=== PATIENT | female | born 1970 | race Caucasian/White ===

== ENCOUNTER 2023-11-08 14:34 | Outpatient (OUT) | payer MEDICARE, SELFPAY ==
--- NOTE | 2023-11-08 15:37 | P.CN_ITS ---
Consult Note: HPI Data of Consult Patient: known to practice within the last 3 years Consult date: 11/08/23 Requesting Physician: Jadyn Osman MD Primary Care Provider: Non-Staff Physician, Consult Narrative Reason for consult: low back, left leg pain Narrative: 53yof who presents for assessment. longstanding low back history, left leg pain. denies trauma to the area. no recent advanced imaging available for review. has tried various medications, but no neuropathic medications. has completed a series of provider directed home exercises for >6 weeks, without lasting benefit. denies adverse med side effects. cc:: CC: Jadyn Osman MD Review of Systems ROS Status of ROS 10 or more systems reviewed and unremark able except as noted in history and below Exam Narrative Exam Narrative: Psych-alert and oriented x 3. Attentive and appropriate, constitutionally normal, displays normal mood and affect per situation. There are no obvious deficits in memory, reasoning, or intellect.? Skin-no obvious rashes, bruising, erythema noted to the patient's area of pain.? Extremities- extremities are warm with minimal edema and palpable pulses. Lumbar-tenderness to palpation noted in the lumbar spine and paraspinal musculature. Pain is elicited with flexion, extension, and lateral rotation of the lumbar spine. Range of motion is diminished with these motions. Facet loading maneuvers are positive. Strength-noted to be unremarkable with the exception of decreased strength rated at 4 out of 5 in left quadriceps femoris, anterior tibialis. Sensory-no notable sensory deficits in the bilateral lower extremities to touch or pinprick in all dermatomal distributions with the exception to decreased sensation to the left L4, 5 dermatomal distribution Coordination remains intact.? Gait remains non-antalgic. Assessment and Plan Assessment and Plan (1) Lumbar stenosis with neurogenic claudication: Plan 53yof who presents for assessment. failed conservative measures, as noted. given worsening symptoms and exam findings, will order lumbar mri without contrast for further info. she is in agreement. meds reviewed. will trial gabapentin 300mg tid. follow up after imaging.
== END 2023-11-08 14:35 | disposition home or self-care (01) ==
LOC: PM 14:34
PROVIDERS: Visit Provider Anesthesiology
DX: M48.062 Spinal stenosis, lumbar region with neurogenic claudication (principal)
CPT/HCPCS: G0463

== ENCOUNTER 2023-11-16 12:57 | Outpatient (OUT) | payer MEDICARE, SELFPAY ==
--- NOTE | 2023-11-16 13:00 | MR_ITS ---
The [address] [address] Patient Name: ANDREEA VALLE MRN: [facility]:[id number] date: 1970 Sex: F Assigned Patient Location: MRI Current Patient Location: Accession/Order Number: [id number] Exam Date: 11/16/2023 13:05 Report Date: 11/16/2023 15:58 At the request of: ADALBERTO MCGUIRE Procedure: MR lumbar spine wo con EXAMINATION: MR lumbar spine wo con HISTORY: Low Back Pain, Lumbar Stenosis COMPARISON: No relevant comparison available. TECHNIQUE: A variety of imaging planes and parameters were utilized for visualization of suspected pathology. FINDINGS: For the purposes of numbering, sagittal T2 image # 8 extends from the T10 vertebral body superiorly to the S2-S3 level inferiorly. PARASPINAL AREA: Normal with no visible mass. BONES: Normal alignment with no acute fracture or spondylolisthesis. Signal abnormality in the vertebral body centered at the L2-L3 and L5-S1 level, Modic 2 inflammatory changes CORD/CAUDA EQUINA: Normal caliber, contour, and signal intensity. DISC LEVELS: 12-L1: No significant disc/facet abnormality, spinal stenosis, or foraminal stenosis. L1-L2: No significant disc/facet abnormality, spinal stenosis, or foraminal stenosis. L2-L3: Moderate to severe disc space narrowing, left greater than right with endplate sclerosis. Moderate diffuse disc/osteophyte complex. Moderate ligamentum flavum hypertrophy and facet osteoarthropathy. Moderate trefoil narrowing of the central canal, axial image #4. No right, moderate left foraminal stenosis L3-L4: Moderate disc space narrowing and disc desiccation. Right base posterior disc protrusion most significant along the left neural foramen. Moderate ligamentum flavum hypertrophy and facet osteoarthropathy. Mild trefoil narrowing of the central canal. No foraminal stenosis L4-L5: Disc desiccation. Left foraminal disc herniation of the protrusion type extending posteriorly up to 7.2 mm narrowing the lateral recess. Severe ligamentum flavum hypertrophy and facet osteophytes arthropathy. Severe central canal and left foraminal stenosis L5-S1: Severe disc space narrowing with endplate sclerosis. Posterior broad-based disc herniation of the protrusion and extrusion components, extending posteriorly up to 4.6 mm in the right neural foramen with severe right foraminal stenosis. No central canal stenosis. Mild left foraminal stenosis MR/MR lumbar spine wo con IMPRESSION: Extensive degenerative changes with central and foraminal stenosis at multiple levels, most significant at L4-L5 where there is severe central and severe left foraminal stenosis Electronically authenticated by: DEVYN BEE Date: 11/16/2023 15:58
== END 2023-11-16 12:58 | disposition home or self-care (01) ==
LOC: MRI 12:57
PROVIDERS: Visit Provider Anesthesiology
DX: M54.50 Low back pain, unspecified (principal); M48.062 Spinal stenosis, lumbar region with neurogenic claudication; M51.36 Other intervertebral disc degeneration, lumbar region
CPT/HCPCS: 72148

== ENCOUNTER 2023-11-18 14:51 | Outpatient (OUT) | payer MEDICARE, SELFPAY ==
--- NOTE | 2023-11-18 15:34 | P.CN_ITS ---
Consult Note: HPI Data of Consult Patient: known to practice within the last 3 years Consult date: 11/08/23 Requesting Physician: Lakeisha Hays NP Primary Care Provider: Non-Staff Physician, Consult Narrative Reason for consult: low back, left leg pain Narrative: 53yof who presents for assessment. longstanding low back history, left leg pain. has tried various medications, including baclofen 5mg BID PRN and gabapentin 300mg TID without moderate relief. has completed a series of provider directed home exercises for >6 weeks, without lasting benefit. denies adverse med side effects. Recent lumbar MRI reviewed as noted below. Patient reports she has failed lumbar ESIs in the past with Dr Doll, and would like to avoid ESIs due to DM and elevated blood sugars. cc:: CC: Lakeisha Hays NP Review of Systems ROS Status of ROS 10 or more systems reviewed and unremark able except as noted in history and below Musculoskeletal Reports: back pain and extremity pain Exam Narrative Exam Narrative: Psych-alert and oriented x 3. Attentive and appropriate, constitutionally normal, displays normal mood and affect per situation. There are no obvious deficits in memory, reasoning, or intellect.? Skin-no obvious rashes, bruising, erythema noted to the patient's area of pain.? Extremities- extremities are warm with minimal edema and palpable pulses. Lumbar-tenderness to palpation noted in the lumbar spine and paraspinal musculature. Pain is elicited with flexion, extension, and lateral rotation of the lumbar spine. Range of motion is diminished with these motions. Facet loading maneuvers are positive. Strength-noted to be unremarkable with the exception of decreased strength rated at 4 out of 5 in left quadriceps femoris, anterior tibialis. Sensory-no notable sensory deficits in the bilateral lower extremities to touch or pinprick in all dermatomal distributions with the exception to decreased sensation to the left L4, 5 dermatomal distribution Coordination remains intact.? Gait remains non-antalgic. Constitutional Documenting provider has reviewed patient's vital signs: yes Common normals: no apparent distress, oriented x3, healthy appearing, alert and well nourished General appearance: cooperative HENCT Common normals: normocephalic, hearing grossly normal bilaterally and moist oral mucous membranes Head and scalp: normocephalic Eye Common normals: PERRL Pupil: PERRL Neck & C-Spine Common normals: full ROM General: normal visual inspection Chest Common normals: inspection of chest normal Respiratory Common normals: normal respiratory effort, no retractions and no use of accessory muscles Neuro Common normals: oriented x3, CN's II-XII intact bilaterally, moves all extremities, no focal motor deficits, no sensory deficits noted and deep tendon reflexes 2+ bilaterally Sensorium/orientation: alert Motor exam: strength 5/5 throughout and no movement abnormalities noted Psych Common normals: mental status grossly normal, thought process normal, cooperative, affect normal, speech normal and activity/motor behavior normal Speech: normal speech Thought process: normal thought process Results Imaging Lumbar MRI: Attestation: I have reviewed the pertinent imaging results. Radiologist's impression: For the purposes of numbering, sagittal T2 image # 8 extends from the T10 vertebral body superiorly to the S2-S3 level inferiorly. PARASPINAL AREA: Normal with no visible mass. BONES: Normal alignment with no acute fracture or spondylolisthesis. Signal abnormality in the vertebral body centered at the L2-L3 and L5-S1 level, Modic 2 inflammatory changes CORD/CAUDA EQUINA: Normal caliber, contour, and signal intensity. DISC LEVELS: 12-L1: No significant disc/facet abnormality, spinal stenosis, or foraminal stenosis. L1-L2: No significant disc/facet abnormality, spinal stenosis, or foraminal stenosis. L2-L3: Moderate to severe disc space narrowing, left greater than right with endplate sclerosis. Moderate diffuse disc/osteophyte complex. Moderate ligamentum flavum hypertrophy and facet osteoarthropathy. Moderate trefoil narrowing of the central canal, axial image #4. No right, moderate left foraminal stenosis L3-L4: Moderate disc space narrowing and disc desiccation. Right base posterior disc protrusion most significant along the left neural foramen. Moderate ligamentum flavum hypertrophy and facet osteoarthropathy. Mild trefoil narrowing of the central canal. No foraminal stenosis L4-L5: Disc desiccation. Left foraminal disc herniation of the protrusion type extending posteriorly up to 7.2 mm narrowing the lateral recess. Severe ligamentum flavum hypertrophy and facet osteophytes arthropathy. Severe central canal and left foraminal stenosis L5-S1: Severe disc space narrowing with endplate sclerosis. Posterior broad-based disc herniation of the protrusion and extrusion components, extending posteriorly up to 4.6 mm in the right neural foramen with severe right foraminal stenosis. No central canal stenosis. Mild left foraminal stenosis Additional Findings Additional findings: If on a controlled substance or opioids, I have checked an [place]AR[place] report on this patient and there are no aberrancies noted in the prescribing history.??If on a controlled substance or opioid a drug screen was completed and reviewed within the last year, and if there has not been a drug screen completed we ordered one today to monitor higher risk, state monitored pain medication use. As part of providing excellent, safe, comprehensive care, the following was completed at our patient's visit: 1. A medication reconciliation and review to ensure accurate knowledge of current/active medications, including asking our patients to inform us about any [id number] medications or herbal remedies/nutritional supplements/alterna tive remedies. 2. A review to specifically ensure our patients have had annual screening for screening for depression, screening for tobacco use, and screening for unhealthy alcohol use. For concerning screenings had a discussion with the patient, provided patient education, and recommended follow-up with primary care provider when appropriate. If patient noted with a risk of falling, they received education on strength, gait, and balance training to prevent future risk of falling. Assessment and Plan Assessment and Plan (1) Lumbar stenosis with neurogenic claudication: (2) Lumbar degenerative disc disease: (3) Lumbar facet arthropathy: Plan Lumbar MRI reviewed with patient. Defer ESIs at this time. Not a candidate for vertiflex due to obesity. Dr Osman to review case for consideration of spinal cord stimulator. I reviewed the trial, risks vs benefits, and provided handout to patient today. Psych evaluation handout provided. With recent A1c around 9% we will request blood work from PCP and formulate A1c goal
== END 2023-11-18 14:52 | disposition home or self-care (01) ==
LOC: PM 14:52
PROVIDERS: Visit Provider Nurse Practitioner
DX: M48.062 Spinal stenosis, lumbar region with neurogenic claudication (principal); M51.36 Other intervertebral disc degeneration, lumbar region; M47.816 Spondylosis without myelopathy or radiculopathy, lumbar region
CPT/HCPCS: G0463

== ENCOUNTER 2024-03-08 13:11 | Outpatient (OUT) | payer MEDICARE, SELFPAY ==
--- NOTE | 2024-03-08 13:51 | P.CN_ITS ---
Consult Note: HPI Data of Consult Patient: known to practice within the last 3 years Consult date: 11/08/23 Requesting Physician: Lakeisha Hays NP Primary Care Provider: Non-Staff Physician, MD Consult Narrative Reason for consult: low back, left leg pain Narrative: 53yof who presents for assessment. longstanding low back history, left leg pain. has tried various medications, including baclofen 5mg BID PRN and gabapentin 300mg TID without moderate relief. has completed a series of provider directed home exercises for >6 weeks, without lasting benefit. denies adverse med side effects. Recent lumbar MRI reviewed as noted below. Patient reports she has failed lumbar ESIs in the past with Dr Doll, and would like to avoid ESIs due to DM and elevated blood sugars. Patient had expressed interest in a spinal cord stimulator but met with Dr Jackie OCONNOR who performed L2-S1 fusion on 02/01/24. Since her surgery she has had increased numbness tingling and radicular pain. Has home health and in home PT. cc:: CC: Lakeisha Hays NP Review of Systems ROS Status of ROS 10 or more systems reviewed and unremark able except as noted in history and below Musculoskeletal Reports: back pain and extremity pain PFSH PFSH Medical History (Updated 03/08/24 @ 13:54 by Lakeisha Hays NP) Biceps muscle tear ?S46.219A - Strain of muscle, fascia and tendon of other parts of biceps, unspecified arm, initial encounter (ICD-10) TMJ (dislocation of temporomandibular joint) ?S03.00XA - Dislocation of jaw, unspecified side, initial encounter (ICD-10) Psoriatic arthritis ?L40.50 - Arthropathic psoriasis, unspecified (ICD-10) Anxiety ?F41.9 - Anxiety disorder, unspecified (ICD-10) Diabetes ?E11.9 - Type 2 diabetes mellitus without complications (ICD-10) COPD (chronic obstructive pulmonary disease) ?J44.9 - Chronic obstructive pulmonary disease, unspecified (ICD-10) HTN (hypertension) ?I10 - Essential (primary) hypertension (ICD-10) Surgical History History of hysterectomy ?Z90.710 - Acquired absence of both cervix and uterus (ICD-10) History of arthroscopic knee surgery ?Z98.890 - Other specified postprocedural states (ICD-10) Hx of cholecystectomy ?Z90.49 - Acquired absence of other specified parts of digestive tract (ICD- 10) H/O section ?Z98.891 - History of uterine scar from previous surgery (ICD-10) Meds Home Medications and Allergies Home Medications ?Medication ?Instructions ?Recorded ?Confirmed ?Type gabapentin 300 mg capsule 300 mg PO TID #90 caps 12/20/23 Rx abatacept 125 mg/mL subcutaneous 125 mg subcut QWEEK 01/04/24 01/04/24 History syringe (Orencia) amlodipine 10 mg tablet 10 mg PO DAILY 01/04/24 01/04/24 History atorvastatin 40 mg tablet 40 mg PO DAILY 01/04/24 01/04/24 History baclofen 10 mg tablet 10 mg PO BID 01/04/24 01/04/24 History carvedilol 25 mg tablet 25 mg PO BID 01/04/24 01/04/24 History clobetasol 0.05 % topical ointment 1 applic topical BID 01/04/24 01/04/24 History conjugated estrogens 0.3 mg tablet 0.3 mg PO DAILY 01/04/24 01/04/24 History (Premarin) ezetimibe 10 mg tablet 10 mg PO DAILY 01/04/24 01/04/24 History famotidine 20 mg tablet 20 mg PO BID 01/04/24 01/04/24 History fluticasone propionate 50 2 spray intranasal DAILY PRN 01/04/24 01/04/24 History mcg/actuation nasal allergy symptoms spray,suspension (24 Hour Allergy Relief) glipizide 10 mg tablet 10 mg PO BID 01/04/24 01/04/24 History hydroxyzine HCl 25 mg tablet 25 mg PO QID PRN nausea and 01/04/24 01/04/24 History vomiting levothyroxine 125 mcg capsule 125 mcg PO DAILY 01/04/24 01/04/24 History losartan 100 mg tablet 100 mg PO DAILY 01/04/24 01/04/24 History ropinirole 0.25 mg tablet 0.25 mg PO DAILY 01/04/24 01/04/24 History semaglutide 2 mg/dose (8 mg/3 mL) 2 mg subcut QWEEK 01/04/24 01/04/24 History subcutaneous pen injector (Ozempic) spironolactone 50 mg tablet 50 mg PO DAILY 01/04/24 01/04/24 History venlafaxine 75 mg tablet 75 mg PO DAILY 01/04/24 01/04/24 History gabapentin 300 mg capsule 300 mg PO TID #90 caps 02/08/24 Rx Allergies Allergy/AdvReac Type Severity Reaction Status Date / Time adhesive Allergy Blister Verified 12/20/23 13:01 shellfish derived Allergy Vomiting Verified 12/20/23 13:01 Exam Constitutional Documenting provider has reviewed patient's vital signs: yes Common normals: no apparent distress, oriented x3, healthy appearing, alert and well nourished General appearance: cooperative HENMT Common normals: normocephalic, hearing grossly normal bilaterally and moist oral mucous membranes Head and scalp: normocephalic Eye Common normals: PERRL Pupil: PERRL Neck & C-Spine Common normals: full ROM General: normal visual inspection Chest Common normals: inspection of chest normal Respiratory Common normals: normal respiratory effort, no retractions and no use of accessory muscles Back & Pelvis Lumbar spine/lower back: ROM limited, pain with ROM, paraspinal muscle tenderness and straight leg raise positive left; abnormal to inspection Other: surgical scar without drainage, however two areas of seperation noted and erythema around the incision. pt reports intense itching. strength 4/5 in LLE, 5/5 in RLE decreased sensation to left L4,5,S1 Neuro Common normals: oriented x3, CN's II-XII intact bilaterally, moves all extremities, no focal motor deficits, no sensory deficits noted and deep tendon reflexes 2+ bilaterally Sensorium/orientation: alert Gait (neuro): assistive device used walker Motor exam: no movement abnormalities noted and strength abnormal Psych Common normals: mental status grossly normal, thought process normal, cooperative, affect normal, speech normal and activity/motor behavior normal Speech: normal speech Thought process: normal thought process Results Additional Findings Additional findings: If on a controlled substance or opioids, I have checked an [place]AR[place] report on this patient and there are no aberrancies noted in the prescribing history.??If on a controlled substance or opioid a drug screen was completed and reviewed within the last year, and if there has not been a drug screen completed we ordered one today to monitor higher risk, state monitored pain medication use. As part of providing excellent, safe, comprehensive care, the following was completed at our patient's visit: 1. A medication reconciliation and review to ensure accurate knowledge of current/active medications, including asking our patients to inform us about any [id number] medications or herbal remedies/nutritional supplements/alternative remedies. 2. A review to specifically ensure our patients have had annual screening for screening for depression, screening for tobacco use, and screening for unhealthy alcohol use. For concerning screenings had a discussion with the patient, provided patient education, and recommended follow-up with primary care provider when appropriate. If patient noted with a risk of falling, they received education on strength, gait, and balance training to prevent future risk of falling. Assessment and Plan Assessment and Plan (1) Status post lumbar spinal fusion: (2) Lumbar stenosis with neurogenic claudication: (3) Lumbar spondylosis: (4) Myalgia: Plan advised pt to reach out to NS regarding incision healing, has homehealth with nurse coming tomorrow to assess increase gabapentin 600mg tablets TID as tolerated stop baclofen, start methocarbamol 500-1000mg TID PRN pain/spasms continue PT f/u 3 months, sooner if needed
== END 2024-03-08 13:12 | disposition home or self-care (01) ==
LOC: PM 13:11
PROVIDERS: Visit Provider Nurse Practitioner
DX: M43.26 Fusion of spine, lumbar region (principal); Z98.1 Arthrodesis status; M48.062 Spinal stenosis, lumbar region with neurogenic claudication; M47.816 Spondylosis without myelopathy or radiculopathy, lumbar region; M79.10 Myalgia, unspecified site
CPT/HCPCS: G0463

== ENCOUNTER 2024-11-22 14:40 | Outpatient (OUT) | payer MEDICARE, SELFPAY ==
--- NOTE | 2024-11-22 15:05 | PM.CN ---
Consult Note: HPI Data of Consult Patient: known to practice within the last 3 years Consult date: 11/22/24 Requesting Physician: Lakeisha Hays NP Primary Care Provider: Non-Staff Physician, MD Consult Narrative Reason for consult: low back, left leg pain Narrative: 54yof who presents for assessment. longstanding low back history, left leg pain. has completed a series of provider directed home exercises for >6 weeks, without lasting benefit. denies adverse med side effects. Recent lumbar MRI reviewed as noted below. Patient reports she has failed lumbar ESIs in the past with Dr Doll, and would like to avoid ESIs due to DM and elevated blood sugars. Patient had expressed interest in a spinal cord stimulator but met with Dr Jackie OCONNOR who performed L2-S1 fusion on 02/01/24. continues to endorse left leg and foot numbness tingling and weakness, has been evaluated by ELVIN who recommends pt continue gabapentin. cc:: CC: Lakeisha Hays NP [facility] Medical History (Updated 11/22/24 @ 15:11 by Lakeisha Hays NP) Biceps muscle tear �S46.219A - Strain of muscle, fascia and tendon of other parts of biceps, unspecified arm, initial encounter (ICD-10) TMJ (dislocation of temporomandibular joint) �S03.00XA - Dislocation of jaw, unspecified side, initial encounter (ICD-10) Psoriatic arthritis �L40.50 - Arthropathic psoriasis, unspecified (ICD-10) Anxiety �F41.9 - Anxiety disorder, unspecified (ICD-10) Diabetes �E11.9 - Type 2 diabetes mellitus without complications (ICD-10) COPD (chronic obstructive pulmonary disease) �J44.9 - Chronic obstructive pulmonary disease, unspecified (ICD-10) HTN (hypertension) �I10 - Essential (primary) hypertension (ICD-10) Surgical History History of hysterectomy �Z90.710 - Acquired absence of both cervix and uterus (ICD-10) History of arthroscopic knee surgery �Z98.890 - Other specified postprocedural states (ICD-10) Hx of cholecystectomy �Z90.49 - Acquired absence of other specified parts of digestive tract (ICD-10) H/O section �Z98.891 - History of uterine scar from previous surgery (ICD-10) Meds Home Medications and Allergies Home Medications �Medication �Instructions �Recorded �Confirmed �Type gabapentin 300 mg capsule 300 mg PO TID #90 caps 12/20/23 Rx abatacept 125 mg/mL subcutaneous 125 mg subcut QWEEK 01/04/24 01/04/24 History syringe (Orencia) amlodipine 10 mg tablet 10 mg PO DAILY 01/04/24 01/04/24 History atorvastatin 40 mg tablet 40 mg PO DAILY 01/04/24 01/04/24 History baclofen 10 mg tablet 10 mg PO BID 01/04/24 01/04/24 History carvedilol 25 mg tablet 25 mg PO BID 01/04/24 01/04/24 History clobetasol 0.05 % topical ointment 1 applic topical BID 01/04/24 01/04/24 History conjugated estrogens 0.3 mg tablet 0.3 mg PO DAILY 01/04/24 01/04/24 History (Premarin) ezetimibe 10 mg tablet 10 mg PO DAILY 01/04/24 01/04/24 History famotidine 20 mg tablet 20 mg PO BID 01/04/24 01/04/24 History fluticasone propionate 50 2 spray intranasal DAILY PRN 01/04/24 01/04/24 History mcg/actuation nasal allergy symptoms spray,suspension (24 Hour Allergy Relief) glipizide 10 mg tablet 10 mg PO BID 01/04/24 01/04/24 History hydroxyzine HCl 25 mg tablet 25 mg PO QID PRN nausea and 01/04/24 01/04/24 History vomiting levothyroxine 125 mcg capsule 125 mcg PO DAILY 01/04/24 01/04/24 History losartan 100 mg tablet 100 mg PO DAILY 01/04/24 01/04/24 History ropinirole 0.25 mg tablet 0.25 mg PO DAILY 01/04/24 01/04/24 History semaglutide 2 mg/dose (8 mg/3 mL) 2 mg subcut QWEEK 01/04/24 01/04/24 History subcutaneous pen injector (Ozempic) spironolactone 50 mg tablet 50 mg PO DAILY 01/04/24 01/04/24 History venlafaxine 75 mg tablet 75 mg PO DAILY 01/04/24 01/04/24 History gabapentin 300 mg capsule 300 mg PO TID #90 caps 02/08/24 Rx Allergies Allergy/AdvReac Type Severity Reaction Status Date / Time adhesive Allergy Blister Verified 12/20/23 13:01 shellfish derived Allergy Vomiting Verified 12/20/23 13:01 Exam Constitutional Documenting provider has reviewed patient's vital signs: yes Common normals: no apparent distress, oriented x3, healthy appearing, alert and well nourished General appearance: cooperative HENMT Common normals: normocephalic, hearing grossly normal bilaterally and moist oral mucous membranes Head and scalp: normocephalic Eye Common normals: PERRL Pupil: PERRL Neck & C-Spine Common normals: full ROM General: normal visual inspection Chest Common normals: inspection of chest normal Respiratory Common normals: normal respiratory effort, no retractions and no use of accessory muscles Back & Pelvis Lumbar spine/lower back: ROM limited, pain with ROM, paraspinal muscle tenderness and straight leg raise positive left; abnormal to inspection Other: strength 4/5 in LLE, 5/5 in RLE decreased sensation to left L4,5,S1 Neuro Common normals: oriented x3 Sensorium/orientation: alert Gait (neuro): assistive device used walker Motor exam: no movement abnormalities noted and strength abnormal Psych Common normals: mental status grossly normal, thought process normal, cooperative, affect normal, speech normal and activity/motor behavior normal Speech: normal speech Thought process: normal thought process Results Additional Findings Additional findings: If on a controlled substance or opioids, I have checked an [place] report on this patient and there are no aberrancies noted in the prescribing history.��If on a controlled substance or opioid a drug screen was completed and reviewed within the last year, and if there has not been a drug screen completed we ordered one today to monitor higher risk, state monitored pain medication use. As part of providing excellent, safe, comprehensive care, the following was completed at our patient's visit: 1. A medication reconciliation and review to ensure accurate knowledge of current/active medications, including asking our patients to inform us about any xulm-wjt-aeozoro medications or herbal remedies/nutritional supplements/alternative remedies. 2. A review to specifically ensure our patients have had annual screening for screening for depression, screening for tobacco use, and screening for unhealthy alcohol use. For concerning screenings had a discussion with the patient, provided patient education, and recommended follow-up with primary care provider when appropriate. If patient noted with a risk of falling, they received education on strength, gait, and balance training to prevent future risk of falling. Portions of this note may have been carried over from the previous visit and updated as appropriate. Please note this office utilizes paper charting in addition to the electronic medical record. A list of current medications, vitals, and PMH is available there as the clinical staff outside of myself do not have access to [employer] charting during the clinic day operations. As part of providing quality comprehensive care the current medications, vitals, and PMH were reviewed in the paper chart. Assessment and Plan Assessment and Plan (1) Lumbar radiculopathy: (2) Failed back syndrome, lumbar: (3) Myalgia: Plan declining lumbar TFESI declining increase in gabapentin, continue gabapentin 300mg BID consider scs trial in the future, upcoming NS appointment 02/01 f/u 3 months, sooner if needed
== END 2024-11-22 14:41 | disposition home or self-care (01) ==
LOC: PM 14:41
PROVIDERS: Visit Provider Nurse Practitioner
DX: M54.16 Radiculopathy, lumbar region (principal); M96.1 Postlaminectomy syndrome, not elsewhere classified; M79.18 Myalgia, other site
CPT/HCPCS: G0463

== ENCOUNTER 2025-02-22 13:47 | Outpatient (OUT) | payer MEDICARE, SELFPAY ==
--- OUTSIDE RECORDS SUMMARY | 2024-07-21 06:50 | XMS_ITS ---
Author Organization [facility] Address [address] [place] [address] Care Team Providers Care Speed Operator Name Role Phone ROLAND SAMUELS CNP Primary Care Provider [facility], [place] Unavailable [phone] REASON FOR VISIT LUMBAR RECHECK Medications Medication SIG (Take, Route, Frequency, Duration) Notes Start Date End Date Status Ozempic 8 mg/3 mL (2 mg dose) INJECT 2 MG UNDER THE SKIN EVERY WEEK for 28 Days Active baclofen 10 mg TAKE 1 TABLET BY RAMU TH TWICE DAILY for 90 Days Active spironolactone 50 mg TAKE 1 TABLET BY MO UTH DAILY for 35 Days Active ezetimibe 10 mg for 30 Days Ac tive gabapentin 300 mg for 30 Days Active rOPINIRole Active carvedilol 25 mg for 90 Days A ctive levothyroxine 125 mcg (0.125 mg) 1 tab(s) Active losartan Active amLODIPine Active atorvastatin Active Orencia Active metFORMIN Active Effexor XR Active Encounters Encounter Location Date Provider Diagnosis [facility] [address] [place] [id number] 07/21/2024 Selvojerome Anna Plan Of Treatment Pending Test Test Name Order Date Lumbar spine, 4v flex ext - 52996 2024 Progress Notes * ANDREEA VALLE ADOB: [birth year] (54 yo F)Acc No.[id number]:07/21/2024 Patient: ANDREEA ROMERO Provider: Vivek Carrion MD, PhD :1970 A ge:54 Y S ex:Female Date:07/21/2024 Address:[place], [id number] Pcp:ROLAND SAMUELS, CONSUMER EXPERIENCE CONSULTANT Subjective: * Chief Complaints: * 1 . LUMBAR RECHECK. * Medical History: * Medications: T aking Effexor XR , Taking Orencia , Taking metFORMIN , Taking atorvastatin , Taking rOPINIRole , Taking losartan , Taking amLODIPine , Taking levothyroxine 125 mcg (0.125 mg) tablet 1 tab(s) , Taking carvedilol 25 mg tablet , Taking gabapentin 300 mg capsule , Taking spironolactone 50 mg tablet TAKE 1 TABLET BY MOUTH DAILY , Taking ezetimibe 10 mg tablet , Taking Ozempic 8 mg/3 mL (2 mg dose) solution INJECT 2 MG UNDER THE SKIN EVERY WEEK , Taking baclofen 10 mg tablet TAKE 1 TABLET BY MOUTH TWICE DAILY Objective: * Vitals: Assessment: Plan: * Treatment: * Procedure Codes: 7 2109 X-ray Lumbar Spine, 5 view complete Forms: * Images: * Electronic signature of Selyola Castillo MD, PHD on 02/22/2025 at 01:51 PM EDT Sign off status: Pending * Provider: Vivek Carrion MD, PhD Date: 0 07/21/2024 Generated for Mady proctor/Becka/Alexitting on: 1 01:51 PM EDT
--- OUTSIDE RECORDS SUMMARY | 2025-02-02 07:10 | XMS_ITS ---
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 LUMBAR RECHECK- -RESCHEDULE TO . * Medical History: Objective: * Vitals: Assessment: Plan: * Treatment: Forms: * Images: * Electronic signature of Simon Li PA-C on 02/22/2025 at 01:52 PM EDT Sign off status: Pending * Provider: Rock Li PA-C Date: 0 02/02/2025 Generated for Mady proctor/Becka/Manuel on: 1 01:52 PM EDT
--- OUTSIDE RECORDS SUMMARY | 2025-02-08 07:00 | XMS_ITS ---
Author Organization [facility] Address [address] [place] [address] Care Team Providers Care Barrel Bander Name Role Phone ROLAND SAMUELS CNP Primary Care Provider Unavailabl Bran Man Unavailable [phone] Tad Li Unavailable [phone] Allergies Allergen (clinical drug ingredient) Drug/Non Drug Allergy documented on EMR Reaction Allergy Type Onset Date Status Seafood seafood (uncoded) nausea/vomiting Allergy Active sulfa (uncoded) nausea/vomiting Allergy Active Reason For Referral Reason NO AUTH REQ......... ..........................NOT SCHEDULED....................................[facility] MRI lumbar spine at [facility] Diagnosis 1 Encounter for other orthopedic aftercare (Z47.89) Diagnosis 2 Left leg weakness (R 29.898) Diagnosis 3 Left foot drop (M21. 372) Referral Organization [facility] Referring Provider First Name Bran Referring Provider Last Name Anna Referring Provider Speciality Orthopedic Surgery Referred Organization [facility] Scheduling Procedure 1 MRI Lumbar Spine w/o Dye (01901) General Notes Birdie Bruner 06/2024 12:05:24 PM >, Rafaela Cook 02/08/2025 12:07:30 PM > MEDICARE PARTS A & B ACTIVE AND EFFECTIVE 10/08/20 PER [employer]. NO AUTHORIZATION REQUIRED. FAXED TO [facility]., Birdie Bruner 02/08/2025 02:14:21 PM > faxed Referral Priority Routine Reason referral to Dr. Smyth rne; left lower extremity EMG Diagnosis 1 Encounter for other orthopedic aftercare (Z47.89) Diagnosis 2 Left foot drop (M21. 372) Diagnosis 3 Left leg weakness (R 29.898) Referral Organization [facility] Referring Provider First Name Bran Referring Provider Last Name Anna Referring Provider Speciality Orthopedic Surgery Referred Organization [facility] Referred [address], [place],[address], General Notes Birdie Bruner 06/2024 12:06:29 PM >Franc Sara 02/14/2025 02:10:25 PM > faxed Referral Priority Routine REASON FOR VISIT Lumbar recheck Medications Medication SIG (Take, Route, Frequency, Duration) Notes Start Date End Date Status losartan Active Orencia Active metFORMIN Active atorvastatin Active rOPINIRole Active spironolactone 50 mg TAKE 1 TABLET BY MO UTH DAILY for 35 Days Active Effexor XR Active ezetimibe 10 mg for 30 Days Ac tive Ozempic 8 mg/3 mL (2 mg dose) INJECT 2 MG UNDER THE SKIN EVERY WEEK for 28 Days Active baclofen 10 mg TAKE 1 TABLET BY RAMU TH TWICE DAILY for 90 Days Active carvedilol 25 mg for 90 Days A ctive gabapentin 300 mg for 30 Days Active amLODIPine Active levothyroxine 125 mcg (0.125 mg) 1 tab(s) Active Social History Tobacco Use: Social History Observation Description Date Details (start date - stop date) Never Smoker NA - NA AUDIT-C (Standard) Question Answer Notes Did you have a drink containing alcohol in the p ast year? No Points 0 Interpretation Negative Tobacco Control (Standard) Question Answer Notes Tobacco use: Nonsmoker Vital Signs Height 5 ft 4 in in 02/08/2025 Weight 265 lbs 02/08/2025 BMI 45.48 02/08/2025 Encounters Encounter Location Date Provider Diagnosis [facility] [place] [address] 02/08/2025 Tad Li Encounter for other orthopedic aftercare Z47.89 ; Left leg weakness R29.898 and Left foot drop M21.372 Assessments Encounter Date Diagnosis (ICD Code) Assessment Notes Treatment Notes Treatment Clinical Notes Section Notes 02/08/2025 Encounter for other orthopedic aftercare (ICD-10 - Z47.89) 1. 1 year status post L2-S1 decompression and fusion with complaints of left leg weakness and left foot drop 02/08/2025 Left leg weakness (ICD-10 - R29.898) 1. 1 year status post L2-S1 decompression and fusion with complaints of left leg weakness and left foot drop 02/08/2025 Left foot drop (ICD-10 - M21.372) 1. 1 year status post L2-S1 decompression and fusion with complaints of left leg weakness and left foot drop 02/08/2025 Other Plan established by Dr. Carrion. Patient seen and evaluated by Dr. Carrion today. We will set her up with an updated MRI of the lumbar spine given her ongoing left foot drop and left leg weakness. We also get an EMG of the left lower extremity. We will see her back in the office after the imaging is completed to discuss results and treatment options. The patient is very much in agreement with the treatment and/or diagnostic plan set forth and all questions were answered to the patient's satisfaction. Thanks once again. If we can be of further service to your patients with disorders of the spine, cervical, thoracic, or lumbar, please do not hesitate to contact Dr. Carrion. Best regards, 1. 1 year status post L2-S1 decompression and fusion with complaints of left leg weakness and left foot drop Plan Of Treatment Treatment Notes Assessment Notes Other Plan established by Dr. Carrion. Patient seen and evaluated by Dr. Carrion today. We will set her up with an updated MRI of the lumbar spine given her ongoing left foot drop and left leg weakness. We also get an EMG of the left lower extremity. We will see her back in the office after the imaging is completed to discuss results and treatment options. The patient is very much in agreement with the treatment and/or diagnostic plan set forth and all questions were answered to the patient's satisfaction. Thanks once again. If we can be of further service to your patients with disorders of the spine, cervical, thoracic, or lumbar, please do not hesitate to contact Dr. Carrion. Best regards, Pending Test Test Name Order Date Lumbar spine, 4v flex ext - 14862 2024 MRI : Lumbosacral Spine W/O Contrast - 7 214702/08/2025 EMG/NCS Lower Extremity, Left 02/08/2025 Referrals Referral Date Details 02/08/2025 02/08/2025, NO AUTH REQ...................................NOT SCHEDULED....................................[facility] MRI lumbar spine at [facility], 02/08/2025 02/08/2025, referral to Dr. Scott; left lower extremity EMG, [address] [place], [address], Next Appt Details Follow Up: after mri/ emgAnkit: Progress Notes * TIMOTHY VALLEH ADOB: [birth year] (54 yo F)Acc No.[id number]:02/08/2025 Patient: ANDREEA ROMERO Provider: Rock Li PA-C :1970 A ge:54 Y S ex:Female Date:02/08/2025 Address:[address] [place], [place] [phone] Pcp:ROLAND SAMUELS, BOMBSIGHT SPECIALIST Subjective: * Chief Complaints: * 1 . Lumbar recheck. * HPI: H PI: Dictated by Tad Li PA-C The patient returns to the office today 1 year status post L2-S1 decompression and fusion. She reports ongoing weakness in the left leg and feels like it gives out. She states her back is feeling good and she denies having any significant leg pain. She does have some numbness from the mid left metcalf into the 1st and 2nd toe. She also has an ongoing left foot drop, no significant change since her last appointment. * Medical History: H igh Blood Pressure, Liver Disease, Diabetes, Thyroid disease, Gastric Reflux, Irritable bowel syndrome, Osteoarthritis, Endometriosis, Ovarian Cysts, Anxiety, Seen a Psychiatrist, Sleep apnea, Drug Allergies. * Surgical History: L 4-S1 TLIF, L2-3 laminectomy, PSF 02/01/2024. * Family History: N o Family History documented.. * Social History: E xercise regularly D o you exercise? Y es, H ow many times per week? 2 times. [address] is your place of residence? W here do you live? P rivate home. A LAVONNE-C (Standard) D id you have a drink containing alcohol in the past year? N o, P oints 0 , Interpretation N egative. T obacco Control (Standard) T obacco use: N onsmoker.? * Medications: T aking Effexor XR , [...] TAKE 1 TABLET BY MOUTH TWICE DAILY , Medication List reviewed and reconciled with the patient * Allergies: S ulfa: Nausea/vomiting, Seafood: Nausea/vomiting. Objective: * Vitals: H t: 5 ft 4 in, Wt: 265 lbs, BMI:45.48. * Examination: G eneral examination: O n examination, the patient is well-developed, well-nourished, well-groomed, alert and oriented x3, normal mood. Antalgic gait. Well-healed lumbar incision. 5/5 muscle strength bilateral lower extremities except 3+ out of 5 left tibialis anterior. Sensory intact lower extremities. X -ray Imaging Studies: X -rays of the lumbar spine, 4 views AP, lateral, flexion extension done in the office today show instrumentation from L2-1. No complications with the hardware. No signs of any Instability or acute fractures. Assessment: * Assessment: 1. E ncounter for other orthopedic aftercare - Z47.89 (Primary) 2 . L eft leg weakness - R29.898 3 . L eft foot drop - M21.372 1. 1 year status post L2-S1 decompression and fusion with complaints of left leg weakness and left foot drop. Plan: * Treatment: 2. L eft leg weakness L AB: EMG/NCS Lower Extremity, Left I maging: MRI : Lumbosacral Spine W/O Contrast - 41207 Referral To: Reason:NO AUTH REQ...................................NOT SCHEDULED.................................. ..[facility] MRI lumbar spine at [facility] Referral To: Reason:referral to Dr. Scott; left lower extremity EMG 3. L eft foot drop I maging: MRI : Lumbosacral Spine W/O Contrast - [id number] Referral To: Reason:NO AUTH REQ...................................NOT SCHEDULED.................................. ..[facility] MRI lumbar spine at [facility] Referral To: Reason:referral to Dr. Scott; left lower extremity EMG 4. O thers I maging: Lumbar spine, 4v flex ext - [id number] Notes: Plan established by Dr. Carrion. Patient seen and evaluated by Dr. Carrion today. We will set her up with an updated MRI of the lumbar spine given her ongoing left foot drop and left leg weakness. We also get an EMG of the left lower extremity. We will see her back in the office after the imaging is completed to discuss results and treatment options. The patient is very much in agreement with the treatment and/or diagnostic plan set forth and all questions were answered to the patient's satisfaction. Thanks once again. If we can be of further service to your patients with disorders of the spine, cervical, thoracic, or lumbar, please do not hesitate to contact Dr. Carrion. Best regards, * Procedure Codes: 7 2109 X-ray Lumbar Spine, 5 view complete * Follow Up: a fter mri/ emg Forms: * Images: * Electronic signature of Simon patel JEAN Li on 02/22/2025 at 01:52 PM EDT Sign off status: Pending * Provider: Rock Li PA-C Date: Generated for Mady proctor/Becka/Willransmitting on: 01:52 PM EDT History and Physical Notes * HPI (History of Present Illness) Category Sub-Category Detail Notes Category Not es HPI Dictated by Tad JEAN Li The patient returns to the office today 1 year status post L2-S1 decompression and fusion. She reports ongoing weakness in the left leg and feels like it gives out. She states her back is feeling good and she denies having any significant leg pain. She does have some numbness from the mid left metcalf into the 1st and 2nd toe. She also has an ongoing left foot drop, no significant change since her last appointment. Examination Category Sub-Category Detail Notes Category Not es General examination On exami nation, the patient is well-developed, well-nourished, well-groomed, alert and oriented x3, normal mood. Antalgic gait. Well-healed lumbar incision. 5/5 muscle strength bilateral lower extremities except 3+ out of 5 left tibialis anterior. Sensory intact lower extremities. X-ray Imaging Studies X-rays of the lumbar spine, 4 views AP, lateral, flexion extension done in the office today show instrumentation from L2-1. No complications with the hardware. No signs of any Instability or acute fractures. Consultation Request Notes Referral Date Referring Provider Referred Provider Not es 02/08/2025 Bran Castillo , NO AUTH REQ............................... ....NOT SCHEDULED......................... ...........[facility] MRI lumbar spine at [facility] 02/08/2025 Bran Castillo , referral to Dr. Scott; left lower extremity EMG
--- OUTSIDE RECORDS SUMMARY | 2025-02-22 13:51 | XMS_ITS | Clinical Summary ---
Author Organization [facility] Address [address] [place] [address] Phone Care Team Providers Care Cyber Security Administrator Name Role Phone Unavailable Primary Care Provider Unavailabl e Social History Tobacco Use Types Packs/Day Years Used Date Smoking Tobacco: Never Assessed Comments Unknown Sex and Gender Information Value Date Recorded Sex Assigned at Not on file Legal Sex Female 7:55 PM EST Gender Identity Not on file Sexual Orientation Not on file Plan of Treatment Not on file
--- OUTSIDE RECORDS SUMMARY | 2025-02-22 13:52 | XMS_ITS | Encounter Summary ---
Author Organization [facility] Address [address] [place] [address] Care Team Providers Care Wire Wrapping Machine Operator Name Role Phone Andria Osman MD Primary Care Provider [phone] Malik Denson MD Primary Care Provider [phone] Reason for Visit * Reason Comments Med Refill Encounter Details Date Type Department Care Team (Late st Contact Info) Description 09/14/2022 Refill [facility] [address] [place] [address] Manjinder Leon MD [address] [facility] [address] [facility] [place] [id number] Social History Tobacco Use Types Packs/Day Years Used Date Smoking Tobacco: Never Assessed Comments Unknown Sex and Gender Information Value Date Recorded Sex Assigned at Not on file Legal Sex Female 9:47 PM EDT Gender Identity Not on file Sexual Orientation Not on file documented as of this encounter Plan of Treatment Upcoming Encounters Date Type Department Care Team (Late st Contact Info) Description 03/16/2025 1:40 PM EST Office Visit [facility] [address] [place] [address] Toni Tovar MD [address] [facility] [id number] [place] [address] documented as of this encounter Visit Diagnoses Not on filedocumented in this encounter Care Teams Wire Wrapping Machine Operator Relationship Specialty Start Date End Date Andria Osman MD [address] PCP - General 08/04/22 04/29/23 Malik Denson MD [address] [place] [address] PCP - General Family Medicine 04/30/23 documented as of this encounter
--- OUTSIDE RECORDS SUMMARY | 2025-02-22 13:52 | XMS_ITS | Encounter Summary ---
Author Organization [facility] Address [address] [place] [address] Care Team Providers Care Boat Hoist Operator Name Role Phone Andria Osman MD Primary Care Provider [phone] Malik Denson MD Primary Care Provider [phone] Reason for Visit * Reason Comments Med Refill Encounter Details Date Type Department Care Team (Late st Contact Info) Description 10/21/2022 Refill [facility] [address] [place] [address] Jacques Al CNP Coronary artery disease involving [place] coronary artery of [place] heart without angina pectoris Social History Tobacco Use Types Packs/Day Years Used Date Smoking Tobacco: Never Assessed Comments Unknown Sex and Gender Information Value Date Recorded Sex Assigned at Not on file Legal Sex Female 9:47 PM EDT Gender Identity Not on file Sexual Orientation Not on file COVID-19 Exposure Response Date Recorded In the last 10 days, have yo u been in contact with someone who was confirmed or suspected to have Coronavirus/COVID-19? No / Unsure 10/21/2022 2:29 PM EDT documented as of this encounter Functional Status * Question Answer Date of Assessment Author BP 155/97 10/21/2022 3:10 PM EDT Raad Lopeza Pulse 90 10/21/2022 3:10 PM EDT Vinay Lopezequa * BP Location Answer Date of Assessment Author Left arm 10/21/2022 3:10 PM EDT Milena Alvarado documented as of this encounter Plan of Treatment Upcoming Encounters Date Type Department Care Team (Late st Contact Info) Description 03/16/2025 1:40 PM EST Office Visit [facility] [address] [place] [id number] Toni Tovar MD [address] [place] [address] documented as of this encounter Visit Diagnoses Diagnosis Coronary artery disease involving [place] coronary artery of [place] heart without angina pectoris documented in this encounter Care Teams Boat Hoist Operator Relationship Specialty Start Date End Date Andria Osman MD [address] [place], [place] [id number] PCP - General 08/04/22 04/29/23 Malik Denson MD [address] [place] [id number] PCP - General Family Medicine 04/30/23 documented as of this encounter
--- OUTSIDE RECORDS SUMMARY | 2025-02-22 13:52 | XMS_ITS | Clinical Summary ---
Author Organization [facility] Address [address] [place] [address] Care Team Providers Care Maintenance Machinist Name Role Phone Andria Osman MD Primary Care Provider [phone] Allergies Active Allergy Reactions Criticality Noted Date Comments Adhesive Hives High 10/15/2020 Severe skin irritation, blisters with steri strips Celecoxib Itching Medium 06/05/2021 Oxycodone-Acetaminophe n Itching Medium 06/05/2021 Shellfish Containing Products Other (See Comments) Low 06/29/2018 Sulfa (Sulfonamide Antibiotics) Itching Medium 06/14/2019 Medications venlafaxine (EFFEXOR-XR) 150 MG 24 hr capsule Take by mouth daily . 01/20/2021 Active venlafaxine (EFFEXOR) 75 MG tablet Take 75 mg by mouth every morning . 01/15/2021 Active metFORMIN (GLUCOPHAGE) 500 MG tablet Take 500 mg by mouth 3 (three) times a day with meals . 02/15/2021 Active amLODIPine (NORVASC) 10 MG tablet Take 10 mg by mouth daily . 09/18/2020 Active carvediloL (COREG) 25 MG tablet 03/11/2021 Active losartan (COZAAR) 100 MG tablet Take 100 mg by mouth daily . 02/19/2021 Active spironolactone (ALDACTONE) 50 MG tablet Take 50 mg by mouth every morning . 02/19/2021 Active levothyroxine (SYNTHROID, LEVOTHROID) 125 MCG tablet Take 125 mcg by mouth every morning . 01/21/2021 Active fexofenadine (AMRITA) 180 MG tablet Take 180 mg by mouth daily . Active baclofen (LIORESAL) 10 MG tablet Take 10 mg by mouth 2 (two) times a day . 01/20/2021 Active traMADoL (ULTRAM) 50 mg tablet 05/15/2021 Active diclofenac sodium (VOLTAREN) 75 MG EC tablet Take 75 mg by mouth 2 (two) times a day with meals . Active Active Problems Problem Noted Date Diagnosed Date Primary osteoarthritis of right knee 05/20/2021 Overview (05/20/2021): Added automatically from request for surgery [id number] Social History Tobacco Use Types Packs/Day Years Used Date Smoking Tobacco: Never Smokeless Tobacco: Never Alcohol Use Standard Drinks/Week Comments Never 0 (1 standard drink = 0.6 oz pur e alcohol) Comments No Sex and Gender Information Value Date Recorded Sex Assigned at Not on file Legal Sex Female 3:02 PM EDT Gender Identity Female 03/24/2021 10:36 AM EST Sexual Orientation Not on file Last Filed Vital Signs Vital Sign Reading Time Taken Comments Blood Pressure 152/90 07/17/2021 10:22 AM EST Pulse 90 07/17/2021 10:22 AM EST Temperature - - Respiratory Rate 18 06/05/2021 9:23 AM EST Oxygen Saturation 95% 06/05/2021 9:23 AM EST Inhaled Oxygen Concentration - - Weight 132.9 kg (293 lb) 07/17/2021 10:22 AM EST Height 165.1 cm (5' 5 ) 07/17/2021 10:22 AM EST Body Mass Index 48.76 07/17/2021 10:22 AM EST Plan of Treatment Health Maintenance Due Date Last Done Comments CT Colonography 1968 Colonoscopy 1968 Colorectal Cancer Screening/Monitoring 1968 Fecal DNA 1968 Fecal occult blood test (FOBT,FIT) 1968 Tetanus: Every 10yrs 1968 Depression Screening/Follow- Up (PHQ-2/9) 1980 HIV Screening 1983 Hepatitis C Screening 1986 Pap Smear 1989 Cervical Cancer Screening 1998 HPV/Cotest 1998 Pneumococcal Vaccine: Age 50 + (1 of 1 - PCV) 2018 Zoster Vaccines (1 of 2) 2018 Wellness Visit 02/24/2019 02/24/2018, 02/22/2017 COVID-19 Vaccine (5 - 2024-2 6 season) 2025 07/01/2021, 02/22/2021, 08/15/2020, Additional history exists Influenza Vaccine (#1) 2025 , 01/13/2020, 02/06/2019, Additional history exists Mammogram Discontinued 04/01/2020 Insurance [facility] [employer] Care Teams Maintenance Machinist Relationship Specialty Start Date End Date Andria Osman MD [address] [place], [place] [id number] PCP - General Family Medicine 03/27/21
--- OUTSIDE RECORDS SUMMARY | 2025-02-22 13:52 | XMS_ITS | Patient Health Record ---
Author Organization [facility] [place] Address [address] [place] [address] Support Name Relationship Address Phone Dee Dee Caballero Guarantor Unknown [phone] Reason For Referral No Information Medications Medication SIG (Take, Route, Frequency, Duration) Notes Start Date End Date Status Hyoscyamine 0.375 MG Oral two times daily 05/10/18 Active Lyrica 50 MG Oral four times daily Active Baclofen 10 MG Oral at bedtime Active Venlafaxine HCl ER 150 MG Oral daily Active Methotrexate 2.5 MG Oral once a week Active Meloxicam 7.5 MG 1 Oral daily 2013 Active Tylenol 500 MG Oral 4-8 daily Active Folic Acid 400 MCG Oral daily Active Levothyroxine Sodium 100 MCG Oral daily Active Losartan Potassium 50 MG Oral daily Active Immunizations Vaccine Route Administration Date Status Comme nts Flu, Unspecified Undefined 02/07/2013 Pending Plan Of Treatment No Information Insurance Providers Payer Name Payer Address Payer Phone Subscriber Number Group Number Insured Name Patient Relationship to Insured Coverage Start Date Coverage End Date [employer] [id number] [facility] Dee Dee Cablalero Self - patient is the insured Medical (General) History Surgical History Surgery Date(Month/Year) Ulnar nerve transposition Comments: kristi segovia 2006 Shoulder Surgery Comments: bicipital tea r-right 2006 Hysterectomy Gallbladder Surgery Cataract Surgery
--- OUTSIDE RECORDS SUMMARY | 2025-02-22 13:52 | XMS_ITS | CCD ---
Author Organization [facility] [place] ion [facility] Care Team Providers Care Agricultural Equipment Operator Name Role Phone UNKNOWN, PROVIDER Unavailable Unavailable UNKNOWN, PROVIDER Unavailable Unavailable KHURRAM OSMAN Unavailable Unavailable KHURRAM OSMAN Unavailable Unavailable DEVYN MONDRAGON JR. Unavailable Unavailfabio e KHURRAM OSMAN Unavailable Unavailable Niecy HOBSON Unavailable Unavailable KHURRAM OSMAN Unavailable Unavailable Khurram Osman Unavailable Khurram Osman Primary Care Provider DEVYN MONDRAGON JR. Attending Unavailfabio e SELF, SELF Referring Unavailable ROSE MARY SHARPE Attending Unavailable Niecy HOBSON Referring Unavailable KHURRAM OSMAN Primary Care Unavailable RICHARD REZA Attending Unavailable DEVYN MONDRAGON JR. Referring UnavailNiecy Mei Attending Unavailable KHURRAM OSMAN Referring Unavailable DEVYN MONDRAGON JR. Attending Unavailfabio fabian SELF, SELF Referring Unavailable Khurram Osman Primary Care Provider Khurram Osman Primary Care Provider Khurram Osman Primary Care Provider [phone] Khurram Osman Primary Care Provider Khurram Osman MD Primary Care Provider Khurram Osman Primary Care Provider Dillan Heredia Unavailable Khurram Osman MD Primary Care Provider GAGAN GARCIA Unavailable WILLIAMS ., DR KHURRAM Fabian Primary Care Unavailable ISABELLE ., DR VIGNESH Doyle Attending Unavailable ISABELLE ., DR VIGNESH Doyle Admitting Unavailable OSMAN ., DR KHURRAM Fabian Primary Care Unavailable WALTON ., DR VIGNESH Doyle Attending Unavailable WALTON ., DR VIGNESH Doyle Admitting Unavailable DIAZ ., GAGAN Consulting Unavailable OSMAN ., DR KHURRAM Fabian Primary Care Unavailable OSMAN ., DR KHURRAM Fabian Consulting Unavailable WALTON ., DR VIGNESH Doyle Admitting Unavailable WALTON ., DR VIGNESH Doyle Attending Unavailable DIAZ ., GAGAN Consulting Unavailable LAKSHMIPATHY ., RED Attending [place] vailable LAKSHMIPATHY ., RED Admitting [place] vailable OSMAN ., DR KHURRAM Fabian Primary Care Unavailable OSMAN ., DR KHURRAM Fabian Primary Care Unavailable OSMAN ., DR KHURRAM Fabian Consulting Unavailable OSMAN ., DR KHURRAM Fabian Attending Unavailable OSMAN ., DR KHURRAM Fabian Admitting Unavailable OSMAN ., DR KHURRAM Fabian Consulting Unavailable OSMAN ., DR KHURRAM Fabian Attending Unavailable OSMAN ., DR KHURRAM Fabian Admitting Unavailable OSMAN ., DR KHURRAM Fabian Primary Care Unavailable OSMAN ., DR KHURRAM Fabian Primary Care Unavailable OSMAN ., DR KHURRAM Fabian Attending Unavailable OSMAN ., DR KHURRAM Fabian Admitting Unavailable Osman Khurram DEAN Primary Care Provider NOÉ POLANCO Admitting Unavailab NOÉ Layton Attending Unavailab KHURRAM Ndiaye Primary Care Unavailable NOÉ POLANCO Attending Unavailab KHURRAM Ndiaye Primary Care Unavailable KHURRAM OSMAN Primary Care Unavailable SHELLEY SINGER Attending Unavailable Malik Denson Primary Care Physician [phone] KHURRAM OSMAN Referring Unavailable KHURRAM OSMAN Primary Care Unavailable Khurram Osman Primary Care Provider UnavailMD Malik Acevedo Attending Unavailable MD Malik Denson Attending Unavailable MD Malik Denson Attending Unavailable MD Malik Desnon Attending Unavailable MD Malik Denson Attending Unavailable MD Malik Denson Admitting Unavailable MD Malik Denson Attending Unavailable XANDER Gay Admitting Unavailable Deidra, XANDER Bauman Attending Unavailable MD Malik Denson Attending Unavailable MD Malik Denson Attending Unavailable MD Malik Denson Attending Unavailable MD Malik Denson Attending Unavailable MD Malik Denson Attending Unavailable MD Malik Denson Attending Unavailable Deidra, GEOTECHNICIAL PROPERTIES TECHNICIAN Britany L Attending Unavailable Deidra, GEOTECHNICIAL PROPERTIES TECHNICIAN Britany Bauman Attending Unavailable Deidra, GEOTECHNICIAL PROPERTIES TECHNICIAN Britany Bauman Attending Unavailable Jarett DEAN, [facility] Unavailfabio Li PA-C, Tad De Anda Attending Ronn Castillo MD, Bran Loco Attending Unavailfabio Denson MD, [facility] Unavailfabio Castillo MD, Bran Loco Attending Unavailfabio Denson MD, [facility] Unavailfabio Castillo MD, Bran Loco Attending Unavailfabio Castillo MD, Bran Loco Admitting Unavailfabio Fletcher MD, Rosendo Barlow Consulting Unavail karol Denson MD, [facility] Unavailfabio e Jen PENA, Tad De Anda Consulting Sorin Hammond DO Consulting Unavailable Jarett DEAN, [facility] UnavailMalik Acevedo MD Attending UnavailJadyn Valentine MD Attending Unavailable MARÍA ELENA BECERRA Attending Unavailable LAZ TOVAR Attending Unavailable Malik Denson Attending Unavailable Malik Denson Attending Unavailable Malik Denson Attending Unavailable Malik Denson Attending Unavailable Malik Denson Admitting Unavailable Malik Denson Attending Unavailable Malik Denson Attending Unavailable Malik Denson Attending Unavailable Malik Denson Attending Unavailable SIGRID CALVILLO Attending Unavailable Allergies Allergy Classification Reported Allergen(s) Allergy Type Date of Onset Reaction(s) Facility (4 sources) cefuroxime; Translations: [Ceftin] Drug Allergy 09-15-19 13 [facility] Repository (1 source) GLYCERINE; Translations: [GLYCERINE] Propensity to adverse reactions (disorder) 09-15-19 13 [facility] Repository (20 sources) acetaminophen / oxyCODONE; Translations: [OXYCODONE-ACETAMIN OPHEN] Drug Allergy 10-09-19 18 Itching [facility] Work Phone: (20 sources) cefuroxime; Translations: [cefuroxime] Drug Allergy 09-15-19 13 Mild (qualifier value) [facility] Work Phone: (20 sources) Cephalosporins (Antibiotic); Translations: [CEPHALOSPORINS] Propensity to adverse reactions to drug 09-15-19 13 [facility] Work Phone: (20 sources) *SEAFOOD - FOOD ALLERGY Propensity to adverse reactions to drug 05-19-19 18 Nausea and Vomiting [facility] Work Phone: (20 sources) SULFA ANTIBIOTICS Propensity to adverse reactions to drug 09-08-19 14 Itching [facility] Work Phone: (8 sources) Adhesive Tape Propensity to adverse reactions to drug 06-29-19 19 Other (See Comments) Walk-in Phone: (9 sources) Minocycline; Translations: [MINOCYCLINE HCL] Drug Allergy 06-29-19 19 Nausea And Vomiting Walk-in Phone: (8 sources) Shellfish-Derived Products Propensity to adverse reactions to drug 06-29-19 19 Nausea And Vomiting Walk-in Phone: (10 sources) Adhesive agent; Translations: [ADHESIVE] Propensity to adverse reactions to drug 06-29-19 19 Hives [facility] (10 sources) Shellfish; Translations: [SHELLFISH CONTAINING PRODUCTS] Propensity to adverse reactions to drug 06-29-19 19 Other (See Comments) [facility] (12 sources) Sulfonamides (Antibiotic); Translations: [SULFA (SULFONAMIDE ANTIBIOTICS)] Propensity to adverse reactions to drug 09-08-19 14 Itching [facility] (10 sources) celecoxib; Translations: [CELECOXIB] Drug Allergy 06-05-19 22 Itching [facility] (2 sources) Adhesive agent Propensity to adverse reactions to drug 10-16-19 21 Hives [facility] (2 sources) atorvastatin Drug Allergy 11-13-19 17 [facility] Repository (3 sources) Shellfish; Translations: [shellfish] Drug allergy (disorder) 05-10-18 75 [facility] Rep[facility] (2 sources) Sulfonamides (Antibiotic) Drug allergy (disorder) 05-10-19 00 [facility] Rep[facility] (8 sources) Cephalexin; Translations: [cephalexin] Drug Allergy Mild (qualifier value) [facility] (8 sources) Doxepin; Translations: [doxepin] Drug Allergy Mild (qualifier value) [facility] (8 sources) Glycerin; Translations: [glycerin] Drug Allergy Mild (qualifier value) [facility] (8 sources) Methotrexate; Translations: [methotrexate] Drug Allergy Severe (severity modifier) (qualifier value) [facility] (9 sources) Minocycline; Translations: [minocycline] Drug Allergy Mild (qualifier value) [facility] (8 sources) Sulfamethoxazole / Trimethoprim; Translations: [sulfamethoxazole-t rimethoprim] Drug Allergy Mild (qualifier value) [facility] (1 source) Seafood Propensity to adverse reactions to drug 06-29-19 Nausea And Vomiting [facility] (3 sources) glyBURIDE; Translations: [glyBURIDE] Drug Allergy [facility] (3 sources) metFORMIN; Translations: [metFORMIN] Drug Allergy [facility] (1 source) Adhesive bandage; Translations: [Adhesive Bandage] Propensity to adverse reactions (disorder) [facility] Repository (1 source) Adhesive Tape; Translations: [Tape] Propensity to adverse reactions (disorder) [facility] Repository (1 source) NSAIDs; Translations: [NSAIDs] Propensity to adverse reactions to drug (disorder) [facility] Repository (1 source) Shellfish; Translations: [SHELLFISH DERIVED] Propensity to adverse reactions to drug (disorder) 06-29-19 [facility] Repository (3 sources) Seafood; Translations: [Seafood] Propensity to adverse reactions to substance Vomiting (disorder) [facility] (2 sources) Lisinopril; Translations: [lisinopril] Drug Allergy [facility] Repository Medications Current Medications Medication Drug Class(es) Dates Sig (Normalized) Sig (Original) 3 ML semaglutide 2.68 MG/ML Pen Injector (2 sources) Start: 11-16-2022 inject 2 mg by subcutaneous injection every week semaglutide 8 mg/3 mL (2 mg dose) subcutaneous solution 2 mg, SubCutaneous, qWeek, # 3 EA, Refills(s) 0, Pharmacy: [facility] #[id number], 165.1, cm, 11/16/22 14:18:00 EDT, Height/Length Dosing, 120.8, kg, 10/19/22 15:07:00 EDT, Weight Dosing Start Date: 11/16/22 Status: Ordered 3 ML semaglutide 2.68 MG/ML Pen Injector [Ozempic] (3 sources) Start: 09-11-2024 inject 2 mg by subcutaneous injection every week Ozempic 8 mg/3 mL (2 mg dose) subcutaneous solution See Instructions, DIAL AND INJECT UNDER THE SKIN 2 MG WEEKLY, # 3 mL, Refills(s) 0, [id number], 163, cm, 02/29/24 13:21:00 EDT, Height/Length Dosing, 109.1, kg, 02/29/24 13:21:00 EDT, Weight Dosing Start Date: 09/11/24 Status: Ordered Quantity: 3.0 Unit: mL Repeat number: 1 Start: 10-22-2023 inject 2 mg by subcu taneous injection every week Ozempic 8 mg/3 mL (2 mg dose) subcutaneous solution 2 mg, SubCutaneous, qWeek, # 3 EA, Refills(s) 0, [id number], 165.4, cm, 07/07/23 14:54:00 EST, Height/Length Dosing, 131.3, kg, 07/07/23 14:54:00 EST, Weight Dosing Start Date: 10/22/23 Status: Ordered Start: 06-23-2023 inject 2 mg by subcu taneous injection every week Ozempic 8 mg/3 mL (2 mg dose) subcutaneous solution 2 mg, SubCutaneous, qWeek, # 3 EA, Refills(s) 0, Pharmacy: [facility] #[id number], 165.4, cm, 06/23/23 14:01:00 EST, Height/Length Dosing, 129, kg, 06/23/23 14:01:00 EST, Weight Dosing Start Date: 06/23/23 Status: Ordered abatacept 250 mg injection (5 sources) Selective T Cell Costimulation Modulator Start: 07-29-2022 Orencia 250 mg intravenous injection See Instructions, one pen per week, Refills(s) 0 Start Date: 07/29/22 Status: Ordered Repeat number: 1 Start: 07-29-2022 Orencia 250 mg intravenous injection See Instructions, one pen per week, Refills(s) 0 Start Date: 07/29/22 Status: Ordered amLODIPine 10 mg oral tablet (20 sources) Dihydropyridine Calcium Channel Darian Start: 09-27-2024 take 1 tablet by mouth once daily amLODIPine 10 mg Tab See Instructions, TAKE 1 TABLET BY MOUTH DAILY, # 90 tab(s), Refills(s) 0, Pharmacy: [facility] [id number], 163, cm, 02/29/24 13:21:00 EDT, Height/Length Dosing, 109.1, kg, 02/29/24 13:21:00 EDT, Weight Dosing Start Date: 09/27/24 Status: Ordered Quantity: 90.0 Unit: tab(s) Repeat number: 1 Start: 09-07-2023 take 1 tablet by kennedy th once daily amLODIPine 10 mg Tab 10 mg = 1 tab(s), Oral, Daily, # 90 tab(s), Refills(s) 3, Pharmacy: [facility] [id number], 165.4, cm, 07/07/23 14:54:00 EST, Height/Length Dosing, 131.3, kg, 07/07/23 14:54:00 EST, Weight Dosing Start Date: 09/07/23 Status: Ordered Start: 04-27-2023 take 1 tablet by kennedy th once daily amLODIPine 10 mg Tab 10 mg = 1 tab(s), Oral, Daily, # 90 tab(s), Refills(s) 3, Pharmacy: [facility] [id number], 164.5, cm, 04/26/23 18:33:00 EST, Height/Length Dosing, 124.8, kg, 04/26/23 18:33:00 EST, Weight Dosing Start Date: 04/27/23 Status: Ordered Start: 08-05-2022 take 1 tablet by kennedy th once daily amLODIPine 10 mg Tab 10 mg = 1 tab(s), Oral, Daily, # 90 tab(s), Refills(s) 3, Pharmacy: [facility] #[id number], 165.1, cm, 07/29/22 11:31:00 EDT, Height/Length Dosing, 119, kg, 07/29/22 11:31:00 EDT, Weight Dosing Start Date: 08/05/22 Status: Ordered Start: 09-18-2020 take 1 tablet by kennedy th once daily amLODIPine (NORVASC) 10 MG tablet Take 10 mg by mouth daily . 0 09/18/2020 Active take 1 tablet by kennedy th once daily amLODIPine (NORVASC) 5 MG tablet Take 5 mg by mouth daily 0 Active atorvastatin 80 mg oral tablet (3 sources) HMG-CoA Reductase Inhibitor Start: 01-18-2024 take 1 tablet by mouth once daily atorvastatin 80 mg Tab 80 mg = 1 tab(s), Oral, Daily, Refills(s) 0 Start Date: 01/18/24 Status: Ordered Repeat number: 1 Start: 04-27-2023 take 1 tablet by kennedy th once daily Lipitor 40 mg Tab 40 mg = 1 tab(s), Oral, Daily, # 90 tab(s), Refills(s) 1, Pharmacy: [facility] [id number], 164.5, cm, 04/26/23 18:33:00 EST, Height/Length Dosing, 124.8, kg, 04/26/23 18:33:00 EST, Weight Dosing Start Date: 04/27/23 Status: Ordered azelastine hydrochloride 0.137 mg/actuat metered dose nasal spray (20 sources) Histamine-1 Receptor Antagonist Start: 04-07-2017 take 1 spray(s) nasal route four times daily as needed azelastine (ASTELIN) 0.1 % nasal spray INSTILL 1 SPRAY IN EACH NOSTRIL QID PRN 11 04/07/2017 Active baclofen 10 mg oral tablet (20 sources) gamma-Aminobutyric Acid-ergic Agonist Start: 10-03-2024 take 1 tablet by mouth three times daily baclofen 10 mg Tab 10 mg = 1 tab(s), Oral, TID, # 90 tab(s), Refills(s) 4, Pharmacy: [facility] [id number], 163, cm, 02/29/24 13:21:00 EDT, Height/Length Dosing, 109.1, kg, 02/29/24 13:21:00 EDT, Weight Dosing Start Date: 10/03/24 Status: Ordered Quantity: 90.0 Unit: tab(s) Repeat number: 5 Start: 01-20-2021 take 1 tablet by kennedy th twice daily baclofen 10 mg Tab 10 mg = 1 tab(s), Oral, BID, Refills(s) 0 Start Date: 07/24/22 Status: Ordered Start: 05-06-2017 take 1 tablet by kennedy th twice daily baclofen 10 MG Tab tablet TK 1 T PO BID 3 05/06/2017 Active take 5 mg by mouth twice daily b aclofen (LIORESAL) 10 MG tablet Take 5 mg by mouth 2 times daily 0 Active Baclofen 10 MG/5 ML as directed Intrathecal Active betamethasone 0.5 mg/ml / clotrimazole 10 mg/ml topical cream (8 sources) Azole Antifungal, Corticosteroid Start: 10-14-2017 clotrimazole-betamethasone (LOTRISONE) 1-0.05 % cream Indications: Vulvar irritation Apply topically 2 times daily until irritation cleared 1 Tube 1 10/14/2017 Active bupivacaine (PF) (MARCAINE) 0.25 % 4 mL syringe (4 sources) Start: 04-17-2019 bupivacaine (PF) (MARCAINE) 0.25 % 4 mL syringe Start: 04-10-2019 End: 04-17-2019 bupivacaine (PF) (MARCAINE) 0.25 % 4 mL syringe canagliflozin 300 mg oral tablet (20 sources) Sodium-Glucose Cotransporter 2 Inhibitor Start: 05-25-2018 INVOKANA 300 MG Tab tablet Start: 04-19-2018 End: 10-04-2018 take 1 tablet by mouth once daily INVOKANA 100 MG Tab Take 100 mg by mouth daily. 0 04/19/2018 10/04/2018 Discontinued (Other (suppress cancel msg)) carvedilol 25 mg oral tablet (20 sources) alpha-Adrenergic Darian, beta-Adrenergic Darian Start: 03-11-2021 take 1 tablet by mouth twice daily carvedilol 25 mg Tab 25 mg = 1 tab(s), Oral, BID, Refills(s) 0 Start Date: 07/24/22 Status: Ordered Repeat number: 1 Start: 04-13-2017 take 1 tablet by kennedy th twice daily carveDILOL 25 MG Tab TK 1 T PO BID 3 04/13/2017 Active Start: 01-14-2017 take 2 tablets by [facility] twice daily carvedilol (COREG) 12.5 MG tablet Take 25 mg by mouth 2 times daily 3 01/14/2017 Active cholecalciferol 93152 unt oral capsule (20 sources) Vitamin D Start: 02-06-2019 take 5 capsules by mouth once Cholecalciferol (MAXIMUM D3) 42245 units Cap Indications: Vitamin D deficiency 5 po one day a week 25 capsule 11 02/06/2019 Active Start: 02-01-2019 End: 02-06-2019 take 4 capsules by mouth once Cholecalciferol (MAXIMUM D3) 29567 units Cap Indications: Psoriatic arthritis , Psoriasis , Arthropathic psoriasis , Long-term current use of high risk medication other than anticoagulant , intermediate current use of non-steroidal anti-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 (NSAID) , Fatigue, unspecified type , Vitamin D deficiency , TATUM (nonalcoholic steatohepatitis) , Fatty liver , Thoracic degenerative disc disease , Primary osteoarthritis of both knees , Osteoarthritis of lumbar spine, unspecified spinal osteoarthritis complication status , Osteoarthritis of both wrists, unspecified osteoarthritis type , Osteoarthritis of both hands, unspecified osteoarthritis type , Osteoarthritis of cervical spine, unspecified spinal osteoarthritis complication status , Lumbar degenerative disc disease , DDD (degenerative disc disease), cervical 4 po one day a week 20 capsule 11 02/01/2019 02/06/2019 Discontinued Start: 06-06-2018 End: 02-01-2019 take 3 capsules by mouth once Cholecalciferol (MAXIMUM D3) 23582 units Cap Indications: Vitamin D deficiency 3 po one day a week 15 capsule 11 06/06/2018 02/01/2019 Discontinued Start: 06-01-2018 End: 06-06-2018 take 2 capsules by mouth once Cholecalciferol (MAXIMUM D3) 25541 units Cap Indications: Abnormal serum CY level , Vitamin D deficiency , Psoriatic arthritis , Psoriasis , Dry skin , Arthropathic psoriasis , Arthropathic psoriasis, unspecified , History of psoriatic arthritis , Long-term current use of high risk medication other than anticoagulant , deck cadet current use of non-steroidal anti-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 (NSAID) , TATUM (nonalcoholic steatohepatitis) , Fatty liver , Primary osteoarthritis of both knees , Osteoarthritis of both hands, unspecified osteoarthritis type , Osteoarthritis of both wrists, unspecified osteoarthritis type , Lumbar degenerative disc disease , Osteoarthritis of lumbar spine, unspecified spinal osteoarthritis complication status , DDD (degenerative disc disease), cervical , Osteoarthritis of cervical spine, unspecified spinal osteoarthritis complication status , Thoracic degenerative disc disease 2 po one day a week 10 capsule 11 06/01/2018 06/06/2018 Discontinued Start: 06-09-2017 End: 06-01-2018 take 1 capsule by mouth once Cholecalciferol (MAXIMUM D3) 16115 units Cap Indications: Abnormal serum CY level , Vitamin D deficiency 1 po one day a week 5 capsule 11 06/09/2017 06/01/2018 Discontinued clobetasol propionate 0.0005 mg/mg topical ointment (3 sources) Corticosteroid Start: 07-19-2024 clobetasol pro pionate 0.05% top oint 1 kate, Topical, BID, 15 gram, Refill(s) 1, [facility] [id number], 163, cm, 02/29/24 13:21:00 EDT, Height/Length Dosing, 109.1, kg, 02/29/24 13:21:00 EDT, Weight Dosing Start Date: 07/19/24 Status: Ordered Quantity: 15.0 Unit: g Repeat number: 2 Indications: Encounter for gynecological examination (general) (routine) without abnormal findings; Rash and other nonspecific skin eruption; Acute candidiasis of vulva and vagina; Encounter for screening for malignant neoplasm of cervix; Encounter for screening mammogram for malignant neoplasm of breast; Body mass index [BMI] 45.0-49.9, adult; Other specified health status; Start: 07-07-2023 clobetasol pro pionate 0.05% top oint 1 kate, Topical, BID, 15 gram, Refill(s) 0, [facility] #[id number], 165.4, cm, 07/07/23 14:54:00 EST, Height/Length Dosing, 131.3, kg, 07/07/23 14:54:00 EST, Weight Dosing Start Date: 07/07/23 Status: Ordered Custom Compound MISC (20 sources) Custom Compound MISC Dic, Deonte, Adarsh, Lido, Prilo, Dox. [facility] pharmacy #3 topical cream 0 Active diclofenac sodium 75 mg delayed release oral tablet (7 sources) Nonsteroidal Anti-inflammatory Drug take 1 tablet by mouth twice daily at mealtime diclofenac sodium (VOLTAREN) 75 MG EC tablet Take 75 mg by mouth 2 (two) times a day with meals . 0 Active estrogens, conjugated (custodial) 0.3 mg oral tablet (1 source) Estrogen Start: 4 take 1 tablet by mouth once daily Premarin 0.3 mg Tab 0.3 mg = 1 tab(s), Oral, Daily, # 30 tab(s), Refills(s) 0, Pharmacy: [facility] [id number], 165.4, cm, 07/07/23 14:54:00 EST, Height/Length Dosing, 131.3, kg, 07/07/23 14:54:00 EST, Weight Dosing Start Date: 07/28/23 Status: Ordered ezetimibe 10 mg oral tablet (3 sources) Dietary Cholesterol Absorption Inhibitor Start: 4 take 1 tablet by mouth once daily ezetimibe 10 mg Tab 10 mg = 1 tab(s), Oral, Daily, Refills(s) 0 Start Date: 06/23/23 Status: Ordered Repeat number: 1 famotidine 20 mg oral tablet (5 sources) Histamine-2 Receptor Antagonist Start: 3 take 1 tablet by mouth twice daily famotidine 20 mg Tab 20 mg = 1 tab(s), Oral, BID, # 180 tab(s), Refills(s) 0, Pharmacy: [facility] [id number], 164.5, cm, 04/26/23 18:33:00 EST, Height/Length Dosing, 124.8, kg, 04/26/23 18:33:00 EST, Weight Dosing Start Date: 04/27/23 Status: Ordered Quantity: 180.0 Unit: tab(s) Repeat number: 1 Start: 07-24-2022 take 1 tablet by kennedy twice daily famotidine 20 mg Tab 20 mg = 1 tab(s), Oral, BID, Refills(s) 0 Start Date: 07/24/22 Status: Ordered fexofenadine hydrochloride 180 mg oral tablet (8 sources) Histamine-1 Receptor Antagonist take 1 tablet by mouth once daily fexofenadine (SHILPA) 180 MG tablet Take 180 mg by mouth daily . 0 Active flurandrenolide 0.5 mg/ml topical lotion (20 sources) Corticosteroid Start: 2017 Flurandrenolide 0.05 % Lotion fluticasone propionate 0.05 mg/actuat metered dose nasal spray (3 sources) Corticosteroid Start: 2022 take 2 spray(s) nasal route once daily Flonase 0.05 mg/inh Golden 2 spray(s), Nasal, Daily, 16 gram, Refill(s) 0, each nostril, [facility] [id number], 165.4, cm, 04/16/23 14:29:00 EST, Height/Length Dosing, 122.8, kg, 04/16/23 14:29:00 EST, Weight Dosing Start Date: 04/16/23 Status: Ordered Quantity: 16.0 Unit: g Repeat number: 1 Indications: Otitis media, unspecified, right ear; Unspecified nonsuppurative otitis media, bilateral; gabapentin 300 mg oral capsule (1 source) Anti-epileptic Agent Start: 2023 gabapentin 300 mg Cap 300 mg = 1 cap(s), Oral, TID, Per patient Pain Management instructions:take 1 tab at HS for 2-3 days, then titrate up to TID. Started 11/08/23, Refills(s) 0 Start Date: 11/08/23 Status: Ordered Repeat number: 1 glipiZIDE 10 mg oral tablet (20 sources) Sulfonylurea Start: 2023 take 1 tablet by mouth twice daily at breakfast glipiZIDE 10 mg Tab 10 mg = 1 tab(s), Oral, BID, take at breakfast and lunch, # 180 tab(s), Refills(s) 3, Pharmacy: [facility] [id number], 163, cm, 01/18/24 13:09:00 EDT, Height/Length Dosing, 122.7, kg, 01/18/24 13:09:00 EDT, Weight Dosing Start Date: 01/25/24 Status: Ordered Quantity: 180.0 Unit: tab(s) Repeat number: 4 Start: 10-28-2023 take 1 tablet by kennedy th twice daily at breakfast glipiZIDE 10 mg Tab 10 mg = 1 tab(s), Oral, BID, take at breakfast and lunch, # 180 tab(s), Refills(s) 0, Pharmacy: [facility] [id number], 165.4, cm, 10/28/23 13:03:00 EDT, Height/Length Dosing, 128.4, kg, 10/28/23 13:03:00 EDT, Weight Dosing Start Date: 10/28/23 Status: Ordered Start: 07-24-2022 take 1 tablet by kennedy th twice daily at breakfast glipiZIDE 10 mg Tab 10 mg = 1 tab(s), Oral, BID, take at breakfast and lunch, Refills(s) 0 Start Date: 07/24/22 Status: Ordered Start: 05-09-2018 take 1 tablet by kennedy th once daily at breakfast glipiZIDE 10 mg Tab 10 mg = 1 tab(s), Oral, Daily, take at breakfast and lunch, Refills(s) 0 Start Date: 07/24/22 Status: Ordered hydroxychloroquine sulfate 200 mg oral tablet (20 sources) Antimalarial, Antirheumatic Agent Start: 01-12-2018 take 1 tablet by mouth once daily hydroxychloroquine 200 MG Tab tablet Indications: Psoriatic arthritis , Psoriasis , Dry skin , Arthropathic psoriasis , Arthropathic psoriasis, unspecified , History of psoriatic arthritis , Long-term current use of high risk medication other than anticoagulant , intermediate current use of non-steroidal anti-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 (NSAID) , Abnormal serum CY level , LFT elevation , Encounter for therapeutic drug level monitoring , CRP elevated , Vitamin D deficiency , TATUM (nonalcoholic steatohepatitis) , Fatty liver , Primary osteoarthritis of both knees , Osteoarthritis of both hands, unspecified osteoarthritis type , Osteoarthritis of both wrists, unspecified osteoarthritis type , Lumbar degenerative disc disease , Osteoarthritis of lumbar spine, unspecified spinal osteoarthritis complication status , DDD (degenerative disc disease), cervical , Osteoarthritis of cervical spine, unspecified spinal osteoarthritis complication status , Thoracic degenerative disc disease 1 po bid 60 tablet 11 01/12/2018 Active hydrOXYzine pamoate 25 mg oral capsule (5 sources) Antihistamine Start: 04-27-2023 take 1 capsule by mouth four times daily as needed for anxiety hydrOXYzine pamoate 25 mg Cap 25 mg = 1 cap(s), Oral, QID, PRN for anxiety, # 90 cap(s), Refills(s) 0, Pharmacy: [facility] [id number], 164.5, cm, 04/26/23 18:33:00 EST, Height/Length Dosing, 124.8, kg, 04/26/23 18:33:00 EST, Weight Dosing Start Date: 04/27/23 Status: Ordered Quantity: 90.0 Unit: cap(s) Repeat number: 1 Start: 07-24-2022 take 1 capsule by [facility] four times daily as needed for anxiety hydrOXYzine pamoate 25 mg Cap 25 mg = 1 cap(s), Oral, QID, PRN for anxiety, # 40 cap(s), Refills(s) 0 Start Date: 07/24/22 Status: Ordered 12 hr hyoscyamine sulfate 0.375 mg extended release oral tablet (20 sources) Start: 10-14-2014 take 1 tablet by mouth every twelve hours as needed hyoscyamine (LEVBID) 0.375 MG CR tablet Take 1 tablet by mouth every 12 hours as needed for Cramping 10 tablet 0 10/14/2014 Active 1 ml ixekizumab 80 mg/ml auto-injector (1 source) Interleukin-17A Antagonist Start: 10-05-2024 Taltz Autoinjector 80 mg/mL subcutaneous solution SubCutaneous, Refills(s) 0 Start Date: 10/05/24 Status: Ordered Repeat number: 1 leflunomide 10 mg oral tablet (1 source) Antirheumatic Agent Start: 05-19-2019 take 1 tablet by mouth every other day leflunomide 10 MG Tab Indications: Psoriatic arthritis , Dry skin , CRP elevated , History of psoriatic arthritis , intermediate current use of non-steroidal anti-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 (NSAID) , Long-term current use of high risk medication other than anticoagulant , Fatty liver , TATUM (nonalcoholic steatohepatitis) , Vitamin D deficiency , DDD (degenerative disc disease), cervical , Lumbar degenerative disc disease , Osteoarthritis of cervical spine, unspecified spinal osteoarthritis complication status , Osteoarthritis of both hands, unspecified osteoarthritis type , Osteoarthritis of both wrists, unspecified osteoarthritis type , Osteoarthritis of lumbar spine, unspecified spinal osteoarthritis complication status , Primary osteoarthritis of both knees , Thoracic degenerative disc disease , Arthropathic psoriasis , Psoriasis 1 po qod 15 tablet 11 05/19/2019 Active 10 ml lidocaine hydrochloride 20 mg/ml injection (4 sources) Antiarrhythmic, Amide Local Anesthetic Start: 04-10-2019 End: 04-17-2019 lidocaine (PF) 2 % injection 3 mL losartan potassium 100 mg oral tablet (20 sources) Angiotensin 2 Receptor Darian Start: 04-03-2024 take 1 tablet by mouth once daily losartan 100 mg Tab 100 mg = 1 tab(s), Oral, Daily, # 90 tab(s), Refills(s) 4, Pharmacy: [facility] [id number], 163, cm, 02/29/24 13:21:00 EDT, Height/Length Dosing, 109.1, kg, 02/29/24 13:21:00 EDT, Weight Dosing Start Date: 04/03/24 Status: Ordered Quantity: 90.0 Unit: tab(s) Repeat number: 5 Start: 09-24-2017 take 1 tablet by kennedy th once daily losartan 100 mg Tab 100 mg = 1 tab(s), Oral, Daily, # 90 tab(s), Refills(s) 1, Pharmacy: [facility] [id number], 164.5, cm, 04/26/23 18:33:00 EST, Height/Length Dosing, 124.8, kg, 04/26/23 18:33:00 EST, Weight Dosing Start Date: 04/27/23 Status: Ordered metFORMIN hydrochloride 500 mg oral tablet (9 sources) Biguanide Start: 07-14-2024 take 1 tablet by mouth twice daily metformin 500 mg Tab 500 mg = 1 tab(s), Oral, BID, # 180 tab(s), Refills(s) 0, Pharmacy: [facility] [id number], 163, cm, 02/29/24 13:21:00 EDT, Height/Length Dosing, 109.1, kg, 02/29/24 13:21:00 EDT, Weight Dosing Start Date: 07/14/24 Status: Ordered Quantity: 180.0 Unit: tab(s) Repeat number: 1 Start: 02-15-2021 take 1 tablet by kennedy th three times daily at mealtime metFORMIN (GLUCOPHAGE) 500 MG tablet Take 500 mg by mouth 3 (three) times a day with meals . 0 02/15/2021 Active nystatin 459544 unt/ml oral suspension (20 sources) Polyene Antifungal Start: 11-16-2022 End: 11-23-2022 take 954141 [IU] by mouth every six hours nystatin 100,000 units/mL Oral Susp 100,000 unit(s) = 1 mL, Oral, q6hr, retain in mouth as long as possible before swallowing, X 7 day(s), # 28 mL, Refills(s) 0, Pharmacy: [facility] #[id number], 165.1, cm, 11/16/22 14:18:00 EDT, Height/Length Dosing, 120.8, kg, 10/19/22 15:07:00 E... Start Date: 11/16/22 Stop Date: 11/23/22 Status: Ordered Start: 02-24-2018 nystatin (MYCO STATIN) [id number] UNIT/GM powder Indications: Candidiasis of breast Apply 3 times daily. 60 g 1 02/24/2018 Active Start: 02-24-2018 NYSTATIN 01038 0 UNIT/GM Powder powder Start: 05-05-2017 End: 10-04-2018 take 5 mL by mouth four times daily nystatin 333230 UNIT/ML oral suspension SWISH AND SWALLOW 5 ML PO QID 0 05/05/2017 10/04/2018 Discontinued (Other (suppress cancel msg)) ondansetron 4 mg oral tablet (20 sources) Serotonin-3 Receptor Antagonist Start: 02-27-2018 ondansetron 4 MG Tab tablet rOPINIRole 0.25 mg oral tablet (20 sources) Nonergot Dopamine Agonist Start: 12-06-2023 take 1 tablet by mouth once daily at bedtime ropinirole 0.25 mg Tab See Instructions, TAKE 1 TABLET BY MOUTH EVERY NIGHT 2 HOURS BEFORE BEDTIME, # 90 tab(s), Refills(s) 3, Pharmacy: [facility] [id number], 163, cm, 11/22/23 14:35:00 EDT, Height/Length Dosing, 125.2, kg, 11/22/23 14:35:00 EDT, Weight Dosing Start Date: 12/06/23 Status: Ordered Quantity: 90.0 Unit: tab(s) Repeat number: 4 Start: 08-30-2023 take 1 tablet by kennedy th once daily at bedtime ropinirole 0.25 mg Tab See Instructions, TAKE 1 TABLET BY MOUTH EVERY NIGHT 2 HOURS BEFORE BEDTIME, # 90 tab(s), Refills(s) 0, Pharmacy: [facility] [id number], 165.4, cm, 07/07/23 14:54:00 EST, Height/Length Dosing, 131.3, kg, 07/07/23 14:54:00 EST, Weight Dosing Start Date: 08/30/23 Status: Ordered Start: 01-15-2017 take 1 tablet by kennedy th once daily at bedtime ropinirole 0.25 mg Tab See Instructions, TAKE 1 TABLET BY MOUTH EVERY NIGHT 2 HOURS BEFORE BEDTIME, # 90 tab(s), Refills(s) 0, Pharmacy: [facility] #[id number], 165.4, cm, 05/18/23 10:34:00 EST, Height/Length Dosing, 127.3, kg, 05/18/23 10:34:00 EST, Weight Dosing Start Date: 06/09/23 Status: Ordered 1 ml secukinumab 150 mg/ml auto-injector (20 sources) Interleukin-17A Antagonist Start: 02-01-2019 End: 02-01-2019 Secukinumab (COSENTYX SENSOREADY PEN) 150 MG/ML Solution Auto-injector injection Indications: Psoriatic arthritis , Psoriasis , Arthropathic psoriasis , Long-term current use of high risk medication other than anticoagulant , intermediate current use of non-steroidal anti-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 (NSAID) , Fatigue, unspecified type , Vitamin D deficiency , TATUM (nonalcoholic steatohepatitis) , Fatty liver , Thoracic degenerative disc disease , Primary osteoarthritis of both knees , Osteoarthritis of lumbar spine, unspecified spinal osteoarthritis complication status , Osteoarthritis of both wrists, unspecified osteoarthritis type , Osteoarthritis of both hands, unspecified osteoarthritis type , Osteoarthritis of cervical spine, unspecified spinal osteoarthritis complication status , Lumbar degenerative disc disease , DDD (degenerative disc disease), cervical 1 injection one day a week for 5 weeks then once every 4 weeks thereafter 5 Prefilled Pen/Syringe 0 02/01/2019 Active Start: 10-04-2018 Secukinumab (C OSENTYX SENSOREADY PEN) 150 MG/ML Solution Auto-injector injection Indications: Psoriatic arthritis , Dry skin , Abnormal serum CY level , History of psoriatic arthritis , intermediate current use of non-steroidal anti-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 (NSAID) , Long-term current use of high risk medication other than anticoagulant , Fatty liver , TATUM (nonalcoholic steatohepatitis) , Vitamin D deficiency , DDD (degenerative disc disease), cervical , Lumbar degenerative disc disease , Osteoarthritis of cervical spine, unspecified spinal osteoarthritis complication status , Osteoarthritis of both hands, unspecified osteoarthritis type , Osteoarthritis of both wrists, unspecified osteoarthritis type , Osteoarthritis of lumbar spine, unspecified spinal osteoarthritis complication status , Primary osteoarthritis of both knees , Thoracic degenerative disc disease , Arthropathic psoriasis , Psoriasis 1 injection every 4 weeks 1 Prefilled Pen/Syringe 11 10/04/2018 Active Start: 08-20-2017 End: 02-01-2019 secukinumab (COSENTYX) 150 M G/ML SOAJ 1 injection every 4 weeks 0 08/20/2017 Active Start: 08-20-2017 End: 10-04-2018 Secukinumab (COSENTYX SENSOR ANNE PEN) 150 MG/ML Solution Auto-injector injection Indications: Psoriatic arthritis , Psoriasis , Dry skin , History of psoriatic arthritis , Long-term current use of high risk medication other than anticoagulant , intermediate current use of non-steroidal anti-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 (NSAID) , Abnormal serum CY level , Polydipsia , Abnormal renal function test , LFT elevation , Sleep apnea, unspecified type , Vitamin D deficiency , Hyperuricemia , Primary osteoarthritis of both knees , Bilateral lower extremity edema , Osteoarthritis of both hands, unspecified osteoarthritis type , Osteoarthritis of both wrists, unspecified osteoarthritis type , Lumbar degenerative disc disease , Osteoarthritis of lumbar spine, unspecified spinal osteoarthritis complication status , DDD (degenerative disc disease), cervical , Osteoarthritis of cervical spine, unspecified spinal osteoarthritis complication status , Thoracic degenerative disc disease 1 injection one day a week for 5 weeks then once every 4 weeks thereafter 5 Prefilled Pen/Syringe 0 08/20/2017 10/04/2018 Discontinued Cosentyx 150 MG/ ML 1 ml Subcutaneous Active Spacer/Aero-Holding Chambers (VALVED HOLDING CHAMBER) JIE (8 sources) Start: 02-25-2017 Spacer/Aero-Holding Chambers (VALVED HOLDING CHAMBER) JIE USE DIRECTED ON PACKAGE 0 02/25/2017 Active Spacer/Aero-Holding Chambers (VALVED HOLDING CHAMBER) Device (20 sources) Start: 02-25-2017 Spacer/Aero-Holding Chambers (VALVED HOLDING CHAMBER) Device USE DIRECTED ON PACKAGE 0 02/25/2017 Active spironolactone 50 mg oral tablet (13 sources) Aldosterone Antagonist Start: 09-04-2024 take 1 tablet by mouth once daily spironolactone 50 mg Tab See Instructions, TAKE 1 TABLET BY MOUTH DAILY, # 90 tab(s), Refills(s) 0, Pharmacy: [facility] [id number], 163, cm, 02/29/24 13:21:00 EDT, Height/Length Dosing, 109.1, kg, 02/29/24 13:21:00 EDT, Weight Dosing Start Date: 09/04/24 Status: Ordered Quantity: 90.0 Unit: tab(s) Repeat number: 1 Start: 08-30-2023 take 1 tablet by kennedy th once daily spironolactone 50 mg Tab 50 mg = 1 tab(s), Oral, Daily, # 90 tab(s), Refills(s) 1, Pharmacy: [facility] [id number], 165.4, cm, 07/07/23 14:54:00 EST, Height/Length Dosing, 131.3, kg, 07/07/23 14:54:00 EST, Weight Dosing Start Date: 08/30/23 Status: Ordered Start: 06-07-2023 take 1 tablet by kennedy th once daily spironolactone 50 mg Tab 50 mg = 1 tab(s), Oral, Daily, # 90 tab(s), Refills(s) 1, Pharmacy: [facility] [id number], 165.4, cm, 05/18/23 10:34:00 EST, Height/Length Dosing, 127.3, kg, 05/18/23 10:34:00 EST, Weight Dosing Start Date: 06/07/23 Status: Ordered Start: 11-09-2022 take 1 tablet by kennedy once daily spironolactone 50 mg Tab 50 mg = 1 tab(s), Oral, Daily, # 90 tab(s), Refills(s) 1, Pharmacy: [facility] #[id number], 165.1, cm, 10/19/22 15:07:00 EDT, Height/Length Dosing, 120.8, kg, 10/19/22 15:07:00 EDT, Weight Dosing Start Date: 11/09/22 Status: Ordered Start: 02-19-2021 take 1 tablet by kennedy th once daily in the morning spironolactone (ALDACTONE) 50 MG tablet Take 50 mg by mouth every morning . 0 02/19/2021 Active sulindac 200 mg oral tablet (20 sources) Nonsteroidal Anti-inflammatory Drug Start: 04-04-2019 End: 05-03-2019 take 1 tablet by mouth twice daily as needed SULINDAC 200 MG Tab TAKE 1 TABLET BY MOUTH TWICE DAILY NEEDED 60 tablet 0 05/03/2019 Active Start: 03-06-2019 take 1 tablet by kennedy th twice daily as needed SULINDAC 200 MG Tab TAKE 1 TABLET BY MOUTH TWICE DAILY NEEDED 60 tablet 0 03/06/2019 Active Start: 01-04-2019 End: 02-02-2019 take 1 tablet by mouth twice daily as needed SULINDAC 200 MG Tab TAKE 1 TABLET BY MOUTH TWICE DAILY NEEDED 60 tablet 0 02/02/2019 Active Start: 10-13-2018 End: 11-04-2018 take 1 tablet by mouth twice daily as needed SULINDAC 200 MG Tab TAKE 1 TABLET BY MOUTH TWICE DAILY NEEDED 60 tablet 0 11/04/2018 Active Start: 08-18-2018 take 1 tablet by kennedy th twice daily as needed sulindac 200 MG Tab TAKE 1 TABLET BY MOUTH TWICE DAILY NEEDED 60 tablet 0 08/18/2018 Active Start: 08-20-2017 End: 03-04-2019 take 1 tablet by mouth twice daily sulindac (CLINORIL) 200 MG tablet Take 200 mg by mouth 2 times daily 0 08/20/2017 Active terconazole 4 mg/ml vaginal cream (20 sources) Azole Antifungal Start: 04-26-2018 terconazole 0 .4 % Cream levothyroxine sodium 0.125 mg oral tablet (20 sources) l-Thyroxine Start: 01-11-2024 take 1 tablet by mouth once daily levothyroxine 125 mcg (0.125 mg) Tab 125 mcg = 1 tab(s), Oral, Daily, # 90 tab(s), Refills(s) 4, Pharmacy: [facility] [id number], 163, cm, 11/22/23 14:35:00 EDT, Height/Length Dosing, 125.2, kg, 11/22/23 14:35:00 EDT, Weight Dosing Start Date: 01/11/24 Status: Ordered Quantity: 90.0 Unit: tab(s) Repeat number: 5 Start: 07-13-2023 take 1 tablet by kennedy th once daily levothyroxine 125 mcg (0.125 mg) Tab 125 mcg = 1 tab(s), Oral, Daily, # 90 tab(s), Refills(s) 1, Pharmacy: [facility] [id number], 165.4, cm, 07/07/23 14:54:00 EST, Height/Length Dosing, 131.3, kg, 07/07/23 14:54:00 EST, Weight Dosing Start Date: 07/13/23 Status: Ordered Start: 04-27-2023 take 1 tablet by kennedy th once daily levothyroxine 125 mcg (0.125 mg) Tab 125 mcg = 1 tab(s), Oral, Daily, # 90 tab(s), Refills(s) 1, Pharmacy: [facility] [id number], 164.5, cm, 04/26/23 18:33:00 EST, Height/Length Dosing, 124.8, kg, 04/26/23 18:33:00 EST, Weight Dosing Start Date: 04/27/23 Status: Ordered Start: 07-24-2022 take 1 tablet by kennedy th once daily levothyroxine 125 mcg (0.125 mg) Tab 125 mcg = 1 tab(s), Oral, Daily, Refills(s) 0 Start Date: 07/24/22 Status: Ordered Start: 01-21-2021 take 1 tablet by kennedy th once daily in the morning levothyroxine (SYNTHROID, LEVOTHROID) 125 MCG tablet Take 125 mcg by mouth every morning . 0 01/21/2021 Active Start: 05-17-2018 take 1 tablet by kennedy th once daily levothyroxine 125 MCG Tab tablet Take 125 mcg by mouth daily. 2 05/17/2018 Active Start: 04-13-2017 End: 10-04-2018 take 1 tablet by mouth once daily levothyroxine 100 MCG Tab tablet TK 1 T PO QD 3 04/13/2017 10/04/2018 Discontinued (Other (suppress cancel msg)) levothyroxine (S YNTHROID) 100 MCG tablet Take 125 mcg by mouth Daily 0 Active Levothyroxine So dium Active traMADol hydrochloride 50 mg oral tablet (8 sources) Opioid Agonist Start: 05-15-2021 traMADoL (ULTR AM) 50 mg tablet Start: 12-05-2020 take 1 tablet by kennedy th every six hours traMADol HCl 50 MG 1 tablet as needed Orally every 6 hours for 7 days Nov, Active Valved Holding Chamber Jie (5 sources) Start: 02-25-2017 Spacer/Aero-Holding Chambers (VALVED HOLDING CHAMBER) Device USE DIRECTED ON PACKAGE 0 02/25/2017 Active 24 hr venlafaxine 75 mg extended release oral capsule (20 sources) Serotonin and Norepinephrine Reuptake Inhibitor Start: 03-09-2024 take 1 capsule by mouth once daily venlafaxine 75 mg Cap-ER See Instructions, TAKE 1 CAPSULE BY MOUTH DAILY, # 90 cap(s), Refills(s) 0, called to pharmacy (Rx) Start Date: 03/09/24 Status: Ordered Quantity: 90.0 Unit: cap(s) Repeat number: 1 Start: 10-08-2023 take 1 tablet by kennedy once daily venlafaxine 150 mg oral tablet, extended release 150 mg = 1 tab(s), Oral, Daily, # 90 tab(s), Refills(s) 0, Pharmacy: [facility] [id number], 165.4, cm, 07/07/23 14:54:00 EST, Height/Length Dosing, 131.3, kg, 07/07/23 14:54:00 EST, Weight Dosing Start Date: 10/08/23 Status: Ordered Start: 10-07-2023 take 1 capsule by [facility] once daily venlafaxine 75 mg Cap-ER 75 mg = 1 cap(s), Oral, Daily, # 30 cap(s), Refills(s) 1, Pharmacy: [facility] [id number], 165.4, cm, 07/07/23 14:54:00 EST, Height/Length Dosing, 131.3, kg, 07/07/23 14:54:00 EST, Weight Dosing Start Date: 10/07/23 Status: Ordered Start: 04-16-2023 take 1 tablet by [facility] once daily venlafaxine 150 mg oral tablet, extended release 150 mg = 1 tab(s), Oral, Daily, # 90 tab(s), Refills(s) 0, Pharmacy: [facility] [id number], 165.4, cm, 03/22/23 14:19:00 EST, Height/Length Dosing, 120.4, kg, 03/22/23 14:19:00 EST, Weight Dosing Start Date: 04/16/23 Status: Ordered Start: 04-14-2023 take 1 capsule by [facility] once daily venlafaxine 75 mg Cap-ER 75 mg = 1 cap(s), Oral, Daily, # 30 cap(s), Refills(s) 1, Pharmacy: [facility] #[id number], 165.4, cm, 03/22/23 14:19:00 EST, Height/Length Dosing, 120.4, kg, 03/22/23 14:19:00 EST, Weight Dosing Start Date: 04/14/23 Status: Ordered Start: 07-24-2022 take 1 capsule by [facility] once daily venlafaxine 75 mg Cap-ER 75 mg = 1 cap(s), Oral, Daily, Refills(s) 0 Start Date: 07/24/22 Status: Ordered Start: 01-20-2021 take 1 capsule by [facility] once daily venlafaxine 150 mg Cap-ER 150 mg = 1 cap(s), Oral, Daily, Refills(s) 0 Start Date: 07/24/22 Status: Ordered Start: 01-15-2021 take 1 tablet by kennedy th once daily in the morning venlafaxine (EFFEXOR) 75 MG tablet Take 75 mg by mouth every morning . 0 01/15/2021 Active Start: 03-14-2017 take 1 tablet by kennedy th once daily in the morning Venlafaxine HCl 225 MG tablet ER TK 1 T PO QAM 3 03/14/2017 Active Venlafaxine HCl Active Completed/Discontinued Medications Medication Drug Class(es) Dates Sig (Normalized) Sig (Original) 0.8 ml adalimumab 50 mg/ml auto-injector (2 sources) Tumor Necrosis Factor Darian Start: 09-12-2017 End: 06-01-2018 HUMIRA PEN 40 MG/0.8ML injection ADM 0.8 ML SC Q OTHER WK 11 09/12/2017 06/01/2018 Discontinued Azithromycin 250 Mg Po Tabs (1 source) Macrolide Antimicrobial Start: 04-22-2018 End: 06-01-2018 azithromycin 250 MG Tab tablet fluconazole 150 mg oral tablet (3 sources) Azole Antifungal Start: 07-28-2023 take 4 tablets by mouth once Diflucan 150 mg Tab 150 mg = 1 tab(s), Oral, Once, take one tab on day 1 and one tab on day 4, # 2 tab(s), Refills(s) 1, Pharmacy: [facility] [id number], 165.4, cm, 07/07/23 14:54:00 EST, Height/Length Dosing, 131.3, kg, 07/07/23 14:54:00 EST, Weight Dosing Start Date: 07/28/23 Status: Ordered Start: 07-07-2023 take 4 tablets by mouth once D iflucan 150 mg Tab 150 mg = 1 tab(s), Oral, Once, take one tab on day 1 and one dab on day 4, # 2 tab(s), Refills(s) 1, Pharmacy: [facility] #[id number], 165.4, cm, 07/07/23 14:54:00 EST, Height/Length Dosing, 131.3, kg, 07/07/23 14:54:00 EST, Weight Dosing Start Date: 07/07/23 Status: Ordered Start: 03-25-2018 End: 06-01-2018 fluconazole 150 MG Tab table t gadoteridol (PROHANCE) injection 20 mL (1 source) Start: 07-25-2019 End: 07-25-2019 gadoteridol (PROHANCE) injection 20 mL Iopamidol (1 source) Radiographic Contrast Agent Start: 04-17-2019 End: 04-17-2019 iopamidol (ISOVUE-370) 76 % injection 75 mL microencapsulated potassium chloride 20 meq extended release oral tablet (20 sources) Start: 03-02-2018 End: 10-04-2018 take 1 tablet by mouth twice daily potassium chloride 20 MEQ Tab CR tablet TK 1 T PO BID WC FOR 5 DAYS 0 03/02/2018 10/04/2018 Discontinued (Other (suppress cancel msg)) Start: 03-25-2017 take 1 tablet by kennedy th once daily potassium chloride 10 MEQ Tab CR tablet ER TK 1 T PO QD 3 03/25/2017 Active 50 ml sodium chloride 9 mg/ml injection (1 source) Start: 04-17-2019 End: 04-17-2019 0.9 % sodium chloride bolus triamcinolone acetonide 1 mg/ml topical cream (5 sources) Corticosteroid Start: 09-29-2022 triamcinolone Top 0.1% Crm 15 gram See Instructions, 60 gm, Refill(s) 0, apply bid prn, [facility] #[id number], 165.1, cm, 07/29/22 11:31:00 EDT, Height/Length Dosing, 119, kg, 07/29/22 11:31:00 EDT, Weight Dosing Start Date: 09/29/22 Status: Ordered Quantity: 60.0 Unit: g Repeat number: 1 Problems Active Problems Problem Classification Problem Date Documented Da te Episodic/Chronic Anxiety disorders (20 sources) Social phobia; Translations: [Severe anxiety (panic)] Onset: 8 05-19-2017 Chronic Asthma (20 sources) Unspecified asthma, uncomplicated; Translations: [Uncomplicated asthma] Onset: 7 01-12-2018 Chronic Cardiac dysrhythmias (2 sources) Paroxysmal atrial fibrillation; Translations: [Paroxysmal atrial fibrillation] Onset: Chronic Coronary atherosclerosis and other heart disease (20 sources) Coronary arteriosclerosis; Translations: [Atherosclerotic heart disease of [place] coronary artery without angina pectoris] Onset: 8 01-12-2018 Chronic Comment on above: noted in 08/02/2024 Cardiology Consult Note page 11. added per [facility] policy. Diabetes mellitus without complication (20 sources) Type 2 diabetes mellitus without complication; Translations: [Type 2 diabetes mellitus without complications] Onset: 7 01-12-2018 Chronic Comment on above: linked DM with HLD p er OP CDI policy. Diabetes mellitus without complication (1 source) High hemoglobin A1c level; Translations: [Other abnormal glucose] Episodic Disorders of lipid metabolism (20 sources) Dyslipidemia; Translations: [Mixed hyperlipidemia] Onset: 8 01-12-2018 Chronic Comment on above: noted in 08/02/2024 Cardiology Consult Note page 11. added per [facility]I policy. Essential hypertension (20 sources) Hypertensive disorder; Translations: [Essential hypertension] Onset: 8 05-19-2017 Chronic Genitourinary symptoms and ill-defined conditions (20 sources) Urinary incontinence; Translations: [Unspecified urinary incontinence] Onset: 7 01-12-2018 Chronic Hepatitis (20 sources) Nonalcoholic steatohepatitis; Translations: [TATUM (nonalcoholic steatohepatitis)] Onset: 8 01-12-2018 Chronic Immunity disorders (3 sources) Drug-induced immunodeficiency 04-23-2023 Chronic Comment on above: added per 04/22/2023 query response. Immunizations and screening for infectious disease (1 source) Contact with and (suspected) exposure to other viral communicable diseases; Translations: [Exposure to SARS-associated coronavirus] Episodic Mood disorders (8 sources) Depressive disorder; Translations: [Major depression in remission] 07-24-2022 Chronic Comment on above: added per 04/22/2023 query response. Mycoses (4 sources) Candidiasis of mouth; Translations: [Candidiasis of vagina] 11-16-2022 Episodic Nutritional deficiencies (20 sources) Vitamin D deficiency; Translations: [Vitamin D deficiency, unspecified] Onset: 8 08-20-2017 Chronic Osteoarthritis (20 sources) Primary gonarthrosis, bilateral; Translations: [Primary osteoarthritis, left shoulder] Onset: 8 Resolved: 1 08-20-2017 Chronic Other aftercare (2 sources) Encounter for therapeutic drug level monitoring; Translations: [Encounter for therapeutic drug level monitoring] Onset: 9 Episodic Other and unspecified benign neoplasm (5 sources) Cavernous hemangioma 07-29-2022 Episodic Other bone disease and musculoskeletal deformities (16 sources) Osteochondropathy; Translations: [Disorder of bone and cartilage] Onset: 8 05-19-2017 Chronic Other bone disease and musculoskeletal deformities (15 sources) Disorder of skeletal system; Translations: [Disorder of bone and cartilage] Onset: 8 05-19-2017 Chronic Other connective tissue disease (5 sources) Fibromyalgia 07-24-2022 Episodic Other connective tissue disease (5 sources) Muscle weakness 07-24-2022 Episodic Other connective tissue disease (20 sources) Bilateral pes anserinus bursitis; Translations: [Pes anserinus bursitis of both knees] Onset: 8 05-19-2017 Other connective tissue disease (20 sources) Bilateral rotator cuff tendinitis; Translations: [Tendonitis of both rotator cuffs] Onset: 8 05-19-2017 Other gastrointestinal disorders (20 sources) Irritable bowel syndrome; Translations: [Irritable bowel syndrome without diarrhea] Onset: 8 05-19-2017 Chronic Other hereditary and degenerative nervous system conditions (20 sources) Restless legs; Translations: [Restless legs syndrome] Onset: 8 05-19-2017 Chronic Other inflammatory condition of skin (20 sources) Psoriasis with arthropathy; Translations: [Arthropathic psoriasis, unspecified] Onset: 7 Resolved: 9 01-12-2018 Chronic Other inflammatory condition of skin (20 sources) Psoriasis; Translations: [Psoriasis, unspecified] Onset: 8 05-19-2017 Chronic Other inflammatory condition of skin (20 sources) Arthropathic psoriasis, unspecified; Translations: [Psoriatic arthritis] Onset: 8 05-19-2017 Chronic Other injuries and conditions due to external causes (1 source) Excoriation of skin 07-07-2023 Episodic Other liver diseases (20 sources) Steatosis of liver; Translations: [Fatty (change of) liver, not elsewhere classified] Onset: 8 01-12-2018 Chronic Other lower respiratory disease (20 sources) Restrictive lung disease; Translations: [Other disorders of lung] Onset: 8 05-19-2017 Episodic Other nervous system disorders (1 source) Other chronic pain; Translations: [OTHER CHRONIC PAIN] Onset: 2 Chronic Other non-traumatic joint disorders (20 sources) Pain of left wrist; Translations: [Wrist pain, left] Onset: 8 05-19-2017 Other nutritional; endocrine; and metabolic disorders (20 sources) Morbid obesity; Translations: [Obesity, morbid, BMI 40.0-49.9] Onset: 8 01-12-2018 Chronic Other nutritional; endocrine; and metabolic disorders (1 source) Severe obesity; Translations: [Morbid (severe) obesity due to excess calories] Chronic Other nutritional; endocrine; and metabolic disorders (1 source) Body mass index 40+ - severely obese; Translations: [Body mass index (BMI) 45.0-49.9, adult] Chronic Other nutritional; endocrine; and metabolic disorders (1 source) Morbid (severe) obesity due to excess calories; Translations: [Morbid (severe) obesity due to excess calories E66.01] Onset: 1 Resolved: 1 Chronic Other nutritional; endocrine; and metabolic disorders (1 source) Body mass index (BMI) 45.0-49.9, adult; Translations: [Body mass index [BMI] 45.0-49.9, adult Z68.42] Onset: 1 Resolved: 1 Chronic Other nutritional; endocrine; and metabolic disorders (3 sources) Obese class III 04-22-2023 Chronic Other screening for suspected conditions (not mental disorders or infectious disease) (20 sources) Elevated C-reactive protein; Translations: [CRP elevated] Onset: 8 01-12-2018 Otitis media and related conditions (4 sources) Dysfunction of eustachian tube; Translations: [Finding of fluid behind tympanic membrane] 05-18-2023 Episodic Pulmonary heart disease (20 sources) Secondary pulmonary hypertension; Translations: [Other secondary pulmonary hypertension] Onset: 7 01-12-2018 Chronic Residual codes; unclassified (20 sources) Obstructive sleep apnea syndrome; Translations: [Obstructive sleep apnea] Onset: 7 01-12-2018 Chronic Residual codes; unclassified (1 source) Environment related disease; Translations: [Multiple chemical sensitivity syndrome] Onset: 0 05-19-2019 Episodic Rheumatoid arthritis and related disease (2 sources) Arthropathy of lumbar facet joint; Translations: [Lumbar facet arthropathy] Chronic Spondylosis; intervertebral disc disorders; other back problems (20 sources) Cervical spondylosis; Translations: [Degeneration of cervical intervertebral disc] Onset: 8 08-20-2017 Chronic Spondylosis; intervertebral disc disorders; other back problems (20 sources) Radiculopathy, lumbar region; Translations: [Neck pain] Onset: 8 05-19-2017 Episodic Thyroid disorders (20 sources) Hypothyroidism; Translations: [Hypothyroidism, unspecified] Onset: 8 05-19-2017 Chronic Unclassified (20 sources) Sleep apnea; Translations: [Obstructive sleep apnea syndrome] Onset: 7 05-19-2017 Chronic Unclassified (20 sources) Liver function tests abnormal; Translations: [Renal function tests abnormal] Onset: 8 Resolved: 9 08-20-2017 Episodic Unclassified (2 sources) Unknown / UNK(Unknown) Onset: 7 Unclassified (1 source) Joint Pain / [id number]() Onset: 8 Unclassified (20 sources) Drug therapy finding; Translations: [Long-term current use of high risk medication other than anticoagulant] Onset: 8 05-19-2017 Unclassified (20 sources) Patient encounter status; Translations: [intermediate current use of non-steroidal anti-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 (NSAID)] Onset: 8 05-19-2017 Unclassified (3 sources) Osteoarthritis of joint of bilateral hands Onset: 8 10-14-2017 Unclassified (4 sources) LOW BACK PAIN, UNSPECIFIED; Translations: [LOW BACK PAIN, UNSPECIFIED] Onset: 2 Unclassified (3 sources) Cancer cervix screening status 07-07-2023 Past or Other Problems Problem Classification Problem Date Documented Da te Episodic/Chronic Cardiac dysrhythmias (20 sources) Palpitations; Translations: [Palpitations] Onset: 01-12-2018 01-12-2018 Episodic Fluid and electrolyte disorders (8 sources) Dehydration; Translations: [Dehydration] Onset: 03-02-2018 Resolved: 04-01-2018 04-01-2018 Episodic Joint disorders and dislocations; trauma-related (6 sources) Loose body in knee, right knee; Translations: [Bodies, loose, joint, knee, right] Onset: 05-19-2017 Resolved: 05-19-2017 05-19-2017 Chronic Joint disorders and dislocations; trauma-related (20 sources) Loose body in right knee joint; Translations: [Bodies, loose, joint, knee, right] Onset: 05-19-2017 Resolved: 05-19-2017 05-19-2017 Malaise and fatigue (20 sources) Fatigue; Translations: [Other fatigue] Onset: 05-19-2017 05-19-2017 Episodic Nonspecific chest pain (20 sources) Chest pain; Translations: [Chest pain] Onset: 01-12-2018 01-12-2018 Episodic Osteoarthritis (20 sources) Osteoarthritis of left glenohumeral joint; Translations: [Osteoarthritis of left glenohumeral joint] Onset: 05-19-2017 Resolved: 05-19-2017 05-19-2017 Other aftercare (1 source) Patient encounter status; Translations: [intermediate (current) use of non-steroidal anti-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 (NSAID)] Onset: 05-19-2017 10-14-2017 Episodic Other aftercare (1 source) Drug therapy finding; Translations: [Other disc pad plate filler (current) drug therapy] Onset: 05-19-2017 10-14-2017 Episodic Other bone disease and musculoskeletal deformities (4 sources) Disorder of skeletal system; Translations: [Disorder of bone, unspecified] Onset: 05-19-2017 10-14-2017 Episodic Other connective tissue disease (20 sources) Muscle pain; Translations: [Myalgia] Onset: 11-17-2016 01-12-2018 Episodic Other connective tissue disease (20 sources) Subacromial bursitis; Translations: [Subacromial bursitis] Onset: 05-19-2017 05-19-2017 Episodic Other connective tissue disease (10 sources) Other shoulder lesions, right shoulder; Translations: [Bilateral rotator cuff tendinitis] Onset: 05-19-2017 05-19-2017 Episodic Other connective tissue disease (20 sources) Biceps tendinitis; Translations: [Bicipital tendinitis, right shoulder] Onset: 05-19-2017 05-19-2017 Episodic Other connective tissue disease (10 sources) Other bursitis of knee, right knee; Translations: [Bilateral pes anserinus bursitis] Onset: 05-19-2017 05-19-2017 Episodic Other connective tissue disease (20 sources) H/O: arthritis; Translations: [Personal history of diseases of the skin and subcutaneous tissue] Onset: 05-19-2017 05-19-2017 Episodic Other connective tissue disease (20 sources) Subdeltoid bursitis; Translations: [Bursitis of unspecified shoulder] Onset: 05-19-2017 01-12-2018 Episodic Other gastrointestinal disorders (8 sources) Diarrhea; Translations: [Diarrhea, unspecified] Onset: 02-28-2018 03-02-2018 Episodic Other gastrointestinal disorders (8 sources) Diarrheal disorder; Translations: [Diarrhea, unspecified] Onset: 02-28-2018 02-28-2018 Episodic Other lower respiratory disease (20 sources) Dyspnea; Translations: [Shortness of breath] Onset: 11-17-2016 01-12-2018 Episodic Other lower respiratory disease (20 sources) Dyspnea on exertion; Translations: [Other forms of dyspnea] Onset: 05-19-2017 05-19-2017 Episodic Other non-traumatic joint disorders (20 sources) Joint pain; Translations: [Joint Pain] Onset: 08-20-2017 06-01-2018 Episodic Other non-traumatic joint disorders (10 sources) Pain in left wrist; Translations: [Pain of left wrist] Onset: 05-19-2017 05-19-2017 Episodic Other non-traumatic joint disorders (20 sources) Shoulder pain; Translations: [Chronic pain of both shoulders] Onset: 05-19-2017 05-19-2017 Episodic Other non-traumatic joint disorders (20 sources) Knee pain; Translations: [Chronic pain of both knees] Onset: 05-19-2017 05-19-2017 Episodic Other non-traumatic joint disorders (1 source) Pain in unspecified joint; Translations: [PAIN IN UNSPECIFIED JOINT] Onset: 01-23-2022 Episodic Other non-traumatic joint disorders (1 source) Pain in right knee; Translations: [Pain in joint, lower leg] Onset: 05-19-2017 10-14-2017 Episodic Other non-traumatic joint disorders (1 source) Bilateral chronic pain of upper limbs; Translations: [Pain in right shoulder] Onset: 05-19-2017 10-14-2017 Episodic Other nutritional; endocrine; and metabolic disorders (20 sources) Hyperuricemia; Translations: [Hyperuricemia without signs of inflammatory arthritis and tophaceous disease] Onset: 08-20-2017 Resolved: 01-12-2018 01-12-2018 Episodic Other nutritional; endocrine; and metabolic disorders (20 sources) Excessive thirst; Translations: [Polydipsia] Onset: 08-20-2017 Resolved: 10-04-2018 08-20-2017 Episodic Other skin disorders (20 sources) Dry skin; Translations: [Dry skin] Onset: 08-20-2017 08-20-2017 Episodic Other skin disorders (1 source) Facial swelling Episodic Other skin disorders (1 source) Xeroderma; Translations: [Xerosis cutis] Onset: 08-20-2017 10-14-2017 Episodic Residual codes; unclassified (3 sources) Localized edema; Translations: [Bilateral lower limb edema] Onset: 05-19-2017 10-14-2017 Episodic Unclassified (20 sources) Edema of lower extremity; Translations: [Bilateral lower extremity edema] Onset: 05-19-2017 05-19-2017 Episodic Unclassified (1 source) LOW BACK PAIN, UNSPECIFIED; Translations: [LOW BACK PAIN, UNSPECIFIED] Onset: 04-16-2022 Results Test Name Value Interpretation Reference Range Facil ity CBC w/ Auto Diffon 5 Basophil Absolute 0.1 E9/L Normal 0.0-0.2 [facility] Comment on above: Performed By: #### 2 [id number] #### [facility] [address] [place] [address] Basophils/100 WBC (Bld) 0.9 % Normal 0.0-2.0 [facility] Comment on above: Performed By: #### 2 [id number] #### [facility] [address] [place] [address] Eos Absolute 0.6 E9/L High 0.0-0.5 [facility] Comment on above: Performed By: #### 2 [id number] #### [facility] [address] [place] [address] Eosinophils/100 WBC (Bld) 6.6 % Normal 0.0-8.0 [facility] Comment on above: Performed By: #### 2 [id number] #### [facility] [address] [place] [address] Erythrocyte distribution width (RBC) [Ratio] 16.3 % High 10.9-14.2 [facility] Comment on above: Performed By: #### 2 [id number] #### [facility] [address] [place] [address] Hematocrit (Bld) [Volume fraction] 42.2 % Normal 34.0-46.0 [facility] Comment on above: Performed By: #### 2 [id number] #### [facility] [address] [place] [address] Hemoglobin (Bld) [Mass/Vol] 13.8 g/dL Normal 12.0-16.0 [facility] Comment on above: Performed By: #### 2 [id number] #### [facility] [address] [place] [address] Lymph Absolute 1.9 E9/L Normal 1.0-4.0 [facility] Comment on above: Performed By: #### 2 [id number] #### [facility] [address] [place] [address] Lymphocytes/100 WBC (Bld) 20.3 % Normal 14.0-50.0 [facility] Comment on above: Performed By: #### 2 [id number] #### [facility] [address] [place] [address] MCH (RBC) [Entitic mass] 28.5 pg Normal 27.0-34.0 [facility] Comment on above: Performed By: #### 2 [id number] #### [facility] [address] [place] [address] MCHC (RBC) [Mass/Vol] 32.7 g/dL Normal 31.4-36.0 [facility] Comment on above: Performed By: #### 2 [id number] #### [facility] [address] [place] [address] MCV (RBC) [Entitic vol] 87.2 fL Normal 80.0-100.0 [facility] Comment on above: Performed By: #### 2 [id number] #### [facility] [address] [place] [address] [place] Absolute 0.6 E9/L Normal 0.2-1.0 [facility] Comment on above: Performed By: #### 2 [id number] #### [facility] [address] [place] [address] Monocytes/100 WBC (Bld) 6.9 % Normal 4.0-14.0 [facility] Comment on above: Performed By: #### 2 [id number] #### [facility] [address] [place] [address] Neutro Absolute 6.1 E9/L Normal 2.0-7.5 [facility] Comment on above: Performed By: #### 2 [id number] #### [facility] [address] [place] [address] Neutro Auto 65.3 % Normal 36.0-75.0 [facility] Comment on above: Performed By: #### 2 [id number] #### [facility] [address] [place] [address] Platelet 386.0 E9/L Normal 150.0-500.0 [facility] Comment on above: Performed By: #### 2 [id number] #### [facility] [address] [place] [address] Platelet mean volume (Bld) [Entitic vol] 7.8 fL Normal 6.4-10.8 [facility] Comment on above: Performed By: #### 2 [id number] #### [facility] [address] [place] [address] RBC 4.8 E12/L Normal 4.3-5.9 [facility] Comment on above: Performed By: #### 2 [id number] #### [facility] [address] [place] [address] WBC 9.4 E9/L Normal 4.0-11.0 [facility] Comment on above: Performed By: #### 2 [id number] #### [facility] [address] [place] [address] CMPon 10-06-2024 Albumin [Mass/Vol] 4.2 g/dL Normal 3.3-5.0 [facility] Comment on above: Performed By: #### 2 [id number] #### [facility] [address] [place] [address] Albumin/Globulin [Mass ratio] 1.4 {ratio} Normal 1.1-2.2 [facility] Comment on above: Performed By: #### 2 [id number] #### [facility] [address] [place] [address] Alk Phos 100 Int._Unit/L High 21-98 [facility] Comment on above: Performed By: #### 2 [id number] #### [facility] [address] [place] [address] ALT 27 Int._Unit/L Normal 6-46 [facility] Comment on above: Performed By: #### 2 [id number] #### [facility] [address] [place] [address] Anion gap [Moles/Vol] 14 mmol/L Normal 6-16 [facility] Comment on above: Performed By: #### 2 [id number] #### [facility] [address] [place] [address] AST 22 Int._Unit/L Normal 5-43 [facility] Comment on above: Performed By: #### 2 [id number] #### [facility] [address] [place] [address] Bili Total 0.5 mg/dL Normal 0.0-1.1 [facility] Comment on above: Performed By: #### 2 [id number] #### [facility] [address] [place] [address] BUN/Creat Ratio 21 No Units High 10-[address] [facility] Comment on above: Performed By: #### 2 [id number] #### [facility] [address] [place] [address] Calcium [Mass/Vol] 9.8 mg/dL Normal 8.9-11.1 [facility] Comment on above: Performed By: #### 2 [id number] #### [facility] [address] [place] [address] Chloride [Moles/Vol] 104 mmol/L Normal 101-111 [facility] Comment on above: Performed By: #### 2 [id number] #### [facility] [address] [place] [address] CO2 [Moles/Vol] 24 mmol/L Normal 21-31 [facility] Comment on above: Performed By: #### 2 [id number] #### [facility] [address] [place] [address] Creatinine [Mass/Vol] 0.9 mg/dL Normal 0.5-1.3 [facility] Comment on above: Performed By: #### 2 [id number] #### [facility] [address] [place] [address] Globulin (S) [Mass/Vol] 2.9 g/dL Normal 1.4-4.0 [facility] Comment on above: Performed By: #### 2 [id number] #### [facility] [address] [place] [address] Glucose [Mass/Vol] 240 mg/dL High 55-199 [facility] Comment on above: Performed By: #### 2 [id number] #### [facility] [address] [place] [address] Potassium [Moles/Vol] 4.2 mmol/L Normal 3.5-5.3 [facility] Comment on above: Performed By: #### 2 [id number] #### [facility] [address] [place] [address] Protein [Mass/Vol] 7.1 g/dL Normal 6.0-7.8 [facility] Comment on above: Performed By: #### 2 [id number] #### [facility] [address] [place] [address] Sodium [Moles/Vol] 138 mmol/L Normal 135-145 [facility] Comment on above: Performed By: #### 2 [id number] #### [facility] [address] [place] [address] Urea nitrogen [Mass/Vol] 19 mg/dL Normal 5-21 [facility] Comment on above: Performed By: #### 2 [id number] #### [facility] [address] [place] [address] [id number] 10-06-2024 HbA1c (Bld) [Mass fraction] 7.4 % High <=5.9 [facility] Comment on above: Performed By: #### 7 [id number] #### [facility] [address] [place] [address] Lipid Panelon 10-06-2024 Cholesterol [Mass/Vol] 103 mg/dL Low 120-200 [facility] Comment on above: Performed By: #### 2 [id number] #### [facility] [address] [place] [address] Cholesterol in HDL [Mass/Vol] 49 mg/dL Invalid Interpretation Code [facility] Comment on above: Result Comment: '>= 60 LOW RISK' '<= 40 HIGH RISK' Performed By: #### 2 [id number] #### [facility] [address] [place] [address] Cholesterol in LDL [Mass/Vol] 46 mg/dL Normal <=129 [facility] Comment on above: Performed By: #### 2 [id number] #### [facility] [address] [place] [address] Cholesterol in VLDL [Mass/Vol] 26 mg/dL Normal 7-40 [facility] Comment on above: Performed By: #### 2 [id number] #### [facility] [address] [place] [address] Triglyceride [Mass/Vol] 130 mg/dL Normal <=149 [facility] Comment on above: Performed By: #### 2 [id number] #### [facility] [address] [place] [address] TSH With T4fr Reflexon 10-06 TSH Qn 0.51 m[IU]/L Normal 0.34-5.60 [facility] Comment on above: Performed By: #### 1 [id number] #### [facility] [address] [place] [address] U MA/Cr Ratioon 10-06-2024 U Microalb 18.7 mg/dL High 0.0-1.9 [facility] Comment on above: Performed By: #### 1 [id number] #### [facility] [address] [place] [address] Microalb/Cr Ratio 50.6 mg/gm Cr High .0-30.0 [facility] Comment on above: Result Comment: 30-3 00 mg/g Cr indicates an increased risk for diabetic nephropathy. >300 mg/g Cr is consistent with clinical nephropathy. Performed By: #### 1 [id number] #### [facility] [address] [place] [address] U Creatinine 369.9 mg/dL Invalid Interpretation Code [facility] Comment on above: Result Comment: Resu lt Verified by Dilution Performed By: #### 1 [id number] #### [facility] [address] [place] [address] eGFRon 10-06-2024 eGFR 75 mL/min/1.73 m2 Normal >=59 [facility] Comment on above: Performed By: #### 1 [id number] #### [facility] [address] [place] [address] Family Medicine Office/Clini c Noteon 10-05-2024 Family Medicine Office/Clinic Note Family Medicine Office/Clinic Note Chief Complaint Worsening psoriasis arthropathica and related complications. HPI Staff Dee Dee is a 54 year old female presenting with medication refills needed Ozempic and Amlodipine needs refilled Do you have any of the following symptoms? Foot Exam: not yet Eye Exam: October 2023 Last A1C: October 28 2023 (8.5) Statin: Atorvastatin 80 mg Last labs October 28 2023 History of Present Illness - The patient is a 54 year old female presenting with management of psoriasis arthropathica flares and associated complications. - Issues arose after switching from Orencia to Taltz, with a three-month gap in treatment resulting in symptom exacerbation. - Adverse reactions to Taltz include yeast infections, with ineffective [id number] antifungal use, necessitating nystatin powder. - Non-compliance with CPAP machine for sleep apnea noted. - Recent weight loss reported. - No chest pain or shortness of breath; managed with aspirin and statin for coronary artery disease. - Depression reportedly under control. - Monitoring of blood glucose levels and thyroid function planned. - Discussion on the use of aspirin and statin for coronary artery disease management. - Weight management acknowledged through recent weight loss. Review of Systems PHQ Score Initial Depression Screen Score: 0 SCORE Physical Exam Vitals & Measurements T: 36.2 ???C(Oral) HR: 94(Peripheral) RR: 20 BP: 132/84 SpO2: 100% HT: 64 in HT: 163.0 cm WT: 267.641 lb WT: 121.4 kg BMI: 45.69 General: alert, no acute distress ENMT: oral mucosa moist Cardiovascular: Regular rate and rhythm, normal peripheral perfusion Respiratory: Lungs clear to auscultation, respirations non labored Extremities: no deformity, no trauma Neurological: oriented x 4, level of consciousness appropriate for age, CN II-XII intact, motor strength equal & normal bilaterally, speech normal Abdomen: Soft, Non-tender, Non-distended, + Bowel sounds Assessment/Plan 1. Coronary artery disease involving [place] coronary artery of [place] heart without angina pectoris (I25.10: Atherosclerotic heart disease of [place] coronary artery without angina pectoris) - Continue aspirin and statin therapy, no new symptoms. Ordered: CBC w/ Auto Diff Comprehensive Metabolic Panel HgbA1c Lipid Panel Microalbumin Level Urine TSH With T4fr Reflex Urine Microalbumin/Creatin ine Ratio 2. Type 2 diabetes mellitus with hyperlipidemia (E11.69: Type 2 diabetes mellitus with other specified complication) - Plan to check blood glucose levels. Ordered: CBC w/ Auto Diff Comprehensive Metabolic Panel HgbA1c Lipid Panel Microalbumin Level Urine TSH With T4fr Reflex Urine Microalbumin/Creatin ine Ratio 3. Mixed hyperlipidemia (E78.2: Mixed hyperlipidemia) - Plan to check cholesterol. Ordered: CBC w/ Auto Diff Comprehensive Metabolic Panel HgbA1c Lipid Panel Microalbumin Level Urine TSH With T4fr Reflex Urine Microalbumin/Creatin ine Ratio 4. Psoriasis arthropathica (L40.50: Arthropathic psoriasis, unspecified) - Initiated nystatin powder for yeast infections. Ordered: CBC w/ Auto Diff Comprehensive Metabolic Panel HgbA1c Lipid Panel Microalbumin Level Urine TSH With T4fr Reflex Urine Microalbumin/Creatin ine Ratio 5. Morbid obesity with BMI of 45.0-49.9, adult, (E66.01: Morbid (severe) obesity due to excess calories)Class 3 obesity - Monitor weight loss progress. Ordered: CBC w/ Auto Diff Comprehensive Metabolic Panel HgbA1c Lipid Panel Microalbumin Level Urine TSH With T4fr Reflex Urine Microalbumin/Creatin ine Ratio 7. HTN (hypertension) (I10: Essential (primary) hypertension) - Continue current management, blood pressure stable. Ordered: CBC w/ Auto Diff Comprehensive Metabolic Panel HgbA1c Lipid Panel Microalbumin Level Urine TSH With T4fr Reflex Urine Microalbumin/Creatin ine Ratio 8. Hypothyroidism (E03.9: Hypothyroidism, unspecified) - Plan to test thyroid function. Ordered: CBC w/ Auto Diff Comprehensive Metabolic Panel HgbA1c Lipid Panel Microalbumin Level Urine TSH With T4fr Reflex Urine Microalbumin/Creatin ine Ratio 9. Sleep apnea, unspecified (G47.30) - Stressed importance of CPAP compliance. Ordered: CBC w/ Auto Diff Comprehensive Metabolic Panel HgbA1c Lipid Panel Microalbumin Level Urine TSH With T4fr Reflex Urine Microalbumin/Creatin ine Ratio Body mass index [BMI] 45.0-49.9, adult (Z68.42: Body mass index [BMI] 45.0-49.9, adult) - BMI education added. Orders: MA Mamm Screen w/CAD if perf and 3D Tommie - 54 year old female with history of psoriasis arthropathica presenting with management of psoriasis flares and related complications. - Yeast infections secondary to new medication regimen. - Coronary artery disease without acute symptoms, under current management. - Hypertension and Type 2 diabetes mellitus management to be reviewe (more content not included)... [facility] Comment on above: Result Comment: Elec tronically Signed By: Malik Denson MD\.br\Date and Time Signed: 10/05/24 15:19 EDT Office Visiton 08-02-2024 Follow-up visit [id number] Dee Dee Caballero 1970 F Date Provider Department Center 08/02/2024 [id number], ADAM CARD Cindy Hos No family history on file Level of Service:78549 [place] OFFICE/OUTPATIENT ESTABLISHED LOW MDM 20 MIN Normal [facility] Ambulatory Visit Summaryon 1 Ambulatory Visit Summary Ambulatory Visit Summary DEE DEE CABALLERO :1970 Visit Date:02/29/2024 Ambulatory Visit Instructions Your Care Team Attending Physician - Malik Denson MD Primary Care Physician - Malik Denson MD This Is Your Medications List [facility] Prescription (glucometer test strips) abatacept (Orencia 250 mg intravenous injection) amlodipine (amLODIPine 10 mg Tab) atorvastatin (atorvastatin 80 mg Tab) baclofen (baclofen 10 mg Tab) carvedilol (carvedilol 25 mg Tab) clobetasol topical (clobetasol propionate 0.05% top oint) ezetimibe (ezetimibe 10 mg Tab) famotidine (famotidine 20 mg Tab) fluticasone nasal (Flonase 0.05 mg/inh Golden) gabapentin (gabapentin 300 mg Cap) glipiZIDE (glipiZIDE 10 mg Tab) hydrOXYzine (hydrOXYzine pamoate 25 mg Cap) levothyroxine (levothyroxine 125 mcg (0.125 mg) Tab) losartan (losartan 100 mg Tab) metformin (metformin 500 mg Tab) ropinirole (ropinirole 0.25 mg Tab) semaglutide (Ozempic 8 mg/3 mL (2 mg dose) subcutaneous solution) spironolactone (spironolactone 50 mg Tab) triamcinolone topical (triamcinolone Top 0.1% Crm 15 gram) venlafaxine (venlafaxine 150 mg Cap-ER) venlafaxine (venlafaxine 75 mg Cap-ER) Procedures Performed Acute tear of lateral meniscus of left knee, section, Cholecystectomy, History of elbow surgery, Tear of biceps tendon, Total hysterectomy. Discharge Vitals Temperature (Oral) 36.8 ?C Heart Rate (Peripheral) 84 Respiratory Rate 16 Blood Pressure 128/76 Height 163 cm Height 64 in Weight 109.1 kg Weight 240.02 lb BMI 41.06 What to do next Scheduled Follow-Up Appointments 2024 1:00 PM EDT Where: [facility] Medicine [place] [id number]- Medications What How Much When Why Instructions Unchanged abatacept (Orencia 250 mg intravenous injection) See instructions one pen per week Unchanged amlodipine (amLODIPine 10 mg Tab) 1 Tablets By Mouth Every day Unchanged atorvastatin (atorvastatin 80 mg Tab) 1 Tablets By Mouth Every day Unchanged baclofen (baclofen 10 mg Tab) 1 Tablets By Mouth 2 times a day Unchanged carvedilol (carvedilol 25 mg Tab) 1 Tablets By Mouth 2 times a day Unchanged clobetasol topical (clobetasol propionate 0.05% top oint) 1 Application Topical 2 times a day BMI 45.0-49.9, adult Non-smoker Well woman exam Excoriated rash Yeast infection of the vagina Cervical cancer screening Breast cancer screening by mammogram Unchanged ezetimibe (ezetimibe 10 mg Tab) 1 Tablets By Mouth Every day Unchanged famotidine (famotidine 20 mg Tab) 1 Tablets By Mouth 2 times a day Unchanged fluticasone nasal (Flonase 0.05 mg/ inh Golden) 2 Sprays Nasal Inhalation Every day Otitis media of right ear Fluid level behind tympanic membrane of both ears each nostril Unchanged gabapentin (gabapentin 300 mg Cap) 1 Capsules By Mouth 3 times a day Per patient Pain Management instructions:take 1 tab at HS for 2-3 days, then titrate up to TID. Started Unchanged glipiZIDE (glipiZIDE 10 mg Tab) 1 Tablets By Mouth 2 times a day take at breakfast and lunch Unchanged hydrOXYzine (hydrOXYzine pamoate 25 mg Cap) 1 Capsules By Mouth 4 times a day as needed for for anxiety Unchanged levothyroxine (levothyroxine 125 mcg (0.125 mg) Tab) 1 Tablets By Mouth Every day Unchanged losartan (losartan 100 mg Tab) 1 Tablets By Mouth Every day Unchanged metformin (metformin 500 mg Tab) 1 Tablets By Mouth 2 times a day Unchanged Misc Prescription (glucometer test strips) See instructions Unchanged ropinirole (ropinirole 0.25 mg Tab) See instructions TAKE 1 TABLET BY MOUTH EVERY NIGHT 2 HOURS BEFORE BEDTIME Unchanged semaglutide (Ozempic 8 mg/ 3 mL (2 mg dose) subcutaneous solution) 2 Milligram Subcutaneous Every week Unchanged spironolactone (spironolactone 50 mg Tab) 1 Tablets By Mouth Every day Unchanged triamcinolone topical (triamcinolone Top 0.1% Crm 15 gram) See instructions apply bid prn Unchanged venlafaxine (venlafaxine 150 mg Cap-ER) 1 Capsules By Mouth Every day Unchanged venlafaxine (venlafaxine 75 mg Cap-ER) See instructions TAKE 1 CAPSULE BY MOUTH DAILY Allergies Bactrim (Mild) Ceftin (Mild) Minocin (Mild) cephalexin (Mild) doxepin (Mild) glycerin (Mild) methotrexate (Severe) Problems Ongoing - Any problem that you are currently receiving treatment for. Breast cancer screening by mammogram Cervical cancer screening Class 3 obesity DM type 2 causing complication Fibromyalgia Fluid level behind tympanic membrane of both ears HTN (hypertension) Hypothyroidism Immunodeficiency due to drugs Major depression in remission Muscle weakness KILEY (obstructive sleep apnea) Osteoarthritis, knee Pre-op exam Psoriasis arthropathica Restrictive lung disease Severe anxiety Spinal stenosis Historical - Any problem that you are no longer receiving treatment for. Cav (more content not included)... [facility] Office/Clini c Noteon 02-29-2024 Family Medicine Office/Clinic Note Family Medicine Office/Clinic Note HPI Staff Dee Dee is a 53 year old female presenting for back pain, chronic Acute; flare of chronic back pain and muscle relaxers not working Pain characteristics: Pain location: buttocks area and now has a drop foot ( left) Intensity:4/10 Onset: years but current flare ever since she had surgery Medication used: muscle relaxers, norco, took her off it and tried tramadol but it doesn't mix with effexor questions/concerns: needs her ozempic refilled History of Present Illness See staff HPI. Review of Systems PHQ Score Initial Depression Screen Score: 0 SCORE Physical Exam Vitals & Measurements T: 36.8 ?C(Oral) HR: 84(Peripheral) RR: 16 BP: 128/76 SpO2: 96% HT: 64 in HT: 163 cm WT: 109.1 kg WT: 240.02 lb BMI: 41.06 General: alert, no acute distress ENMT: oral mucosa moist, Cardiovascular: regular rate and rhythm, normal peripheral perfusion Respiratory: Lungs CTA, respirations non labored Extremities: no deformity, no trauma, walking with a walker, Back brace on. Well healing surgical scare. Neurological: oriented x 4, LOC appropriate for age, CN II-XII intact, motor strength equal & normal bilaterally, speech normal Abdomen: Soft, Nontender, Non-distended, + BS Assessment/Plan 1. Spinal stenosis (M48.00: Spinal stenosis, site unspecified) Status post spinal surgery. Patient has postop dropfoot on the left. Pain in the left hip. Otherwise back pain has improved. Patient continues to see pain management. 2. Muscle spasm (M62.838: Other muscle spasm) Will increase baclofen to 10 mg 3 times daily. Patient has already tried Flexeril which did not work for her. Will slowly increase baclofen as needed. 3. DM type 2 causing complication (E11.8: Type 2 diabetes mellitus with unspecified complications) Will refill Ozempic at this time. Do believe that the patient's A1c will be abnormal given the patient needing high-dose steroids after surgery. Will continue to monitor. Orders: baclofen, 10 mg = 1 tab(s), Oral, TID, # 90 tab(s), Refills(s) 0, Pharmacy: [facility] [id number], 163, cm, 02/29/24 13:21:00 EDT, Height/Length Dosing, 109.1, kg, 02/29/24 13:21:00 EDT, Weight Dosing Follow-up No qualifying data available Problem List/Past Medical History Ongoing Breast cancer screening by mammogram Cervical cancer screening Class 3 obesity DM type 2 causing complication Fibromyalgia Fluid level behind tympanic membrane of both ears HTN (hypertension) Hypothyroidism 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 Medications amLODIPine 10 mg Tab, 10 mg= 1 tab(s), Oral, Daily, 3 refills atorvastatin 80 mg Tab, 80 mg= 1 tab(s), Oral, Daily baclofen 10 mg Tab, 10 mg= 1 tab(s), Oral, TID carvedilol 25 mg Tab, 25 mg= 1 tab(s), Oral, BID clobetasol propionate 0.05% top oint, 1 kate, Topical, BID, 1 refills ezetimibe 10 mg Tab, 10 mg= 1 tab(s), Oral, Daily famotidine 20 mg Tab, 20 mg= 1 tab(s), Oral, BID Flonase 0.05 mg/inh Golden, 2 spray(s), Nasal, Daily, Self Directed gabapentin 300 mg Cap, 300 mg= 1 cap(s), Oral, TID glipiZIDE 10 mg Tab, 10 mg= 1 tab(s), Oral, BID, 3 refills glucometer test strips, See Instructions hydrOXYzine pamoate 25 mg Cap, 25 mg= 1 cap(s), Oral, QID, PRN levothyroxine 125 mcg (0.125 mg) Tab, 125 mcg= 1 tab(s), Oral, Daily, 4 refills losartan 100 mg Tab, 100 mg= 1 tab(s), Oral, Daily, 1 refills metformin 500 mg Tab, 500 mg= 1 tab(s), Oral, BID Orencia 250 mg intravenous injection, See Instructions Ozempic 8 mg/3 mL (2 mg dose) subcutaneous solution, 2 mg, SubCutaneous, qWeek, 1 refills ropinirole 0.25 mg Tab, See Instructions, 3 refills spironolactone 50 mg Tab, 50 mg= 1 tab(s), Oral, Daily, 1 refills triamcinolone Top 0.1% Crm 15 gram, See Instructions, Self Directed venlafaxine 150 mg Cap-ER, 150 mg= 1 cap(s), Oral, Daily, 4 refills venlafaxine 75 mg Cap-ER, See Instructions, 4 refills Allergies Bactrim (Mild) Ceftin (Mild) Minocin (Mild) cephalexin (Mild) doxepin (Mild) glycerin (Mild) methotrexate (Severe) Social History Alcohol - Denies Alcohol Use, 11/16/2022 Never., 02/24/2024 Substance Abuse - Denies Substance Abuse, 11/16/2022 Never., 02/24/2024 Tobacco - Denies Tobacco Use, 11/16/2022 Never (less than 100 in lifetime) Tobacco Use:., 02/29/2024 Family History Primary malignant neoplasm of colon: Grandparent. Immunizations Vaccine Date Status Comments SARS-CoV-2 mRNA (tozinameran 5y-11y) vac 02/21/2024 Recorded pfizer comirnaty influenza virus vaccine, inactivated 02/21/2024 (more content not included)... [facility] Comment on above: Result Comment: Elec tronically Signed By: Jarett DEAN, Malik Cary\.br\Date and Time Signed: 02/29/24 13:41 EDT .eGFRon 02-03-2024 GFR/1.73 sq M.predicted MDRD (S/P/Bld) [Vol rate/Area] mL/min/{1.73_m2} Normal >=60 [facility] Comment on above: Order Comment: Order added by Discern rule Result Comment: [facility] have implemented the eGFR calculation approach that does not have a coefficient for race and that conforms to the NKF-ASN Task Force Recommendations. Stages of Chronic Kidney Disease GFR Stage 3a Mild to moderate loss of kidney function 59 to 45 Stage 3b Moderate to severe loss of kidney function 44 to 33 Stage 4 Severe loss of kidney function 29 to 15 Stage 5 Kidney failure Less than 15 GFR calculated using the CKD-Epi Creatinine Equation (2020): eGFR = 142 X min(SCr/?, 1)? X max(SCr /?, 1)-1.200 X 0.9938Age X 1.012 [if female] Abbreviations/Units: eGFR (estimated glomerular filtration rate) = mL/min/1.73 m2 SCr (standardized serum creatinine) = mg/dL ? = 0.7 (females) or 0.9 (males) ? = -0.241 (females) or -0.302 (males) min = indicates the minimum of SCr/? or 1 max = indicates the maximum of SCr/? or 1 Age = years Performed By: #### E GFR #### [address] [address] Basic Metabolic Profileon Anion gap [Moles/Vol] 10 mmol/L Normal 4-12 [facility] Comment on above: Performed By: #### C [id number] #### [address] [address] Calcium [Mass/Vol] 9.0 mg/dL Normal 8.5-10.3 [facility] Comment on above: Performed By: #### C [id number] #### [address] [address] Chloride [Moles/Vol] 101 mmol/L Normal 98-110 [facility] Comment on above: Performed By: #### C [id number] #### [address] [address] CO2 [Moles/Vol] 23 mmol/L Normal 22-32 [facility] Comment on above: Performed By: #### C [id number] #### [address] [address] Potassium [Moles/Vol] 4.0 mmol/L Normal 3.4-4.8 [facility] Comment on above: Performed By: #### C [id number] #### [address] [address] Sodium [Moles/Vol] 134 mmol/L Normal 133-142 [facility] Comment on above: Performed By: #### C [id number] #### [address] [address] Creatinine [Mass/Vol] 0.68 mg/dL Normal 0.44-1.03 [facility] Comment on above: Performed By: #### C [id number] #### [address] [address] Glucose [Mass/Vol] 259 mg/dL High 70-99 [facility] Comment on above: Performed By: #### C [id number] #### [address] [address] Urea nitrogen [Mass/Vol] 21 mg/dL Normal 8-26 [facility] Comment on above: Performed By: #### C [id number] #### [address] [address] Urea nitrogen/Creatinine [Mass ratio] 30.9 mg/mg High 10.0-20.0 [facility] Comment on above: Performed By: #### C [id number] #### [address] [address] CBC w/ Diffon 02-03-2024 Erythrocyte distribution width (RBC) [Ratio] 13.6 % Normal 11.6-14.8 [facility] Comment on above: Performed By: #### C [id number] #### [address] [address] Hematocrit (Bld) [Volume fraction] 31.7 % Low 36.0-46.0 [facility] Comment on above: Performed By: #### C [id number] #### [address] [address] Hemoglobin (Bld) [Mass/Vol] 10.4 g/dL Low 12.0-16.0 [facility] Comment on above: Performed By: #### C [id number] #### [address] [address] MCH (RBC) [Entitic mass] 29.7 pg Normal 27.0-35.0 [facility] Comment on above: Performed By: #### C [id number] #### [place] [id number] MCHC 32.8 % Normal 31.0-37.0 [facility] Comment on above: Performed By: #### C [id number] #### [place] [id number] MCV (RBC) [Entitic vol] 90.7 fL Normal 80.0-100.0 [facility] Comment on above: Performed By: #### C [id number] #### [place] [id number] Platelet 212 x10*3/mcL Normal 150-450 [facility] Comment on above: Performed By: #### C [id number] #### [place] [id number] Platelet mean volume (Bld) [Entitic vol] 7.2 fL Normal 6.7-10.6 [facility] Comment on above: Performed By: #### C [id number] #### [place] [id number] RBC 3.49 x10*6/mcL Low 3.80-5.20 [facility] Comment on above: Performed By: #### C [id number] #### [place] [id number] WBC 19.8 x10*3/mcL High 4.5-11.0 [facility] Comment on above: Performed By: #### C [id number] #### [place] [address] Diff Autoon 02-03-2024 Baso Absolute 0.1 x10*3/mcL Normal 0.0-0.2 [facility] Comment on above: Performed By: #### E GFR #### [address] [address] Basophils/100 WBC (Bld) 0.3 % Normal 0.0-1.5 [facility] Comment on above: Performed By: #### E GFR #### [address] [address] Eos Absolute 0.0 x10*3/mcL Normal 0.0-0.4 [facility] Comment on above: Performed By: #### E GFR #### [address] [address] Eosinophils/100 WBC (Bld) 0.0 % Normal 0.0-5.4 [facility] Comment on above: Performed By: #### E GFR #### [address] [address] Lymph Absolute 1.2 x10*3/mcL Normal 1.0-4.8 [facility] Comment on above: Performed By: #### E GFR #### [address] [address] Lymphocytes/100 WBC (Bld) 6.2 % Low 27.2-40.8 [facility] Comment on above: Performed By: #### E GFR #### [address] [address] [place] Absolute 0.7 x10*3/mcL Normal 0.1-1.1 [facility] Comment on above: Performed By: #### E GFR #### [address] [address] Monocytes/100 WBC (Bld) 3.5 % Low 3.7-11.9 [facility] Comment on above: Performed By: #### E GFR #### [address] [address] Neutro Absolute 17.8 x10*3/mcL High 1.8-7.7 [facility] Comment on above: Performed By: #### E GFR #### [address] [address] Neutro Auto 90.0 % High 47.2-70.8 [facility] Comment on above: Performed By: #### E GFR #### LOCATED [facility]IN [facility] [address] [place] [address] Inpatient Clinical Summaryon 02-03-2024 Inpatient Clinical Summary [facility] [address] [place] [address] [address] Clinical Summary Person Information Name: Dee Dee Caballero Age: 53 Years : 1970 Sex: Female PCP: Jarett DEAN, Malik Rodriguez Marital Status: Phone: PCP: Race: White Ethnicity: Not or Language: Marshallese Visit Id: Visit Reason: Speciality: Acuity: Enc Type: Inpatient Med Service: Surgery Arrival: 02/01/2024 09:00:36 Discharge: Dispo Type: Address: [address] [place] [id number] Diagnosis: 1:S/P lumbar fusion; 2:Diabetes; 3:Hypertension; 4:Hypothyroid Discharged To: Home Treatments: Devices/Equipment: Professional Skilled Services: Special Services and Community Resources: Mode of Discharge Transportation: Discharge Orders Ankle Foot Orthosis 02/02/24 19:47:00 EDT, N/A Allergies NSAIDs (Kidney disorder) shellfish (Nausea and vomiting) Tape (Irritation) Minocin (Nausea and vomiting) Adhesive Bandage (Blisters) Functional Status: Sensory Deficits: None History of Falls: Mobility Assistance Prior to Admission: ADLs: Independent Gait: Steady Ambulation Assist: Assistive Device: Special Orthopedic Devices: Current Level of Assistance for Self-Care/Mobility: Cognitive Status: Orientation: Orientation Assessment Oriented x 4 Level of Consciousness: Alert Characteristics of Speech: Clear Aspiration Risk: None Affect/Behavior: Appropriate, Calm, Cooperative Laboratory or Other Results This Visit (last charted value for your 02/01/2024 visit) Hematology 02/03/2024 6:58 AM WBC: 19.8 x10 RBC: 3.49 x10 Neutro Auto: 90.0 % -- Normal range between ( 47.2 and 70.8 ) Lymph Auto: 6.2 % -- Normal range between ( 27.2 and 40.8 ) [place] Auto: 3.5 % -- Normal range between ( 3.7 and 11.9 ) Eos Auto: 0.0 % -- Normal range between ( 0.0 and 5.4 ) Basophil Auto: 0.3 % -- Normal range between ( 0.0 and 1.5 ) Baso Absolute: 0.1 x10 MCV: 90.7 fL -- Normal range between ( 80.0 and 100.0 ) MCHC: 32.8 % -- Normal range between ( 31.0 and 37.0 ) Lymph Absolute: 1.2 x10 Hct: 31.7 % -- Normal range between ( 36.0 and 46.0 ) [place] Absolute: 0.7 x10 MCH: 29.7 pg -- Normal range between ( 27.0 and 35.0 ) Neutro Absolute: 17.8 x10 Hgb: 10.4 g/dL -- Normal range between ( 12.0 and 16.0 ) Mean Platelet Volume: 7.2 fL -- Normal range between ( 6.7 and 10.6 ) Platelet: 212 x10 Eos Absolute: 0.0 x10 RDW: 13.6 % -- Normal range between ( 11.6 and 14.8 ) Chemistry 02/03/2024 6:58 AM Creatinine Lvl: 0.68 mg/dL -- Normal range between ( 0.44 and 1.03 ) BUN: 21 mg/dL -- Normal range between ( 8 and 26 ) Glucose Lvl: 259 mg/dL -- Normal range between ( 70 and 99 ) Potassium Lvl: 4.0 mmol/L -- Normal range between ( 3.4 and 4.8 ) Sodium Lvl: 134 mmol/L -- Normal range between ( 133 and 142 ) Calcium Lvl: 9.0 mg/dL -- Normal range between ( 8.5 and 10.3 ) Chloride: 101 mmol/L -- Normal range between ( 98 and 110 ) CO2: 23 mmol/L -- Normal range between ( 22 and 32 ) Anion Gap: 10 -- Normal range between ( 4 and 12 ) Estimated GFR: >60 mL/min/1.73m? BUN Crea Ratio: 30.9 -- Normal range between ( 10.0 and 20.0 ) Blood Bank 01/13/2024 8:01 AM ABO/Rh: A POS Antibody Screen: Negative ABSC POC Testing 02/03/2024 9:55 AM POC Gluc Random: 302 mg/dL -- Normal range between ( 70 and 99 ) Diagnostic Radiology 02/01/2024 1:06 PM XR Spine Lumbosacral 1 View in OR: XR Spine Lumbosacral 1 View in OR Measurements: Height: Weight: Blood Pressure: 110 mmHg / BMI: Respiratory: Respirations: Unlabored Respiratory Symptoms: None Cardiovascular: Heart Sounds: Heart Rhythm: Regular Gastrointestinal: GI Symptoms: Bowel Sounds: Present Vital Signs: Temp Axillary: Temp Temporal Artery: 36.5 degC Temp Oral: 36.6 degC Temp Rectal: Apical Heart Rate: Peripheral Pulse Rate: 93 bpm Heart Rate: 82 bpm Respiratory Rate: 18 br/min Diet Diet: Feeding Tolerance: Appetite: Good [place] Assessment: 20 Procedures Arthroscopy of knee with meniscus repair Release of ulnar nerve in Guyon's canal Laparoscopy Colonoscopy Right bicep tendon repair LIZET BSO - Total abdominal hysterectomy and bilateral salpingo-oophorectom y Cataract extraction and implantation of intraocular lens (2016) CS - section (1991) Cholecystectomy (1989) CS - section (1989) Extraction of wisdom tooth (1985) Immunizations influenza virus vaccine, inactivated (Not Given) HERE ARE THE MEDICATION CHANGES THAT OCCURRED DURING YOUR HOSPITAL STAY Medications That Were Updated - Follow Current Instructions Other Medications Current: atorvastatin (atorvastatin 80 mg oral tablet) 1 Tabs Oral (given by mouth) once a day (at bedtime). Last Dose: Current: fexofenadine (fexofenadine 180 mg oral tablet (more content not included)... Normal [facility] POC Glucose Randomon 024 Glucose [Mass/Vol] 302 mg/dL High 70-99 [facility] Comment on above: Performed By: #### E GFR #### [address] [address] Glucose [Mass/Vol] 369 mg/dL High 70-99 [facility] Comment on above: Performed By: #### C [id number] #### [address] [address] Glucose [Mass/Vol] 228 mg/dL High 70-99 [facility] Comment on above: Performed By: #### E GFR #### [facility] [address] [place] [address] .eGFRon 02-02-2024 GFR/1.73 sq M.predicted MDRD (S/P/Bld) [Vol rate/Area] mL/min/{1.73_m2} Normal >=60 [facility] Comment on above: Result Comment: [facility] Laboratories have implemented the eGFR calculation approach that does not have a coefficient for race and that conforms to the NKF-ASN Task Force Recommendations. Stages of Chronic Kidney Disease GFR Stage 3a Mild to moderate loss of kidney function 59 to 45 Stage 3b Moderate to severe loss of kidney function 44 to 33 Stage 4 Severe loss of kidney function 29 to 15 Stage 5 Kidney failure Less than 15 GFR calculated using the CKD-Epi Creatinine Equation (2020): eGFR = 142 X min(SCr/?, 1)? X max(SCr /?, 1)-1.200 X 0.9938Age X 1.012 [if female] Abbreviations/Units: eGFR (estimated glomerular filtration rate) = mL/min/1.73 m2 SCr (standardized serum creatinine) = mg/dL ? = 0.7 (females) or 0.9 (males) ? = -0.241 (females) or -0.302 (males) min = indicates the minimum of SCr/? or 1 max = indicates the maximum of SCr/? or 1 Age = years Performed By: #### A SA #### [facility] (UNKNOWN) [address] [place] [address] Basic Metabolic Profileon Anion gap [Moles/Vol] 9 mmol/L Normal 4-12 [facility] Comment on above: Performed By: #### E GFR #### [facility] [address] [place] [address] Calcium [Mass/Vol] 8.8 mg/dL Normal 8.5-10.3 [facility] Comment on above: Performed By: #### E GFR #### LOCATED [facility]IN [facility] [address] [place] [address] Chloride [Moles/Vol] 106 mmol/L Normal 98-110 [facility] Comment on above: Performed By: #### E GFR #### [address] [address] CO2 [Moles/Vol] 24 mmol/L Normal 22-32 [facility] Comment on above: Performed By: #### E GFR #### [address] [address] Creatinine [Mass/Vol] 0.67 mg/dL Normal 0.44-1.03 [facility] Comment on above: Performed By: #### E GFR #### [address] [address] Glucose [Mass/Vol] 251 mg/dL High 70-99 [facility] Comment on above: Performed By: #### E GFR #### [address] [address] Potassium [Moles/Vol] 4.1 mmol/L Normal 3.4-4.8 [facility] Comment on above: Performed By: #### E GFR #### [address] [address] Sodium [Moles/Vol] 139 mmol/L Normal 133-142 [facility] Comment on above: Performed By: #### E GFR #### [address] [address] Urea nitrogen [Mass/Vol] 13 mg/dL Normal 8-26 [facility] Comment on above: Performed By: #### E GFR #### [address] [address] Urea nitrogen/Creatinine [Mass ratio] 19.4 mg/mg Normal 10.0-20.0 [facility] Comment on above: Performed By: #### E GFR #### [address] [address] CBC w/ Diffon 02-02-2024 Erythrocyte distribution width (RBC) [Ratio] 13.6 % Normal 11.6-14.8 [facility] Comment on above: Performed By: #### A SA #### [facility] (UNKNOWN) [address] [place] [address] Hematocrit (Bld) [Volume fraction] 31.8 % Low 36.0-46.0 [facility] Comment on above: Performed By: #### A SA #### [facility] (UNKNOWN) [address] [place] [address] Hemoglobin (Bld) [Mass/Vol] 10.4 g/dL Low 12.0-16.0 [facility] Comment on above: Performed By: #### A SA #### [facility] (UNKNOWN) [address] [place] [address] MCH (RBC) [Entitic mass] 29.9 pg Normal 27.0-35.0 [facility] Comment on above: Performed By: #### A SA #### [facility] (UNKNOWN) [address] [place] [address] MCHC 32.8 % Normal 31.0-37.0 [facility] Comment on above: Performed By: #### A SA #### [facility] (UNKNOWN) [address] [place] [address] MCV (RBC) [Entitic vol] 91.3 fL Normal 80.0-100.0 [facility] Comment on above: Performed By: #### A SA #### [facility] (UNKNOWN) [address] [place] [address] Platelet 193 x10*3/mcL Normal 150-450 [facility] Comment on above: Performed By: #### A SA #### [facility] (UNKNOWN) [address] [place] [address] Platelet mean volume (Bld) [Entitic vol] 6.9 fL Normal 6.7-10.6 [facility] Comment on above: Performed By: #### A SA #### [facility] (UNKNOWN) [address] [place] [address] RBC 3.49 x10*6/mcL Low 3.80-5.20 [facility] Comment on above: Performed By: #### A SA #### [facility] (UNKNOWN) [address] [place] [address] WBC 12.0 x10*3/mcL High 4.5-11.0 [facility] Comment on above: Performed By: #### A SA #### [facility] (UNKNOWN) [address] [place] [address] Consultation Note - Generico n 02-02-2024 Consultation Note - Generic Assessment/Plan Brief Hospital Course Summary: Consult for medical management Assessment: _ S/P lumbar fusion with Dr. Castillo, POD 1 Hyperglycemia in the setting of diabetes mellitus type 2, without long-term use of insulin -> Hemoglobin A1c 6.9% on 01/13/2024 Hypertension Hyperlipidemia Hypothyroidism Psoriatic arthritis Restless leg syndrome Morbid obesity, BMI 47.02 kg/m? Plan: _ Continue current level of care per primary team Monitor vitals closely including pulse oximetry Oxygen as needed via nasal cannula to maintain SpO2 > 90% ADA 2000-calorie diet Daily weight and strict I/O No IV hydration needed at this time Pain/nausea/fever control occasions on board Monitor blood sugar AC/HS and as needed Added Lantus 10 units twice daily and increased slight scale insulin to high-dose Resume home medications as ordered Follow-up daily labs Continue PT/OT Social work consult for discharge planning SCDs for DVT prophylaxis -> pharmaceutical prophylaxis deferred to surgical team Hospitalist team consulted for medical management due to multiple comorbidities. Will continue to follow along during the course of this admission. Thank you for including us in the care of this patient. Code Status: Full Resuscitation Plan - Orders atorvastatin, 1 tabs, Oral, HS (at bedtime) bisacodyl, 10 mg, Oral, Tab-DR, Daily, PRN constipation, First Dose: 02/01/24 17:12:00 EDT, Dispense From Location: [id number], 02/01/24 17:12:00 EDT bisacodyl, 10 mg, Rectal, Supp, Daily, PRN constipation, First Dose: 02/01/24 17:12:00 EDT, Dispense From Location: [id number], 02/01/24 17:12:00 EDT ceFAZolin, 1 g, IV Piggyback, Soln-IV, q8hr for 3 doses, infuse over 30 minutes, First Dose: 02/01/24 17:12:00 EDT, Stop Date: 02/02/24 17:11:00 EDT, Dispense From Location: [address], Prophylaxis- Pre/Post-Op, 02/01/24 17:12:00 EDT clobetasol topical, 1 kate, Topical, BID, PRN cyclobenzaprine, 10 mg, Oral, Tab, q8hr, PRN muscle spasms, First Dose: 02/01/24 17:12:00 EDT, Dispense From Location: [address], 02/01/24 17:12:00 EDT dexamethasone, 8 mg, IV Push, Injection, q8hr for 3 doses, First Dose: 02/02/24 8:00:00 EDT, Stop Date: 02/03/24 7:59:00 EDT, Dispense From Location: [address], 02/02/24 6:39:00 EDT Dextrose 10% in Water, 125 mL, IV Piggyback, Soln-IV, As Indicated for 20 doses, PRN other (see comment), infuse over 0.3 hr, First Dose: 02/01/24 18:14:00 EDT, Stop Date: Limited # of times, Dispense From Location: [address], 02/01/24 18:14:00 EDT diazePAM, 5 mg, Oral, Tab, q8hr, First Dose: 02/01/24 18:00:00 EDT, Dispense From Location: [address], 02/01/24 17:10:00 EDT docusate, 100 mg, Oral, Cap, BID, First Dose: 02/02/24 7:00:00 EDT, Dispense From Location: [address], 02/01/24 17:12:00 EDT fexofenadine, 1 tabs, Oral, Daily, PRN glucagon, 1 mg, Subcutaneous, Injection, As Indicated for 20 doses, PRN other (see comment), First Dose: 02/01/24 18:14:00 EDT, Stop Date: Limited # of times, Dispense From Location: [address], 02/01/24 18:14:00 EDT hydrocodone-acetamin ophen, 2 tabs, Oral, Tab, q4hr, PRN severe pain [7-10 on pain scale], First Dose: 02/01/24 17:12:00 EDT, Dispense From Location: [address], 02/01/24 17:12:00 EDT hydrocodone-acetamin ophen, 1 tabs, Oral, Tab, q4hr, PRN moderate pain [4-6 on pain scale], First Dose: 02/01/24 17:12:00 EDT, Dispense From Location: [address], 02/01/24 17:12:00 EDT insulin aspart, 6 - 18 units, Subcutaneous, Injection, ACHS, First Dose: 02/02/24 16:30:00 EDT, 02/02/24 16:00:00 EDT insulin glargine, 10 units, Subcutaneous, Injection, BID, First Dose: 02/02/24 21:00:00 EDT, Dispense From Location: [facility], 02/02/24 16:00:00 EDT LORazepam, 1 mg, IV Push, Injection, q6hr, PRN agitation, First Dose: 02/01/24 17:12:00 EDT, Dispense From Location: [address], 02/01/24 17:12:00 EDT losartan, 50 mg, Oral, Tab, qAM, First Dose: 02/02/24 9:00:00 EDT, Dispense From Location: [address], 02/01/24 11:43:00 EDT metFORMIN, 500 mg, Oral, Tab, BIDWM, First Dose: 02/02/24 8:00:00 EDT, Dispense From Location: [address], 02/01/24 11:43:00 EDT metFORMIN, 1 tabs, Oral, BID, with meals morphine, 2 mg, IV Push, Injection, q3hr, PRN severe pain [7-10 on pain scale], First Dose: 02/01/24 17:12:00 EDT, Dispense From Location: [address], 02/01/24 17:12:00 EDT ondansetron, 4 mg, IV Push, Injection, q4hr, PRN nausea/vomiting, First Dose: 02/01/24 17:12:00 EDT, Dispense From Location: [address], 02/01/24 17:12:00 EDT polyethylene glycol 3350, 17 g, Oral, Powder-Recon, Daily, First Dose: 02/02/24 9:00:00 EDT, Dispense From Location: [address], 02/01/24 17:12:00 EDT sodium biphosphate-sodium phosphate, 133 mL, Rectal, Enema, Daily, PRN constipation, First Dose: 02/01/24 17:12:00 EDT, Dispense From Location: [facility], 02/01/24 17:12:00 EDT venlafaxine, 1 caps, Oral, qAM, 0 Refill(s) Request for Admit, 02/01/24 17:12:00 EDT, 02/01/24 17:12:00 EDT, Surgery Co (more content not included)... Normal [facility] Diff Autoon 02-02-2024 Baso Absolute 0.1 x10*3/mcL Normal 0.0-0.2 [facility] Comment on above: Performed By: #### C [id number] #### [address] [address] Basophils/100 WBC (Bld) 0.6 % Normal 0.0-1.5 [facility] Comment on above: Performed By: #### C [id number] #### LOC[facility] [address] [place] [address] Eos Absolute 0.0 x10*3/mcL Normal 0.0-0.4 [facility] Comment on above: Performed By: #### C [id number] #### [id number] [place] [address] Eosinophils/100 WBC (Bld) 0.0 % Normal 0.0-5.4 [facility] Comment on above: Performed By: #### C [id number] #### [address] [address] Lymph Absolute 0.8 x10*3/mcL Low 1.0-4.8 [facility] Comment on above: Performed By: #### C [id number] #### [address] [address] Lymphocytes/100 WBC (Bld) 6.3 % Low 27.2-40.8 [facility] Comment on above: Performed By: #### C [id number] #### [address] [address] [place] Absolute 0.3 x10*3/mcL Normal 0.1-1.1 [facility] Comment on above: Performed By: #### C [id number] #### [address] [address] Monocytes/100 WBC (Bld) 2.5 % Low 3.7-11.9 [facility] Comment on above: Performed By: #### C [id number] #### [address] [address] Neutro Absolute 10.8 x10*3/mcL High 1.8-7.7 [facility] Comment on above: Performed By: #### C [id number] #### [address] [address] Neutro Auto 90.6 % High 47.2-70.8 [facility] Comment on above: Performed By: #### C [id number] #### [address] [address] Orthopedic Progress Noteon 0 02-02-2024 Orthopedic Progress Note Subjective POD#1 Patient reports left foot numbness and weakness. Denies right leg pain. Denies N/V. No BM. Wynn still in at this time. Objective Drains - 70 and 180 ml Vitals & Measurements T: 36.8 ?C (Oral) HR: 84 (Peripheral) RR: 16 BP: 109/70 SpO2: 96% HT: 165 cm HT: 165 cm WT: 132 kg BMI: 47.02 BMI: 47.02 Additional Vitals No qualifying data available. Lab Results Microbiology - Current Encounter No qualifying data available. Diagnostic Results Diagnostic Radiology XR Spine Lumbosacral 1 View in OR 02/01/24 17:34:04 IMPRESSION: L2-S1 posterior mulu and pedicle screw fusion with laminectomies. Interbody spacers at the L4-5 and L5-S1 levels. No radiographically evident lumbar spine fractures or malalignment. Single view lumbar spine radiographs is otherwise unremarkable. Signed By: Bishop DEAN, Koffi Rowell Physical Exam Motor 5/5 except 1-2/5 left EHL and TA Drsg C/D/I NVI except left foot numbness Medications Inpatient amLODIPine, 10 mg, Oral, qAM Ativan, 1 mg= 0.5 mL, IV Push, q6hr, PRN atorvastatin, 80 mg, Oral, HS (at bedtime) carvedilol, 25 mg, Oral, BID ceFAZolin, 1 g= 50 mL, IV Piggyback, q8hr Colace, 100 mg, Oral, BID cyclobenzaprine, 10 mg, Oral, q8hr, PRN dexamethasone, 8 mg= 2 mL, IV Push, q8hr Dextrose 10% in Water IV Piggyback, 125 mL, IV Piggyback, As Indicated, PRN Dulcolax Laxative, 10 mg, Oral, Daily, PRN Dulcolax Laxative, 10 mg= 1 supp, Rectal, Daily, PRN ezetimibe, 10 mg, Oral, HS (at bedtime) fexofenadine, 180 mg, Oral, Daily Fleet Enema 7 g-19 g rectal enema, 133 mL, Rectal, Daily, PRN gabapentin, 300 mg, Oral, TID glipiZIDE, 10 mg, Oral, BID glucagon, 1 mg, Subcutaneous, As Indicated, PRN insulin aspart, See Comments, Subcutaneous, ACHS levothyroxine, 125 mcg, Oral, Daily losartan, 50 mg, Oral, qAM metFORMIN, 500 mg, Oral, BIDWM MiraLax, 17 g= 1 EA, Oral, Daily morphine, 2 mg= 1 mL, IV Push, q3hr, PRN [place] 5 mg-325 mg oral tablet, 2 tabs, Oral, q4hr, PRN [place] 5 mg-325 mg oral tablet, 1 tabs, Oral, q4hr, PRN NS 1,000 mL, 1000 mL, IV rOPINIRole, 0.25 mg, Oral, HS (at bedtime) spironolactone, 50 mg, Oral, qAM triamcinolone 0.1% topical cream, 1 kate, Topical, BID, PRN Valium, 5 mg, Oral, q8hr venlafaxine extended release, 225 mg, Oral, qAM Zofran, 4 mg= 2 mL, IV Push, q4hr, PRN Assessment/Plan 1. S/P lumbar fusion 2. Diabetes 3. Hypertension 4. Hypothyroid Orders: dexamethasone, 8 mg, IV Push, Injection, q8hr for 3 doses, First Dose: 02/02/24 7:00:00 EDT, Stop Date: 02/03/24 6:59:00 EDT, Dispense From Location: [address], 02/02/24 6:39:00 EDT POD#1 s/p L2-S1 decompression and fusion Plan 1. Continue drains 2. Monitor labs 3. Pain controlled 4. PT/OT today 5. Discharge - pending 6. Start decadron for left foot numbness and weakness 7. Hospitalist consulted for medical management Electronically signed by Christ Sharpe PA-C 02/02/24 06:44 EDT Normal [facility] POC Glucose Randomon 024 Glucose [Mass/Vol] 231 mg/dL High 70-99 [facility] Comment on above: Performed By: #### C [id number] #### [address] [address] Glucose [Mass/Vol] 343 mg/dL High 70-99 [facility] Comment on above: Performed By: #### E GFR #### [address] [address] Consultation Note - Generico n 02-01-2024 Consultation Note - Generic Chief Complaint Admitted following a lumbar fusion with Dr. 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 Castillo Date of Consult: 02/01/2024 Assessment/Plan Brief Hospital Course Summary: Consult for medical management Assessment: _ S/p lumbar fusion with Dr. Castillo, POD 0 Diabetes mellitus type 2 without long-term use of insulin -> Hemoglobin A1c 6.9% on 01/13/2024 Hypertension Hyperlipidemia Hypothyroidism Psoriatic arthritis Restless leg syndrome Morbid obesity, BMI 47.02 kg/m? Plan: _ Continue current level of care per primary team Monitor vitals closely including pulse oximetry Oxygen as needed via nasal cannula to maintain SpO2 > 90% ADA 2000-calorie diet CBC, BMP and Mag daily Monitor blood sugar AC/at bedtime and as needed Resume home medications as ordered Insulin sliding scale for additional glycemic control SCDs for DVT prophylaxis, -> pharmaceutical prophylaxis deferred to surgical team PT/OT evaluation for discharge recommendations Social work consult for discharge planning Hospitalist team consulted for medical management due to multiple comorbidities. Will continue to follow along during the course of this admission. Thank you for including us in the care of this patient. Code Status: Full Resuscitation History of Present Illness Ms. Dee Dee Caballero is a 53-year-old female who has been admitted following a lumbar fusion with Dr. Castillo, POD 0. Pertinent medical history includes diabetes, hypertension, hyperlipidemia, hypothyroidism, psoriatic arthritis, restless leg syndrome and morbid obesity. She denies tobacco, alcohol and illicit drug use. Preoperative blood work from 01/13/2024 reviewed and unremarkable. Patient seen and examined upon arrival to nursing unit with no signs or symptoms of acute cardiopulmonary distress noted on room air. She continues to experience some postsurgical pain which is moderately controlled on current medication regimen. She denies chest pain, shortness of breath at rest, nausea/vomiting fever/chills. Plan of care discussed in questions answered. Review of Systems 10 point ROS done and negative except what is mentioned subjective interview. Objective General: Alert and oriented, in no acute distress. Neck: Supple, non-tender, no carotid bruits, no JVD. Lungs: Clear with diminished bases likely due to body habitus, non-labored respiration on room air. Heart: Normal rate, regular rhythm, S1-S2, no murmur, gallop or edema. Abdomen: Obese. Otherwise soft, non-tender, non-distended, normal bowel sounds. Skin: Skin is warm, dry and pink. Neurologic: Awake, alert, and oriented X3. No focal deficits noted. Psychiatric: Calm and cooperative, appropriate mood and affect. Vitals & Measurements T: 36.3 ?C (Oral) TMIN: 36.3 ?C (Oral) TMAX: 36.6 ?C (Temporal Artery) HR: 88 (Peripheral) RR: 16 BP: 138/84 SpO2: 97% HT: 165 cm HT: 165 cm WT: 128 kg (Dosing) WT: 128 kg BMI: 47.02 BMI: 47.02 Additional Vitals No qualifying data available. Problem List/Past Medical History Ongoing Anxiety Bilateral knee pain DDD (degenerative disc disease), lumbar Degenerative arthritis of knee, bilateral Diabetes Fibromyalgia H/O: psoriasis Hx of motion sickness Hypertension Hypothyroid Lumbar back pain PONV (postoperative nausea and vomiting) Psoriatic arthritis RLS (restless legs syndrome) Seasonal allergies Historical No qualifying data Degree of Malnutrition: No qualifying data available. Procedure/Surgical History LIZET BSO - Total abdominal hysterectomy and bilateral salpingo-oophorectom y Arthroscopy of knee with meniscus repair Laparoscopy Release of ulnar nerve in Guyon's canal Colonoscopy Right bicep tendon repair Extraction of wisdom tooth (1985) CS - section (1989) Cholecystectomy (1989) CS - section (1991) Cataract extraction and implantation of intraocular lens (2016) Fusion Spine Lumbar Posterior (02/01/2024) Medications Inpatient amLODIPine, 10 mg, Oral, qAM Ativan, 1 mg= 0.5 mL, IV Push, q6hr, PRN atorvastatin, 80 mg, Oral, HS (at bedtime) carvedilol, 25 mg, Oral, BID ceFAZolin, 1 g= 50 mL, IV Piggyback, q8hr Colace, 100 mg, Oral, BID cyclobenzaprine, 10 mg, Oral, q8hr, PRN dexamethasone, 4 mg= 1 mL, IV Push, q4hr Dextrose 10% in Water IV Piggyback, 125 mL, IV Piggyback, As Indicated, PRN Dulcolax Laxative, 10 mg, Oral, Daily, PRN Dulcolax Laxative, 10 mg= 1 supp, Rectal, Daily, PRN ezetimibe, 10 mg, Oral, HS (at bedtime) fexofenadine, 180 mg, Oral, Daily Fleet Enema 7 g-19 g rectal enema, 133 mL, Rectal, Daily, PRN gabapentin, 300 mg, Oral, TID glipiZIDE, 10 mg, Oral, BID glucagon, 1 mg, Subcutaneous, As Indicated, PRN insulin aspart, See Comments, Subcutaneous, ACHS levothyroxine, 125 mcg, Oral, Daily losartan, 50 mg, Oral, qAM metFORMIN, 500 mg, Oral, BIDWM MiraLax, 17 g= 1 EA, Oral, Daily morphine, 2 mg= 1 mL, (more content not included)... Normal [facility] POC Glucose Randomon 024 Glucose [Mass/Vol] 247 mg/dL High 70-99 [facility] Comment on above: Performed By: #### C [id number] #### [address] [address] Glucose [Mass/Vol] 179 mg/dL High 70-99 [facility] Comment on above: Performed By: #### C [id number] #### [address] [address] Glucose [Mass/Vol] 203 mg/dL High 70-99 [facility] Comment on above: Performed By: #### C [id number] #### [address] [address] Glucose [Mass/Vol] 166 mg/dL High 70-99 [facility] Comment on above: Performed By: #### E GFR #### [address] [address] Glucose [Mass/Vol] 180 mg/dL High 70-99 [facility] Comment on above: Performed By: #### C [id number] #### [address] [address] XR Spine Lumbosacral 1 View in ORon 02-01-2024 XR Spine Lumbosacral 1 View in OR Exam: Radiographs: XR Spine Lumbosacral 1 View in OR Reason for exam: posterior lumbar spine fusion in OR Comparison: MRI dated 11/16/2023 IMPRESSION: L2-S1 posterior mulu and pedicle screw fusion with laminectomies. Interbody spacers at the L4-5 and L5-S1 levels. No radiographically evident lumbar spine fractures or malalignment. Single view lumbar spine radiographs is otherwise unremarkable. Final Dictated by: Koffi Alas MD Dictated DT/TM: 02/01/2024 5:33 pm Signed by: Koffi Alas MD Signed (Electronic Signature): 02/01/2024 5:34 pm (If Report Is Signed, Electronically Signed in Other Vendor System) Normal [facility] Ambulatory Visit Summaryon 0 01-18-2024 Ambulatory Visit Summary Ambulatory Visit Summary DEE DEE CABALLERO :1970 Visit Date:01/18/2024 Ambulatory Visit Instructions Your Diagnosis Pre-op exam Spinal stenosis DM type 2 causing complication BMI 45.0-49.9, adult Class 3 severe obesity due to excess calories with body mass index (BMI) of 45.0 to 49.9 in adult Nonsmoker Your Care Team Attending Physician - Malik Denson MD. Primary Care Physician - Malik Denson MD. This Is Your Medications List [facility] Prescription (glucometer test strips) abatacept (Orencia 250 mg intravenous injection) amlodipine (amLODIPine 10 mg Tab) atorvastatin (atorvastatin 80 mg Tab) baclofen (baclofen 10 mg Tab) carvedilol (carvedilol 25 mg Tab) clobetasol topical (clobetasol propionate 0.05% top oint) ezetimibe (ezetimibe 10 mg Tab) famotidine (famotidine 20 mg Tab) fluticasone nasal (Flonase 0.05 mg/inh Golden) gabapentin (gabapentin 300 mg Cap) glipiZIDE (glipiZIDE 10 mg Tab) hydrOXYzine (hydrOXYzine pamoate 25 mg Cap) levothyroxine (levothyroxine 125 mcg (0.125 mg) Tab) losartan (losartan 100 mg Tab) metformin (metformin 500 mg Tab) ropinirole (ropinirole 0.25 mg Tab) semaglutide (Ozempic 8 mg/3 mL (2 mg dose) subcutaneous solution) spironolactone (spironolactone 50 mg Tab) triamcinolone topical (triamcinolone Top 0.1% Crm 15 gram) venlafaxine (venlafaxine 150 mg Cap-ER) venlafaxine (venlafaxine 75 mg Cap-ER) Procedures Performed Acute tear of lateral meniscus of left knee, section, Cholecystectomy, History of elbow surgery, Tear of biceps tendon, Total hysterectomy. Discharge Vitals Temperature (Temporal Artery) 36.5 ?C Heart Rate (Peripheral) 74 Respiratory Rate 16 Blood Pressure 122/84 Height 163 cm Height 64 in Weight 122.7 kg Weight 269.94 lb BMI 46.18 What to do next Scheduled Follow-Up Appointments 2024 1:00 PM EDT Where: [address] [address]- Medications What How Much When Why Instructions Unchanged abatacept (Orencia 250 mg intravenous injection) See instructions one pen per week Unchanged amlodipine (amLODIPine 10 mg Tab) 1 Tablets By Mouth Every day Unchanged atorvastatin (atorvastatin 80 mg Tab) 1 Tablets By Mouth Every day Unchanged baclofen (baclofen 10 mg Tab) 1 Tablets By Mouth 2 times a day Unchanged carvedilol (carvedilol 25 mg Tab) 1 Tablets By Mouth 2 times a day Unchanged clobetasol topical (clobetasol propionate 0.05% top oint) 1 Application Topical 2 times a day BMI 45.0-49.9, adult Non-smoker Well woman exam Excoriated rash Yeast infection of the vagina Cervical cancer screening Breast cancer screening by mammogram Unchanged ezetimibe (ezetimibe 10 mg Tab) 1 Tablets By Mouth Every day Unchanged famotidine (famotidine 20 mg Tab) 1 Tablets By Mouth 2 times a day Unchanged fluticasone nasal (Flonase 0.05 mg/ inh Golden) 2 Sprays Nasal Inhalation Every day Otitis media of right ear Fluid level behind tympanic membrane of both ears each nostril Unchanged gabapentin (gabapentin 300 mg Cap) 1 Capsules By Mouth 3 times a day Per patient Pain Management instructions:take 1 tab at HS for 2-3 days, then titrate up to TID. Started Unchanged glipiZIDE (glipiZIDE 10 mg Tab) 1 Tablets By Mouth 2 times a day take at breakfast and lunch Unchanged hydrOXYzine (hydrOXYzine pamoate 25 mg Cap) 1 Capsules By Mouth 4 times a day as needed for for anxiety Unchanged levothyroxine (levothyroxine 125 mcg (0.125 mg) Tab) 1 Tablets By Mouth Every day Unchanged losartan (losartan 100 mg Tab) 1 Tablets By Mouth Every day Unchanged metformin (metformin 500 mg Tab) 1 Tablets By Mouth 2 times a day Unchanged Misc Prescription (glucometer test strips) See instructions Unchanged ropinirole (ropinirole 0.25 mg Tab) See instructions TAKE 1 TABLET BY MOUTH EVERY NIGHT 2 HOURS BEFORE BEDTIME Unchanged semaglutide (Ozempic 8 mg/ 3 mL (2 mg dose) subcutaneous solution) 2 Milligram Subcutaneous Every week Unchanged spironolactone (spironolactone 50 mg Tab) 1 Tablets By Mouth Every day Unchanged triamcinolone topical (triamcinolone Top 0.1% Crm 15 gram) See instructions apply bid prn Unchanged venlafaxine (venlafaxine 150 mg Cap-ER) 1 Capsules By Mouth Every day Unchanged venlafaxine (venlafaxine 75 mg Cap-ER) See instructions TAKE 1 CAPSULE BY MOUTH DAILY Allergies Bactrim (Mild) Ceftin (Mild) Minocin (Mild) cephalexin (Mild) doxepin (Mild) glycerin (Mild) methotrexate (Severe) Problems Ongoing - Any problem that you are currently receiving treatment for. 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 [facility] Office/Clini c Noteon 01-18-2024 Family Medicine Office/Clinic Note Family Medicine Office/Clinic Note HPI Staff Dee Dee is a 53 year old female presenting for surgical clearance Date of surgery: 02/01/24 Surgeon: Dr Castillo Hospital: [facility] Type of Surgery: lumbar fusion Pre testing: Done at [facility] the results are in the cardiology clearance notes Needs her ozempic refilled History of Present Illness Patient is here for presurgical clearance. Reviewed cardiology's note. Patient can ambulate without being short of breath or chest pain. Patient has tolerated surgery before. Patient is going to hold her metformin day off and her Ozempic a week before. Patient has no other concerns at this time. Review of Systems PHQ Score Initial Depression Screen Score: 0 SCORE Physical Exam Vitals & Measurements T: 36.5 ?C(Temporal Artery) HR: 74(Peripheral) RR: 16 BP: 122/84 SpO2: 96% HT: 64 in HT: 163 cm WT: 122.7 kg WT: 269.94 lb BMI: 46.18 General: alert, no acute distress ENMT: oral mucosa moist, Cardiovascular: regular rate and rhythm, normal peripheral perfusion Respiratory: Lungs CTA, respirations non labored Extremities: no deformity, no trauma Neurological: oriented x 4, LOC appropriate for age, CN II-XII intact, motor strength equal & normal bilaterally, speech normal Abdomen: Soft, Nontender, Non-distended, + BS Assessment/Plan 1. Pre-op exam (Z01.818: Encounter for other preprocedural examination) Pt is at moderate risk for the surgery. - Medically optimized - Final decision is left to the surgeon. - To hold Ozempic a week before surgery is left up to the Surgeon and Anesthesiology. Ordered: Body Mass Index (BMI) documented 3008F Current tobacco non-user 1036F Depression Screening Negative 3352F Most recent diastolic blood pressure 80-89 mm Hg 3079F Systolic BP <130 mm Hg (Most Recent) 3074F 2. Spinal stenosis (M48.00: Spinal stenosis, site unspecified) - Follow up after surgery 3. DM type 2 causing complication (E11.8: Type 2 diabetes mellitus with unspecified complications) - Will recheck A1c. - Will refill meds. - Follow up after surgery 4. BMI 45.0-49.9, adult (Z68.42: Body mass index [BMI] 45.0-49.9, adult) - BMI education added Ordered: Body Mass Index (BMI) documented 3008F Current tobacco non-user 1036F Depression Screening Negative 3352F Most recent diastolic blood pressure 80-89 mm Hg 3079F Systolic BP <130 mm Hg (Most Recent) 3074F 5. Class 3 severe obesity due to excess calories with body mass index (BMI) of 45.0 to 49.9 in adult (E66.01: Morbid (severe) obesity due to excess calories) - Diet and exercise advised Ordered: Body Mass Index (BMI) documented 3008F Current tobacco non-user 1036F Depression Screening Negative 3352F Most recent diastolic blood pressure 80-89 mm Hg 3079F Systolic BP <130 mm Hg (Most Recent) 3074F 6. Nonsmoker (Z78.9: Other specified health status) - Please continue to not smoke. Ordered: Body Mass Index (BMI) documented 3008F Current tobacco non-user 1036F Depression Screening Negative 3352F Most recent diastolic blood pressure 80-89 mm Hg 3079F Systolic BP <130 mm Hg (Most Recent) 3074F Orders: atorvastatin, 40 mg = 1 tab(s), Oral, Daily, # 90 tab(s), Refills(s) 1, Pharmacy: [facility] [id number], 164.5, cm, 04/26/23 18:33:00 EST, Height/Length Dosing, 124.8, kg, 04/26/23 18:33:00 EST, Weight Dosing semaglutide, 2 mg, SubCutaneous, qWeek, # 3 EA, Refills(s) 1, Pharmacy: [facility] [id number], 163, cm, 01/18/24 13:09:00 EDT, Height/Length Dosing, 122.7, kg, 01/18/24 13:09:00 EDT, Weight Dosing Follow-up No qualifying data available Patient Education BMI for Adults Problem List/Past Medical History Ongoing Breast cancer screening by mammogram Cervical cancer screening Class 3 obesity DM type 2 causing complication Fibromyalgia Fluid level behind tympanic membrane of both ears HTN (hypertension) Hypothyroidism 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 Medications amLODIPine 10 mg Tab, 10 mg= 1 tab(s), Oral, Daily, 3 refills atorvastatin 80 mg Tab, 80 mg= 1 tab(s), Oral, Daily baclofen 10 mg Tab, 10 mg= 1 tab(s), Oral, BID carvedilol 25 mg Tab, 25 mg= 1 tab(s), Oral, BID clobetasol propionate 0.05% top oint, 1 kate, Topical, BID, 1 refills ezetimibe 10 mg Tab, 10 mg= 1 tab(s), Oral, Daily famotidine 20 mg Tab, 20 mg= 1 tab(s), Oral, BID, Self Directed Flonase 0.05 mg/inh Golden, 2 spray(s), Nasal, Daily, Self Directed gabapentin 300 mg Cap, 300 mg= 1 cap(s), Oral, TID glipiZIDE 10 mg Tab, 10 mg= 1 tab(s), (more content not included)... [facility] Comment on above: Result Comment: Elec tronically Signed By: Jarett DEAN, Malik Patterson.br\Date and Time Signed: 01/18/24 13:33 EDT .eGFRon 01-13-2024 GFR/1.73 sq M.predicted MDRD (S/P/Bld) [Vol rate/Area] mL/min/{1.73_m2} Normal >=60 [facility] Comment on above: Result Comment: [facility] have implemented the eGFR calculation approach that does not have a coefficient for race and that conforms to the NKF-ASN Task Force Recommendations. Stages of Chronic Kidney Disease GFR Stage 3a Mild to moderate loss of kidney function 59 to 45 Stage 3b Moderate to severe loss of kidney function 44 to 33 Stage 4 Severe loss of kidney function 29 to 15 Stage 5 Kidney failure Less than 15 GFR calculated using the CKD-Epi Creatinine Equation (2020): eGFR = 142 X min(SCr/?, 1)? X max(SCr /?, 1)-1.200 X 0.9938Age X 1.012 [if female] Abbreviations/Units: eGFR (estimated glomerular filtration rate) = mL/min/1.73 m2 SCr (standardized serum creatinine) = mg/dL ? = 0.7 (females) or 0.9 (males) ? = -0.241 (females) or -0.302 (males) min = indicates the minimum of SCr/? or 1 max = indicates the maximum of SCr/? or 1 Age = years Performed By: #### C [id number] #### [place] [address] ABO/Rhon 01-13-2024 ABO/Rh ABO/Rh: A POS Normal [facility] Comment on above: Performed By: #### A LISSETTE #### [facility] (UNKNOWN) [address] [place] [address] ABSC Autoon 01-13-2024 ABSC Auto Negative Normal [facility] Comment on above: Performed By: #### A SA #### [facility] (UNKNOWN) [address] [place] [address] Basic Metabolic Profileon Anion gap [Moles/Vol] 9 mmol/L Normal 4-12 [facility] Comment on above: Performed By: #### C [id number] #### [facility] [address] [place] [address] Calcium [Mass/Vol] 9.2 mg/dL Normal 8.5-10.3 [facility] Comment on above: Performed By: #### C [id number] #### [address] [address] Chloride [Moles/Vol] 100 mmol/L Normal 98-110 [facility] Comment on above: Performed By: #### C [id number] #### [address] [address] CO2 [Moles/Vol] 26 mmol/L Normal 22-32 [facility] Comment on above: Performed By: #### C [id number] #### [address] [address] Creatinine [Mass/Vol] 1.05 mg/dL High 0.44-1.03 [facility] Comment on above: Performed By: #### C [id number] #### [address] [address] Glucose [Mass/Vol] 163 mg/dL High 70-99 [facility] Comment on above: Performed By: #### C [id number] #### [address] [address] Potassium [Moles/Vol] 3.9 mmol/L Normal 3.4-4.8 [facility] Comment on above: Performed By: #### C [id number] #### [address] [address] Sodium [Moles/Vol] 135 mmol/L Normal 133-142 [facility] Comment on above: Performed By: #### C [id number] #### [address] [address] Urea nitrogen [Mass/Vol] 23 mg/dL Normal 8-26 [facility] Comment on above: Performed By: #### C [id number] #### [address] [address] Urea nitrogen/Creatinine [Mass ratio] 21.9 mg/mg High 10.0-20.0 [facility] Comment on above: Performed By: #### C [id number] #### [address] [address] CBCon 01-13-2024 Erythrocyte distribution width (RBC) [Ratio] 13.3 % Normal 11.6-14.8 [facility] Comment on above: Performed By: #### C [id number] #### [address] [address] Hematocrit (Bld) [Volume fraction] 40.5 % Normal 36.0-46.0 [facility] Comment on above: Performed By: #### C [id number] #### [address] [address] Hemoglobin (Bld) [Mass/Vol] 13.4 g/dL Normal 12.0-16.0 [facility] Comment on above: Performed By: #### C [id number] #### [address] [address] MCH (RBC) [Entitic mass] 29.9 pg Normal 27.0-35.0 [facility] Comment on above: Performed By: #### C [id number] #### [address] [address] MCHC 33.0 % Normal 31.0-37.0 [facility] Comment on above: Performed By: #### C [id number] #### [address] [address] MCV (RBC) [Entitic vol] 90.6 fL Normal 80.0-100.0 [facility] Comment on above: Performed By: #### C [id number] #### [address] [address] Platelet 292 x10*3/mcL Normal 150-450 [facility] Comment on above: Performed By: #### C [id number] #### [address] [address] Platelet mean volume (Bld) [Entitic vol] 7.3 fL Normal 6.7-10.6 [facility] Comment on above: Performed By: #### C [id number] #### [address] [address] RBC 4.47 x10*6/mcL Normal 3.80-5.20 [facility] Comment on above: Performed By: #### C [id number] #### [address] [address] WBC 9.6 x10*3/mcL Normal 4.5-11.0 [facility] Comment on above: Performed By: #### C [id number] #### [address] [address] Hgb A1con 01-13-2024 Glucose [Mass/Vol] 151 mg/dL High 68-114 [facility] Comment on above: Result Comment: Math ematical Calc approx. The mean gluc equivalency of A1c Performed By: #### A SA #### [facility] (UNKNOWN) [address] [place] [address] Hgb A1c 6.9 % A1c High 4.0-5.6 [facility] Comment on above: Result Comment: Refe rence Range: 4.0 - 5.6 % Normal 5.7 - 6.4 % Pre-Diabetes > 6.5 % Diabetes Performed By: #### A SA #### [facility] (UNKNOWN) [address] [place] [address] MRSA, PCRon 01-13-2024 LAB ONLY Result Called? No Normal [facility] Comment on above: Performed By: #### E GFR #### [facility] [address] [place] [address] Methicillin Resistant Staph aurus(MRSA) Not detected Normal Not Detected [facility] Comment on above: Result Comment: Mut ations or polymorphisms in primer or probe binding regions may affect detection of new or unknown MRSA variants resulting in a false negative. The [employer] Xpert MRSA Assay is a qualitative in vitro diagnostic test designed for rapid detection of Methicillin-Resistant Staphylococcus aureus (MRSA) from nasal swabs in patients at risk for nasal colonization.The test utilizes automated real-time polymerase chain reaction (PCR) to detect MRSA DNA,because the detection of MRSA is dependent on the number of organisms present. A positive test result does not necessarily indicate the presence of viable organism. It is however,presumptive for the presence of MRSA.Test results might be affected by concurrent antibiotic therapy. Therefore, therapeutic success or failure cannot be assessed using this test because DNA might persist following antimicrobial therapy. Mutations or polymorphisms in primer or probe binding regions may affect detection of new or unknown MRSA variants resulting in a false negative result. Results from the Xpert MRSA Assay should be interpreted in conjunction with other laboratory and clinical data available to the clinician. Performed By: #### E GFR #### [facility] [address] [place] [address] PTon 01-13-2024 INR Coag (PPP) [Relative time] 1.0 {INR} Normal <=3.5 [facility] Comment on above: Result Comment: INR has no normal range. INR Therapeutic range is: 2.0-3.0 (AF, CVA, TIAs, DVT prophylaxis, acute DVT) 2.5-3.5 (Mech heart valves, recurrent thrombosis/emboli) Performed By: #### E GFR #### [facility] [address] [place] [address] PT Coag (PPP) [Time] 10.9 s Normal 9.2-12.0 [facility] Comment on above: Performed By: #### E GFR #### [facility] [address] [place] [address] PTTon 01-13-2024 aPTT Coag (Bld) [Time] 22.1 s Normal 19.5-28.2 [facility] Comment on above: Performed By: #### A SA #### [facility] (UNKNOWN) [address] [place] [address] XR Chest 2 Viewson XR Chest 2 Views EXAM: XR Chest 2 Views HISTORY: . preop . COMPARISON: None. TECHNIQUE: Frontal and lateral chest FINDINGS: Heart and vascularity are unremarkable. Lungs are free of focal infiltrates. Early spondylosis of the spine is noted. IMPRESSION: No acute heart or lung disease identified. Final Dictated by: Devyn Brooke MD Dictated DT/TM: 01/13/2024 8:47 am Signed by: Devyn Brooke MD Signed (Electronic Signature): 01/13/2024 8:48 am (If Report Is Signed, Electronically Signed in Other Vendor System) Normal [facility] Office Visiton 01-12-2024 Follow-up visit [id number] Dee Dee Caballero 1970 F Date Provider Department Center 01/12/2024 [id number] TOVAR [facility] No family history on file Level of Service:[address] [place] OFFICE/OUTPATIENT ESTABLISHED MOD MDM 30 MIN Normal [facility] Ambulatory Visit Summaryon 0 11-22-2023 Ambulatory Visit Summary Ambulatory Visit Summary DEE DEE CABALLERO :1970 Visit Date:11/22/2023 Ambulatory Visit Instructions Your Diagnosis Spinal stenosis DM type 2 causing complication Your Care Team Attending Physician - Malik Denson MD Primary Care Physician - Malik Denson MD This Is Your Medications List Contact prescribing physician if questions or concerns Misc Prescription (glucometer test strips) abatacept (Orencia 250 mg intravenous injection) amlodipine (amLODIPine 10 mg Tab) atorvastatin (Lipitor 40 mg Tab) baclofen (baclofen 10 mg Tab) carvedilol (carvedilol 25 mg Tab) clobetasol topical (clobetasol propionate 0.05% top oint) conjugated estrogens (Premarin 0.3 mg Tab) ezetimibe (ezetimibe 10 mg Tab) famotidine (famotidine 20 mg Tab) fluticasone nasal (Flonase 0.05 mg/inh Golden) gabapentin (gabapentin 300 mg Cap) glipiZIDE (glipiZIDE 10 mg Tab) hydrOXYzine (hydrOXYzine pamoate 25 mg Cap) levothyroxine (levothyroxine 125 mcg (0.125 mg) Tab) losartan (losartan 100 mg Tab) ropinirole (ropinirole 0.25 mg Tab) semaglutide (Ozempic 8 mg/3 mL (2 mg dose) subcutaneous solution) spironolactone (spironolactone 50 mg Tab) triamcinolone topical (triamcinolone Top 0.1% Crm 15 gram) venlafaxine (venlafaxine 150 mg oral tablet, extended release) venlafaxine (venlafaxine 75 mg Cap-ER) Procedures Performed Acute tear of lateral meniscus of left knee, section, Cholecystectomy, History of elbow surgery, Tear of biceps tendon, Total hysterectomy. Discharge Vitals Heart Rate (Peripheral) 72 Respiratory Rate 16 Blood Pressure 122/70 Height 163 cm Height 64 in Weight 125.2 kg Weight 275.44 lb BMI 47.12 What to do next Scheduled Follow-Up Appointments 2023 2:45 PM EDT With: Jarett DEAN, Malik Cary Where: [place] [address]- \.br\ Medications\.br\ What How Much When Why Instructions\.br\ Unchanged abatacept (Orencia 250 mg intravenous injection) See instructions one pen per week Contact prescribing physician if questions or concerns \.br\ Unchanged amlodipine (amLODIPine 10 mg Tab) 1 Tablets By Mouth Every day Contact prescribing physician if questions or concerns \.br\ Unchanged atorvastatin (Lipitor 40 mg Tab) 1 Tablets By Mouth Every day Contact prescribing physician if questions or concerns \.br\ Unchanged baclofen (baclofen 10 mg Tab) 1 Tablets By Mouth 2 times a day Contact prescribing physician if questions or concerns \.br\ Unchanged carvedilol (carvedilol 25 mg Tab) 1 Tablets By Mouth 2 times a day Contact prescribing physician if questions or concerns \.br\ Unchanged clobetasol topical (clobetasol propionate 0.05% top oint) 1 Application Topical 2 times a day BMI 45.0-49.9, adult Non-smoker Well woman exam Excoriated rash Yeast infection of the vagina Cervical cancer screening Breast cancer screening by mammogram Contact prescribing physician if questions or concerns \.br\ Unchanged conjugated estrogens (Premarin 0.3 mg Tab) 1 Tablets By Mouth Every day Contact prescribing physician if questions or concerns \.br\ Unchanged ezetimibe (ezetimibe 10 mg Tab) 1 Tablets By Mouth Every day Contact prescribing physician if questions or concerns \.br\ Unchanged famotidine (famotidine 20 mg Tab) 1 Tablets By Mouth 2 times a day Contact prescribing physician if questions or concerns \.br\ Unchanged fluticasone nasal (Flonase 0.05 mg/ inh Golden) 2 Sprays Nasal Inhalation Every day Otitis media of right ear Fluid level behind tympanic membrane of both ears each nostril Contact prescribing physician if questions or concerns \.br\ Unchanged gabapentin (gabapentin 300 mg Cap) 1 Capsules By Mouth 3 times a day Per patient Pain Management instructions:take 1 tab at HS for 2-3 days, then titrate up to TID. Started Contact prescribing physician if questions or concerns \.br\ Unchanged glipiZIDE (glipiZIDE 10 mg Tab) 1 Tablets By Mouth 2 times a day take at breakfast and lunch Contact prescribing physician if questions or concerns \.br\ Unchanged hydrOXYzine (hydrOXYzine pamoate 25 mg Cap) 1 Capsules By Mouth 4 times a day as needed for for anxiety Contact prescribing physician if questions or concerns \.br\ Unchanged levothyroxine (levothyroxine 125 mcg (0.125 mg) Tab) 1 Tablets By Mouth Every day Contact prescribing physician if questions or concerns \.br\ Unchanged losartan (losartan 100 mg Tab) 1 Tablets By Mouth Every day Contact prescribing physician if questions or concerns \.br\ Unchanged Misc Prescription (glucometer test strips) See instructions Contact prescribing physician if questions or concerns \.br\ Unchanged ropinirole (ropinirole 0.25 mg Tab) See instructions TAKE 1 TABLET BY MOUTH EVERY NIGHT 2 HOURS BEFORE BEDTIME Contact prescribing physician if questions or concerns \.br\ Unchanged semaglutide (Ozempic 8 mg/ 3 mL (2 mg dose) subcutaneous solution) 2 Milligram Subcutaneous Every week Contact prescribing physician if questions or concerns \.br\ Unchanged spironolactone (spironolactone 50 mg Tab) 1 Tablets By Mouth Every day Contact prescribing physician if questions or concerns \.br\ Unchanged triamcinolone topical (triamcinolone Top 0.1% Crm 15 gram) See instructions apply bid prn Contact prescribing physician if questions or concerns \.br\ Unchanged venlafaxine (venlafaxine 150 mg oral tablet, extended release) 1 Tablets By Mouth Every day Contact prescribing physician if questions or concerns \.br\ Unchanged venlafaxine (venlafaxine 75 mg Cap-ER) 1 Capsules By Mouth Every day Contact prescribing physician if questions or concerns \.br\ Allergies\.br\ Bactrim (Mild)\.br\ Ceftin (Mild)\.br\ Minocin (Mild)\.br\ cephalexin (Mild)\.br\ doxepin (Mild)\.br\ glycerin (Mild)\.br\ methotrexate (Severe)\.br\ Problems\.br\ Ongoing - Any problem that you are currently receiving treatment for.\.br\ Breast cancer screening by mammogram\.br\ Cervical cancer screening\.br\ Class 3 obesity\.br\ DM type 2 causing complication\.br\ Fibromyalgia\.br\ Fluid level behind tympanic membrane of both ears\.br\ HTN (hypertension)\.b r\ Hypothyroidism\.b r\ Immunodeficiency due to drugs\.br\ Major depression in remission\.br\ Muscle weakness\.br\ KILEY (obstructive sleep apnea)\.br\ Osteoarthritis, knee\.br\ Psoriasis arthropathica\.br \ Restrictive lung disease\.br\ Severe anxiety\.br\ Spinal stenosis\.br\ Historical - Any problem that you are no longer receiving treatment for.\.br\ Cavernous hemangioma\.br\ Depression\.br\ Patient Survey\.br\ You may receive a survey via text or e-mail asking about your office visit. Please share your experience with us by completing your survey. We appreciate your feedback and thank you for choosing us for your care.\.br\ \.br\ [facility] Family Medicine Office/Clini c Noteon 11-22-2023 Family Medicine Office/Clinic Note Family Medicine Office/Clinic Note Chief Complaint DM check up HPI Staff Dee Dee is a 53 year old female presenting with Diabetes Labs are UTD except TSH, is discussing this with at next OV with PCP on 01/27/24 Do you have any of the following symptoms? Foot Exam: has not had. states she has not had trouble with feet. Eye Exam: last October Last A1C: 10/28/23- 8.5% Statin: atorvastatin Would like to discuss recent MRI (getting report now) History of Present Illness - Reviewed MRI - Meds reviewed - BS reviewed. Review of Systems PHQ Score Initial Depression Screen Score: 0 SCORE Physical Exam Vitals & Measurements HR: 72(Peripheral) RR: 16 BP: 122/70 HT: 64 in HT: 163 cm WT: 125.2 kg WT: 275.44 lb BMI: 47.12 General: alert, no acute distress ENMT: oral mucosa moist, Cardiovascular: regular rate and rhythm, normal peripheral perfusion Respiratory: Lungs CTA, respirations non labored Extremities: no deformity, no trauma Neurological: oriented x 4, LOC appropriate for age, CN II-XII intact, motor strength equal & normal bilaterally, speech normal Abdomen: Soft, Nontender, Non-distended, + BS Assessment/Plan 1. Spinal stenosis (M48.00: Spinal stenosis, site unspecified) - OK to get spinal stem in. - Follow up with pain 2. DM type 2 causing complication (E11.8: Type 2 diabetes mellitus with unspecified complications) - Improved since increase in meds. - Follow up in a few weeks. - Continue on meds as before. Follow-up No qualifying data available Problem List/Past Medical History Ongoing Breast cancer screening by mammogram Cervical cancer screening Class 3 obesity DM type 2 causing complication Fibromyalgia Fluid level behind tympanic membrane of both ears HTN (hypertension) Hypothyroidism Immunodeficiency due to drugs Major depression in remission Muscle weakness KILEY (obstructive sleep apnea) Osteoarthritis, knee Psoriasis arthropathica Restrictive lung disease Severe anxiety Spinal stenosis Historical Cavernous hemangioma Depression Procedure/Surgical History Acute tear of lateral meniscus of left knee, section, Cholecystectomy, History of elbow surgery, Tear of biceps tendon, Total hysterectomy. Medications amLODIPine 10 mg Tab, 10 mg= 1 tab(s), Oral, Daily, 3 refills baclofen 10 mg Tab, 10 mg= 1 tab(s), Oral, BID carvedilol 25 mg Tab, 25 mg= 1 tab(s), Oral, BID clobetasol propionate 0.05% top oint, 1 kate, Topical, BID ezetimibe 10 mg Tab, 10 mg= 1 tab(s), Oral, Daily famotidine 20 mg Tab, 20 mg= 1 tab(s), Oral, BID Flonase 0.05 mg/inh Golden, 2 spray(s), Nasal, Daily gabapentin 300 mg Cap, 300 mg= 1 cap(s), Oral, TID glipiZIDE 10 mg Tab, 10 mg= 1 tab(s), Oral, BID glucometer test strips, See Instructions hydrOXYzine pamoate 25 mg Cap, 25 mg= 1 cap(s), Oral, QID, PRN levothyroxine 125 mcg (0.125 mg) Tab, 125 mcg= 1 tab(s), Oral, Daily, 1 refills Lipitor 40 mg Tab, 40 mg= 1 tab(s), Oral, Daily, 1 refills losartan 100 mg Tab, 100 mg= 1 tab(s), Oral, Daily, 1 refills Orencia 250 mg intravenous injection, See Instructions Ozempic 8 mg/3 mL (2 mg dose) subcutaneous solution, 2 mg, SubCutaneous, qWeek Premarin 0.3 mg Tab, 0.3 mg= 1 tab(s), Oral, Daily ropinirole 0.25 mg Tab, See Instructions spironolactone 50 mg Tab, 50 mg= 1 tab(s), Oral, Daily, 1 refills triamcinolone Top 0.1% Crm 15 gram, See Instructions venlafaxine 150 mg oral tablet, extended release, 150 mg= 1 tab(s), Oral, Daily venlafaxine 75 mg Cap-ER, 75 mg= 1 cap(s), Oral, Daily, 1 refills Allergies Bactrim (Mild) Ceftin (Mild) Minocin (Mild) cephalexin (Mild) doxepin (Mild) glycerin (Mild) methotrexate (Severe) Social History Alcohol - Denies Alcohol Use, 11/16/2022 Substance Abuse - Denies Substance Abuse, 11/16/2022 Tobacco - Denies Tobacco Use, 11/16/2022 Never (less than 100 in lifetime) Tobacco Use:. Never Smokeless Tobacco Use:. Household tobacco concerns: No. Yes, 11/22/2023 Family History Primary malignant neoplasm of colon: Grandparent. Immunizations Vaccine Date Status Comments influenza virus vaccine, inactivated 01/31/2023 Recorded influenza virus vaccine, inactivated 02/21/2022 Recorded SARS-CoV-2 (COVID-19) [id number] 02/21/2022 Recorded SARS-CoV-2 (COVID-19) mRNA-1273 vaccine 07/01/2021 Recorded SARS-CoV-2 (COVID-19) mRNA-1273 vaccine 02/22/2021 Recorded influenza virus vaccine, inactivated 02/07/2021 Recorded SARS-CoV-2 (COVID-19) mRNA-1273 vaccine 08/15/2020 Recorded 2022-07-28: 50 SARS-CoV-2 (COVID-19) mRNA-1273 vaccine 07/18/2020 Recorded influenza virus vaccine, inactivated 01/13/2020 Recorded influenza virus vaccine, inactivated 02/06/2019 Recorded influenza virus vaccine, inactivated 02/18/2018 Recorded influenza virus vaccine, inactivated 03/07/2017 Recorded influenza virus vaccine, inactivated 04/04/2016 Recorded influenza virus vaccine, inactivated 02/08/2016 Recorded influenza virus (more content not included)... [facility] Comment on above: Result Comment: Elec tronically Signed By: Jarett DEAN, Malik Cary\.br\Date and Time Signed: 11/22/23 14:58 EDT Family Medicine Office/Clini c Noteon 11-18-2023 Family Medicine Office/Clinic Note Family Medicine Office/Clinic Note Assessment/Plan 1. Annual visit for general adult medical examination without abnormal findings (Z00.00: Encounter for general adult medical examination without abnormal findings) The patient was given a customized and personalized print out of all the current AHRQ USPSTF?s recommendations for preventative services and all current CDC recommended immunizations, relevant risk recommendations and the following patient brochures were given. Reviewed Medicare Prevention Services checklist. CDC-Falls Prevention and home safety screening reviewed. Patient denies any falls in last 12 months, voices some worry about falling. Exhibits no problems with sitting, standing or ambulation. Patient aware with keeping walk way area free of clutter to prevent tripping and/or falling. [place] Advance Directives reviewed. Patient does not have Advance Directives, education given and educational handout provided, encouraged to bring in for scanning into chart. Patient denies any problems with ADL?s and Instrumental ADL?s. Cognitive screening completed with memory and clock face drawing. No deficits noted. Immunization record reviewed, discussed Shingrix vaccine with educational handout and availability- Patient states she does not know if she can take this with Orencia, encouraged patient to discuss this with her Liquor Commissioner. COVID vaccines have been administered, with Boosters received. Allergies and medications reviewed and up to date. No concerns with taking medication as prescribed. Reviewed OTC medications, medication list up to date. Blood tests were reviewed: Discussed what tests need to be updated. Labs UTD except for TSH, patient states she would like to discuss this with PCP first at next office visit 01/27/24. No concerns with bowel/ bladder. Colonoscopy last completed: around 2014 or 2016 at [facility] per patient, records requested. Mammogram- Patient states she had a Mammogram this year at [facility]. Records requested. Reviewed pain symptoms : chronic pain in joints due to Psoriatic Arthritis, rates pain a 3 on 1-10 scale. Sees Rheumatology and Pain Management, taking Baclofen, Gabapentin and Orencia. Sleeps on a heating pad, swims-states these measures help but do not completely take pain away. Reviewed all outside providers that patient follows. Last visit summary notes available in chart and/or have been requested. Patient denies alcohol use, denies concerns. 8 minutes spent with screening and documentation. Audit score 0. Follow up scheduled with PCP, 01/27/24. AWV has been scheduled, 11/09/24. 2. DM type 2 causing complication (E11.8: Type 2 diabetes mellitus with unspecified complications) DM stoplight handout reviewed with signs and symptoms to monitor for and report to PCP. Discussed ADA dietary recommendations with handouts provided. Encouraged to increase daily physical activity, adequate water intake, monitor carbs/chol and fats. Currently taking Glipizide daily as directed. Monitoring BS at home with results reviewed with PCP. Follows up yearly with DM foot check, reminded patient to perform at home foot checks to prevent future complications. Patient has not completed DM education. States interest at this time for referral- referral for DM education sent to [facility] per patient request. Complete DM eye exams completed yearly with Dr. Leo, visit summary notes requested for the chart. Follow up with PCP. 3. 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 Follows with Dr. Morrison, Rheumatology, every three months. Last office visit 09/15/23, Visit summary note available for PCP review. Patient states she follows with Pain Management at [facility], last office visit 11/08/23. Office visit notes requested. 4. 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 States she washes her hands frequently, is not around a lot of small children. Patient states she tries to stay up to date with her COVID and flu vaccines. Follow up with Dr. Morrison with Rheumatology. 5. Major depression in remission (F32.5: Major depressive disorder, single episode, in full remission) PHQ-9 completed with score 6. Denies concerns, states sometimes she feels overwhelmed with her health conditions and wonders if it's worth it to go through it. Denies suicidal thoughts, states she used to see Dr. Mckeon for counseling in [place], declines referral at this time. Denies concerns, states she has her to talk to when she needs to. Voices no suicidal ideations. Taking Effexor as directed, patient voices effectiveness with this medication. Educational handouts reviewed with signs and symptoms to monitor for and report to PCP. Medications managed with office visits, OPIOD risk with OARRS completed with PCP. 6. HTN (hypertension) (I10: Essential (pr (more content not included)... 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 Major depression in remission HTN (hypertension) Hypothyroidism Class 3 obesity Your Care Team Attending Physician - Malik Denson MD Primary Care Physician - Malik Denson MD This Is Your Medications List [facility] Prescription (glucometer test strips) abatacept (Orencia 250 mg intravenous injection) amlodipine (amLODIPine 10 mg Tab) atorvastatin (Lipitor 40 mg Tab) baclofen (baclofen 10 mg Tab) carvedilol (carvedilol 25 mg Tab) clobetasol topical (clobetasol propionate 0.05% top oint) conjugated estrogens (Premarin 0.3 mg Tab) ezetimibe (ezetimibe 10 mg Tab) famotidine (famotidine 20 mg Tab) fluticasone nasal (Flonase 0.05 mg/inh Golden) gabapentin (gabapentin 300 mg Cap) glipiZIDE (glipiZIDE 10 mg Tab) hydrOXYzine (hydrOXYzine pamoate 25 mg Cap) levothyroxine (levothyroxine 125 mcg (0.125 mg) Tab) losartan (losartan 100 mg Tab) ropinirole (ropinirole 0.25 mg Tab) semaglutide (Ozempic 8 mg/3 mL (2 mg dose) subcutaneous solution) spironolactone (spironolactone 50 mg Tab) triamcinolone topical (triamcinolone Top 0.1% Crm 15 gram) venlafaxine (venlafaxine 150 mg oral tablet, extended release) venlafaxine (venlafaxine 75 mg Cap-ER) Procedures Performed Acute tear of lateral meniscus of left knee, section, Cholecystectomy, History of elbow surgery, Tear of biceps tendon, Total hysterectomy. What to do next Scheduled Follow-Up Appointments 2023 2:45 PM EDT With: Malik Denson MD Where: [facility] Invalid Interpretation Code [address] [place] [address]- \.br\ Someone Will Contact You Regarding These Appointments\.br\ [facility] External Ambulatory Referral, Geographic proximity, Diabetic Education, [facility]- DM education. Patient lives in [place], requesting [facility]., 11/09/23 14:57:00 EDT, Annual visit for general adult medical examination without abnormal findings [facility] CHEMISTRYOrdered By: SYSTEM SYSTEM on 10-28-2023 Albumin [Mass/Vol] 4.2 g/dL Normal 3.3 - 5.0 gm/dL R emisol Chem Albumin DL <= 20 mg/L (U) [Mass/Vol] 19.0 mg/dL High 0.0 - 1.9 mg/dL Remisol Chem Albumin/Globulin [Mass ratio] 1.5 {ratio} Normal 1.1 - 2.2 Remisol Chem ALP [Catalytic activity/Vol] 104 [iU]/d High 21 - 98 Int._Unit/L Remisol Chem ALT No additional P-5'-P [Catalytic activity/Vol] 33 [iU]/d Normal 6 - 46 Int._Unit/L Remisol Chem Anion gap [Moles/Vol] 12 mmol/L Normal 6 - 16 mEq/L [facility] AST [Catalytic activity/Vol] 26 [iU]/d Normal 5 - 43 Int._Unit/L Rem[facility] Chem Bilirubin [Mass/Vol] 0.7 mg/dL Normal 0.0 - 1.1 mg/dL Rem[facility] Chem Calcium [Mass/Vol] 9.5 mg/dL Normal 8.9 - 11.1 mg/dL [facility] Chloride [Moles/Vol] 102 mmol/L Normal 101 - 111 mmol/ L [facility] Cholesterol [Mass/Vol] 90 mg/dL Low 120 - 200 mg/dL [facility] Cholesterol in HDL [Mass/Vol] 44 mg/dL Invalid Interpretation Code [facility] Comment on above: Result Comment: '>= 60 LOW RISK' '<= 40 HIGH RISK' Cholesterol in LDL [Mass/Vol] 35 mg/dL Normal <=129mg/dL Rem[facility] Cholesterol in VLDL [Mass/Vol] 20 mg/dL Normal 7 - 40 mg/dL [facility] CO2 [Moles/Vol] 26 mmol/L Normal 21 - 31 mmol/L Remis ol Chem Creatinine [Mass/Vol] 1.0 mg/dL Normal 0.5 - 1.3 mg/dL Remisol Chem eGFR 66 mL/min/1.73 m2 Normal >=59mL/min /1.73 m2 Rem[facility] Chem Globulin (S) [Mass/Vol] 2.8 g/dL Normal 1.4 - 4.0 gm/dL Remisol Chem Glucose [Mass/Vol] 319 mg/dL High 55 - 199 mg/dL Re misol Chem Potassium [Moles/Vol] 4.2 mmol/L Normal 3.5 - 5.3 mmol/L Remisol Chem Protein [Mass/Vol] 7.0 g/dL Normal 6.0 - 7.8 gm/dL R emisol Chem Sodium [Moles/Vol] 136 mmol/L Normal 135 - 145 mmol/L Remisol Chem Triglyceride [Mass/Vol] 102 mg/dL Normal <=149mg/dL Remisol Chem Urea nitrogen [Mass/Vol] 17 mg/dL Normal 5 - 21 mg/dL Remisol Chem Urea nitrogen/Creatinine [Mass ratio] 17 mg/mg Normal 10 - 20 Rem[facility] CHEMISTRYOrdered By: Andres Clark on 10-28-2023 HbA1c (Bld) [Mass fraction] 8.5 % High <=5.9% [facility] ChemAutoSS CMPon 10-28-2023 Albumin [Mass/Vol] 4.2 g/dL Normal 3.3-5.0 [facility] Comment on above: Performed By: #### 2 [id number] #### [facility] [address] [place] [address] Albumin/Globulin (S) [Mass conc ratio] 1.5 Normal 1.1-2.2 [facility] Comment on above: Performed By: #### 2 [id number] #### [facility] [address] [place] [address] ALP [Catalytic activity/Vol] 104 Int._Unit/L High 21-98 [facility] Comment on above: Performed By: #### 2 [id number] #### [facility] [address] [place] [address] ALT No additional P-5'-P [Catalytic activity/Vol] 33 Int._Unit/L Normal 6-46 [facility] Comment on above: Performed By: #### 2 [id number] #### [facility] [address] [place] [address] Anion gap [Moles/Vol] 12 mmol/L Normal 6-16 [facility] Comment on above: Performed By: #### 2 [id number] #### [facility] [address] [place] [address] AST [Catalytic activity/Vol] 26 Int._Unit/L Normal 5-43 [facility] Comment on above: Performed By: #### 2 [id number] #### [facility] [address] [place] [address] Bilirubin [Mass/Vol] 0.7 mg/dL Normal 0.0-1.1 [facility] Comment on above: Performed By: #### 2 [id number] #### [facility] [address] [place] [address] Calcium [Mass/Vol] 9.5 mg/dL Normal 8.9-11.1 [facility] Comment on above: Performed By: #### 2 [id number] #### [facility] [address] [place] [address] Chloride [Moles/Vol] 102 mmol/L Normal 101-111 [facility] Comment on above: Performed By: #### 2 [id number] #### [facility] [address] [place] [address] CO2 [Moles/Vol] 26 mmol/L Normal 21-31 [facility] Comment on above: Performed By: #### 2 [id number] #### [facility] [address] [place] [address] Creatinine [Mass/Vol] 1.0 mg/dL Normal 0.5-1.3 [facility] Comment on above: Performed By: #### 2 [id number] #### [facility] [address] [place] [address] Globulin (S) [Mass/Vol] 2.8 g/dL Normal 1.4-4.0 [facility] Comment on above: Performed By: #### 2 [id number] #### [facility] [address] [place] [address] Glucose [Mass/Vol] 319 mg/dL High 55-199 [facility] Comment on above: Performed By: #### 2 [id number] #### [facility] [address] [place] [address] Potassium [Moles/Vol] 4.2 mmol/L Normal 3.5-5.3 [facility] Comment on above: Performed By: #### 2 [id number] #### [facility] [address] [place] [address] Protein [Mass/Vol] 7.0 g/dL Normal 6.0-7.8 [facility] Comment on above: Performed By: #### 2 [id number] #### [facility] [address] [place] [address] Sodium [Moles/Vol] 136 mmol/L Normal 135-145 [facility] Comment on above: Performed By: #### 2 [id number] #### [facility] [address] [place] [address] Urea nitrogen [Mass/Vol] 17 mg/dL Normal 5-21 [facility] Comment on above: Performed By: #### 2 [id number] #### [facility] [address] [place] [address] Urea nitrogen/Creatinine [Mass ratio] 17 No Units Normal 10-20 [facility] Comment on above: Performed By: #### 2 [id number] #### [facility] [address] [place] [address] Family Medicine Office/Clini c Noteon 10-28-2023 Family Medicine Office/Clinic Note HPI Staff Dee Dee is a 53 year old female presenting with elevated blood sugars running 165- 177 in the morning all the way up to 266-300 at lunch and 178 at night before bed. Cecile hasn't worked the same for her as it did in the beginning Do you have any of the following symptoms? Foot Exam: never Eye Exam: UTD but coming due Last A1C: Hgb A1C %: 7.1 % High (11/16/22 16:20:00) Hgb A1c POC: 5.8 % (04/26/23 18:51:00) Statin: atorvastatin 40mg questions/concerns: the pain in her back, school psychologist assistant let her go back on sulindac but it made her sick and she stopped taking it, is there any other options History of Present Illness - See staff HPI. Review of Systems PHQ Score Initial Depression Screen Score: 0 SCORE Physical Exam Vitals & Measurements T: 35.7 ?C(Temporal Artery) HR: 76(Peripheral) BP: 114/78 SpO2: 96% HT: 65 in HT: 165.4 cm WT: 128.4 kg WT: 282.48 lb BMI: 46.93 General: alert, no acute distress ENMT: oral mucosa moist, Cardiovascular: regular rate and rhythm, normal peripheral perfusion Respiratory: Lungs CTA, respirations non labored Extremities: no deformity, no trauma Neurological: oriented x 4, LOC appropriate for age, CN II-XII intact, motor strength equal & normal bilaterally, speech normal Abdomen: Soft, Nontender, Non-distended, + BS Assessment/Plan 1. DM type 2 causing complication (E11.8: Type 2 diabetes mellitus with unspecified complications) - Pt is not taking meds as prescribed - BS are elevated - Pt is no longer active. - States its too hot. Ordered: Comprehensive Metabolic Panel HgbA1c Lipid Panel Microalbumin Level Urine 2. Psoriasis arthropathica (L40.50: Arthropathic psoriasis, unspecified) - Pain management - Follow up PRN Ordered: Comprehensive Metabolic Panel HgbA1c Lipid Panel Microalbumin Level Urine 3. Nonsmoker (Z78.9: Other specified health status) - Please continue to not smoke. Ordered: Body Mass Index (BMI) documented 3008F Comprehensive Metabolic Panel Current tobacco non-user 1036F Depression Screening Negative 3352F HgbA1c Influenza immunization administered or previously received 4274F Lipid Panel Microalbumin Level Urine Most recent diastolic blood pressure <80 mm Hg 3078F Systolic BP <130 mm Hg (Most Recent) 3074F 4. HTN (hypertension) (I10: Essential (primary) hypertension) - At goal. 5. Hypothyroidism (E03.9: Hypothyroidism, unspecified) - Will check labs at next visit 6. BMI 45.0-49.9, adult (Z68.42: Body mass index [BMI] 45.0-49.9, adult) - BMI education added Ordered: Body Mass Index (BMI) documented 3008F Comprehensive Metabolic Panel Current tobacco non-user 1036F Depression Screening Negative 3352F HgbA1c Influenza immunization administered or previously received 4274F Lipid Panel Microalbumin Level Urine Most recent diastolic blood pressure <80 mm Hg 3078F Systolic BP <130 mm Hg (Most Recent) 3074F 7. Class 3 severe obesity due to excess calories with body mass index (BMI) of 45.0 to 49.9 in adult (E66.01: Morbid (severe) obesity due to excess calories) - Diet and exercise advised Ordered: Body Mass Index (BMI) documented 3008F Comprehensive Metabolic Panel Current tobacco non-user 1036F Depression Screening Negative 3352F HgbA1c Influenza immunization administered or previously received 4274F Lipid Panel Microalbumin Level Urine Most recent diastolic blood pressure <80 mm Hg 3078F Systolic BP <130 mm Hg (Most Recent) 3074F Orders: glipiZIDE, 10 mg = 1 tab(s), Oral, BID, take at breakfast and lunch, # 180 tab(s), Refills(s) 0, Pharmacy: [facility] [id number], 165.4, cm, 10/28/23 13:03:00 EDT, Height/Length Dosing, 128.4, kg, 10/28/23 13:03:00 EDT, Weight Dosing Follow-up No qualifying data available Patient Education BMI for Adults Problem List/Past Medical History Ongoing Back pain Breast cancer screening by mammogram Cervical cancer screening Class 3 obesity DM type 2 causing complication Fibromyalgia Fluid level behind tympanic membrane of both ears HTN (hypertension) Hypothyroidism Immunodeficiency due to drugs Major depression in remission Muscle weakness KILEY (obstructive sleep apnea) Osteoarthritis, knee Psoriasis arthropathica Restrictive lung disease Severe anxiety Historical Cavernous hemangioma Depression Procedure/Surgical History Acute tear of lateral meniscus of left knee, section, Cholecystectomy, History of elbow surgery, Tear of biceps tendon, Total hysterectomy. Medications amLODIPine 10 mg Tab, 10 mg= 1 tab(s), Oral, Daily, 3 refills baclofen 10 mg Tab, 10 mg= 1 tab(s), Oral, BID carvedilol 25 mg Tab, 25 mg= 1 tab(s), Oral, BID clobetasol propionate 0.05% top oint, 1 kate, Topical, BID Diflucan 150 mg Tab, 150 mg= 1 tab(s), Oral, Once, 1 refills ezetimibe 10 mg Tab, 10 mg= 1 tab(s), Oral, Daily famotidine 20 mg Tab, 20 mg= 1 tab(s), Oral, BID Flonase 0.0 (more content not included)... [facility] Comment on above: Result Comment: Elec tronically Signed By: Jarett DEAN, Malik Patterson.br\Date and Time Signed: 10/28/23 13:31 EDT Lipid Panelon 10-28-2023 Cholesterol [Mass/Vol] 90 mg/dL Low 120-200 [facility] Comment on above: Performed By: #### 2 [id number] #### [facility] [address] [place] [address] Cholesterol in HDL [Mass/Vol] 44 mg/dL Invalid Interpretation Code [facility] Comment on above: Result Comment: '>= 60 LOW RISK' '<= 40 HIGH RISK' Performed By: #### 2 [id number] #### [facility] [address] [place] [address] Cholesterol in LDL [Mass/Vol] 35 mg/dL Normal <=129 [facility] Comment on above: Performed By: #### 2 [id number] #### [facility] [address] [place] [address] Cholesterol in VLDL [Mass/Vol] 20 mg/dL Normal 7-40 [facility] Comment on above: Performed By: #### 2 [id number] #### [facility] [address] [place] [address] Triglyceride [Mass/Vol] 102 mg/dL Normal <=149 [facility] Comment on above: Performed By: #### 2 [id number] #### [facility] [address] [place] [address] Patient Educationon 10-28-19 Patient Education Nutrition BMI for Adults What is BMI? Body mass index (BMI) is a number that is calculated from a person's weight and height. BMI can help estimate how much of a person's weight is composed of fat. BMI does not measure body fat directly. Rather, it is an alternative to procedures that directly measure body fat, which can be difficult and expensive. BMI can help identify people who may be at higher risk for certain medical problems. What are BMI measurements used for? BMI is used as a screening tool to identify possible weight problems. It helps determine whether a person is obese, overweight, a healthy weight, or underweight. BMI is useful for: ? Identifying a weight problem that may be related to a medical condition or may increase the risk for medical problems. ? Promoting changes, such as changes in diet and exercise, to help reach a healthy weight. BMI screening can be repeated to see if these changes are working. How is BMI calculated? BMI involves measuring your weight in relation to your height. Both height and weight are measured, and the BMI is calculated from those numbers. This can be done either in [place] or metric measurements. Note that charts and online BMI calculators are available to help you find your BMI quickly and easily without having to do these calculations yourself. To calculate your BMI in [place] measurements: 1. Measure your weight in pounds (lb). 2. Multiply the number of pounds by 703. ? For example, for a person who weighs 180 lb, multiply that number by 703, which equals 126,540. 3. Measure your height in inches. Then multiply that number by itself to get a measurement called inches squared. ? For example, for a person who is 70 inches tall, the inches squared measurement is 70 inches x 70 inches, which equals 4,900 inches squared. 4. Divide the total from step 2 (number of lb x 703) by the total from step 3 (inches squared): 126,540 ? 4,900 = 25.8. This is your BMI. To calculate your BMI in metric measurements: 1. Measure your weight in kilograms (kg). 2. Measure your height in meters (m). Then multiply that number by itself to get a measurement called meters squared. ? For example, for a person who is 1.75 m tall, the meters squared measurement is 1.75 m x 1.75 m, which is equal to 3.1 meters squared. 3. Divide the number of kilograms (your weight) by the meters squared number. In this example: 70 ? 3.1 = 22.6. This is your BMI. What do the results mean? BMI charts are used to identify whether you are underweight, normal weight, overweight, or obese. The following guidelines will be used: ? Underweight: BMI less than 18.5. ? Normal weight: BMI between 18.5 and 24.9. ? Overweight: BMI between 25 and 29.9. ? Obese: BMI of 30 or above. Keep these notes in mind: ? Weight includes both fat and muscle, so someone with a muscular build, such as an athlete, may have a BMI that is higher than 24.9. In cases like these, BMI is not an accurate measure of body fat. ? To determine if excess body fat is the cause of a BMI of 25 or higher, further assessments may need to be done by a health care provider. ? BMI is usually interpreted in the same way for men and women. Where to find more information For more information about BMI, including tools to quickly calculate your BMI, go to these websites: ? Centers for Disease Control and Prevention: www.cdc.gov ? [place] [employer]: www.heart.org ? National Heart, Lung, and Blood Declo: www.nhlbi.nih.gov Summary ? Body mass index (BMI) is a number that is calculated from a person's weight and height. ? BMI may help estimate how much of a person's weight is composed of fat. BMI can help identify those who may be at higher risk for certain medical problems. ? BMI can be measured using Marshallese measurements or metric measurements. ? BMI charts are used to identify whether you are underweight, normal weight, overweight, or obese. This information is not intended to replace advice given to you by your health care provider. Make sure you discuss any questions you have with your health care provider. Document Revised: 01/17/2020 Document Reviewed: 11/24/2019 [employer] Patient Education ? 2022 [employer] [facility] U Microalbon 10-28-2023 Albumin DL <= 20 mg/L (U) [Mass/Vol] 19.0 mg/dL High 0.0-1.9 [facility] Comment on above: Performed By: #### 1 [id number] #### [facility] [address] [place] [address] eGFRon 10-28-2023 eGFR 66 mL/min/1.73 m2 Normal >=59 [facility] Comment on above: Order Comment: Order added by Discern Expert. Performed By: #### 1 [id number] #### [facility] [address] [place] [address] Family Medicine Office/Clini c Noteon 10-05-2023 Family Medicine Office/Clinic Note HPI Staff Jeny is a 53 year old female presenting for 3 month follow up htn and dm Patient is here for follow up on hypertension. How often are you checking your blood pressure? Couple times a week What are your average readings? 128/80-83_ Yearly BMP: 11/17/22 Do you have any of the following symptoms? Foot Exam: never Eye Exam: UTD Last A1C: Hgb A1C %: 7.1 % High (11/16/22 16:20:00) Hgb A1c POC: 5.8 % (04/26/23 18:51:00) Statin: atorvastatin 40mg Not able to get her weight down flu: UTD 01/31/23 questions/concerns: wants to discuss her tongue is sore all the time, tried a mouthwash for it and it sahu badly to use it. Also has what looks like a skin tag under left eye where glasses rub it Also her right ear bothers her? sinus History of Present Illness See staff HPI. Review of Systems PHQ Score Initial Depression Screen Score: 0 SCORE Physical Exam Vitals & Measurements T: 35.6 ?C(Temporal Artery) HR: 92(Peripheral) RR: 18 BP: 136/84 SpO2: 96% HT: 65 in HT: 165.4 cm WT: 129.0 kg WT: 283.8 lb BMI: 47.15 General: alert, no acute distress ENMT: oral mucosa moist, Cardiovascular: regular rate and rhythm, normal peripheral perfusion Respiratory: Lungs CTA, respirations non labored Extremities: no deformity, no trauma Neurological: oriented x 4, LOC appropriate for age, CN II-XII intact, motor strength equal & normal bilaterally, speech normal Abdomen: Soft, Nontender, Non-distended, + BS Assessment/Plan 1. DM type 2 causing complication (E11.8: Type 2 diabetes mellitus with unspecified complications) - Will get A1c. - Concerned its back up. - Encouraged diet and exercise. - Will increase the ozempic. 2. Fluid level behind tympanic membrane of both ears (H65.93: Unspecified nonsuppurative otitis media, bilateral) - Discussed decongestants. - Follow up PRN 3. BMI 45.0-49.9, adult (Z68.42: Body mass index [BMI] 45.0-49.9, adult) - BMI education given 4. Class 3 obesity (E66.01: Morbid (severe) obesity due to excess calories) - Diet and exercise. 5. Nonsmoker (Z78.9: Other specified health status) - Please continue to not smoke. 6. Major depression in remission (F32.5: Major depressive disorder, single episode, in full remission) - At goal. - No issues 7. HTN (hypertension) (I10: Essential (primary) hypertension) - Controlled. Follow-up No qualifying data available Patient Education BMI for Adults BMI for Adults Problem List/Past Medical History Ongoing Back pain Breast cancer screening by mammogram Cervical cancer screening Class 3 obesity DM type 2 causing complication Eustachian tube dysfunction Excoriated rash Fibromyalgia Fluid level behind tympanic membrane of both ears HTN (hypertension) Hypothyroidism Immunodeficiency due to drugs Major depression in remission Muscle weakness KILEY (obstructive sleep apnea) Osteoarthritis, knee Psoriasis arthropathica Restrictive lung disease Severe anxiety Thrush Well woman exam Yeast infection of the vagina Historical Cavernous hemangioma Depression Procedure/Surgical History Acute tear of lateral meniscus of left knee, section, Cholecystectomy, History of elbow surgery, Tear of biceps tendon, Total hysterectomy. Medications amLODIPine 10 mg Tab, 10 mg= 1 tab(s), Oral, Daily, 3 refills baclofen 10 mg Tab, 10 mg= 1 tab(s), Oral, BID carvedilol 25 mg Tab, 25 mg= 1 tab(s), Oral, BID clobetasol propionate 0.05% top oint, 1 kate, Topical, BID Diflucan 150 mg Tab, 150 mg= 1 tab(s), Oral, Once, 1 refills ezetimibe 10 mg Tab, 10 mg= 1 tab(s), Oral, Daily famotidine 20 mg Tab, 20 mg= 1 tab(s), Oral, BID Flonase 0.05 mg/inh Golden, 2 spray(s), Nasal, Daily glipiZIDE 10 mg Tab, 10 mg= 1 tab(s), Oral, Daily glucometer test strips, See Instructions hydrOXYzine pamoate 25 mg Cap, 25 mg= 1 cap(s), Oral, QID, PRN levothyroxine 125 mcg (0.125 mg) Tab, 125 mcg= 1 tab(s), Oral, Daily, 1 refills Lipitor 40 mg Tab, 40 mg= 1 tab(s), Oral, Daily, 1 refills losartan 100 mg Tab, 100 mg= 1 tab(s), Oral, Daily, 1 refills Orencia 250 mg intravenous injection, See Instructions Ozempic 8 mg/3 mL (2 mg dose) subcutaneous solution, 2 mg, SubCutaneous, qWeek Premarin 0.3 mg Tab, 0.3 mg= 1 tab(s), Oral, Daily ropinirole 0.25 mg Tab, See Instructions spironolactone 50 mg Tab, 50 mg= 1 tab(s), Oral, Daily, 1 refills triamcinolone Top 0.1% Crm 15 gram, See Instructions venlafaxine 150 mg oral tablet, extended release, 150 mg= 1 tab(s), Oral, Daily venlafaxine 75 mg Cap-ER, 75 mg= 1 cap(s), Oral, Daily, 1 refills Allergies Bactrim (Mild) Ceftin (Mild) Minocin (Mild) cephalexin (Mild) doxepin (Mild) glycerin (Mild) methotrexate (Severe) Social History Alcohol - Denies Alcohol Use, 11/16/2022 Substance Abuse - Denies Substance Abuse, 11/16/2022 Tobacco - Denies Tobacco Use, 11/16/2022 Never (less than 100 in lifetime) Tobacco Use:. Never Smokeless Tobacco Use:. Luke (more content not included)... [facility] Comment on above: Result Comment: Elec tronically Signed By: Jarett DEAN, Malik Cary\.br\Date and Time Signed: 10/05/23 13:03 EDT Patient Educationon 10-05-19 Patient Education BMI for Adults What is BMI? Body mass index (BMI) is a number that is calculated from a person's weight and height. BMI can help estimate how much of a person's weight is composed of fat. BMI does not measure body fat directly. Rather, it is an alternative to procedures that directly measure body fat, which can be difficult and expensive. BMI can help identify people who may be at higher risk for certain medical problems. What are BMI measurements used for? BMI is used as a screening tool to identify possible weight problems. It helps determine whether a person is obese, overweight, a healthy weight, or underweight. BMI is useful for: ? Identifying a weight problem that may be related to a medical condition or may increase the risk for medical problems. ? Promoting changes, such as changes in diet and exercise, to help reach a healthy weight. BMI screening can be repeated to see if these changes are working. How is BMI calculated? BMI involves measuring your weight in relation to your height. Both height and weight are measured, and the BMI is calculated from those numbers. This can be done either in [place] ([place] or metric measurements. Note that charts and online BMI calculators are available to help you find your BMI quickly and easily without having to do these calculations yourself. To calculate your BMI in [place] measurements: 1. Measure your weight in pounds (lb). 2. Multiply the number of pounds by 703. ? For example, for a person who weighs 180 lb, multiply that number by 703, which equals 126,540. 3. Measure your height in inches. Then multiply that number by itself to get a measurement called inches squared. ? For example, for a person who is 70 inches tall, the inches squared measurement is 70 inches x 70 inches, which equals 4,900 inches squared. 4. Divide the total from step 2 (number of lb x 703) by the total from step 3 (inches squared): 126,540 ? 4,900 = 25.8. This is your BMI. To calculate your BMI in metric measurements: 1. Measure your weight in kilograms (kg). 2. Measure your height in meters (m). Then multiply that number by itself to get a measurement called meters squared. ? For example, for a person who is 1.75 m tall, the meters squared measurement is 1.75 m x 1.75 m, which is equal to 3.1 meters squared. 3. Divide the number of kilograms (your weight) by the meters squared number. In this example: 70 ? 3.1 = 22.6. This is your BMI. What do the results mean? BMI charts are used to identify whether you are underweight, normal weight, overweight, or obese. The following guidelines will be used: ? Underweight: BMI less than 18.5. ? Normal weight: BMI between 18.5 and 24.9. ? Overweight: BMI between 25 and 29.9. ? Obese: BMI of 30 or above. Keep these notes in mind: ? Weight includes both fat and muscle, so someone with a muscular build, such as an athlete, may have a BMI that is higher than 24.9. In cases like these, BMI is not an accurate measure of body fat. ? To determine if excess body fat is the cause of a BMI of 25 or higher, further assessments may need to be done by a health care provider. ? BMI is usually interpreted in the same way for men and women. Where to find more information For more information about BMI, including tools to quickly calculate your BMI, go to these websites: ? Centers for Disease Control and Prevention: www.cdc.gov ? [place] [employer] Association: www.heart.org ? National Heart, Lung, and Blood Declo: www.nhlbi.nih.gov Summary ? Body mass index (BMI) is a number that is calculated from a person's weight and height. ? BMI may help estimate how much of a person's weight is composed of fat. BMI can help identify those who may be at higher risk for certain medical problems. ? BMI can be measured using Marshallese measurements or metric measurements. ? BMI charts are used to identify whether you are underweight, normal weight, overweight, or obese. This information is not intended to replace advice given to you by your health care provider. Make sure you discuss any questions you have with your health care provider. Document Revised: 01/17/2020 Document Reviewed: 11/24/2019 [employer] Patient Education ? 2022 [employer] Nutrition BMI for Adults What is BMI? Body mass index (BMI) is a number that is calculated from a person's weight and height. BMI can help estimate how much of a person's weight is composed of fat. BMI does not measure body fat directly. Rather, it is an alternative to procedures that directly measure body fat, which can be difficult and expensive. BMI can help identify people who may be at higher risk for certain medical problems. What are BMI measurements used for? BMI is used as a screening tool to identify possible weight problems. It helps determine whether a person is obese, overweight, a healthy weight, or underweight. BMI is useful for: ? Identifying a weight problem that may be (more content not included)... [facility] Consultation Noteon 09-30-19 Consultation Note [id number] #1.00TIFF [facility] Pre-Certification Formon Pre-Certification Form [id number] #1.00TIFF [facility] Pre-Certification Form [id number]# 1.00TIFF [facility] Provider Letteron 07-21-2023 Provider Letter July 21, 2023 DEE DEE CABALLERO [address] [place] [id number] : 1970 Dear Dee Dee, We have been trying to reach you with no success. It is important that you return our call regarding your _ upon receiving this letter. Also, at the time of your call, please provide us with your current information. Thank you for your prompt attention to this matter. Sincerely, [address] [address] [facility] PAP [id number] 07-13-2023 Cytology report Cyto stain Doc (Cvx/Vag) Note Invalid Interpretation Code [facility] Comment on above: Result Comment: TEST S RESULT FLAG UNITS REF RANGE LAB Clinician Provided Cytology Information Source.............Vagina No. of containers..01 ThinPrep Vial DIAGNOSIS: 01 UNSATISFACTORY FOR EVALUATION. Recommendation: 01 Suggest follow up as clinically appropriate. Specimen adequacy: 01 Specimen processed and examined but unsatisfactory for evaluation of epithelial abnormality because of insufficient cellularity. Performed by: Camilo Ibarra, Senior Analyst ([facility]) QC reviewed by: Rosemary Quintana, Supervisory Senior Analyst ([facility]) . 01 Note: Note 01 The Pap smear is a screening test designed to aid in the detection of premalignant and malignant conditions of the uterine cervix. It is not a diagnostic procedure and should not be used as the sole means of detecting cervical cancer. Both false-positive and false-negative reports do occur. Test Methodology: Note 01 The [employer] was unable to read this specimen. Therefore a manual review was performed. HPV Genotype Reflex Note 01 Criteria not met, HPV Genotype not performed. FLAG LEGEND: L-Low Normal,H-High Normal,LL-Alert Low,HH-Alert High <-Panic Low,>-Panic High,A-Abnormal,AA-Critical Abnormal Performed at: [address] [facility] [address] [id number] Cecy Manzo MD, Performed at: [facility] [address] [id number] MD Anais Sam Performed By: #### 1 [id number] #### [facility] [address] [place] [address] Outside Mammographyon 2023 Outside Mammography [id number] #1.00TIFF [facility] Ambulatory Visit Summaryon 0 07-07-2023 Ambulatory Visit Summary DEE DEE CABALLERO :1970 Visit Date:07/07/2023 Ambulatory Visit Instructions Your Diagnosis BMI 45.0-49.9, adult Non-smoker Well woman exam Cervical cancer screening Breast cancer screening by mammogram Your Care Team Attending Physician - Britany Hicks Primary Care Physician - Jarett DEAN, Malik Cary This Is Your Medications List [facility] Prescription (glucometer test strips) abatacept (Orencia 250 mg intravenous injection) amlodipine (amLODIPine 10 mg Tab) atorvastatin (Lipitor 40 mg Tab) baclofen (baclofen 10 mg Tab) carvedilol (carvedilol 25 mg Tab) ezetimibe (ezetimibe 10 mg Tab) famotidine (famotidine 20 mg Tab) fluticasone nasal (Flonase 0.05 mg/inh Golden) glipiZIDE (glipiZIDE 10 mg Tab) hydrOXYzine (hydrOXYzine pamoate 25 mg Cap) levothyroxine (levothyroxine 125 mcg (0.125 mg) Tab) losartan (losartan 100 mg Tab) ropinirole (ropinirole 0.25 mg Tab) semaglutide (Ozempic 8 mg/3 mL (2 mg dose) subcutaneous solution) spironolactone (spironolactone 50 mg Tab) triamcinolone topical (triamcinolone Top 0.1% Crm 15 gram) venlafaxine (venlafaxine 150 mg oral tablet, extended release) venlafaxine (venlafaxine 75 mg Cap-ER) Procedures Performed Acute tear of lateral meniscus of left knee, section, Cholecystectomy, History of elbow surgery, Tear of biceps tendon, Total hysterectomy. Discharge Vitals Heart Rate (Peripheral) 78 Respiratory Rate 18 Blood Pressure 116/74 Height 165.4 cm Height 65 in Weight 131.3 kg Weight 288.86 lb BMI 47.99 What to do next Scheduled Follow-Up Appointments Wednesday 1:20 PM EDT With: Where: [facility] Invalid Interpretation Code [address] [place] [address]- \.br\ 2023 2:00 PM EDT \.br\ With: Jarett DEAN, Malik Cary\.br\ Where: [facility] Family Medicine [facility] Family Medicine Office/Clini c Noteon 07-07-2023 Family Medicine Office/Clinic Note HPI Staff Dee Dee is a 53 year old female presenting for well woman Woman check up: Last pap: 2017 Last Rosa: 06/28/23 [facility] Results of lap pap: normal Where was it done: [place] hx: # of pregnancies.2.. abortions... live births..2. living children...2 menstrual cycle (normal,heavy,ect): hysterectomy History of STD: no Do you want tested for STD today: no Vaginal discharge, odor, itching: no Self breast exam at home? yes Hx of breast, cervical or uterine cancer in the family: no pt having dryness and pain, has been using Monistat and Replens and hasn't had any relief History of Present Illness pt presents today for well woman exam Review of Systems PHQ Score Initial Depression Screen Score: 0 SCORE Constitutional: No fever, No chills, No sweats, No weakness. No Weight change; No fatigue. Skin: No rash, No lesions. ENMT: No ear pain, No sore throat, No congestion. Respiratory: No shortness of breath, No cough, No orthopnea, No wheezing. Cardiovascular: No chest pain, No palpitations, No peripheral edema. Gastrointestinal: No nausea, No vomiting, No diarrhea, No GI bleeding. Genitourinary: No dysuria, No hematuria, No discharge, No pain. Gynecology: No abnormal vaginal discharge, No vaginal itching/burning, No vaginal dryness, No painful periods, No abnormal bleeding, No pelvic pain, No painful intercourse, No hair loss/growth, No hot flashes Breast: No breast pain, No skin changes, No masses/lumps, No nipple discharge. Musculoskeletal: No back pain, No trauma. Neurological: No headache, No dizziness, No numbness, No weakness. Psychiatric: No sleeping problems, No irritability, No mood swings/depression. Heme/Lymph: No bleeding tendency, No bruising tendency, No petechiae, No swollen. Physical Exam Vitals & Measurements HR: 78(Peripheral) RR: 18 BP: 116/74 SpO2: 84% HT: 65 in HT: 165.4 cm WT: 131.3 kg WT: 288.86 lb BMI: 47.99 General: Well developed, well nourished, in no acute distress Neck: Neck supple. No masses or palpable cervical nodes. Trachea midline. Thyroid without nodules, masses, tenderness, or enlargement Breast: No mass, nodule, discharge, or erythema bilaterally, and no axillary lymphadenopathy Lungs: Normal respiratory effort and clear to auscultation Cardio: Regular rate and rhythm, normal S1 and S2, no murmur, no rub Abdomen: Soft, non-distended, non-tender, normal bowel sounds x4 Gyno: normal external genitalia. white discharge. Vagina normal without lesions, no vaginal discharge. Hysterectomy perineum and vaginal wall excoriated Neurologic: Grossly normal Skin: [place], moist, no tenting Lymph Nodes: No cervical adenopathy, nodes normal Mental Status: Alert and oriented x3. Normal mood and affect Assessment/Plan 1. Well woman exam (Z01.419: Encounter for gynecological examination (general) (routine) without abnormal findings) pt presents today for well woman exam. BSE discussed. is up to date with mamm. pap obtained. pt has severe excoriation of perinuem and vaginal wall. due to yeast infecation untreated. will order diflucan and clobetasol cream. sample of premarin tabs also provided Ordered: clobetasol topical, 1 kate, Topical, BID, 15 gram, Refill(s) 0, [facility] #[id number], 165.4, cm, 07/07/23 14:54:00 EST, Height/Length Dosing, 131.3, kg, 07/07/23 14:54:00 EST, Weight Dosing fluconazole, 150 mg = 1 tab(s), Oral, Once, take one tab on day 1 and one dab on day 4, # 2 tab(s), Refills(s) 1, Pharmacy: [facility] #[id number], 165.4, cm, 07/07/23 14:54:00 EST, Height/Length Dosing, 131.3, kg, 07/07/23 14:54:00 EST, Weight Dosing PAP w/ HPV and Genotype rflx 2. Excoriated rash (R21: Rash and other nonspecific skin eruption) perineum is very excorated will order clobetasol Ordered: clobetasol topical, 1 kate, Topical, BID, 15 gram, Refill(s) 0, [facility] #[id number], 165.4, cm, 07/07/23 14:54:00 EST, Height/Length Dosing, 131.3, kg, 07/07/23 14:54:00 EST, Weight Dosing fluconazole, 150 mg = 1 tab(s), Oral, Once, take one tab on day 1 and one dab on day 4, # 2 tab(s), Refills(s) 1, Pharmacy: [facility] #[id number], 165.4, cm, 07/07/23 14:54:00 EST, Height/Length Dosing, 131.3, kg, 07/07/23 14:54:00 EST, Weight Dosing 3. Yeast infection of the vagina (B37.31: Acute candidiasis of vulva and vagina) diflucan sent to pharmcy Ordered: clobetasol topical, 1 kate, Topical, BID, 15 gram, Refill(s) 0, [facility] #[id number], 165.4, cm, 07/07/23 14:54:00 EST, Height/Length Dosing, 131.3, kg, 07/07/23 14:54:00 EST, Weight Dosing fluconazole, 150 mg = 1 tab(s), Oral, Once, take one tab on day 1 and one dab on day 4, # 2 tab(s), Refills(s) 1, Pharmacy: [facility] #[id number], 165.4, cm, 07/07/23 14:54:00 EST, Height/Length Dosing, 131.3, kg, 07/07/23 14:54:00 EST, Weight Dosing 4. Cervical cancer screening (Z12.4: Encounter for screening for malignant neoplasm of cervix) pt had hysterectomy specimen obtained from vagi (more content not included)... [facility] Comment on above: Result Comment: Elec tronically Signed By: Britany Hicks\.br\Date and Time Signed: 07/07/23 15:34 EST PAP [id number] 07-07-2023 Gynecological Body Site VAGINA [facility] Comment on above: Performed By: #### 1 [id number] #### [facility] [address] [place] [address] DBT Breast - bilateral tanya matos 06-29-2023 No evidence of malignancy. Advise annual screening mammography. BI-RADS 2 BIRADS: BIRADS - CATEGORY 2 Benign Findings. Normal interval follow-up is recommended in 12 months. OVERALL ASSESSMENT - BENIGN A letter of notification will be sent to the patient regarding the results. The [employer] recommends annual mammograms for women 40 years and older. [facility] EXAMINATION: SCREENING DIGITAL BILATERAL MAMMOGRAM WITH TOMOSYNTHESIS, 06/29/2023 TECHNIQUE: Screening mammography of the bilateral breasts was performed with tomosynthesis. 2D standard and 3D tomosynthesis combination imaging performed through both breasts in the MLO and CC projection. Computer aided detection was utilized in the interpretation of this exam. COMPARISON: 01 April 2020; 28 June 2018 HISTORY: Screening. Un known family history of breast cancer. No hormonal replacement therapy or breast interventions. FINDINGS: Both breasts are composed of predominantly fatty tissue. No skin thickening, nipple contour changes, suspicious calcifications, suspicious masses, areas of architectural distortion or significant interval changes are noted. Intramammary lymph node upper outer left breast again noted. [facility] Radiology Study observation (narrative) [facility] [employer] [facility] DBT Breast - bilateral tanya Leggettrdered By: Leatha Cintron on 06-29-2023 [facility] [employer] [facility] Work Phone: [facility] DIGITAL SCREEN SELF REFERRAL W OR WO CAD BILATERALon 06-29-2023 [facility] DAMION DIGITAL SCREEN SELF REFERRAL W OR WO CAD BILATERAL EXAMINATION: SCREENING DIGITAL BILATERAL MAMMOGRAM WITH TOMOSYNTHESIS, 06/29/2023 TECHNIQUE: Screening mammography of the bilateral breasts was performed with tomosynthesis. 2D standard and 3D tomosynthesis combination imaging performed through both breasts in the MLO and CC projection. Computer aided detection was utilized in the interpretation of this exam. COMPARISON: 01 April 2020; 28 June 2018 HISTORY: Screening. Un known family history of breast cancer. No hormonal replacement therapy or breast interventions. FINDINGS: Both breasts are composed of predominantly fatty tissue. No skin thickening, nipple contour changes, suspicious calcifications, suspicious masses, areas of architectural distortion or significant interval changes are noted. Intramammary lymph node upper outer left breast again noted. IMPRESSION: No evidence of malignancy. Advise annual screening mammography. BI-RADS 2 BIRADS: BIRADS - CATEGORY 2 Benign Findings. Normal interval follow-up is recommended in 12 months. OVERALL ASSESSMENT - BENIGN A letter of notification will be sent to the patient regarding the results. The [employer] recommends annual mammograms for women 40 years and older. Interpreted by: Leatha Cintron MD Signed by: Leatha Cintron MD 06/29/23 Final result Normal [facility] Consultation Noteon 06-25-19 Consultation Note [id number] #1.00TIFF [facility] Lab Reportson 06-25-2023 Lab Reports [id number] #1.00TIFF [facility] RAD - MISCon 06-25-2023 RAD - MISC [id number] #1.00TIFF [facility] Consultation Noteon 06-17-19 Consultation Note [id number] #1.00TIFF [facility] Family Medicine Office/Clini c Noteon 05-20-2023 Family Medicine Office/Clinic Note HPI Staff Jney is a 53 year old female here to discuss her paperwork ( Norma has it) for disability through [employer]. Needs updated Disability benefits became effective 11/06/16 for total disability Diagnosis: psoriatic arthritis, restricture lung dx ( dxed with PFTs in 2017, diffuse joint pain, muscle weakness, muscle pain, fatigue, shortness of breath Flu: UTD quesitons/concerns: seen in Apr for ears and took a zpak cuco, still having issues History of Present Illness Dee Dee Caballero is a 53-year-old female who presents today for a follow-up evaluation of psoriasis. The patient indicates that her morning functionality is compromised, and nocturnal rest is disturbed due to pain. She is currently availing long-term disability benefits through [employer]. She expresses a desire to be exempted from work due to her psoriatic arthritis. She is under the care of a school psychologist assistant. The patient reports discontinuation of consultations with a claims adjuster crop. She cites inconsistency between Dr. Buenrostro and his colleague regarding the etiology of her psoriatic arthritis as the reason for cessation. The patient reports an adverse reaction to her Ozempic injection, characterized by skin elevation. She describes a sensation of drainage from her pharynx to her nasal cavity and auditory canals. Despite being on Z-Cuco since 2023, the symptoms persist. Review of Systems PHQ Score Initial Depression Screen Score: 0 SCORE Physical Exam Vitals & Measurements T: 36.3 ?C(Temporal Artery) HR: 78(Peripheral) RR: 16 BP: 128/78 SpO2: 96% HT: 65 in HT: 165.4 cm WT: 127.3 kg WT: 280.06 lb BMI: 46.53 General: alert, no acute distress Cardiovascular: regular rate and rhythm, normal peripheral perfusion Respiratory: Lungs are clear to auscultation bilaterally, respirations non labored Extremities: no deformity, no trauma Neurological: oriented x 4, LOC appropriate for age, CN II-XII intact, motor strength equal & normal bilaterally, speech normal Assessment/Plan 1. Psoriasis arthropathica (L40.50: Arthropathic psoriasis, unspecified) This is what is causing the patient's total disability, which started on 11/06/2016. Patient still has this and sees rheumatology for it. Patient is on immunomodulating drugs. We will continue to have the patient off and we will do her disability paperwork. 2. Restrictive lung disease (J98.4: Other disorders of lung) This is also what is thought to be caused by this psoriatic arthritis. Given that, we will send the patient to a new claims adjuster crop for further recommendations. 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 4. BMI 45.0-49.9, adult (Z68.42: Body mass index [BMI] 45.0-49.9, adult) BMI education uploaded to the portal. 5. Class 3 obesity (E66.01: Morbid (severe) obesity due to excess calories) 6. Nonsmoker (Z78.9: Other specified health status) Please continue not to smoke. 7. Eustachian tube dysfunction (H69.90: Unspecified Eustachian tube disorder, unspecified ear) We will have the patient use Benadryl at night to help dry up the mucus. Patient can also use nasal saline if needed. Portions of this record may have been created with voice recognition artificial intelligence software, specifically [employer], [employer] and or [employer]. Substitutions may have occurred due to the inherent limitations of voice recognition and artificial intelligence software. ATTESTATION: Documentation services were performed after patient or guardian consented to allow [employer] to record this visit. RONAK executive relations specialist and provider reviewed before signing. RONAK: Karolina [facility]. Follow-up No qualifying data available We will see the patient back at her normal follow-up appointment. Problem List/Past Medical History Ongoing Back pain Class 3 obesity DM type 2 causing complication Eustachian tube dysfunction Fibromyalgia Fluid level behind tympanic membrane of both ears HTN (hypertension) Hypothyroidism Immunodeficiency due to drugs Major depression in remission Muscle weakness KILEY (obstructive sleep apnea) Osteoarthritis, knee Otitis media of right ear Psoriasis arthropathica Restrictive lung disease Severe anxiety Thrush Historical Cavernous hemangioma Depression Procedure/Surgical History Acute tear of lateral meniscus of left knee, section, Cholecystectomy, History of elbow surgery, Tear of biceps tendon, Total hysterectomy. Medications amLODIPine 10 mg Tab, 10 mg= 1 tab(s), Oral, Daily, 3 refills baclofen 10 mg Tab, 10 mg= 1 tab(s), Oral, BID carvedilol 25 mg Tab, 25 mg= 1 tab(s), Oral, BID famotidine 20 mg Tab, 20 mg= 1 tab(s), Oral, BID Flonase 0.05 mg/inh Golden, 2 spray(s), Nasal, Daily glipiZIDE 10 mg Tab, 10 mg= 1 tab(s), Oral, Daily glucometer test strips, See Instructions hydrOXYzine pamoate 25 mg Cap, 25 mg= 1 cap(s), Oral, (more content not included)... [facility] Comment on above: Result Comment: Elec tronically Signed By: Malik Denson MD\.br\Date and Time Signed: 05/20/23 10:02 EST\.br\Electronically Co-Signed By: Karolina Heart.br\Date and Time Co-Signed: 05/18/23 11:50 EST Formson 05-19-2023 Forms [id number] #1.00TIFF [facility] Family Medicine Office/Clini c Noteon 04-27-2023 Family Medicine Office/Clinic Note HPI Staff Jeny is a 53 year old female presenting for paperwork for patient assistance for the ozempic. Last shot was last Wed and won't have insurance to get it until May Do you have any of the following symptoms? Foot Exam: never Eye Exam: due October 2023 Last A1C: Hgb A1C %: 7.1 % High (11/16/22 16:20:00) Statin: atorvastatin 40mg flu: UTD questions/concerns: having something in her lower right back been bothering her for a couple months, not sure if it's muscle related it's below her ribs History of Present Illness - Here for follow up. - Having issues affording meds - Otherwise no issues. - Muscular pain Review of Systems PHQ Score Initial Depression Screen Score: 0 SCORE Physical Exam Vitals & Measurements T: 36.9 ?C(Oral) HR: 76(Peripheral) RR: 16 BP: 132/84 SpO2: 96% HT: 65 in HT: 164.5 cm WT: 124.8 kg WT: 274.56 lb BMI: 46.12 General: alert, no acute distress ENMT: oral mucosa moist, Cardiovascular: regular rate and rhythm, normal peripheral perfusion Respiratory: Lungs CTA, respirations non labored Extremities: no deformity, no trauma Neurological: oriented x 4, LOC appropriate for age, CN II-XII intact, motor strength equal & normal bilaterally, speech normal Abdomen: Soft, Nontender, Non-distended, + BS Assessment/Plan 1. DM type 2 causing complication (E11.8: Type 2 diabetes mellitus with unspecified complications) - Not yet controlled. - Will recheck A1c today and will adjust meds as needed - Will refill Ozempic next month after the patient changes her insurance. Ordered: A1c POC 36582 Body Mass Index (BMI) documented 3008F Current tobacco non-user 1036F Depression Screening Negative 3352F Influenza immunization administered or previously received 4274F Most recent diastolic blood pressure 80-89 mm Hg 3079F Systolic BP 130-139 mm Hg (Most Recent) 3075F 2. Major depression in remission (F32.5: Major depressive disorder, single episode, in full remission) - Stable - Continue on meds as before Ordered: Body Mass Index (BMI) documented 3008F Current tobacco non-user 1036F Depression Screening Negative 3352F Influenza immunization administered or previously received 4274F Most recent diastolic blood pressure 80-89 mm Hg 3079F Systolic BP 130-139 mm Hg (Most Recent) 3075F 3. 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 - Will monitor Ordered: Body Mass Index (BMI) documented 3008F Current tobacco non-user 1036F Depression Screening Negative 3352F Influenza immunization administered or previously received 4274F Most recent diastolic blood pressure 80-89 mm Hg 3079F Systolic BP 130-139 mm Hg (Most Recent) 3075F 4. BMI 45.0-49.9, adult (Z68.42: Body mass index [BMI] 45.0-49.9, adult) - BMI education given Ordered: Body Mass Index (BMI) documented 3008F Current tobacco non-user 1036F Depression Screening Negative 3352F Influenza immunization administered or previously received 4274F Most recent diastolic blood pressure 80-89 mm Hg 3079F Systolic BP 130-139 mm Hg (Most Recent) 3075F 5. Class 3 obesity (E66.01: Morbid (severe) obesity due to excess calories) - Diet and exercise advised Ordered: A1c POC 03322 Body Mass Index (BMI) documented 3008F Current tobacco non-user 1036F Depression Screening Negative 3352F Influenza immunization administered or previously received 4274F Most recent diastolic blood pressure 80-89 mm Hg 3079F Systolic BP 130-139 mm Hg (Most Recent) 3075F 6. Nonsmoker (Z78.9: Other specified health status) - Please continue to not smoke. Ordered: Body Mass Index (BMI) documented 3008F Current tobacco non-user 1036F Depression Screening Negative 3352F Influenza immunization administered or previously received 4274F Most recent diastolic blood pressure 80-89 mm Hg 3079F Systolic BP 130-139 mm Hg (Most Recent) 3075F 7. Back pain (M54.9: Dorsalgia, unspecified) - OTC meds discussed. - Stretching advised 8. HTN (hypertension) (I10: Essential (primary) hypertension) - At goal Orders: amlodipine, 10 mg = 1 tab(s), Oral, Daily, # 90 tab(s), Refills(s) 3, Pharmacy: [facility] [id number], 164.5, cm, 04/26/23 18:33:00 EST, Height/Length Dosing, 124.8, kg, 04/26/23 18:33:00 EST, Weight Dosing atorvastatin, 40 mg = 1 tab(s), Oral, Daily, # 90 tab(s), Refills(s) 1, Pharmacy: [facility] [id number], 164.5, cm, 04/26/23 18:33:00 EST, Height/Length Dosing, 124.8, kg, 04/26/23 18:33:00 EST, Weight Dosing famotidine, 20 mg = 1 tab(s), Oral, BID, # 180 tab(s), Refills(s) 0, Pharmacy: [facility] [id number], 164.5, cm, 04/26/23 18:33:00 EST, Height/Length Dosing, 124.8, kg, 04/26/23 18:33:00 EST, Weight Dosing hydrOXYzine, 25 mg = 1 cap(s), Oral, QID, PRN for anxiety, # 90 cap(s), Refills(s) 0, Pharmacy: [facility] [id number], 164.5, cm, 04/26/23 18:33:00 EST, Height/Length Dosing, 124.8, kg, 04/26/23 18:33:00 EST, Weight Dosing (more content not included)... 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 This Is Your Medications List [facility] Prescription (glucometer test strips) abatacept (Orencia 250 mg intravenous injection) amlodipine (amLODIPine 10 mg Tab) atorvastatin (Lipitor 40 mg Tab) baclofen (baclofen 10 mg Tab) carvedilol (carvedilol 25 mg Tab) famotidine (famotidine 20 mg Tab) fluticasone nasal (Flonase 0.05 mg/inh Golden) glipiZIDE (glipiZIDE 10 mg Tab) hydrOXYzine (hydrOXYzine pamoate 25 mg Cap) levothyroxine (levothyroxine 125 mcg (0.125 mg) Tab) losartan (losartan 100 mg Tab) ropinirole (ropinirole 0.25 mg Tab) semaglutide (Ozempic 2 mg/1.5 mL (1 mg dose) subcutaneous solution) spironolactone (spironolactone 50 mg Tab) triamcinolone topical (triamcinolone Top 0.1% Crm 15 gram) venlafaxine (venlafaxine 150 mg oral tablet, extended release) venlafaxine (venlafaxine 75 mg Cap-ER) Procedures Performed Acute tear of lateral meniscus of left knee, section, Cholecystectomy, History of elbow surgery, Tear of biceps tendon, Total hysterectomy. Discharge Vitals Temperature (Oral) 36.9 ?C Heart Rate (Peripheral) 76 Respiratory Rate 16 Blood Pressure 132/84 Height 164.5 cm Height 65 in Weight 124.8 kg Weight 274.56 lb BMI 46.12 What to do next Scheduled Follow-Up Appointments Wednesday 3:00 PM EDT With: Malik Denson MD Where: [facility] [place] [facility] Pre-Visit Planningon 023 Pre-Visit Planning - From: Hilary DELGADO, Yudith To: Malik Denson MD; Sent: 04/22/2023 10:26:40 EST Subject: Pre-Visit Planning Due Date/Time: 04/22/2023 10:26:00 EST Caller Name: DEE DEE CABALLERO; Caller Number: , Wi Dr. Denson, *Based on your response below, can you please update the chronic problem list and address during this visit if appropriate?* During a pre-visit planning chart review, I noted the following documentation in the medical record: Home medications- Orencia Problem list: Psoriasis arthropathica Based on your medical judgment, can you further clarify if they patient currently has these diagnoses and update the problem list. - Immunodeficiency due to drugs - Other I can update the problem list with your specified response if you would like. In responding to this request, please exercise your independent professional judgment. The fact that a question is asked does not imply that any particular answer is desired or expected. If you have any questions, please feel free to contact me at extension [phone]. Thank you! 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 Denson, During a pre-visit planning chart review, I noted the following documentation in the medical record: Problem list: Depression Medications: Venlafaxine 09/04/2022 [facility] page 1- otezla- depression 02/22/2023 office note-2. Depression (F32.A: Depression, unspecified) - Controlled - Continue on medications as before Based on your medical judgment, can you please clarify which, if any, of the following conditions are present? ? Major Depressive Disorder, Recurrent ? Major depressive disorder, recurrent, mild ? Major depressive disorder, recurrent, moderate ? Major depressive disorder, recurrent, unspecified ? Major depressive disorder, recurrent, in partial remission ? Major depressive disorder, recurrent, in full remission ? Major depressive disorder, recurrent, in remission unspecified ? Other (Please specify if able to) I can update the problem list with your specified response if you would like. In responding to this request, please exercise your independent professional judgement. The fact that a question is asked does not imply that any particular answer is desired or expected. If you have any questions, please feel free to contact me at extension [phone]. Thank you! GAEL Mcdonald, RN, CCM, CCDS, CCDS-O - From: Malik Denson MD To: Hilary DELGADO, Yudith; Sent: 04/22/2023 12:59:02 EST Subject: RE: Pre-Visit Planning Caller Name: DEE DEE CABALLERO; Caller Number: , M Major depression in remission Normal [address] [facility] Ambulatory Visit Summaryon 1 06-17-2022 Ambulatory Visit Summary LEONARDDEE DEE :1970 Visit Date:04/16/2023 Ambulatory Visit Instructions Your Care Team Attending Physician - Britany Hicks Primary Care Physician - Malik Denson MD This Is Your Medications List [facility] Prescription (glucometer test strips) abatacept (Orencia 250 mg intravenous injection) amlodipine (amLODIPine 10 mg Tab) atorvastatin (Lipitor 40 mg Tab) baclofen (baclofen 10 mg Tab) carvedilol (carvedilol 25 mg Tab) famotidine (famotidine 20 mg Tab) glipiZIDE (glipiZIDE 10 mg Tab) hydrOXYzine (hydrOXYzine pamoate 25 mg Cap) levothyroxine (levothyroxine 125 mcg (0.125 mg) Tab) losartan (losartan 100 mg Tab) ropinirole (ropinirole 0.25 mg Tab) semaglutide (Ozempic 2 mg/1.5 mL (1 mg dose) subcutaneous solution) spironolactone (spironolactone 50 mg Tab) triamcinolone topical (triamcinolone Top 0.1% Crm 15 gram) venlafaxine (venlafaxine 150 mg oral tablet, extended release) venlafaxine (venlafaxine 150 mg oral tablet, extended release) venlafaxine (venlafaxine 75 mg Cap-ER) Procedures Performed Acute tear of lateral meniscus of left knee, section, Cholecystectomy, History of elbow surgery, Tear of biceps tendon, Total hysterectomy. Discharge Vitals Temperature (Tympanic) 36.7 ?C Heart Rate (Peripheral) 80 Respiratory Rate 18 Blood Pressure 120/72 Height 165.4 cm Height 65 in Weight 122.8 kg Weight 270.16 lb BMI 44.89 What to do next Scheduled Follow-Up Appointments Wednesday 2:15 PM EST With: Jarett DEAN, Malik Cary Where: [facility] [place] [facility] Family Medicine Office/Clini c Noteon 04-16-2023 Family Medicine Office/Clinic Note HPI Staff Dee Dee is a 52 year old female presenting for acute sick visit Respiratory C/O: Onset: 2 weeks ago Body aches: no Chest congestion: yes Chills: yes Cough: yes Sputum production: yes yellow Sore throat: yes Ear complaints: bilateral but right one is worse pressure going into teeth Eye itching/watering: no Fever: no Headache: no Nasal congestion: yes Nasal discharge: no Poor appetite: no Reduced activity: no Sinus pain/pressure: no Sneezing: no Wheezing: no Ill contacts: no Remedies tried: Coricidin Questions/Concerns: pt needs refill on venlafaxine 150mg to [facility], History of Present Illness pt presents today with chills, cough, nasal congestion and sore throat, right ear pain and teeth on right side are hurting Review of Systems PHQ Score Initial Depression Screen Score: 0 SCORE ROS - Provider Constitutional: no fever, no chills, no sweats, no fatigue Respiratory: no shortness of breath, no cough, no orthopnea, no wheezing. Cardiovascular: no chest pain, no palpitations, no edema. Neurologic: no headache, no dizziness, no numbness, no weakness. Physical Exam Vitals & Measurements T: 36.7 ?C(Tympanic) HR: 80(Peripheral) RR: 18 BP: 120/72 SpO2: 96% HT: 65 in HT: 165.4 cm WT: 122.8 kg WT: 270.16 lb BMI: 44.89 General: alert, no acute distress ENMT: oral mucosa moist, no pharyngeal erythema or exudate Cardiovascular: regular rate and rhythm, normal peripheral perfusion Respiratory: Lungs CTA, respirations non labored Extremities: no deformity, no trauma Neurological: oriented x 4, LOC appropriate for age, CN II-XII intact, motor strength equal & normal bilaterally, speech normal Assessment/Plan 1. Otitis media of right ear (H66.91: Otitis media, unspecified, right ear) Right OM noted on exam. z pask and flonase sent. all questions answered. RTC as needed Ordered: azithromycin, = 1 packet(s), Oral, As Directed, as directed on package labeling, X 5 day(s), # 6 tab(s), Refills(s) 0, Pharmacy: [facility] [id number], 165.4, cm, 04/16/23 14:29:00 EST, Height/Length Dosing, 122.8, kg, 04/16/23 14:29:00 EST, Weight Dosing fluticasone nasal, 2 spray(s), Nasal, Daily, 16 gram, Refill(s) 0, each nostril, [facility] [id number], 165.4, cm, 04/16/23 14:29:00 EST, Height/Length Dosing, 122.8, kg, 04/16/23 14:29:00 EST, Weight Dosing 2. Fluid level behind tympanic membrane of both ears (H65.93: Unspecified nonsuppurative otitis media, bilateral) TOMMIE TM moderate amount of clear fluid Ordered: azithromycin, = 1 packet(s), Oral, As Directed, as directed on package labeling, X 5 day(s), # 6 tab(s), Refills(s) 0, Pharmacy: [facility] [id number], 165.4, cm, 04/16/23 14:29:00 EST, Height/Length Dosing, 122.8, kg, 04/16/23 14:29:00 EST, Weight Dosing fluticasone nasal, 2 spray(s), Nasal, Daily, 16 gram, Refill(s) 0, each nostril, [facility] [id number], 165.4, cm, 04/16/23 14:29:00 EST, Height/Length Dosing, 122.8, kg, 04/16/23 14:29:00 EST, Weight Dosing Orders: venlafaxine, 150 mg = 1 tab(s), Oral, Daily, # 90 tab(s), Refills(s) 0, Pharmacy: [facility] [id number], 165.4, cm, 03/22/23 14:19:00 EST, Height/Length Dosing, 120.4, kg, 03/22/23 14:19:00 EST, Weight Dosing Follow-up No qualifying data available Problem List/Past Medical History Ongoing Depression DM type 2 causing complication Fibromyalgia Fluid level behind tympanic membrane of both ears HTN (hypertension) Hypothyroidism Muscle weakness KILEY (obstructive sleep apnea) Osteoarthritis, knee Otitis media of right ear Psoriasis arthropathica Restrictive lung disease Severe anxiety Thrush Historical Cavernous hemangioma Procedure/Surgical History Acute tear of lateral meniscus of left knee, section, Cholecystectomy, History of elbow surgery, Tear of biceps tendon, Total hysterectomy. Medications amLODIPine 10 mg Tab, 10 mg= 1 tab(s), Oral, Daily, 3 refills azithromycin 250 mg Tab, 1 packet(s), Oral, As Directed baclofen 10 mg Tab, 10 mg= 1 tab(s), Oral, BID carvedilol 25 mg Tab, 25 mg= 1 tab(s), Oral, BID famotidine 20 mg Tab, 20 mg= 1 tab(s), Oral, BID Flonase 0.05 mg/inh Golden, 2 spray(s), Nasal, Daily glipiZIDE 10 mg Tab, 10 mg= 1 tab(s), Oral, Daily glucometer test strips, See Instructions hydrOXYzine pamoate 25 mg Cap, 25 mg= 1 cap(s), Oral, QID, PRN levothyroxine 125 mcg (0.125 mg) Tab, 125 mcg= 1 tab(s), Oral, Daily, 1 refills Lipitor 40 mg Tab, 40 mg= 1 tab(s), Oral, Daily, 1 refills losartan 100 mg Tab, 100 mg= 1 tab(s), Oral, Daily, 1 refills Orencia 250 mg intravenous injection, See Instructions Ozempic 2 mg/1.5 mL (1 mg dose) subcutaneous solution, 1 mg, SubCutaneous, qWeek, 1 refills ropinirole 0.25 mg Tab, See Instructions spironolactone 50 mg Tab, 50 mg= 1 tab(s), Oral, Daily, 1 refills triamcinolone Top 0.1% Crm 15 gram, See Instructions venlafaxine 150 mg oral tablet, extended release, 150 mg= 1 tab(s), Oral, Daily venlafaxine 150 (more content not included)... [facility] Comment on above: Result Comment: Elec tronically Signed By: Deidra TERRELL, Britany Bauman\.br\Date and Time Signed: 04/16/23 14:50 EST Consultation Noteon 03-25-20 Consultation Note [id number]# 1.00TIFF [facility] Lab Reportson 03-25-2023 Lab Reports [id number] #1.00TIFF [facility] Ambulatory Visit Summaryon 1 05-22-2022 Ambulatory Visit Summary DEE DEE CABALLERO :1970 Visit Date:03/22/2023 Ambulatory Visit Instructions Your Diagnosis HTN (hypertension) Non-smoker DM type 2 causing complication BMI 40.0-44.9, adult KILEY (obstructive sleep apnea) Your Care Team Attending Physician - Malik Denson MD Primary Care Physician - Malik Denson MD This Is Your Medications List famotidine (famotidine 20 mg Tab) ropinirole (ropinirole 0.25 mg Tab) Contact prescribing physician if questions or concerns Misc Prescription (glucometer test strips) abatacept (Orencia 250 mg intravenous injection) amlodipine (amLODIPine 10 mg Tab) atorvastatin (Lipitor 40 mg Tab) baclofen (baclofen 10 mg Tab) carvedilol (carvedilol 25 mg Tab) glipiZIDE (glipiZIDE 10 mg Tab) hydrOXYzine (hydrOXYzine pamoate 25 mg Cap) levothyroxine (levothyroxine 125 mcg (0.125 mg) Tab) losartan (losartan 100 mg Tab) semaglutide (Ozempic 2 mg/1.5 mL (1 mg dose) subcutaneous solution) spironolactone (spironolactone 50 mg Tab) triamcinolone topical (triamcinolone Top 0.1% Crm 15 gram) venlafaxine (venlafaxine 75 mg Cap-ER) [Image Removed: STOP]Stop taking these medications venlafaxine (venlafaxine 150 mg oral tablet, extended release) Procedures Performed Acute tear of lateral meniscus of left knee, section, Cholecystectomy, History of elbow surgery, Tear of biceps tendon, Total hysterectomy. Discharge Vitals Heart Rate (Peripheral) 100 Respiratory Rate 18 Blood Pressure 116/80 Height 165.4 cm Height 65 in Weight 120.38 kg Weight 264.836 lb BMI 44 What to do next Scheduled Follow-Up Appointments Wednesday 2:15 PM EST With: Malik Denson MD Where: [facility] Ambulatory Visit Summary DEE DEE CABALLERO Rock :1970 Visit Date:03/22/2023 Ambulatory Visit Instructions Your Diagnosis HTN (hypertension) Non-smoker DM type 2 causing complication BMI 40.0-44.9, adult KILEY (obstructive sleep apnea) Your Care Team Attending Physician - Malik Denson MD Primary Care Physician - Malik Denson MD This Is Your Medications List famotidine (famotidine 20 mg Tab) ropinirole (ropinirole 0.25 mg Tab) Contact prescribing physician if questions or concerns Misc Prescription (glucometer test strips) abatacept (Orencia 250 mg intravenous injection) amlodipine (amLODIPine 10 mg Tab) atorvastatin (Lipitor 40 mg Tab) baclofen (baclofen 10 mg Tab) carvedilol (carvedilol 25 mg Tab) glipiZIDE (glipiZIDE 10 mg Tab) hydrOXYzine (hydrOXYzine pamoate 25 mg Cap) levothyroxine (levothyroxine 125 mcg (0.125 mg) Tab) losartan (losartan 100 mg Tab) semaglutide (Ozempic 2 mg/1.5 mL (1 mg dose) subcutaneous solution) spironolactone (spironolactone 50 mg Tab) triamcinolone topical (triamcinolone Top 0.1% Crm 15 gram) venlafaxine (venlafaxine 75 mg Cap-ER) [Image Removed: STOP]Stop taking these medications venlafaxine (venlafaxine 150 mg oral tablet, extended release) Procedures Performed Acute tear of lateral meniscus of left knee, section, Cholecystectomy, History of elbow surgery, Tear of biceps tendon, Total hysterectomy. Discharge Vitals Heart Rate (Peripheral) 100 Respiratory Rate 18 Blood Pressure 116/80 Height 165.4 cm Height 65 in Weight 120.38 kg Weight 264.836 lb BMI 44 What to do next Scheduled Follow-Up Appointments Wednesday 2:15 PM EST With: Jarett DEAN, Malik Cary Where: [facility] Medicine Office/Clini c Noteon 03-22-2023 Family Medicine Office/Clinic Note HPI Staff Jeny is a 52 year old female presenting for one month follow up htn Patient is here for follow up on hypertension. How often are you checking your blood pressure? ONCE A DAY What are your average readings? 120'S/ 70'S Yearly BMP: 11/16/22 flu: UTD no concerns History of Present Illness Here for follow up. - Bps are better. - May have issues with scripts as her insurance is running out. - No other problems. Review of Systems PHQ Score Initial Depression Screen Score: 0 SCORE Physical Exam Vitals & Measurements HR: 100(Peripheral) RR: 18 BP: 116/80 SpO2: 98% HT: 65 in HT: 165.4 cm WT: 120.38 kg WT: 264.836 lb BMI: 44 General: alert, no acute distress ENMT: oral mucosa moist, Cardiovascular: regular rate and rhythm, normal peripheral perfusion Respiratory: Lungs CTA, respirations non labored Extremities: no deformity, no trauma Neurological: oriented x 4, LOC appropriate for age, CN II-XII intact, motor strength equal & normal bilaterally, speech normal Abdomen: Soft, Nontender, Non-distended, + BS Assessment/Plan 1. HTN (hypertension) (I10: Essential (primary) hypertension) - At goal. - Will refill meds - Follow up 3 months 2. Non-smoker (Z78.9: Other specified health status) - Continue not to smoke 3. DM type 2 causing complication (E11.8: Type 2 diabetes mellitus with unspecified complications) - Will monitor incase patient cannot afford meds - Slightly elevated - Will not adjust at this time because of the not having insurance 4. BMI 40.0-44.9, adult (Z68.41: Body mass index [BMI] 40.0-44.9, adult) BMI education given. 5. KILEY (obstructive sleep apnea) (G47.33: Obstructive sleep apnea (adult) (pediatric)) - Encouraged CPAP use Orders: famotidine, 20 mg = 1 tab(s), Oral, BID, # 180 tab(s), Refills(s) 0, Pharmacy: [facility] #[id number], 165.4, cm, 03/22/23 14:19:00 EST, Height/Length Dosing, 120.4, kg, 03/22/23 14:19:00 EST, Weight Dosing ropinirole, See Instructions, TAKE 1 TABLET BY MOUTH EVERY NIGHT 2 HOURS BEFORE BEDTIME, # 90 tab(s), Refills(s) 0, Pharmacy: [facility] #[id number], 165.4, cm, 03/22/23 14:19:00 EST, Height/Length Dosing, 120.4, kg, 03/22/23 14:19:00 EST, Weight Dosing Follow-up No qualifying data available Problem List/Past Medical History Ongoing Depression DM type 2 causing complication Fibromyalgia HTN (hypertension) Hypothyroidism Muscle weakness KILEY (obstructive sleep apnea) Osteoarthritis, knee Psoriasis arthropathica Restrictive lung disease Severe anxiety Thrush Historical Cavernous hemangioma Procedure/Surgical History Acute tear of lateral meniscus of left knee, section, Cholecystectomy, History of elbow surgery, Tear of biceps tendon, Total hysterectomy. Medications amLODIPine 10 mg Tab, 10 mg= 1 tab(s), Oral, Daily, 3 refills baclofen 10 mg Tab, 10 mg= 1 tab(s), Oral, BID carvedilol 25 mg Tab, 25 mg= 1 tab(s), Oral, BID famotidine 20 mg Tab, 20 mg= 1 tab(s), Oral, BID glipiZIDE 10 mg Tab, 10 mg= 1 tab(s), Oral, BID glucometer test strips, See Instructions hydrOXYzine pamoate 25 mg Cap, 25 mg= 1 cap(s), Oral, QID, PRN levothyroxine 125 mcg (0.125 mg) Tab, 125 mcg= 1 tab(s), Oral, Daily, 1 refills Lipitor 40 mg Tab, 40 mg= 1 tab(s), Oral, Daily, 1 refills losartan 100 mg Tab, 100 mg= 1 tab(s), Oral, Daily, 1 refills Orencia 250 mg intravenous injection, See Instructions Ozempic 2 mg/1.5 mL (1 mg dose) subcutaneous solution, 1 mg, SubCutaneous, qWeek, 1 refills ropinirole 0.25 mg Tab, See Instructions spironolactone 50 mg Tab, 50 mg= 1 tab(s), Oral, Daily, 1 refills triamcinolone Top 0.1% Crm 15 gram, See Instructions venlafaxine 75 mg Cap-ER, 75 mg= 1 cap(s), Oral, Daily, 1 refills Allergies Bactrim (Mild) Ceftin (Mild) Minocin (Mild) cephalexin (Mild) doxepin (Mild) glycerin (Mild) methotrexate (Severe) Social History Alcohol - Denies Alcohol Use, 11/16/2022 Substance Abuse - Denies Substance Abuse, 11/16/2022 Tobacco - Denies Tobacco Use, 11/16/2022 Never (less than 100 in lifetime) Tobacco Use:. Never Smokeless Tobacco Use:. Household tobacco concerns: No., 03/22/2023 Family History Primary malignant neoplasm of colon: Grandparent. Immunizations Vaccine Date Status Comments influenza virus vaccine, inactivated 01/31/2023 Recorded influenza virus vaccine, inactivated 02/21/2022 Recorded SARS-CoV-2 (COVID-19) [id number] 02/21/2022 Recorded SARS-CoV-2 (COVID-19) mRNA-1273 vaccine 07/01/2021 Recorded SARS-CoV-2 (COVID-19) mRNA-1273 vaccine 02/22/2021 Recorded influenza virus vaccine, inactivated 02/07/2021 Recorded SARS-CoV-2 (COVID-19) mRNA-1273 vaccine 08/15/2020 Recorded 2022-07-28: 50 SARS-CoV-2 (COVID-19) mRNA-1273 vaccine 07/18/2020 Recorded influenza virus vaccine, inactivated 01/13/2020 Recorded influenza virus vaccine, inactivated 02/06/2019 Recorded influenza virus vaccine, inactivated 02/18/2018 Recorded influenza vi (more content not included)... [facility] Comment on above: Result Comment: Elec tronically Signed By: Jarett DEAN, Malik Cary\.br\Date and Time Signed: 03/22/23 14:40 EST Physician Referralon 023 Physician Referral [id number] #[id number] [facility] Family Medicine Office/Clini c Noteon 02-22-2023 Family Medicine Office/Clinic Note HPI Staff Jeny is a 52 year old female presenting to discuss medication is retiring and she's concerned about what medicare will pay for and her ozempic is out of stock and was due last wed for a shot, so unsure what to do Doesn't want to adjust her own meds or play around with them without the drs input on what to do flu: UTD History of Present Illness Pt is here to discuss her medications with the changes in her insurance. - NO other issues at this time. Review of Systems PHQ Score Initial Depression Screen Score: 0 Physical Exam Vitals & Measurements T: 36.2 ?C(Temporal Artery) HR: 96(Peripheral) RR: 18 BP: 162/86 SpO2: 98% HT: 65 in HT: 165.4 cm WT: 118.7 kg WT: 261.14 lb BMI: 43.39 General: alert, no acute distress ENMT: oral mucosa moist, Cardiovascular: regular rate and rhythm, normal peripheral perfusion Respiratory: Lungs CTA, respirations non labored Extremities: no deformity, no trauma Neurological: oriented x 4, LOC appropriate for age, CN II-XII intact, motor strength equal & normal bilaterally, speech normal Abdomen: Soft, Nontender, Non-distended, + BS Assessment/Plan 1. DM type 2 causing complication (E11.8: Type 2 diabetes mellitus with unspecified complications) - Not controlled. - Struggling to get Ozempic 2. Depression (F32.A: Depression, unspecified) - Controlled - Continue on medications as before 3. Fibromyalgia (M79.7: Fibromyalgia) - Controlled. - Continue meds as before. 4. HTN (hypertension) (I10: Essential (primary) hypertension) - Not at goal - Will recheck next month 5. Hypothyroidism (E03.9: Hypothyroidism, unspecified) - At goal. - Continue as before 6. Psoriasis arthropathica (L40.50: Arthropathic psoriasis, unspecified) - Seeing Rheumatology 7. Restrictive lung disease (J98.4: Other disorders of lung) - Seeing Pulm - Follow up with pulm soon given the change in 8. BMI 40.0-44.9, adult (Z68.41: Body mass index [BMI] 40.0-44.9, adult) - BMI education given 9. Class 3 obesity (E66.01: Morbid (severe) obesity due to excess calories) - Diet and exercise advised. Orders: semaglutide, 1 mg, SubCutaneous, qWeek, 3 EA, Refill(s) 1, [email or web address] #[id number], 165.4, cm, 02/22/23 18:02:00 EDT, Height/Length Dosing, 118.7, kg, 02/22/23 18:02:00 EDT, Weight Dosing Follow-up No qualifying data available Problem List/Past Medical History Ongoing Depression DM type 2 causing complication Fibromyalgia HTN (hypertension) Hypothyroidism Muscle weakness Osteoarthritis, knee Psoriasis arthropathica Restrictive lung disease Severe anxiety Sleep apnea Thrush Historical Cavernous hemangioma Procedure/Surgical History Acute tear of lateral meniscus of left knee, section, Cholecystectomy, History of elbow surgery, Tear of biceps tendon, Total hysterectomy. Medications amLODIPine 10 mg Tab, 10 mg= 1 tab(s), Oral, Daily, 3 refills baclofen 10 mg Tab, 10 mg= 1 tab(s), Oral, BID carvedilol 25 mg Tab, 25 mg= 1 tab(s), Oral, BID famotidine 20 mg Tab, 20 mg= 1 tab(s), Oral, BID glipiZIDE 10 mg Tab, 10 mg= 1 tab(s), Oral, BID glucometer test strips, See Instructions hydrOXYzine pamoate 25 mg Cap, 25 mg= 1 cap(s), Oral, QID, PRN levothyroxine 125 mcg (0.125 mg) Tab, 125 mcg= 1 tab(s), Oral, Daily, 1 refills Lipitor 40 mg Tab, 40 mg= 1 tab(s), Oral, Daily, 1 refills, Not taking losartan 100 mg Tab, 100 mg= 1 tab(s), Oral, Daily, 1 refills Orencia 250 mg intravenous injection, See Instructions Ozempic 2 mg/1.5 mL (1 mg dose) subcutaneous solution, 1 mg, SubCutaneous, qWeek, 1 refills ropinirole 0.25 mg Tab, See Instructions spironolactone 50 mg Tab, 50 mg= 1 tab(s), Oral, Daily, 1 refills triamcinolone Top 0.1% Crm 15 gram, See Instructions venlafaxine 75 mg Cap-ER, 75 mg= 1 cap(s), Oral, Daily, 1 refills Allergies Bactrim (Mild) Ceftin (Mild) Minocin (Mild) cephalexin (Mild) doxepin (Mild) glycerin (Mild) methotrexate (Severe) Social History Alcohol - Denies Alcohol Use, 11/16/2022 Substance Abuse - Denies Substance Abuse, 11/16/2022 Tobacco - Denies Tobacco Use, 11/16/2022 Never (less than 100 in lifetime) Tobacco Use:. Never Smokeless Tobacco Use:. Household tobacco concerns: No., 02/22/2023 Family History Primary malignant neoplasm of colon: Grandparent. Immunizations Vaccine Date Status Comments influenza virus vaccine, inactivated 02/21/2022 Recorded SARS-CoV-2 (COVID-19) [id number] 02/21/2022 Recorded SARS-CoV-2 (COVID-19) mRNA-1273 vaccine 07/01/2021 Recorded SARS-CoV-2 (COVID-19) mRNA-1273 vaccine 02/22/2021 Recorded influenza virus vaccine, inactivated 02/07/2021 Recorded SARS-CoV-2 (COVID-19) mRNA-1273 vaccine 08/15/2020 Recorded 2022-07-28: 50 SARS-CoV-2 (COVID-19) mRNA-1273 vaccine 07/18/2020 Recorded influenza virus vaccine, inactivated 01/13/2020 Recorded influenza virus vaccine, inactivated 02/06/2019 Recorded influenza virus vaccine, inactivate (more content not included)... [facility] Comment on above: Result Comment: Elec tronically Signed By: Jarett DEAN, Malik Patterson.br\Date and Time Signed: 02/22/23 18:36 EDT CHEMISTRYOrdered By: SYSTEM SYSTEM on 11-16-2022 Albumin [Mass/Vol] 4.2 g/dL Normal 3.3 - 5.0 gm/dL [facility] Albumin/Globulin [Mass ratio] 1.1 {ratio} Normal 1.1 - 2.2 [facility] ALP [Catalytic activity/Vol] 91 [iU]/d Normal 21 - 98 Int._Unit/L [facility] ALT No additional P-5'-P [Catalytic activity/Vol] 47 [iU]/d High 6 - 46 Int._Unit/L [facility] Anion gap [Moles/Vol] 15 mmol/L Normal 6 - 16 mEq/L [facility] AST [Catalytic activity/Vol] 38 [iU]/d Normal 5 - 43 Int._Unit/L [facility] Bilirubin [Mass/Vol] 0.7 mg/dL Normal 0.0 - 1.1 mg/dL [facility] Calcium [Mass/Vol] 10.3 mg/dL Normal 8.9 - 11.1 mg/dL [facility] Chloride [Moles/Vol] 101 mmol/L Normal 101 - 111 mmol/ L [facility] Cholesterol [Mass/Vol] 212 mg/dL High 120 - 200 mg/dL [facility] Cholesterol in HDL [Mass/Vol] 56 mg/dL Invalid Interpretation Code [facility] Cholesterol in LDL [Mass/Vol] 109 mg/dL Normal <=129mg/dL [facility] Cholesterol in VLDL [Mass/Vol] 39 mg/dL Normal 7 - 40 mg/dL [facility] CO2 [Moles/Vol] 25 mmol/L Normal 21 - 31 mmol/L [facility] Creatinine [Mass/Vol] 1.0 mg/dL Normal 0.5 - 1.3 mg/dL [facility] GFR/1.73 sq M.predicted among non-blacks MDRD (S/P/Bld) [Vol rate/Area] 67 mL/min/1.73 m2 Normal >=59mL/min/1.73 m2 [facility] Chem S Globulin (S) [Mass/Vol] 3.8 g/dL Normal 1.4 - 4.0 gm/dL [facility] Glucose [Mass/Vol] 117 mg/dL Normal 55 - 199 mg/dL [facility] Potassium [Moles/Vol] 4.2 mmol/L Normal 3.5 - 5.3 mmol/L [facility] Protein [Mass/Vol] 8.0 g/dL High 6.0 - 7.8 gm/dL [facility] Sodium [Moles/Vol] 137 mmol/L Normal 135 - 145 mmol/L [facility] Triglyceride [Mass/Vol] 196 mg/dL High <=149mg/dL [facility] TSH Qn 1.24 m[IU]/L Normal 0.34 - 5.60 mcIU/mL [facility] Urea nitrogen [Mass/Vol] 27 mg/dL High 5 - 21 mg/dL [facility] Urea nitrogen/Creatinine [Mass ratio] 27 mg/mg High 10 - 20 [facility] CHEMISTRYOrdered By: Hipolito patterson on 11-16-2022 HbA1c (Bld) [Mass fraction] 7.1 % High <=5.9% [facility] ChemAutoSS HEMATOLOGYOrdered By: SYSTEM SYSTEM on 11-16-2022 Basophils/100 WBC (Bld) 0.6 % Normal 0.0 - 2.0 % [facility] HemeAutoSS Basophils/Leukocytes Auto (Bld) [Pure # fraction] 0.1 E9/L Normal 0.0 - 0.2 E9/L [facility] HemeAutoSS Eosinophils/100 WBC (Bld) 3.7 % Normal 0.0 - 8.0 % [facility] HemeAutoSS Eosinophils/Leukocyt es Auto (Bld) [Pure # fraction] 0.4 E9/L Normal 0.0 - 0.5 E9/L [facility] HemeAutoSS Lymphocytes/100 WBC (Bld) 19.2 % Normal 14.0 - 50.0 % [facility] HemeAutoSS Lymphocytes/Leukocyt es Auto (Bld) [Pure # fraction] 2.0 E9/L Normal 1.0 - 4.0 E9/L [facility] HemeAutoSS Monocytes/100 WBC (Bld) 5.1 % Normal 4.0 - 14.0 % [facility] HemeAutoSS Monocytes/Leukocytes Auto (Bld) [Pure # fraction] 0.5 E9/L Normal 0.2 - 1.0 E9/L [facility]eAutoSS Neutrophils/100 WBC (Bld) 71.4 % Normal 36.0 - 75.0 % [facility] HemeAutoSS Neutrophils/Leukocyt es Auto (Bld) [Pure # fraction] 7.5 E9/L Normal 2.0 - 7.5 E9/L [facility] HemeAutoSS HEMATOLOGYOrdered By: Alan Toledo on 11-16-2022 Erythrocyte distribution width (RBC) [Ratio] 13.7 % Normal 10.9 - 14.2 % [facility] HemeAutoSS Hematocrit (Bld) [Volume fraction] 44.0 % Normal 34.0 - 46.0 % [facility] HemeAutoSS Hemoglobin (Bld) [Mass/Vol] 14.9 g/dL Normal 12.0 - 16.0 gm/dL [facility] HemeAutoSS MCH (RBC) [Entitic mass] 29.9 pg Normal 27.0 - 34.0 pg [facility]eAutoSS MCHC (RBC) [Mass/Vol] 33.8 g/dL Normal 31.4 - 36.0 gm/dL [facility]eAutoSS MCV (RBC) [Entitic vol] 88.4 fL Normal 80.0 - 100.0 fL [facility]eAuto[facility] Platelet mean volume (Bld) [Entitic vol] 7.8 fL Normal 6.4 - 10.8 fL [facility] HemeAutoSS Platelets (Bld) [#/Vol] 359.0 E9/L Normal 150.0 - 500.0 E9/L [facility]eAutoSS RBC (Bld) [#/Vol] 5.0 E12/L Normal 4.3 - 5.9 E12/L [facility] HemeAutoSS WBC corrected for nucl RBC Auto (Bld) [#/Vol] 10.5 E9/L Normal 4.0 - 11.0 E9/L [facility] HemeAutoSS GLYCOHEMOGLOBIN A1Con 2022 ADA RECOMMENDATION SEE BELOW Normal [facility] Comment on above: Result Comment: ADA RECOMMENDED LIMIT 4.0 - 6.0 ADA THERAPEUTIC TARGET < 7.0 ACTION SUGGESTED > 7.0 Performed By: #### A 1C #### [facility] [address] [place] [address] Dr. Milana Moctezuma Glucose [Mass/Vol] 140 mg/dL Normal [facility] Comment on above: Performed By: #### A 1C #### [facility] [address] [place] [address] Dr. Milana Moctezuma HbA1c (Bld) [Mass fraction] 6.5 % Critically high 4.5-6.2 [facility] Comment on above: Performed By: #### A 1C #### [facility] [address] [place] [address] Dr. Milana Moctezuma PROF CHEM 8 (BAS METB)on Anion gap [Moles/Vol] 14.2 mmol/L Normal [facility] Comment on above: Performed By: #### B MP #### [facility] [address] [place] [address] Dr. Milana Moctezuma Calcium [Mass/Vol] 9.7 mg/dL Normal 8.5-10.1 [facility] Comment on above: Performed By: #### B MP #### [facility] [address] [place] [address] Dr. Milana Moctezuma Chloride [Moles/Vol] 103 mmol/L Normal 98-107 [facility] Comment on above: Performed By: #### B MP #### [facility] [address] [address] [address] Milana Moctezuma CO2 [Moles/Vol] 27.2 mmol/L Normal 21.0-32.0 [facility] Comment on above: Performed By: #### B MP #### [facility] [address] [address] [address] Milana Moctezuma Creatinine [Mass/Vol] 0.97 mg/dL Normal 0.55-1.02 [facility] Comment on above: Performed By: #### B MP #### [facility] [address] [address] [address] Milana Moctezuma EGFR-AF CROATIAN >60 Normal >=60 [facility] Comment on above: Performed By: #### B MP #### [facility] [address] [place] [address] Dr. Milana Moctezuma EGFR-NON AF CROATIAN =60 Normal >=60 [facility] Comment on above: Performed By: #### B MP #### [facility] [address] [address] [address] Milana Moctezuma Glucose [Mass/Vol] 141 mg/dL Critically high 74-106 [facility] Comment on above: Performed By: #### B MP #### [facility] [address] [address] [address] Milana Moctezuma Potassium [Moles/Vol] 4.4 mmol/L Normal 3.5-5.1 [facility] Comment on above: Performed By: #### B MP #### [facility] [address] [address] [address] Milana Moctezuma Sodium [Moles/Vol] 140 mmol/L Normal 136-145 [facility] Comment on above: Performed By: #### B MP #### [facility] [address] [address] [address] Milana Moctezuma Urea nitrogen [Mass/Vol] 22.0 mg/dL Critically high 7.0-18.0 [facility] Comment on above: Performed By: #### B MP #### [facility] [address] [address] [address] Milana Moctezuma Urea nitrogen/Creatinine [Mass ratio] 22.7 mg/mg Normal [facility] Comment on above: Performed By: #### B MP #### [facility] [address] [address] [address] Milana Moctezuma GLYCOHEMOGLOBIN A1Con 2021 ADA RECOMMENDATION SEE BELOW Normal [facility] Comment on above: Result Comment: ADA RECOMMENDED LIMIT 4.0 - 6.0 ADA THERAPEUTIC TARGET < 7.0 ACTION SUGGESTED > 7.0 Performed By: #### A 1C #### [facility] [address] [address] [address] Milana Moctezuma Glucose [Mass/Vol] 214 mg/dL Normal [facility] Comment on above: Performed By: #### A 1C #### [facility] [address] [address] [address] Milana Moctezuma HbA1c (Bld) [Mass fraction] 9.1 % Critically high 4.5-6.2 [facility] Comment on above: Performed By: #### A 1C #### [facility] [address] [address] [address] Milana Moctezuma XR knee RT 3Von 02-10-2021 XR knee RT 3V [facility] [employer] Other XR knee RT 3V [facility] [employer] Other XR knee RT 3V [address] [place] [address] [employer] Other XR knee RT 3V [address] [employer] Other XR knee RT 3V XRay Report [facility] [employer] Other XR knee RT 3V Signed [facility] Other XR knee RT 3V Patient: Dee Dee Caballero MR#: [id number] [place] [employer] Other XR knee RT 3V 5091 [facility] Other XR knee RT 3V : 1970 Acct:[id number] [facility] Other XR knee RT 3V Age/Sex: 50 / F ADM Date: 02/10/21 [facility] Other XR knee RT 3V Loc: [facility] Room: Type: [facility] Other XR knee RT 3V Attending Dr: Dillan Heredia DO [facility] Other XR knee RT 3V Ordering Provider: Dillan Heredia DO [facility] Other XR knee RT 3V Date of Service: 02/10/21 [facility] Other XR knee RT 3V XR/XR knee RT 3V - NOT FOR ER USE: Primary osteoarthritis of right knee [facility] Other XR knee RT 3V Copies to: Dillan Heredia DO [facility] Other XR knee RT 3V Right knee 02/10/2021. [facility] Other XR knee RT 3V CLINICAL DATA: Right knee pain. [facility] Other XR knee RT 3V FINDINGS: Standing frontal and lateral views of the right knee were obtained along with a sunrise [facility] Other XR knee RT 3V view of both patellas. [facility] Other XR knee RT 3V No acute fracture or dislocation is identified. There are joint space narrowing in the [facility] Other XR knee RT 3V patellofemoral compartments, medially greater than laterally. There are also subchondral cystic [facility] Other XR knee RT 3V changes on the tibial side of the medial femorotibial compartment. Marginal osteophyte formation is [facility] Other XR knee RT 3V seen in all compartments of the knee. There is a small benign-appearing lucency in the proximal [facility] Other XR knee RT 3V tibia. No bony erosion or destruction is visualized. There is a small suprapatellar effusion. [facility] Other XR knee RT 3V XR/XR knee RT 3V - NOT FOR ER USE [facility] Other XR knee RT 3V IMPRESSION: Degenerative changes and small effusion at the right knee. [facility] Other XR knee RT 3V Impression dictated by: Mayo Brown Jr., M.D.02/10/2021 12:18 PM [facility] Other XR knee RT 3V Dictation Location: [place] [address] [facility] Other XR knee RT 3V Transcribed By: RAFAELA 02/10/21 1218 [facility] Other XR knee RT 3V Dictated By: Mayo Brown Jr, MD 02/10/21 1212 [facility] Other XR knee RT 3V Signed By: [facility] Other XR knee RT 3V 02/10/21 1217 [facility] Other XR knee RT 3V - NOT FOR ER [facility] [place] 02-10-2021 XR knee RT 3V - NOT FOR ER USE [facility] [place] [address] [place] [address] XRay Report Signed Patient: Dee Dee Caballero MR#: [id number] : 1970 Acct:[id number] Age/Sex: 50 / F ADM Date: 02/10/21 Loc: [facility] Room: Type: [facility] Attending Dr: Dillan Heredia DO Ordering Provider: Dillan Heredia DO Date of Service: 02/10/21 XR/XR knee RT 3V - NOT FOR ER USE: Primary osteoarthritis of right knee Copies to: Dillan Heredia DO Right knee 02/10/2021. CLINICAL DATA: Right knee pain. FINDINGS: Standing frontal and lateral views of the right knee were obtained along with a sunrise view of both patellas. No acute fracture or dislocation is identified. There are joint space narrowing in the patellofemoral compartments, medially greater than laterally. There are also subchondral cystic changes on the tibial side of the medial femorotibial compartment. Marginal osteophyte formation is seen in all compartments of the knee. There is a small benign-appearing lucency in the proximal tibia. No bony erosion or destruction is visualized. There is a small suprapatellar effusion. XR/XR knee RT 3V - NOT FOR ER USE IMPRESSION: Degenerative changes and small effusion at the right knee. Impression dictated by: Mayo Brown Jr., M.D.02/10/2021 12:18 PM Dictation Location: [place] [address] Transcribed By: [facility] 02/10/218 Dictated By: Mayo Brown Jr, MD 02/10/212 Signed By: 02/10/21 1218 [facility] DAMION DIGITAL SCREEN SELF REFERRAL W OR WO CAD BILATERALon 04-03-2020 Benign findings. BI-RADS 2 BIRADS: BIRADS - CATEGORY 2 Benign, no evidence of malignancy. Normal interval follow-up is recommended in 12 months. OVERALL ASSESSMENT - BENIGN A letter of notification will be sent to the patient regarding the results. The [employer] recommends annual mammograms for women 40 years and older. [place] EXAMINATION: SCREENING DIGITAL BILATERAL MAMMOGRAM WITH TOMOSYNTHESIS, 04/01/2020 TECHNIQUE: Screening mammography of the bilateral breasts was performed with tomosynthesis. 2D standard and 3D tomosynthesis combination imaging performed through both breasts in the MLO and CC projection. Computer aided detection was utilized in the interpretation of this exam. COMPARISON: 06/28/2018, 06/18/2015 HISTORY: Screening. FINDINGS: The breast tissue is fatty replaced. There is no suspicious mass, suspicious microcalcification, or area of architectural distortion. Intramammary lymph node in the posterior upper outer left breast is now smaller. Few benign punctate calcifications again demonstrated. [facility] [place] Messi, Mhpn Incoming Radiant Results From [facility] - 04/03/2020 8:10 AM EST EXAMINATION: SCREENING DIGITAL BILATERAL MAMMOGRAM WITH TOMOSYNTHESIS, 04/01/2020 TECHNIQUE: Screening mammography of the bilateral breasts was performed with tomosynthesis. 2D standard and 3D tomosynthesis combination imaging performed through both breasts in the MLO and CC projection. Computer aided detection was utilized in the interpretation of this exam. COMPARISON: 06/28/2018, 06/18/2015 HISTORY: Screening. FINDINGS: The breast tissue is fatty replaced. There is no suspicious mass, suspicious microcalcification, or area of architectural distortion. Intramammary lymph node in the posterior upper outer left breast is now smaller. Few benign punctate calcifications again demonstrated. IMPRESSION: Benign findings. BI-RADS 2 BIRADS: BIRADS - CATEGORY 2 Benign, no evidence of malignancy. Normal interval follow-up is recommended in 12 months. OVERALL ASSESSMENT - BENIGN A letter of notification will be sent to the patient regarding the results. The [employer] recommends annual mammograms for women 40 years and older. [place] T3, Freeon 04-02-2020 Free T3 [Mass/Vol] 2.45 pg/mL 2.02 - 4.43 pg/mL [place] T4, Freeon 04-02-2020 Thyroxine, Free 1.25 ng/dL 0.93 - 1.7 ng/dL [place] CBC Auto Differentialon 03-11 Basophils (Bld) [#/Vol] 0.06 10*3/uL [place] Basophils/100 WBC (Bld) 1 % 0 - 2 % [place] Differential Type NOT REPORTED [place] Eosinophils (Bld) [#/Vol] 0.30 10*3/uL [place] Eosinophils/100 WBC (Bld) 3 % 1 - 4 % [place] Erythrocyte distribution width (RBC) [Ratio] 12.8 % 11.8 - 14.4 % [place] Hematocrit (Bld) [Volume fraction] 46.7 % 36.3 - 47.1 % [place] Hemoglobin (Bld) [Mass/Vol] 14.7 g/dL 11.9 - 15.1 g/dL [place] Immature granulocytes (Bld) [#/Vol] 0 % 0 [place] Immature granulocytes (Bld) [#/Vol] 0.03 10*3/uL [place] Interpretation and review of laboratory results Abnormal [place] Lymphocytes (Bld) [#/Vol] 2.29 10*3/uL [place] Lymphocytes/100 WBC (Bld) 21 % Low 24 - 43 % [place] MCH (RBC) [Entitic mass] 29.3 pg 25.2 - 33.5 pg [place] MCHC (RBC) [Mass/Vol] 31.5 g/dL 28.4 - 34.8 g/dL [place] MCV (RBC) [Entitic vol] 93.2 fL 82.6 - 102.9 fL [place] Monocytes (Bld) [#/Vol] 0.71 10*3/uL [place] Monocytes/100 WBC (Bld) 6 % 3 - 12 % [place] Platelet mean volume (Bld) [Entitic vol] 8.8 fL 8.1 - 13.5 fL [place] Platelets (Bld) [#/Vol] 325 10*3/uL [place] Platelets (Bld) [#/Vol] NOT REPORTED [place] RBC (Bld) [#/Vol] 5.01 10*6/uL 3.95 - 5.11 m/uL [place] RBC morphology finding Nom (Bld) NOT REPORTED [place] Segmented neutrophils/100 WBC (Bld) 69 % High 36 - 65 % [place] Segs Absolute 7.71 [place] WBC (Bld) [#/Vol] 11.1 10*3/uL [place] WBC (Bld) [#/Vol] 0.0 10*3/uL 0.0 per 100 WBC M [place] WBC Morphology NOT REPORTED [place] Comprehensive Metabolic Pane jeffery 04-01-2020 Albumin [Mass/Vol] 4.3 g/dL 3.5 - 5.2 g/dL [place] Albumin/Globulin [Mass ratio] 1.4 {ratio} [place] ALP [Catalytic activity/Vol] 127 U/L High 35 - 104 U/L [place] ALT [Catalytic activity/Vol] 16 U/L 5 - 33 U/L [place] Anion gap [Moles/Vol] 10 mmol/L 9 - 17 mmol/L [place] AST [Catalytic activity/Vol] 15 U/L <32 [place] Bilirubin Ql (U) 0.43 mg/dL 0.3 - 1.2 mg/dL [place] Bun/Cre Ratio 51 High [place] Calcium [Mass/Vol] 10.3 mg/dL 8.6 - 10.4 mg/dL [place] Chloride [Moles/Vol] 100 mmol/L 98 - 107 mmol/L [place] CO2 [Moles/Vol] 26 mmol/L 20 - 31 mmol/L [place] Creatinine [Mass/Vol] 0.76 mg/dL 0.5 - 0.9 mg/dL [place] GFR >60 >60 mL/min [place] GFR Non- >60 >60 mL/min [place] Glucose [Mass/Vol] 107 mg/dL High 70 - 99 mg/dL [place] Interpretation and review of laboratory results Abnormal [place] Potassium [Moles/Vol] 4.8 mmol/L 3.7 - 5.3 mmol/L [place] Protein [Mass/Vol] 7.4 g/dL 6.4 - 8.3 g/dL [place] Sodium [Moles/Vol] 136 mmol/L 135 - 144 mmol/L [place] Urea nitrogen [Mass/Vol] 39 mg/dL High 6 - 20 mg/dL [place] Metabolic Panelon 04-01-2020 GFR/1.73 sq M predicted among non-blacks MDRD (S/P/Bld) [Vol rate/Area] [place] Comment on above: Stage 1: Some kidney damage normal GFR Stage 2: Mild kidney damage GFR 60-89 Stage 3: Moderate kidney damage GFR 30-59 Stage 4: Severe kidney damage GFR 15-29 Stage 5: Severe kidney damage GFR <15 ESRD - chronic treatment by dialysis or transplant Average GFR for 50-5 9 years old: 93 mL/min/1.73sq m Chronic Kidney Disease: <60 mL/min/1.73sq m Kidney failure: <15 mL/min/1.73sq m eGFR calculated using average adult body mass. Additional eGFR calculator available at: http://www.[employer].Cubbying/multiple_crcl_2011.htm TSH without Reflexon 020 TSH Qn 2.52 m[IU]/L [place] Creatinine, Serumon 07-25-19 20 Creatinine [Mass/Vol] 0.55 mg/dL 0.5 - 0.9 mg/dL [place] GFR >60 >60 mL/min [place] GFR Non- >60 >60 mL/min [place] MRI SACRUM COCCYX W WO CONTR Juan 07-25-2019 Minimal edema along the superior aspect of the right sacroiliac joint. Otherwise negative exam. No erosive changes. No significant sclerosis. [place] EXAMINATION: MRI OF THE SACRUM/SI JOINT WITH AND WITHOUT CONTRAST 07/25/2019 2:15 pm COMPARISON: Radiographs June 03, 2017 CT abdomen and pelvis February 28, 2018 HISTORY: ORDERING SYSTEM PROVIDED HISTORY: Sacroiliitis ([facility]) TECHNOLOGIST PROVIDED HISTORY: Is the patient ?->No FINDINGS: Evaluation is limited by motion. Severe disc space narrowing and endplate degenerative changes at L5-S1 with a disc bulge. No acute fracture. No suspicious bone marrow replacing lesion. No erosive changes along the sacroiliac joints. Minimal edema along the superior aspect of the right sacroiliac joint. No significant sclerosis. No mass or lesion along visualized portions of the sciatic nerves. No acute soft tissue abnormality. No free fluid within the pelvis. No abnormal postcontrast enhancement. [place] Messi, Mhpn Incoming Radiant Results From [facility] - 07/25/2019 5:57 PM EDT EXAMINATION: MRI OF THE SACRUM/SI JOINT WITH AND WITHOUT CONTRAST 07/25/2019 2:15 pm COMPARISON: Radiographs June 03, 2017 CT abdomen and pelvis February 28, 2018 HISTORY: ORDERING SYSTEM PROVIDED HISTORY: Sacroiliitis ([facility]) TECHNOLOGIST PROVIDED HISTORY: Is the patient ?->No FINDINGS: Evaluation is limited by motion. Severe disc space narrowing and endplate degenerative changes at L5-S1 with a disc bulge. No acute fracture. No suspicious bone marrow replacing lesion. No erosive changes along the sacroiliac joints. Minimal edema along the superior aspect of the right sacroiliac joint. No significant sclerosis. No mass or lesion along visualized portions of the sciatic nerves. No acute soft tissue abnormality. No free fluid within the pelvis. No abnormal postcontrast enhancement. IMPRESSION: Minimal edema along the superior aspect of the right sacroiliac joint. Otherwise negative exam. No erosive changes. No significant sclerosis. [place] Metabolic Panelon 07-25-2019 GFR/1.73 sq M predicted among non-blacks MDRD (S/P/Bld) [Vol rate/Area] [place] Comment on above: Average GFR for 50-5 9 years old: 93 mL/min/1.73sq m Chronic Kidney Disease: <60 mL/min/1.73sq m Kidney failure: <15 mL/min/1.73sq m eGFR calculated using average adult body mass. Additional eGFR calculator available at: http://www.EasySize/multiple_crcl_2012.htm Stage 1: Some kidney damage normal GFR Stage 2: Mild kidney damage GFR 60-89 Stage 3: Moderate kidney damage GFR 30-59 Stage 4: Severe kidney damage GFR 15-29 Stage 5: Severe kidney damage GFR <15 ESRD - chronic treatment by dialysis or transplant ALTOrdered By: Devyn stevens on 05-18-2019 ALT [Catalytic activity/Vol] 25 U/L 5 - 33 U/L [employer] Work Phone: ASTOrdered By: Devyn stevens on 05-18-2019 AST [Catalytic activity/Vol] 19 U/L <32 [employer] Work Phone: C-Reactive ProteinOrdered By : Devyn Mondragon on 05-18-2019 CRP [Mass/Vol] 19.3 mg/L High 0 - 5 mg/L [employer] Work Phone: Interpretation and review of laboratory results Abnormal [employer] Work Phone: CBC Auto DifferentialOrdered By: Devyn Mondragon on 05-18-2019 Absolute Eos # 0.48 High [employer] Work Phone: Absolute Immature Granulocyte <0.03 [employer] Work Phone: Absolute Lymph # 2.78 [facility] Work Phone: Absolute [place] # 0.69 [employer] [facility] Work Phone: Basophils (Bld) [#/Vol] 0.06 10*3/uL [employer] Work Phone: Basophils/100 WBC (Bld) 1 % 0 - 2 % [employer] Work Phone: Differential Type NOT REPORTED Walk-in Phone: Eosinophils/100 WBC (Bld) 5 % High 1 - 4 % Walk-in Phone: Erythrocyte distribution width (RBC) [Ratio] 12.7 % 11.8 - 14.4 % Walk-in Phone: Hematocrit (Bld) [Volume fraction] 43.4 % 36.3 - 47.1 % Walk-in Phone: Hemoglobin (Bld) [Mass/Vol] 13.9 g/dL 11.9 - 15.1 g/dL Walk-in Phone: Immature granulocytes/100 WBC (Bld) 0 % 0 Walk-in Phone: Interpretation and review of laboratory results Abnormal Walk-in Phone: Lymphocytes/100 WBC (Bld) 30 % 24 - 43 % Walk-in Phone: MCH (RBC) [Entitic mass] 29.0 pg 25.2 - 33.5 pg Walk-in Phone: MCHC (RBC) [Mass/Vol] 32.0 g/dL 28.4 - 34.8 g/dL Walk-in Phone: MCV (RBC) [Entitic vol] 90.6 fL 82.6 - 102.9 fL Walk-in Phone: Monocytes/100 WBC (Bld) 8 % 3 - 12 % Walk-in Phone: NRBC Automated 0.0 0.0 per 100 WBC Walk-in Phone: Platelet Estimate NOT REPORTED Walk-in Phone: Platelet mean volume (Bld) [Entitic vol] 9.7 fL 8.1 - 13.5 fL Walk-in Phone: Platelets (Bld) [#/Vol] 276 10*3/uL Walk-in Phone: RBC (Bld) [#/Vol] 4.79 10*6/uL 3.95 - 5.11 m/uL Walk-in Phone: RBC morphology finding Nom (Bld) NOT REPORTED Walk-in Phone: Segmented neutrophils/100 WBC (Bld) 56 % 36 - 65 % [employer] Work Phone: Segs Absolute 5.12 [employer] Work Phone: WBC (Bld) [#/Vol] 9.2 10*3/uL [employer] Work Phone: WBC Morphology NOT REPORTED [employer] Work Phone: Creatinine, SerumOrdered By: Devyn Mondragon on 05-18-2019 Creatinine [Mass/Vol] 0.68 mg/dL 0.5 - 0.9 mg/dL Walk-in Phone: GFR >60 >60 mL/min [employer] Phone: GFR Comment Walk-in Phone: Comment on above: Average GFR for 50-5 9 years old: 93 mL/min/1.73sq m Chronic Kidney Disease: <60 mL/min/1.73sq m Kidney failure: <15 mL/min/1.73sq m eGFR calculated using average adult body mass. Additional eGFR calculator available at: http://www.[employer].com/multiple_crcl_2012.htm GFR Non- >60 >60 mL/min Walk-in Phone: GFR Staging Walk-in Phone: Comment on above: Stage 1: Some kidney damage normal GFR Stage 2: Mild kidney damage GFR 60-89 Stage 3: Moderate kidney damage GFR 30-59 Stage 4: Severe kidney damage GFR 15-29 Stage 5: Severe kidney damage GFR <15 ESRD - chronic treatment by dialysis or transplant Sedimentation RateOrdered By : Devyn Mondragon on 05-18-2019 Sed Rate 8 mm 0 - 20 mm Walk-in Phone: Hemoglobin [id number] By: Ted Osman on 04-22-2019 Glucose [Mass/Vol] 180 mg/dL Walk-in Phone: Comment on above: The ADA and AACC rec ommend providing the estimated average glucose result to permit better patient understanding of their HBA1c result. HbA1c (Bld) [Mass fraction] 7.9 % High 4.8 - 5.9 % Walk-in Phone: Interpretation and review of laboratory results Abnormal Walk-in Phone: Basic Metabolic Panel w/ Ref saira to MGOrdered By: Niko Griffin on 04-17-2019 Anion gap [Moles/Vol] 11 mmol/L 9 - 17 mmol/L Walk-in Phone: Bun/Cre Ratio 33 High [email or web address] Work Phone: Calcium [Mass/Vol] 9.3 mg/dL 8.6 - 10.4 mg/dL Walk-in Phone: Chloride [Moles/Vol] 102 mmol/L 98 - 107 mmol/L Walk-in Phone: CO2 [Moles/Vol] 24 mmol/L 20 - 31 mmol/L Walk-in Phone: Creatinine [Mass/Vol] 0.63 mg/dL 0.5 - 0.9 mg/dL Walk-in Phone: GFR >60 >60 mL/min [employer] [facility] Phone: GFR Comment Walk-in Phone: Comment on above: Average GFR for 50-5 9 years old: 93 mL/min/1.73sq m Chronic Kidney Disease: <60 mL/min/1.73sq m Kidney failure: <15 mL/min/1.73sq m eGFR calculated using average adult body mass. Additional eGFR calculator available at: http://www.EasySize/multiple_crcl_2012.htm GFR Non- >60 >60 mL/min [facility] [employer] Work Phone: GFR Staging [facility] [employer] Phone: Comment on above: Stage 1: Some kidney damage normal GFR Stage 2: Mild kidney damage GFR 60-89 Stage 3: Moderate kidney damage GFR 30-59 Stage 4: Severe kidney damage GFR 15-29 Stage 5: Severe kidney damage GFR <15 ESRD - chronic treatment by dialysis or transplant Glucose [Mass/Vol] 173 mg/dL High 70 - 99 mg/dL [facility] [employer] Work Phone: Potassium [Moles/Vol] 4.1 mmol/L 3.7 - 5.3 mmol/L [facility] [employer] Phone: Sodium [Moles/Vol] 137 mmol/L 135 - 144 mmol/L [facility] [employer] Phone: Urea nitrogen [Mass/Vol] 21 mg/dL High 6 - 20 mg/dL [facility] [employer] Work Phone: CBC Auto DifferentialOrdered By: Niko Griffin on 04-17-2019 Absolute Eos # 0.61 High [facility] Work Phone: Absolute Immature Granulocyte 0.03 [facility] Work Phone: Absolute Lymph # 3.25 [facility] Work Phone: Absolute [place] # 0.86 [facility] Work Phone: Basophils (Bld) [#/Vol] 0.03 10*3/uL [facility] [employer] Work Phone: Basophils/100 WBC (Bld) 0 % 0 - 2 % [facility] [employer] Work Phone: Differential Type NOT REPORTED [facility] [employer] Work Phone: Eosinophils/100 WBC (Bld) 6 % High 1 - 4 % [facility] [employer] Work Phone: Erythrocyte distribution width (RBC) [Ratio] 13.2 % 11.8 - 14.4 % Walk-in Phone: Hematocrit (Bld) [Volume fraction] 44.3 % 36.3 - 47.1 % Walk-in Phone: Hemoglobin (Bld) [Mass/Vol] 14.1 g/dL 11.9 - 15.1 g/dL Walk-in Phone: Immature granulocytes/100 WBC (Bld) 0 % 0 Walk-in Phone: Interpretation and review of laboratory results Abnormal Walk-in Phone: Lymphocytes/100 WBC (Bld) 33 % 24 - 43 % Walk-in Phone: MCH (RBC) [Entitic mass] 28.7 pg 25.2 - 33.5 pg Walk-in Phone: MCHC (RBC) [Mass/Vol] 31.8 g/dL 28.4 - 34.8 g/dL Walk-in Phone: MCV (RBC) [Entitic vol] 90.0 fL 82.6 - 102.9 fL Walk-in Phone: Monocytes/100 WBC (Bld) 9 % 3 - 12 % Walk-in Phone: NRBC Automated 0.0 0.0 per 100 WBC Walk-in Phone: Platelet Estimate NOT REPORTED Walk-in Phone: Platelet mean volume (Bld) [Entitic vol] 10.2 fL 8.1 - 13.5 fL [employer]in Phone: Platelets (Bld) [#/Vol] 281 10*3/uL [employer]in Phone: RBC (Bld) [#/Vol] 4.92 10*6/uL 3.95 - 5.11 m/uL [facility]in Phone: RBC morphology finding Nom (Bld) NOT REPORTED Walk-in Phone: Segmented neutrophils/100 WBC (Bld) 52 % 36 - 65 % [employer] Work Phone: Segs Absolute 5.11 [employer] Work Phone: WBC (Bld) [#/Vol] 9.9 10*3/uL [employer] Work Phone: WBC Morphology NOT REPORTED [facility] Work Phone: CT CHEST W CONTRASTOrdered B y: Niko Griffin on 04-17-2019 No evidence of thrombosis within the SVC or mass effect upon the SVC to account for facial swelling. No focal airspace consolidation. [employer] Work Phone: EXAMINATION: CT OF THE CHEST WITH CONTRAST 04/17/2019 11:26 am TECHNIQUE: CT of the chest was performed with the administration of intravenous contrast. Multiplanar reformatted images are provided for review. Dose modulation, iterative reconstruction, and/or weight based adjustment of the mA/kV was utilized to reduce the radiation dose to as low as reasonably achievable. COMPARISON: 04/17/2018 HISTORY: ORDERING SYSTEM PROVIDED HISTORY: eval for svc syndrome or thrombus. Pt with Facial swelling TECHNOLOGIST PROVIDED HISTORY: eval for svc syndrome or thrombus. Pt with Facial swelling check with radiology to see if this is adequate for my goals FINDINGS: Mediastinum: No evidence of mass effect or occlusion of the SVC. Differential attenuation of the SVC relates to venous admixture. Normal caliber aorta. Coronary artery disease. Borderline cardiomegaly. No pericardial effusion. No mediastinal mass. Lungs/pleura: No airspace consolidation, pleural effusion, or pneumothorax. Minimal left basilar pleural thickening. Upper Abdomen: Fatty liver. No focal hepatic lesion. Normal appearance of the spleen. Tiny adrenal nodule associated left adrenal gland measures 1.0 x 0.7 cm. Exophytic right renal cyst requiring no imaging follow-up. Soft Tissues/Bones: No acute soft tissue or osseous abnormality. Degenerative changes of the shoulders. [employer] Work Phone: Messi, Mhpn Incoming Radiant Results From [facility]/[employer] - 04/17/2019 11:55 AM EST EXAMINATION: CT OF THE CHEST WITH CONTRAST 04/17/2019 11:26 am TECHNIQUE: CT of the chest was performed with the administration of intravenous contrast. Multiplanar reformatted images are provided for review. Dose modulation, iterative reconstruction, and/or weight based adjustment of the mA/kV was utilized to reduce the radiation dose to as low as reasonably achievable. COMPARISON: 04/17/2018 HISTORY: ORDERING SYSTEM PROVIDED HISTORY: eval for svc syndrome or thrombus. Pt with Facial swelling TECHNOLOGIST PROVIDED HISTORY: eval for svc syndrome or thrombus. Pt with Facial swelling check with radiology to see if this is adequate for my goals FINDINGS: Mediastinum: No evidence of mass effect or occlusion of the SVC. Differential attenuation of the SVC relates to venous admixture. Normal caliber aorta. Coronary artery disease. Borderline cardiomegaly. No pericardial effusion. No mediastinal mass. Lungs/pleura: No airspace consolidation, pleural effusion, or pneumothorax. Minimal left basilar pleural thickening. Upper Abdomen: Fatty liver. No focal hepatic lesion. Normal appearance of the spleen. Tiny adrenal nodule associated left adrenal gland measures 1.0 x 0.7 cm. Exophytic right renal cyst requiring no imaging follow-up. Soft Tissues/Bones: No acute soft tissue or osseous abnormality. Degenerative changes of the shoulders. IMPRESSION: No evidence of thrombosis within the SVC or mass effect upon the SVC to account for facial swelling. No focal airspace consolidation. Walk-in Phone: Hepatic Function PanelOrdere d By: Niko Griffin on 04-17-2019 Albumin [Mass/Vol] 3.8 g/dL 3.5 - 5.2 g/dL [facility] Phone: Albumin/Globulin [Mass ratio] 1.2 {ratio} Walk-in Phone: ALP [Catalytic activity/Vol] 128 U/L High 35 - 104 U/L Walk-in Phone: ALT [Catalytic activity/Vol] 27 U/L 5 - 33 U/L Walk-in Phone: AST [Catalytic activity/Vol] 34 U/L High <32 Walk-in Phone: Bilirubin [Mass/Vol] 0.45 mg/dL 0.3 - 1.2 mg/dL [facility] Work Phone: Bilirubin, Indirect CANNOT BE CALCULATED 0 - 1 mg/dL [facility] Work Phone: Bilirubin.indirect [Mass/Vol] mg/dL <0.31 mg/dL [facility] Work Phone: Globulin NOT REPORTED 1.5 - 3.8 g/dL [facility] Work Phone: Protein [Mass/Vol] 7.1 g/dL 6.4 - 8.3 g/dL [facility] [employer] Work Phone: Microscopic UrinalysisOrdere d By: Niko Griffin on 04-17-2019 - Walk-in Phone: Amorphous, UA NOT REPORTED None [employer] [facility] Work Phone: Bacteria, UA 1+ Abnormal None [facility] Work Phone: Casts UA NOT REPORTED /LPF [facility] Work Phone: Crystals UA NOT REPORTED None /HPF [employer] [facility] Work Phone: Epithelial Cells UA 20 TO 50 [facility] Work Phone: Interpretation and review of laboratory results Abnormal [facility] Phone: Mucus, UA NOT REPORTED None [facility] Work Phone: Other Observations UA SPOT READ QNS FOR MICRO SPIN DOWN NOT REQ. [employer] Work Phone: RBC, UA 5 TO 10 [employer] Work Phone: Renal Epithelial, Urine NOT REPORTED 0 /HPF [facility] Work Phone: Trichomonas, UA NOT REPORTED None [employer] Work Phone: WBC, UA 10 TO 20 [facility] Work Phone: Yeast, UA NOT REPORTED None [facility] [employer] Work Phone: No Panel InformationOrdered By: Niko Griffin on 04-17-2019 Interpretation and review of laboratory results Abnormal [employer] Work Phone: Urinalysis, reflex to micros copicOrdered By: Niko Griffin on 04-17-2019 Bilirubin Urine Negative NEGATIVE [employer] [facility] Work Phone: Color, UA YELLOW YELLOW [facility] Work Phone: Glucose, Ur 1+ Abnormal NEGATIVE [facility] Work Phone: Interpretation and review of laboratory results Abnormal [facility] Work Phone: Ketones Ql (U) Negative NEGATIVE [facility] Work Phone: Leukocyte esterase Test strip Ql (U) TRACE Abnormal NEGATIVE [facility] Work Phone: Nitrite, Urine Positive Abnormal NEGATIVE [facility] Work Phone: pH, UA 7.0 [facility] [employer] Work Phone: Protein, UA Negative NEGATIVE [facility] [employer] Work Phone: Specific [place], UA 1.010 [facility] [employer] Work Phone: Turbidity UA CLOUDY Abnormal CLEAR [facility] Work Phone: Urinalysis Comments NOT REPORTED [facility] [employer] Work Phone: Urine Hgb 1+ Abnormal NEGATIVE [facility] Work Phone: Urobilinogen, Urine Normal Normal [facility] [employer] Work Phone: XR CHEST STANDARD (2 VW)Orde red By: Niko Griffin on 04-17-2019 Stable negative chest. [employer] Work Phone: EXAMINATION: TWO XRAY VIEWS OF THE CHEST 04/17/2019 10:18 am COMPARISON: 06/23/2018 HISTORY: ORDERING SYSTEM PROVIDED HISTORY: swelling in body FINDINGS: The lungs are without acute focal process. No effusion or pneumothorax. The cardiomediastinal silhouette is normal. The osseous structures are intact without acute process. Cholecystectomy clips. Walk-in Phone: Messi, Mhpn Incoming Radiant Results From [employer] - 04/17/2019 10:32 AM EST EXAMINATION: TWO XRAY VIEWS OF THE CHEST 04/17/2019 10:18 am COMPARISON: 06/23/2018 HISTORY: ORDERING SYSTEM PROVIDED HISTORY: swelling in body FINDINGS: The lungs are without acute focal process. No effusion or pneumothorax. The cardiomediastinal silhouette is normal. The osseous structures are intact without acute process. Cholecystectomy clips. IMPRESSION: Stable negative chest. 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 Name: Dee Dee Caballero Date: 02/24/2017 Date of : 1970 Patient Type: D Pulmonary Function INTERPRETATIONCLINIC AL INDICATION: Suspect COPD, mild dyspnea upon exertion, but neversmoker.MEDICATI ONS: LABA with ICS-not active, nasal ICS-active.LUNG MECHANICS: Note; the patient had difficulty cooperating, especiallyinitiating maximum effort; probably accentuates the degree of restriction.Expirato ry pattern is highly variable, definitely infers a restriction,further complimented with slow vital capacity restriction, but the reasonfor this is not evident on these measures.Cannot infer whether airway function is deranged from these measures.LUNG VOLUME: Slow vital capacity is also restricted, compatible withforced vitals capacity noted above. The pattern is nonspecific.DIFFUSIO N: Moderately reduced diffusing capacity.Moderately restricted alveolar volume, compatible with vital capacityrestrictions noted above.Measures here are technically accurate, and repeatable at 5%.Probably interstitial disease pattern.CLINICAL IMPRESSION: A moderate restriction and a moderate parenchymal gasexchange defect; however, the patterns of are not evident enoughto give clinical inference of its possibility.It is possible that the patient's morbid obesity could restrict the vitalcapacities, but this is not definite from these measures.Electronica lly Signed by:Matt Sauceda M.D., PhD 03/02/2017 05:05 P Matt Sauceda M.D., PhDProfessor of Medicine;Pulmonary Clinic Care and Sleep MedicineDate Dict: 02/25/2017/04:32 P/Matt Sauceda M.D., PhDDate Trans: 02/26/2017 09:59 [id number] Normal [facility] Vital Signs Date Time Vital Sign Value Performing Clinician Facility 06-05-2021 14:06-0500 Body height 165.1 cm Noé Polanco MD Work Phone: [facility] 06-05-2021 14:06-0500 Body mass index (BMI) [Ratio] 48.76 kg/m2 Noé Polanco MD Work Phone: [facility] 06-05-2021 14:06-0500 Body weight 132.9 kg Noé Polanco MD Work Phone: [facility] 06-05-2021 14:06-0500 Diastolic blood pressure 89 mm[Hg] Noé Polanco MD Work Phone: [facility] 06-05-2021 14:06-0500 Heart rate 105 /min Noé Polanco MD Work Phone: [facility] 06-05-2021 14:06-0500 Systolic blood pressure 143 mm[Hg] Noé Polanco MD Work Phone: [facility] 03-27-2021 10:43-0500 Body height 165.1 cm Rip Khanna MD Work Phone: [facility] 03-27-2021 10:43-0500 Body mass index (BMI) [Ratio] 46.59 kg/m2 Rip Khanna MD Work Phone: [facility] 03-27-2021 10:43-0500 Body weight 127.01 kg Rip Khanna MD Work Phone: [facility] 02-10-2021 09:00-0400 Body height 165.1 cm Dillan Heredia Other [facility] Other 02-10-2021 09:00-0400 Body mass index (BMI) [Ratio] 47.75 kg/m2 Dillan Giovanna Other [facility] Other 02-10-2021 09:00-0400 Body weight 130.18 kg Dillan Giovanna Other [facility] Other 05-19-2019 09:30-0500 BMI (Body Mass Index) 49.26 kg/m2 [facility] [employer] 05-19-2019 09:30-0500 Body Temperature 97 [degF] [facility] 05-19-2019 09:30-0500 Body weight 134.26 kg [facility] 05-19-2019 09:30-0500 BP Diastolic 76 mm[Hg] [facility] 05-19-2019 09:30-0500 BP Systolic 132 mm[Hg] [facility] 05-19-2019 09:30-0500 Height 165.1 cm [facility] 05-19-2019 09:30-0500 Pulse (Heart Rate) 75 /min [facility] 05-19-2019 09:30-0500 Pulse Oximetry 97 % [facility] 04-17-2019 12:02-0500 SaO2% (BldA) [Mass fraction] 95 % Niko Griffin MD Work Phone: [employer] Work Phone: 04-17-2019 12:01-0500 Diastolic blood pressure 74 mm[Hg] Niko Griffin MD Work Phone: [facility] Work Phone: 04-17-2019 12:01-0500 Systolic blood pressure 116 mm[Hg] Niko Griffin MD Work Phone: [employer] Work Phone: 04-17-2019 11:08-0500 Heart rate 78 /min Niko Griffin MD Work Phone: [employer] Work Phone: 04-17-2019 09:07-0500 Body height 165.1 cm Niko Griffin MD Work Phone: [employer] Work Phone: 04-17-2019 09:07-0500 Body mass index (BMI) [Ratio] 49.59 kg/m2 Niko Griffin MD Work Phone: [employer] Work Phone: 04-17-2019 09:07-0500 Body temperature 96.01 [degF] Niko Griffin MD Work Phone: [employer] Work Phone: 04-17-2019 09:07-0500 Body weight 135.17 kg Niko Griffin MD Work Phone: [employer] Work Phone: 04-17-2019 09:07-0500 Respiratory rate 20 /min Niko Griffin MD Work Phone: [employer] Work Phone: 02-01-2019 13:22-0400 BMI (Body Mass Index) 48.49 kg/m2 [facility] 02-01-2019 13:22-0400 Body Temperature 97 [degF] [facility] 02-01-2019 13:22-0400 Body weight 132.18 kg [facility] 02-01-2019 13:22-0400 BP Diastolic 78 mm[Hg] [facility] 02-01-2019 13:22-0400 BP Systolic 134 mm[Hg] [facility] 02-01-2019 13:22-0400 Height 165.1 cm [facility] 02-01-2019 13:22-0400 Pulse (Heart Rate) 74 /min [facility] 02-01-2019 13:22-0400 Pulse Oximetry 96 % [facility] 10-04-2018 12:39-0400 BMI (Body Mass Index) 47.76 kg/m2 [facility] 10-04-2018 12:39-0400 Body Temperature 97 [degF] [facility] 10-04-2018 12:39-0400 Body weight 130.18 kg [facility] 10-04-2018 12:39-0400 BP Diastolic 82 mm[Hg] [facility] 10-04-2018 12:39-0400 BP Systolic 126 mm[Hg] [facility] 10-04-2018 12:39-0400 Height 165.1 cm [facility] 10-04-2018 12:39-0400 Pulse (Heart Rate) 74 /min [facility] 10-04-2018 12:39-0400 Pulse Oximetry 97 % [facility] 06-01-2018 12:56-0500 BMI (Body Mass Index) 49.09 kg/m2 [facility] Work Phone: 06-01-2018 12:56-0500 Body Temperature 97 [degF] [facility] Work Phone: 06-01-2018 12:56-0500 BP Diastolic 78 mm[Hg] [facility] Work Phone: 06-01-2018 12:56-0500 BP Systolic 130 mm[Hg] [facility] Work Phone: 06-01-2018 12:56-0500 Height 165.1 cm [facility] Work Phone: 06-01-2018 12:56-0500 Pulse (Heart Rate) 85 /min [facility] Work Phone: 06-01-2018 12:56-0500 Pulse Oximetry 97 % [facility] Work Phone: 06-01-2018 12:56-0500 Weight 133.81 kg [facility] Work Phone: Encounters Encounter Date Encounter Type Care Provider Facility Start: 11-16-2024 ambulatory SIGRID CALVILLO Facili ty:[facility] Start: 11-09-2024 ambulatory Malik Denson Facility :[facility] Start: 10-05-2024 End: 10-05-2024 Lab Drop off Malik Denson [facility] Start: 10-05-2024 End: 10-05-2024 ambulatory Malik Denson Facility:[facility] Start: 09-26-2024 End: 09-26-2024 ambulatory Malik Denson [facility] Start: 09-18-2024 End: 09-18-2024 ambulatory Malik Denson [facility] Start: 08-02-2024 End: 08-02-2024 ambulatory MARÍA ELENA [facility] Start: 02-29-2024 End: 02-29-2024 ambulatory Malik Denson [facility] Start: 02-03-2024 ambulatory Malik Denson MD Fa cility:[facility] Start: 02-01-2024 End: 02-03-2024 Evaluation and management of inpatient Bran Castillo MD Facility:[facility] Start: 01-27-2024 ambulatory MD Malik Benjamin ity: [facility] Start: 01-25-2024 End: 01-25-2024 ambulatory Bran Castillo MD Facility:[facility] Start: 01-18-2024 End: 01-18-2024 ambulatory Malik Denson Facility:[facility] [place] Start: 01-13-2024 End: 01-13-2024 ambulatory Malik Denson MD Facility:[facility] Start: 01-12-2024 End: 01-13-2024 ambulatory Bran Castillo MD Facility:[facility] Start: 11-22-2023 End: 11-22-2023 ambulatory Malik Denson Facility:[facility] [place] Start: 11-09-2023 End: 11-09-2023 ambulatory MD Malik Denson Facility:[facility] Start: 11-08-2023 End: 11-08-2023 ambulatory Jadyn Osman MD Facility: [place] Start: 10-28-2023 End: 10-28-2023 Lab Drop off Malik Denson [facility] Start: 10-28-2023 End: 10-28-2023 ambulatory MD Malik Denson Facility:[facility] [place] Start: 07-28-2023 ambulatory MD Malik Benjamin ity: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 Start: 06-15-2023 End: 06-15-2023 ambulatory GEOTECHNICIAL PROPERTIES TECHNICIAN Britany Gay Facility:[facility] Start: 05-18-2023 End: 05-18-2023 ambulatory MD Malik Denson Facility:[facility] Start: 04-26-2023 End: 04-26-2023 ambulatory MD Malik Denson Facility:[facility] Start: 04-16-2023 End: 04-16-2023 ambulatory GEOTECHNICIAL PROPERTIES TECHNICIAN Britany Gay Facility:[facility] Start: 03-22-2023 End: 03-22-2023 ambulatory MD Malik Denson Facility:[facility] [place] Start: 02-22-2023 End: 02-22-2023 ambulatory MD [facility] Start: 11-26-2022 ambulatory RED SANTIAGO . Facility: Start: 11-17-2022 End: 11-17-2022 Lab Drop off Malik Denson [facility] Start: 11-16-2022 End: 11-16-2022 Lab Drop off Malik Denson [facility] Start: 07-31-2022 ambulatory NOÉ POLANCO [facility] Ambulatory Start: 07-30-2022 Admission to [facility] Noé Polanco MD Work Phone: [facility] Comment on above: Primary osteoarthrit is of right knee (Primary Dx); Hypertension, unspecified type; Type 2 diabetes mellitus without complication, without long-term current use of insulin (HCC) Start: 07-30-2022 ambulatory NOÉQAMAR POLANCO [facility] Start: 07-16-2022 End: 07-17-2022 ambulatory GAGAN DIAZ . Facility: Start: 06-27-2022 End: 06-28-[address] KHURRAM OSMAN . Facility:[facility] Start: 06-01-[address] KHURRAM OSMAN . Facil ity:[facility] Start: 04-16-2022 End: 04-17-[address] KHURRAM OSMAN . Facility:[facility] Start: 03-04-2022 Documentation procedure Shelley garcia LPN [facility] Start: 03-02-2022 ambulatory KHURRAM OSMAN [facility] Ambulatory Start: 02-20-2022 End: 02-21-[address] KHURRAM OSMAN . Facility:[facility] Start: 01-15-2022 End: 01-16-[address] KHURRAM OSMAN . 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 [facility] Start: 07-17-2021 Documentation procedure Shelley garcia LPN [facility] Start: 07-16-2021 Orders Only Shelley [facility] Comment on above: Elevated hemoglobin A1c (Primary Dx) Start: 06-24-2021 Orders Only Noé garcía MD Work Phone: [facility] Comment on above: Primary osteoarthrit is of right knee (Primary Dx); Hypertension, unspecified type; Exposure to SARS-associated coronavirus; Type 2 diabetes mellitus without complication, without long-term current use of insulin (HCC) Start: 06-05-2021 End: 06-05-2021 Office outpatient visit 15 minutes Noé Polanco MD Work Phone: [facility] Comment on above: Primary osteoarthrit is of right knee (Primary Dx) Start: 03-27-2021 End: 03-27-2021 Office outpatient new 30 minutes Rip Khanna MD Work Phone: [facility] Comment on above: Primary osteoarthrit is of right knee (Primary Dx) Start: 02-10-2021 Office outpatient vi sit 15 minutes [facility] Start: 04-01-2020 End: 04-03-2020 Subsequent hospital visit by physician [facility] Laboratory Comment on above: Breast cancer screen ing by mammogram Start: 07-25-2019 End: 07-27-2019 Subsequent hospital visit by physician [facility] Comment on above: Sacroiliitis (HCC) Start: 05-19-2019 End: 05-19-2019 Office outpatient visit 25 minutes Devyn Mondragon Work Phone: [employer] Comment on above: Psoriatic arthritis (Primary Dx); Dry skin; CRP elevated; History of psoriatic arthritis; 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 current use of non-steroidal anti-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 (NSAID); Long-term current use of high risk medication other than anticoagulant; Fatty liver; TATUM (nonalcoholic steatohepatitis); Vitamin D deficiency; DDD (degenerative disc disease), cervical; Lumbar degenerative disc disease; Osteoarthritis of cervical spine, unspecified spinal osteoarthritis complication status; Osteoarthritis of both hands, unspecified osteoarthritis type; Osteoarthritis of both wrists, unspecified osteoarthritis type; Osteoarthritis of lumbar spine, unspecified spinal osteoarthritis complication status; Primary osteoarthritis of both knees; Thoracic degenerative disc disease; Arthropathic psoriasis; Psoriasis Start: 05-18-2019 End: 05-18-2019 Subsequent hospital visit by physician Khurram Osman Work Phone: [facility] Start: 04-26-2019 End: 04-26-2019 Patient encounter procedure Niecy Hobson Work Phone: [facility] Comment on above: Lumbar facet arthrop athy (Primary Dx) Start: 04-22-2019 End: 04-22-2019 Subsequent hospital visit by physician Khurram Osman Work Phone: [facility] Start: 04-17-2019 End: 04-17-2019 Emergency department patient visit Niko Griffin MD Work Phone: [facility] ED Comment on above: Facial swelling (Vicki leatha Dx) Start: 04-12-2019 End: 04-12-2019 Patient encounter procedure Niecy Hobson Work Phone: [facility] Comment on above: Lumbar facet arthrop athy (Primary Dx) Start: 03-06-2019 End: 03-06-2019 Patient encounter procedure [facility] Start: 03-04-2019 End: 03-04-2019 Refill Devyn Sebastianching Work Phone: [facility] Start: 02-17-2019 End: 02-17-2019 Patient encounter procedure Other Other [facility] Start: 02-06-2019 End: 02-06-2019 Telephone encounter Camila Barnett [facility] Comment on above: Results Vitamin D deficiency (Primary Dx) Start: 02-02-2019 End: 02-02-2019 Refill Devyn Cunningham Alma Work Phone: [facility] Start: 02-01-2019 End: 02-01-2019 Patient encounter procedure Other Other [facility] Start: 02-01-2019 End: 02-01-2019 Office outpatient visit 25 minutes Devyn Marisa Alma Work Phone: [facility] [facility] Comment on above: Psoriatic arthritis (Primary Dx); Psoriasis; Arthropathic psoriasis; Long-term current use of high risk medication other than anticoagulant; deck cadet current use of non-steroidal anti-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 (NSAID); Fatigue, unspecified type; Vitamin D deficiency; TATUM (nonalcoholic steatohepatitis); Fatty liver; Thoracic degenerative disc disease; Primary osteoarthritis of both knees; Osteoarthritis of lumbar spine, unspecified spinal osteoarthritis complication status; Osteoarthritis of both wrists, unspecified osteoarthritis type; Osteoarthritis of both hands, unspecified osteoarthritis type; Osteoarthritis of cervical spine, unspecified spinal osteoarthritis complication status; Lumbar degenerative disc disease; DDD (degenerative disc disease), cervical Start: 01-03-2019 End: 01-03-2019 Refill Devyn Cunningham Al[place] Work Phone: [facility] Start: 12-04-2018 End: 12-04-2018 Refill Devyn Marisa Alma Work Phone: [facility] [place] Start: 12-02-2018 End: 12-02-2018 Patient encounter procedure Other Other [facility] Start: 11-30-2018 End: 11-30-2018 Telephone encounter Dora Bradley [facility] Comment on above: Insurance ([employer]) Start: 11-18-2018 End: 11-18-2018 Refill Camila Barnett [facility] Start: 11-04-2018 End: 11-04-2018 Refill Devyn Marisa Sebastiancemreji Work Phone: [facility] Start: 10-19-2018 End: 10-19-2018 Refill Devyn Marisa Ferreji Work Phone: [facility] Start: 10-12-2018 End: 10-12-2018 Refill Devyn Marisa Alma Work Phone: [facility] Start: 10-04-2018 End: 10-04-2018 Office outpatient visit 25 minutes Devyn Mondragon Work Phone: [facility] Comment on above: Psoriatic arthritis (Primary Dx); Dry skin; Abnormal serum CY level; History of psoriatic arthritis; intermediate current use of non-steroidal anti-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 (NSAID); Long-term current use of high risk medication other than anticoagulant; Fatty liver; TATUM (nonalcoholic steatohepatitis); Vitamin D deficiency; DDD (degenerative disc disease), cervical; Lumbar degenerative disc disease; Osteoarthritis of cervical spine, unspecified spinal osteoarthritis complication status; Osteoarthritis of both hands, unspecified osteoarthritis type; Osteoarthritis of both wrists, unspecified osteoarthritis type; Osteoarthritis of lumbar spine, unspecified spinal osteoarthritis complication status; Primary osteoarthritis of both knees; Thoracic degenerative disc disease; Arthropathic psoriasis; Psoriasis Start: 09-13-2018 End: 09-13-2018 Refill Devyn Marisa Sebastianching Work Phone: [facility] Start: 08-18-2018 End: 08-18-2018 Refill Devyn Mondragon Work Phone: [facility] Start: 06-24-2018 Patient encounter procedure ROSE MARY SHARPE [facility] Start: 06-07-2018 End: 06-07-2018 Telephone encounter Haritha Gomez [facility] Comment on above: Results Start: 06-06-2018 End: 06-06-2018 Patient encounter procedure Devyn Mondragon Work Phone: [facility] Comment on above: Vitamin D deficiency (Primary Dx) Start: 06-01-2018 Patient encounter procedure DEVYN MONDRAGON JR. [facility] Start: 06-01-2018 End: 06-01-2018 Office outpatient visit 25 minutes Devyn Mondragon Work Phone: [facility] Comment on above: Psoriatic arthritis (Primary Dx); Psoriasis; Dry skin; Arthropathic psoriasis; Arthropathic psoriasis, unspecified; History of psoriatic arthritis; Long-term current use of high risk medication other than anticoagulant; intermediate current use of non-steroidal anti-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 (NSAID); Abnormal serum CY level; Vitamin D deficiency; TATUM (nonalcoholic steatohepatitis); Fatty liver; Primary osteoarthritis of both knees Start: 03-24-2018 End: 03-24-2018 Patient encounter Devyn Mondragon Work Phone: [facility] Start: 01-12-2018 Patient encounter [facility] Start: 12-21-2017 Patient encounter procedure Niecy EMILIA [facility] Start: 11-16-2017 Patient encounter [facility] Start: 10-08-2017 Patient encounter procedure RICHARD REZA [facility] Start: 08-20-2017 Patient encounter DEVYN Chowdhury [facility] Start: 02-24-2017 End: 02-25-2017 Ambulatory PROVIDER UNKNOWN Facility:[facility] Procedures Date Procedure Procedure Detail Performing Clinician Start: 06-29-2023 Screening mammograph y bi 2-view breast inc cad Malik Denson MD Work Phone: Start: 04-01-2020 Assay of free thyroxine Khurram Osman Work Phone: Start: 04-01-2020 Assay of thyroid stimulating hormone tsh Khurram Osman Work Phone: Start: 04-01-2020 Assay of triiodothyr onine t3 free Khurram Osman Work Phone: Start: 04-01-2020 Blood count complete auto&auto difrntl wbc Khurram Osman Work Phone: Start: 04-01-2020 Comprehensive metabo lic panel Khurram Osman Work Phone: Start: 04-01-2020 Screening mammograph y bi 2-view breast inc cad Khurram Osman Work Phone: Start: 04-01-2020 Mammography Noé madsen MD Work Phone: Start: 07-25-2019 Mri pelvis w/o & w/c ontrast material Karen Prince Work Phone: Start: 07-25-2019 Creatinine blood Karen Prince Work Phone: Start: 05-18-2019 C-reactive protein Min Cunningham [employer] DO Work Phone: Start: 05-18-2019 Creatinine blood Devyn Marisa Alma DO Work Phone: Start: 04-22-2019 Hemoglobin glycosylated a1c Khurram Osman Work Phone: Start: 04-17-2019 Ct thorax w/contrast material Niko Griffin MD Work Phone: Start: 04-17-2019 Radiologic exam ches t 2 views Nikojerome Griffin MD Work Phone: Start: 04-17-2019 Urinalysis microscopic only Nikojerome Griffin MD Work Phone: Start: 04-17-2019 Urnls dip stick/tabl et rgnt auto w/o microscopy Nikojerome Griffin MD Work Phone: Start: 04-17-2019 BASIC METABOLIC PANE L W/ REFLEX TO MG FOR LOW K Niko Griffin MD Work Phone: Start: 04-17-2019 Blood count complete auto&auto difrntl wbc Niko Griffin MD Work Phone: Start: 04-17-2019 Hepatic function panel Niko Griffin MD Work Phone: Start: 05-30-2018 End: 05-30-2018 LABS (OUTSIDE) Devyn Mondragon Work Phone: Start: 08-20-2017 Laboratory test resu lt abnormal Abnormal serum CY level Niko Griffin MD Work Phone: Acute tear of latera l meniscus of left knee (disorder) Malik Denson section Malik Denson Comment on above: X 2 Cholecystectomy Malik Denson History of operative procedure on elbow Malik Denson Rupture of tendon of biceps (disorder) Malik Denson Total hysterectomy Malik zimmerman Plan of Treatment Date Care Activity Detail Author Start: 06-29-2025 Screening for malignant neoplasm of breast Breast cancer screen [facility] enavu Start: 06-29-2023 Annual Wellness Visit (Medicare) Annual Wellness Visit (Medicare) [facility] Start: 09-14-2022 Subsequent hospital visit by physician 09/14/2022 Hospital Encounter Noé Polanco MD [address] [place] [address] [facility] Start: 09-03-2022 End: 09-03-2022 Patient encounter procedure 09/03/2022 Surgical Consult Sports Medicine Noé Polanco MD [address] [place] [address] [facility] Start: 05-23-2022 Hemoglobin A1c measurement A1C [facility] Start: 02-22-2022 Cervical cancer screen Cervical cancer screen [facility] [employer] Work Phone: Start: 02-22-2022 Screening for malignant neoplasm of cervix Cervical cancer screen [place], [place] Start: 01-08-2022 Influenza vaccination Sequential Influenza Vaccine (#1) [facility] Start: 10-14-2021 Hemoglobin A1c measurement A1C [facility] [facility] Start: 08-27-2021 Hemoglobin A1c measurement A1C [facility] Start: 08-26-2021 COVID-19 Vaccine (5 - Booster for Moderna series) COVID-19 Vaccine (5 - Booster for Moderna series) [facility] Start: 07-28-2021 End: 07-28-2021 Admission to same day surgery center 07/28/2021 Surgery Noé Polanco MD [address] [place] [address] Right Total Knee Replacement Robotic [facility] Comment on above: Right Total Knee Replacement Robotic Start: 07-28-2021 End: 07-28-2021 ARTHROPLASTY KNEE TOTAL ROBOTIC ARTHROPLASTY KNEE TOTAL ROBOTIC Primary osteoarthritis of right knee 07/28/2021 9:18 AM EDT [facility] Main [place] Start: 07-28-2021 Subsequent hospital visit by physician 07/28/2021 Hospital Encounter Noé Polanco MD [address] [place] [address] [facility] Start: 07-24-2021 End: 07-16-2022 Hemoglobin A1c/Hemoglobin.total in Blood Hemoglobin A1c Lab Routine Elevated hemoglobin A1c Expected: 07/24/2021, Expires: 07/16/2022 [facility] Work Phone: Comment on above: Expected: 07/24/2021, Expires: Start: 07-24-2021 End: 07-24-2021 Patient encounter procedure 07/24/2021 Office Visit Lab Noé Polanco MD [address] [place] [address] [facility] Start: 07-17-2021 End: 07-17-2021 Patient encounter procedure 07/17/2021 Surgical Consult Sports Medicine Noé Polanco MD [address] [place] [address] [facility] Start: 07-02-2021 End: 07-02-2021 Follow-up encounter 07/02/2021 Follow-Up Sports Medicine Noé Polanco MD [address] [place] [address] [facility] Start: 06-16-2021 End: 06-16-2021 Admission to same day surgery center 06/16/2021 Surgery Noé Polanco MD [address] [place] [address] Right Total Knee Replacement Robotic [facility] Comment on above: Right Total Knee Replacement Robotic Start: 06-16-2021 End: 06-16-2021 ARTHROPLASTY KNEE TOTAL ROBOTIC ARTHROPLASTY KNEE TOTAL ROBOTIC Primary osteoarthritis of right knee 06/16/2021 9:23 AM EST [facility] Start: 06-16-2021 Subsequent hospital visit by physician 06/16/2021 Hospital Encounter Noé Polanco MD [address] [place] [address] [facility] Start: 06-12-2021 End: 06-12-2021 Patient encounter procedure 06/12/2021 Office Visit Cardiology Noé Polanco MD [address] [place] [address] Ulises Howell MD [address] [place] [id number] [facility] Start: 04-16-2021 Hemoglobin A1c measurement A1C [facility] Start: 04-01-2021 Screening for malignant neoplasm of breast Mammogram [facility] Start: 04-01-2021 Screening for malignant neoplasm of colon [facility] Start: 03-14-2021 Lipid panel Lipids [facility] [employer] Start: 03-14-2021 Lipid screen Lipid screen Walk-in Phone: Start: 07-24-2020 Creatinine measurement Creatinine monitoring [facility] [place] Start: 07-24-2020 Creatinine monitoring Creatinine monitoring [facility] [place] , [place] Start: 07-02-2020 Hemoglobin A1c measurement A1C test (Diabetic or Prediabetic) [facility] Start: 06-28-2020 Breast cancer screen Breast cancer screen Walk-in Phone: Start: 06-28-2020 Screening for malignant neoplasm of breast Breast cancer screen [facility] [place], [place] Start: 05-18-2020 Creatinine monitoring Creatinine monitoring Walk-in Phone: Start: 04-22-2020 A1C test (Diabetic or Prediabetic) A1C test (Diabetic or Prediabetic) Walk-in Phone: Start: 04-22-2020 HbA1c (Bld) [Mass fraction] A1C test (Diabetic or Prediabetic) [facility] [place], [place] Start: 04-17-2020 Creatinine monitoring Creatinine monitoring Walk-in Phone: Start: 04-17-2020 Potassium monitoring [facility] Start: 02-01-2020 Creatinine monitoring Creatinine monitoring Walk-in Phone: Start: 01-09-2020 Influenza vaccination Flu vaccine (#1) [facility] [place] Start: 10-15-2019 A1C test (Diabetic or Prediabetic) A1C test (Diabetic or Prediabetic) Walk-in Phone: Start: 09-01-2019 End: 09-01-2019 Office Visit 09/01/2019 [facility] Devyn [facility], [address] [place] [address] [facility] Start: 08-31-2019 End: 05-19-2020 VITAMIN D (25-HYDROXY,TOTAL) VITAMIN D (25-HYDROXY,TOTAL) Lab Routine Psoriatic arthritis Dry skin CRP elevated History of psoriatic arthritis intermediate current use of non-steroidal anti-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 (NSAID) Long-term current use of high risk medication other than anticoagulant Fatty liver TATUM (nonalcoholic steatohepatitis) Vitamin D deficiency DDD (degenerative disc disease), cervical Lumbar degenerative disc disease Osteoarthritis of cervical spine, unspecified spinal osteoarthritis complication status Osteoarthritis of both hands, unspecified osteoarthritis type Osteoarthritis of both wrists, unspecified osteoarthritis type Osteoarthritis of lumbar spine, unspecified spinal osteoarthritis complication status Primary osteoarthritis of both knees Thoracic degenerative disc disease Arthropathic psoriasis Psoriasis Expected: 08/31/2019 (Approximate), Expires: 05/19/2020 [employer] Comment on above: Expected: 08/31/2019 (Approximate), Expi res: 05/19/2020 Start: 08-31-2019 End: 05-19-2020 VITAMIN D, (1,25 DIHYDROXY) VITAMIN D, (1,25 DIHYDROXY) Lab Routine Psoriatic arthritis Dry skin CRP elevated History of psoriatic arthritis intermediate current use of non-steroidal anti-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 (NSAID) Long-term current use of high risk medication other than anticoagulant Fatty liver TATUM (nonalcoholic steatohepatitis) Vitamin D deficiency DDD (degenerative disc disease), cervical Lumbar degenerative disc disease Osteoarthritis of cervical spine, unspecified spinal osteoarthritis complication status Osteoarthritis of both hands, unspecified osteoarthritis type Osteoarthritis of both wrists, unspecified osteoarthritis type Osteoarthritis of lumbar spine, unspecified spinal osteoarthritis complication status Primary osteoarthritis of both knees Thoracic degenerative disc disease Arthropathic psoriasis Psoriasis Expected: 08/31/2019 (Approximate), Expires: 05/19/2020 [employer] Comment on above: Expected: 08/31/2019 (Approximate), Expi res: 05/19/2020 Start: 08-02-2019 End: 08-02-2019 Appointment 08/02/2019 Appointment Radiology [facility] Start: 06-23-2019 Potassium monitoring Potassium monitoring [facility] Work Phone: Start: 05-24-2019 End: 05-24-2019 Office Visit 05/24/2019 Office Visit Anesthesiology Pain Mgt Rose Mary Sharpe, RIGGING HELPER-FARM FIELD MANAGER [address] [place] [address] [phone] [facility] Start: 05-19-2019 End: 05-19-2019 Office Visit 05/19/2019 Office Visit Rheumatology Alma Garcia, Devyn Cunningham, [address] [place] [address] [facility] Start: 05-17-2019 End: 05-17-2019 Office Visit 05/17/2019 Office Visit Anesthesiology Pain Mgt Rose Mary Sharpe, RIGGING HELPER-FARM FIELD MANAGER [address] [place] [address] [phone] [facility] Start: 05-08-2019 End: 02-07-2020 VITAMIN D (25-HYDROXY,TOTAL) VITAMIN D (25-HYDROXY,TOTAL) Lab Routine Vitamin D deficiency Expected: 05/08/2019 (Approximate), Expires: 02/07/2020 [employer] Comment on above: Expected: 05/08/2019 (Approximate), Expi res: 02/07/2020 Start: 05-08-2019 End: 02-07-2020 VITAMIN D, (1,25 DIHYDROXY) VITAMIN D, (1,25 DIHYDROXY) Lab Routine Vitamin D deficiency Expected: 05/08/2019 (Approximate), Expires: 02/07/2020 [employer] Comment on above: Expected: 05/08/2019 (Approximate), Expi res: 02/07/2020 Start: 04-26-2019 End: 04-26-2019 Office Visit [facility] Pain Management Comment on above: Lumbar facet arthropathy (Primary Dx) Start: 04-19-2019 End: 02-02-2020 ALT [Catalytic activity/Vol] ALT Lab Routine Psoriatic arthritis Psoriasis Arthropathic psoriasis Long-term current use of high risk medication other than anticoagulant intermediate current use of non-steroidal anti-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 (NSAID) Fatigue, unspecified type Vitamin D deficiency TATUM (nonalcoholic steatohepatitis) Fatty liver Thoracic degenerative disc disease Primary osteoarthritis of both knees Osteoarthritis of lumbar spine, unspecified spinal osteoarthritis complication status Osteoarthritis of both wrists, unspecified osteoarthritis type Osteoarthritis of both hands, unspecified osteoarthritis type Osteoarthritis of cervical spine, unspecified spinal osteoarthritis complication status Lumbar degenerative disc disease DDD (degenerative disc disease), cervical Expected: 04/19/2019 (Approximate), Expires: 02/02/2020 [employer] Comment on above: Expected: 04/19/2019 (Approximate), Expi res: 02/02/2020 Start: 04-19-2019 End: 02-02-2020 AST [Catalytic activity/Vol] AST Lab Routine Psoriatic arthritis Psoriasis Arthropathic psoriasis Long-term current use of high risk medication other than anticoagulant deck cadet current use of non-steroidal anti-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 (NSAID) Fatigue, unspecified type Vitamin D deficiency TATUM (nonalcoholic steatohepatitis) Fatty liver Thoracic degenerative disc disease Primary osteoarthritis of both knees Osteoarthritis of lumbar spine, unspecified spinal osteoarthritis complication status Osteoarthritis of both wrists, unspecified osteoarthritis type Osteoarthritis of both hands, unspecified osteoarthritis type Osteoarthritis of cervical spine, unspecified spinal osteoarthritis complication status Lumbar degenerative disc disease DDD (degenerative disc disease), cervical Expected: 04/19/2019 (Approximate), Expires: 02/02/2020 [employer] Comment on above: Expected: 04/19/2019 (Approximate), Expi res: 02/02/2020 Start: 04-19-2019 End: 02-02-2020 CBC, EDIF, PLATELET CBC, EDIF, PLATELET Lab Routine Psoriatic arthritis Psoriasis Arthropathic psoriasis Long-term current use of high risk medication other than anticoagulant intermediate current use of non-steroidal anti-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 (NSAID) Fatigue, unspecified type Vitamin D deficiency TATUM (nonalcoholic steatohepatitis) Fatty liver Thoracic degenerative disc disease Primary osteoarthritis of both knees Osteoarthritis of lumbar spine, unspecified spinal osteoarthritis complication status Osteoarthritis of both wrists, unspecified osteoarthritis type Osteoarthritis of both hands, unspecified osteoarthritis type Osteoarthritis of cervical spine, unspecified spinal osteoarthritis complication status Lumbar degenerative disc disease DDD (degenerative disc disease), cervical Expected: 04/19/2019 (Approximate), Expires: 02/02/2020 [employer] Comment on above: Expected: 04/19/2019 (Approximate), Expi res: 02/02/2020 Start: 04-19-2019 End: 02-02-2020 Creatinine [Mass/Vol] CREATININE SERUM Lab Routine Psoriatic arthritis Psoriasis Arthropathic psoriasis Long-term current use of high risk medication other than anticoagulant intermediate current use of non-steroidal anti-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 (NSAID) Fatigue, unspecified type Vitamin D deficiency TATUM (nonalcoholic steatohepatitis) Fatty liver Thoracic degenerative disc disease Primary osteoarthritis of both knees Osteoarthritis of lumbar spine, unspecified spinal osteoarthritis complication status Osteoarthritis of both wrists, unspecified osteoarthritis type Osteoarthritis of both hands, unspecified osteoarthritis type Osteoarthritis of cervical spine, unspecified spinal osteoarthritis complication status Lumbar degenerative disc disease DDD (degenerative disc disease), cervical Expected: 04/19/2019 (Approximate), Expires: 02/02/2020 [employer] Comment on above: Expected: 04/19/2019 (Approximate), Expi res: 02/02/2020 Start: 04-19-2019 End: 02-02-2020 CRP [Mass/Vol] C REACTIVE PROTEIN Lab Routine Psoriatic arthritis Psoriasis Arthropathic psoriasis Long-term current use of high risk medication other than anticoagulant deck cadet current use of non-steroidal anti-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 (NSAID) Fatigue, unspecified type Vitamin D deficiency TATUM (nonalcoholic steatohepatitis) Fatty liver Thoracic degenerative disc disease Primary osteoarthritis of both knees Osteoarthritis of lumbar spine, unspecified spinal osteoarthritis complication status Osteoarthritis of both wrists, unspecified osteoarthritis type Osteoarthritis of both hands, unspecified osteoarthritis type Osteoarthritis of cervical spine, unspecified spinal osteoarthritis complication status Lumbar degenerative disc disease DDD (degenerative disc disease), cervical Expected: 04/19/2019 (Approximate), Expires: 02/02/2020 [employer] Comment on above: Expected: 04/19/2019 (Approximate), Expi res: 02/02/2020 Start: 04-19-2019 End: 02-02-2020 M TUBERCULOSIS BY QUANTIFERON, BLD M TUBERCULOSIS BY QUANTIFERON, BLD Lab Routine Psoriatic arthritis Long-term current use of high risk medication other than anticoagulant Expected: 04/19/2019 (Approximate), Expires: 02/02/2020 [employer] Comment on above: Expected: 04/19/2019 (Approximate), Expi res: 02/02/2020 Start: 04-19-2019 End: 02-02-2020 SEDIMENTATION RATE, AUTOMATED SEDIMENTATION RATE, AUTOMATED Lab Routine Psoriatic arthritis Psoriasis Arthropathic psoriasis Long-term current use of high risk medication other than anticoagulant deck cadet current use of non-steroidal anti-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 (NSAID) Fatigue, unspecified type Vitamin D deficiency TATUM (nonalcoholic steatohepatitis) Fatty liver Thoracic degenerative disc disease Primary osteoarthritis of both knees Osteoarthritis of lumbar spine, unspecified spinal osteoarthritis complication status Osteoarthritis of both wrists, unspecified osteoarthritis type Osteoarthritis of both hands, unspecified osteoarthritis type Osteoarthritis of cervical spine, unspecified spinal osteoarthritis complication status Lumbar degenerative disc disease DDD (degenerative disc disease), cervical Expected: 04/19/2019 (Approximate), Expires: 02/02/2020 [employer] Comment on above: Expected: 04/19/2019 (Approximate), Expi res: 02/02/2020 Start: 04-19-2019 End: 02-02-2020 VITAMIN D (25-HYDROXY,TOTAL) VITAMIN D (25-HYDROXY,TOTAL) Lab Routine Psoriatic arthritis Psoriasis Arthropathic psoriasis Long-term current use of high risk medication other than anticoagulant deck cadet current use of non-steroidal anti-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 (NSAID) Fatigue, unspecified type Vitamin D deficiency TATUM (nonalcoholic steatohepatitis) Fatty liver Thoracic degenerative disc disease Primary osteoarthritis of both knees Osteoarthritis of lumbar spine, unspecified spinal osteoarthritis complication status Osteoarthritis of both wrists, unspecified osteoarthritis type Osteoarthritis of both hands, unspecified osteoarthritis type Osteoarthritis of cervical spine, unspecified spinal osteoarthritis complication status Lumbar degenerative disc disease DDD (degenerative disc disease), cervical Expected: 04/19/2019 (Approximate), Expires: 02/02/2020 [employer] Comment on above: Expected: 04/19/2019 (Approximate), Expi res: 02/02/2020 Start: 04-19-2019 End: 02-02-2020 VITAMIN D, (1,25 DIHYDROXY) VITAMIN D, (1,25 DIHYDROXY) Lab Routine Psoriatic arthritis Psoriasis Arthropathic psoriasis Long-term current use of high risk medication other than anticoagulant intermediate current use of non-steroidal anti-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 (NSAID) Fatigue, unspecified type Vitamin D deficiency TATUM (nonalcoholic steatohepatitis) Fatty liver Thoracic degenerative disc disease Primary osteoarthritis of both knees Osteoarthritis of lumbar spine, unspecified spinal osteoarthritis complication status Osteoarthritis of both wrists, unspecified osteoarthritis type Osteoarthritis of both hands, unspecified osteoarthritis type Osteoarthritis of cervical spine, unspecified spinal osteoarthritis complication status Lumbar degenerative disc disease DDD (degenerative disc disease), cervical Expected: 04/19/2019 (Approximate), Expires: 02/02/2020 [employer] Comment on above: Expected: 04/19/2019 (Approximate), Expi res: 02/02/2020 Start: 04-19-2019 End: 04-19-2019 Office Visit 04/19/2019 Office Visit Anesthesiology Pain MgRose Mary Mcdonald, RIGGING HELPER-FARM FIELD MANAGER [address] [place] [address] [phone] [facility] Start: 04-12-2019 End: 04-12-2019 Office Visit 04/12/2019 Office Visit Anesthesiology Pain Mgt Niecy Hobson MD [address] [place] [address] [facility] Start: 02-24-2019 History and physical examination, annual for health maintenance Wellness Visit [facility] Start: 02-16-2019 End: 02-16-2019 Office Visit 02/16/2019 Office Visit Anesthesiology Pain MgRose Mary Mcdonald, RIGGING HELPER-FARM FIELD MANAGER [address] [place] [address] [phone] [facility] Start: 02-01-2019 End: 02-01-2019 Office Visit 02/01/2019 Office Visit Rheumatology Alma Garcia, Devyn Cunningham, DO [address] [place] [address] [employer] Start: 01-25-2019 End: 01-25-2019 Office Visit 01/25/2019 Office Visit Anesthesiology Pain Mgt Niecy Hobson MD [address] [id number] [facility] [place] [facility] Start: 01-21-2019 End: 10-05-2019 ALT [Catalytic activity/Vol] ALT Lab Routine Psoriatic arthritis Dry skin Abnormal serum CY level History of psoriatic arthritis deck cadet current use of non-steroidal anti-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 (NSAID) Long-term current use of high risk medication other than anticoagulant Fatty liver TATUM (nonalcoholic steatohepatitis) Vitamin D deficiency DDD (degenerative disc disease), cervical Lumbar degenerative disc disease Osteoarthritis of cervical spine, unspecified spinal osteoarthritis complication status Osteoarthritis of both hands, unspecified osteoarthritis type Osteoarthritis of both wrists, unspecified osteoarthritis type Osteoarthritis of lumbar spine, unspecified spinal osteoarthritis complication status Primary osteoarthritis of both knees Thoracic degenerative disc disease Arthropathic psoriasis Psoriasis Expected: 01/21/2019 (Approximate), Expires: 10/05/2019 [employer] Comment on above: Expected: 01/21/2019 (Approximate), Expi res: 10/05/2019 Start: 01-21-2019 End: 10-05-2019 AST [Catalytic activity/Vol] AST Lab Routine Psoriatic arthritis Dry skin Abnormal serum CY level History of psoriatic arthritis deck cadet current use of non-steroidal anti-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 (NSAID) Long-term current use of high risk medication other than anticoagulant Fatty liver TATUM (nonalcoholic steatohepatitis) Vitamin D deficiency DDD (degenerative disc disease), cervical Lumbar degenerative disc disease Osteoarthritis of cervical spine, unspecified spinal osteoarthritis complication status Osteoarthritis of both hands, unspecified osteoarthritis type Osteoarthritis of both wrists, unspecified osteoarthritis type Osteoarthritis of lumbar spine, unspecified spinal osteoarthritis complication status Primary osteoarthritis of both knees Thoracic degenerative disc disease Arthropathic psoriasis Psoriasis Expected: 01/21/2019 (Approximate), Expires: 10/05/2019 [employer] Comment on above: Expected: 01/21/2019 (Approximate), Expi res: 10/05/2019 Start: 01-21-2019 End: 10-05-2019 CBC,PLATELETS CBC,PLATELETS Lab Routine Psoriatic arthritis Dry skin Abnormal serum CY level History of psoriatic arthritis intermediate current use of non-steroidal anti-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 (NSAID) Long-term current use of high risk medication other than anticoagulant Fatty liver TATUM (nonalcoholic steatohepatitis) Vitamin D deficiency DDD (degenerative disc disease), cervical Lumbar degenerative disc disease Osteoarthritis of cervical spine, unspecified spinal osteoarthritis complication status Osteoarthritis of both hands, unspecified osteoarthritis type Osteoarthritis of both wrists, unspecified osteoarthritis type Osteoarthritis of lumbar spine, unspecified spinal osteoarthritis complication status Primary osteoarthritis of both knees Thoracic degenerative disc disease Arthropathic psoriasis Psoriasis Expected: 01/21/2019 (Approximate), Expires: 10/05/2019 [employer] Comment on above: Expected: 01/21/2019 (Approximate), Expi res: 10/05/2019 Start: 01-21-2019 End: 10-05-2019 Creatinine [Mass/Vol] CREATININE SERUM Lab Routine Psoriatic arthritis Dry skin Abnormal serum CY level History of psoriatic arthritis intermediate current use of non-steroidal anti-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 (NSAID) Long-term current use of high risk medication other than anticoagulant Fatty liver TATUM (nonalcoholic steatohepatitis) Vitamin D deficiency DDD (degenerative disc disease), cervical Lumbar degenerative disc disease Osteoarthritis of cervical spine, unspecified spinal osteoarthritis complication status Osteoarthritis of both hands, unspecified osteoarthritis type Osteoarthritis of both wrists, unspecified osteoarthritis type Osteoarthritis of lumbar spine, unspecified spinal osteoarthritis complication status Primary osteoarthritis of both knees Thoracic degenerative disc disease Arthropathic psoriasis Psoriasis Expected: 01/21/2019 (Approximate), Expires: 10/05/2019 [employer] Comment on above: Expected: 01/21/2019 (Approximate), Expi res: 10/05/2019 Start: 01-21-2019 End: 10-05-2019 VITAMIN D (25-HYDROXY,TOTAL) VITAMIN D (25-HYDROXY,TOTAL) Lab Routine Psoriatic arthritis Dry skin Abnormal serum CY level History of psoriatic arthritis intermediate current use of non-steroidal anti-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 (NSAID) Long-term current use of high risk medication other than anticoagulant Fatty liver TATUM (nonalcoholic steatohepatitis) Vitamin D deficiency DDD (degenerative disc disease), cervical Lumbar degenerative disc disease Osteoarthritis of cervical spine, unspecified spinal osteoarthritis complication status Osteoarthritis of both hands, unspecified osteoarthritis type Osteoarthritis of both wrists, unspecified osteoarthritis type Osteoarthritis of lumbar spine, unspecified spinal osteoarthritis complication status Primary osteoarthritis of both knees Thoracic degenerative disc disease Arthropathic psoriasis Psoriasis Expected: 01/21/2019 (Approximate), Expires: 10/05/2019 [employer] Comment on above: Expected: 01/21/2019 (Approximate), Expi res: 10/05/2019 Start: 01-21-2019 End: 10-05-2019 VITAMIN D, (1,25 DIHYDROXY) VITAMIN D, (1,25 DIHYDROXY) Lab Routine Psoriatic arthritis Dry skin Abnormal serum CY level History of psoriatic arthritis intermediate current use of non-steroidal anti-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 (NSAID) Long-term current use of high risk medication other than anticoagulant Fatty liver TATUM (nonalcoholic steatohepatitis) Vitamin D deficiency DDD (degenerative disc disease), cervical Lumbar degenerative disc disease Osteoarthritis of cervical spine, unspecified spinal osteoarthritis complication status Osteoarthritis of both hands, unspecified osteoarthritis type Osteoarthritis of both wrists, unspecified osteoarthritis type Osteoarthritis of lumbar spine, unspecified spinal osteoarthritis complication status Primary osteoarthritis of both knees Thoracic degenerative disc disease Arthropathic psoriasis Psoriasis Expected: 01/21/2019 (Approximate), Expires: 10/05/2019 [employer] Comment on above: Expected: 01/21/2019 (Approximate), Expi res: 10/05/2019 Start: 01-08-2019 Influenza vaccination [facility] Start: 12-16-2018 End: 12-16-2018 Office Visit [facility] Start: 10-04-2018 End: 10-04-2018 Ambulatory 10/04/2018 Office Visit Rheumatology Alma Garcia, Devyn Cunningham, DO [address] [id number] [phone] [facility] Start: 09-15-2018 End: 06-01-2019 ALT enzyme act/vol ALT Routine Psoriatic arthritis Psoriasis Dry skin Arthropathic psoriasis Arthropathic psoriasis, unspecified History of psoriatic arthritis Long-term current use of high risk medication other than anticoagulant deck cadet current use of non-steroidal anti-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 (NSAID) Abnormal serum CY level Vitamin D deficiency TATUM (nonalcoholic steatohepatitis) Fatty liver Primary osteoarthritis of both knees Osteoarthritis of both hands, unspecified osteoarthritis type Osteoarthritis of both wrists, unspecified osteoarthritis type Lumbar degenerative disc disease Osteoarthritis of lumbar spine, unspecified spinal osteoarthritis complication status DDD (degenerative disc disease), cervical Osteoarthritis of cervical spine, unspecified spinal osteoarthritis complication status Thoracic degenerative disc disease Expected: 09/15/2018 (Approximate), Expires: 06/01/2019 [facility] Work Phone: Comment on above: Expected: 09/15/2018 (Approximate), Expi res: 06/01/2019 Start: 09-15-2018 End: 06-01-2019 AST enzyme act/vol AST Routine Psoriatic arthritis Psoriasis Dry skin Arthropathic psoriasis Arthropathic psoriasis, unspecified History of psoriatic arthritis Long-term current use of high risk medication other than anticoagulant intermediate current use of non-steroidal anti-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 (NSAID) Abnormal serum CY level Vitamin D deficiency TATUM (nonalcoholic steatohepatitis) Fatty liver Primary osteoarthritis of both knees Osteoarthritis of both hands, unspecified osteoarthritis type Osteoarthritis of both wrists, unspecified osteoarthritis type Lumbar degenerative disc disease Osteoarthritis of lumbar spine, unspecified spinal osteoarthritis complication status DDD (degenerative disc disease), cervical Osteoarthritis of cervical spine, unspecified spinal osteoarthritis complication status Thoracic degenerative disc disease Expected: 09/15/2018 (Approximate), Expires: 06/01/2019 [facility] Work Phone: Comment on above: Expected: 09/15/2018 (Approximate), Expi res: 06/01/2019 Start: 09-15-2018 End: 06-01-2019 CBC,PLATELETS CBC,PLATELETS Routine Psoriatic arthritis Psoriasis Dry skin Arthropathic psoriasis Arthropathic psoriasis, unspecified History of psoriatic arthritis Long-term current use of high risk medication other than anticoagulant deck cadet current use of non-steroidal anti-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 (NSAID) Abnormal serum CY level Vitamin D deficiency TATUM (nonalcoholic steatohepatitis) Fatty liver Primary osteoarthritis of both knees Osteoarthritis of both hands, unspecified osteoarthritis type Osteoarthritis of both wrists, unspecified osteoarthritis type Lumbar degenerative disc disease Osteoarthritis of lumbar spine, unspecified spinal osteoarthritis complication status DDD (degenerative disc disease), cervical Osteoarthritis of cervical spine, unspecified spinal osteoarthritis complication status Thoracic degenerative disc disease Expected: 09/15/2018 (Approximate), Expires: 06/01/2019 [facility] Work Phone: Comment on above: Expected: 09/15/2018 (Approximate), Expi res: 06/01/2019 Start: 09-15-2018 End: 06-01-2019 Creatinine mass conc CREATININE SERUM Routine Psoriatic arthritis Psoriasis Dry skin Arthropathic psoriasis Arthropathic psoriasis, unspecified History of psoriatic arthritis Long-term current use of high risk medication other than anticoagulant intermediate current use of non-steroidal anti-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 (NSAID) Abnormal serum CY level Vitamin D deficiency TATUM (nonalcoholic steatohepatitis) Fatty liver Primary osteoarthritis of both knees Osteoarthritis of both hands, unspecified osteoarthritis type Osteoarthritis of both wrists, unspecified osteoarthritis type Lumbar degenerative disc disease Osteoarthritis of lumbar spine, unspecified spinal osteoarthritis complication status DDD (degenerative disc disease), cervical Osteoarthritis of cervical spine, unspecified spinal osteoarthritis complication status Thoracic degenerative disc disease Expected: 09/15/2018 (Approximate), Expires: 06/01/2019 [facility] Work Phone: Comment on above: Expected: 09/15/2018 (Approximate), Expi res: 06/01/2019 Start: 09-15-2018 End: 06-01-2019 CRP mass conc C REACTIVE PROTEIN Routine Psoriatic arthritis Psoriasis Dry skin Arthropathic psoriasis Arthropathic psoriasis, unspecified History of psoriatic arthritis Long-term current use of high risk medication other than anticoagulant intermediate current use of non-steroidal anti-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 (NSAID) Abnormal serum CY level Vitamin D deficiency TATUM (nonalcoholic steatohepatitis) Fatty liver Primary osteoarthritis of both knees Osteoarthritis of both hands, unspecified osteoarthritis type Osteoarthritis of both wrists, unspecified osteoarthritis type Lumbar degenerative disc disease Osteoarthritis of lumbar spine, unspecified spinal osteoarthritis complication status DDD (degenerative disc disease), cervical Osteoarthritis of cervical spine, unspecified spinal osteoarthritis complication status Thoracic degenerative disc disease Expected: 09/15/2018 (Approximate), Expires: 06/01/2019 [facility] Work Phone: Comment on above: Expected: 09/15/2018 (Approximate), Expi res: 06/01/2019 Start: 09-15-2018 End: 06-01-2019 SEDIMENTATION RATE, AUTOMATED SEDIMENTATION RATE, AUTOMATED Routine Psoriatic arthritis Psoriasis Dry skin Arthropathic psoriasis Arthropathic psoriasis, unspecified History of psoriatic arthritis Long-term current use of high risk medication other than anticoagulant deck cadet current use of non-steroidal anti-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 (NSAID) Abnormal serum CY level Vitamin D deficiency TATUM (nonalcoholic steatohepatitis) Fatty liver Primary osteoarthritis of both knees Osteoarthritis of both hands, unspecified osteoarthritis type Osteoarthritis of both wrists, unspecified osteoarthritis type Lumbar degenerative disc disease Osteoarthritis of lumbar spine, unspecified spinal osteoarthritis complication status DDD (degenerative disc disease), cervical Osteoarthritis of cervical spine, unspecified spinal osteoarthritis complication status Thoracic degenerative disc disease Expected: 09/15/2018 (Approximate), Expires: 06/01/2019 [facility] Work Phone: Comment on above: Expected: 09/15/2018 (Approximate), Expi res: 06/01/2019 Start: 09-15-2018 End: 06-01-2019 VITAMIN D (25-HYDROXY,TOTAL) VITAMIN D (25-HYDROXY,TOTAL) Routine Psoriatic arthritis Psoriasis Dry skin Arthropathic psoriasis Arthropathic psoriasis, unspecified History of psoriatic arthritis Long-term current use of high risk medication other than anticoagulant intermediate current use of non-steroidal anti-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 (NSAID) Abnormal serum CY level Vitamin D deficiency TATUM (nonalcoholic steatohepatitis) Fatty liver Primary osteoarthritis of both knees Osteoarthritis of both hands, unspecified osteoarthritis type Osteoarthritis of both wrists, unspecified osteoarthritis type Lumbar degenerative disc disease Osteoarthritis of lumbar spine, unspecified spinal osteoarthritis complication status DDD (degenerative disc disease), cervical Osteoarthritis of cervical spine, unspecified spinal osteoarthritis complication status Thoracic degenerative disc disease Expected: 09/15/2018 (Approximate), Expires: 06/01/2019 [facility] Work Phone: Comment on above: Expected: 09/15/2018 (Approximate), Expi res: 06/01/2019 Start: 09-15-2018 End: 06-01-2019 VITAMIN D, (1,25 DIHYDROXY) VITAMIN D, (1,25 DIHYDROXY) Routine Psoriatic arthritis Psoriasis Dry skin Arthropathic psoriasis Arthropathic psoriasis, unspecified History of psoriatic arthritis Long-term current use of high risk medication other than anticoagulant deck cadet current use of non-steroidal anti-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 (NSAID) Abnormal serum CY level Vitamin D deficiency TATUM (nonalcoholic steatohepatitis) Fatty liver Primary osteoarthritis of both knees Osteoarthritis of both hands, unspecified osteoarthritis type Osteoarthritis of both wrists, unspecified osteoarthritis type Lumbar degenerative disc disease Osteoarthritis of lumbar spine, unspecified spinal osteoarthritis complication status DDD (degenerative disc disease), cervical Osteoarthritis of cervical spine, unspecified spinal osteoarthritis complication status Thoracic degenerative disc disease Expected: 09/15/2018 (Approximate), Expires: 06/01/2019 [facility] Work Phone: Comment on above: Expected: 09/15/2018 (Approximate), Expi res: 06/01/2019 Start: 09-04-2018 End: 06-06-2019 VITAMIN D (25-HYDROXY,TOTAL) VITAMIN D (25-HYDROXY,TOTAL) Routine Vitamin D deficiency Expected: 09/04/2018 (Approximate), Expires: 06/06/2019 [facility] Work Phone: Comment on above: Expected: 09/04/2018 (Approximate), Expi res: 06/06/2019 Start: 09-04-2018 End: 06-06-2019 VITAMIN D, (1,25 DIHYDROXY) VITAMIN D, (1,25 DIHYDROXY) Routine Vitamin D deficiency Expected: 09/04/2018 (Approximate), Expires: 06/06/2019 [facility] Work Phone: Comment on above: Expected: 09/04/2018 (Approximate), Expi res: 06/06/2019 Start: 06-24-2018 End: 06-24-2018 Ambulatory 06/24/2018 Office Visit Anesthesiology Pain Mgt Rose Mary Sharpe, RIGGING [employer] MANAGER [address] [place] [address] [phone] [facility] Start: 06-03-2018 TSH Qn TSH testing [facility] [place] [place] Start: 06-03-2018 TSH testing TSH testing [facility] Work Phone: Start: 06-01-2018 End: 06-01-2018 Ambulatory 06/01/2018 Office Visit Rheumatology Alma Garcia, Devyn Cunningham, DO [address] [place] [address] [phone] [facility] Start: 2018 Administration of herpes zoster vaccine Zoster Vaccines (1 of 2) [facility] Start: 2018 Colon cancer screen colonoscopy Colon cancer screen colonoscopy [facility] Work Phone: Start: 2018 Colonoscopy COLON CANCER SCREENING DISCUSSION [facility] Work Phone: Start: 2018 Protein mass conc COLON CANCER SCREENING DISCUSSION [facility] Work Phone: Start: 2018 Screening for malignant neoplasm of colon [facility] Start: 2018 Shingles Vaccine (1 of 2) [facility] (1 of 2) [facility] Start: 2018 Zoster vaccine hzv live for subcutaneous use ZOSTER (SHINGLES) VACCINE (1 of 2) [employer] Start: 01-08-2018 Influenza vaccination INFLUENZA VACCINE (#1) [facility] Work Phone: Start: 03-14-2017 Lipid panel [place] Start: 03-14-2017 Lipid screen Lipid screen [facility] [employer] Work Phone: Start: 2013 Screening for malignant neoplasm of colon [facility] Start: 2008 Fasting lipid profile LIPID SCREENING [facility] Work Phone: Start: 2008 Protein mass conc MAMMOGRAM SCREENING DISCUSSION [facility] Work Phone: Start: 2008 Screening for malignant neoplasm of breast Mammogram [facility] Start: 2008 Screening mammography MAMMOGRAM SCREENING DISCUSSION [facility] Work Phone: Start: 1989 Screening for malignant neoplasm of cervix PAP SMEAR DISCUSSION [facility] Work Phone: Start: 1987 DTaP/Tdap/Td vaccine (1 - Tdap) DTaP/Tdap/Td vaccine (1 - Tdap) [facility] Start: 1987 Third diphtheria, tetanus and acellular pertussis (DTaP) vaccination TDAP (ADULT) [facility] Work Phone: Start: 1986 Diabetic microalbuminuria test Diabetic microalbuminuria test [facility]in Phone: Start: 1986 Hepatitis C screening Hepatitis C Screening [facility] Start: 1986 Tetanus vaccination TETANUS [facility] Work Phone: Start: 1983 HIV screening [facility] Start: 1981 HIV screening HIV SCREENING DISCUSSION [facility] Work Phone: Start: 1980 Depression Screen Depression Screen [facility] [employer] Start: 1980 Depression screening using PHQ-9 (Patient Health Questionnaire 9) score Depression Screening (PHQ-2/9) [facility] Start: 1979 DTaP/Tdap/Td vaccine (1 - Tdap) DTaP/Tdap/Td vaccine (1 - Tdap) [facility] Phone: Start: 1978 [object Object] Diabetic foot exam [facility]in Phone: Start: 1978 Diabetic foot examination [facility] Start: 1978 Diabetic retinal exam [facility]abetic [facility] Start: 1978 Glaucoma screening Ophthalmology Exam [facility] Start: 1978 Microalbumin measurement, urine, quantitative Urine Microalbumin [facility] Start: 1978 Ophthalmic examination and evaluation Ophthalmology Exam [facility] Start: 1978 Urine screening for protein Urine Microalbumin [facility] Start: 1974 Pneumococcal Vaccine: Ped or At-Risk (1 - PCV) Pneumococcal Vaccine: Ped or At-Risk (1 - PCV) [facility] Start: 1974 Pneumococcal Vaccine: Ped or At-Risk (1 of 2 - PPSV23) Pneumococcal Vaccine: Ped or At-Risk (1 of 2 - PPSV23) [facility] Start: 1971 History and physical examination, annual for health maintenance Wellness Visit [facility] Start: 1968 Hepatitis B vaccine (1 of 3 - 3-dose series) Hepatitis B vaccine (1 of 3 - 3-dose series) [facility] Start: 1968 Screening for malignant neoplasm of cervix Pap Smear [facility] Start: 1968 Screening for malignant neoplasm of colon [facility] Start: 1968 Tetanus vaccination Tetanus: Every 10yrs [facility] Start: 1968 Thyrotropin Qn TSH [facility] Work Phone: End: 07-31-2023 12 lead ECG ECG 12 Lead ECG Routine Primary osteoarthritis of right knee 1 Occurrences starting 07/30/2022 until 07/31/2023 [facility] Comment on above: 1 Occurrences starting 07/30/2022 until 07/31/2023 End: 05-19-2020 ALT [Catalytic activity/Vol] ALT Lab Routine Psoriatic arthritis Dry skin CRP elevated History of psoriatic arthritis intermediate current use of non-steroidal anti-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 (NSAID) Long-term current use of high risk medication other than anticoagulant Fatty liver TATUM (nonalcoholic steatohepatitis) Vitamin D deficiency DDD (degenerative disc disease), cervical Lumbar degenerative disc disease Osteoarthritis of cervical spine, unspecified spinal osteoarthritis complication status Osteoarthritis of both hands, unspecified osteoarthritis type Osteoarthritis of both wrists, unspecified osteoarthritis type Osteoarthritis of lumbar spine, unspecified spinal osteoarthritis complication status Primary osteoarthritis of both knees Thoracic degenerative disc disease Arthropathic psoriasis Psoriasis 6 Occurrences starting 07/02/2019 until 05/19/2020 [facility] Comment on above: 6 Occurrences starting 07/02/2019 until 05/19/2020 ARTHROPLASTY KNEE TO TORSTEN ROBOTIC ARTHROPLASTY KNEE TOTAL ROBOTIC Primary osteoarthritis of right knee [facility] [place] ARTHROPLASTY KNEE TO TORSTEN ROBOTIC ARTHROPLASTY KNEE TOTAL ROBOTIC Primary osteoarthritis of right knee [facility] [place] End: 05-19-2020 AST [Catalytic activity/Vol] AST Lab Routine Psoriatic arthritis Dry skin CRP elevated History of psoriatic arthritis deck cadet current use of non-steroidal anti-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 (NSAID) Long-term current use of high risk medication other than anticoagulant Fatty liver TATUM (nonalcoholic steatohepatitis) Vitamin D deficiency DDD (degenerative disc disease), cervical Lumbar degenerative disc disease Osteoarthritis of cervical spine, unspecified spinal osteoarthritis complication status Osteoarthritis of both hands, unspecified osteoarthritis type Osteoarthritis of both wrists, unspecified osteoarthritis type Osteoarthritis of lumbar spine, unspecified spinal osteoarthritis complication status Primary osteoarthritis of both knees Thoracic degenerative disc disease Arthropathic psoriasis Psoriasis 6 Occurrences starting 07/02/2019 until 05/19/2020 [facility] Comment on above: 6 Occurrences starting 07/02/2019 until 05/19/2020 End: 06-24-2022 Basic metabolic 2000 panel - Serum or Plasma Basic metabolic panel Lab Routine Primary osteoarthritis of right knee 1 Occurrences starting 06/25/2021 until 06/24/2022 [facility] Comment on above: 1 Occurrences starting 06/25/2021 until 06/24/2022 End: 07-31-2023 Basic metabolic 2000 panel - Serum or Plasma Basic metabolic panel Lab Routine Primary osteoarthritis of right knee 1 Occurrences starting 07/30/2022 until 07/31/2023 [facility] Comment on above: 1 Occurrences starting 07/30/2022 until 07/31/2023 End: 05-19-2020 CBC, EDIF, PLATELET CBC, EDIF, PLATELET Lab Routine Psoriatic arthritis Dry skin CRP elevated History of psoriatic arthritis intermediate current use of non-steroidal anti-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 (NSAID) Long-term current use of high risk medication other than anticoagulant Fatty liver TATUM (nonalcoholic steatohepatitis) Vitamin D deficiency DDD (degenerative disc disease), cervical Lumbar degenerative disc disease Osteoarthritis of cervical spine, unspecified spinal osteoarthritis complication status Osteoarthritis of both hands, unspecified osteoarthritis type Osteoarthritis of both wrists, unspecified osteoarthritis type Osteoarthritis of lumbar spine, unspecified spinal osteoarthritis complication status Primary osteoarthritis of both knees Thoracic degenerative disc disease Arthropathic psoriasis Psoriasis 6 Occurrences starting 07/02/2019 until 05/19/2020 [facility] Comment on above: 6 Occurrences starting 07/02/2019 until 05/19/2020 End: 06-24-2022 Complete blood count with white cell differential, manual CBC and differential Lab Routine Primary osteoarthritis of right knee Hypertension, unspecified type 1 Occurrences starting 06/25/2021 until 06/24/2022 [facility] Work Phone: Comment on above: 1 Occurrences starting 06/25/2021 until 06/24/2022 End: 07-31-2023 Complete blood count with white cell differential, manual CBC and differential Lab Routine Primary osteoarthritis of right knee Hypertension, unspecified type 1 Occurrences starting 07/30/2022 until 07/31/2023 [facility] Comment on above: 1 Occurrences starting 07/30/2022 until 07/31/2023 End: 05-19-2020 Creatinine [Mass/Vol] CREATININE SERUM Lab Routine Psoriatic arthritis Dry skin CRP elevated History of psoriatic arthritis intermediate current use of non-steroidal anti-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 (NSAID) Long-term current use of high risk medication other than anticoagulant Fatty liver TATUM (nonalcoholic steatohepatitis) Vitamin D deficiency DDD (degenerative disc disease), cervical Lumbar degenerative disc disease Osteoarthritis of cervical spine, unspecified spinal osteoarthritis complication status Osteoarthritis of both hands, unspecified osteoarthritis type Osteoarthritis of both wrists, unspecified osteoarthritis type Osteoarthritis of lumbar spine, unspecified spinal osteoarthritis complication status Primary osteoarthritis of both knees Thoracic degenerative disc disease Arthropathic psoriasis Psoriasis 6 Occurrences starting 07/02/2019 until 05/19/2020 [employer] Comment on above: 6 Occurrences starting 07/02/2019 until 05/19/2020 End: 05-19-2020 CRP [Mass/Vol] C REACTIVE PROTEIN Lab Routine Psoriatic arthritis Dry skin CRP elevated History of psoriatic arthritis 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 current use of non-steroidal anti-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 (NSAID) Long-term current use of high risk medication other than anticoagulant Fatty liver TATUM (nonalcoholic steatohepatitis) Vitamin D deficiency DDD (degenerative disc disease), cervical Lumbar degenerative disc disease Osteoarthritis of cervical spine, unspecified spinal osteoarthritis complication status Osteoarthritis of both hands, unspecified osteoarthritis type Osteoarthritis of both wrists, unspecified osteoarthritis type Osteoarthritis of lumbar spine, unspecified spinal osteoarthritis complication status Primary osteoarthritis of both knees Thoracic degenerative disc disease Arthropathic psoriasis Psoriasis 6 Occurrences starting 07/02/2019 until 05/19/2020 [employer] Comment on above: 6 Occurrences starting 07/02/2019 until 05/19/2020 End: 07-31-2023 CT Knee Right Without Contrast CT Knee Right Without Contrast Imaging Routine Primary osteoarthritis of right knee 1 Occurrences starting 07/30/2022 until 07/31/2023 [facility] Comment on above: 1 Occurrences starting 07/30/2022 until 07/31/2023 End: 04-01-2020 HbA1c (Bld) [Mass fraction] Hemoglobin A1C Lab Routine Once for 1 Occurrences starting 04/01/2020 until 04/01/2020 [place] Comment on above: Once for 1 Occurrences starting 04/01/20 20 until 04/01/2020 HbA1c (Bld) [Mass fraction] Hemoglobin A1C Lab Routine 04/01/2020 2:02 PM EST [place], [place] End: 06-24-2022 Hemoglobin A1c/Hemoglobin.total in Blood Hemoglobin A1c Lab Routine Type 2 diabetes mellitus without complication, without long-term current use of insulin (HCC) 1 Occurrences starting 06/25/2021 until 06/24/2022 [facility] Comment on above: 1 Occurrences starting 06/25/2021 until 06/24/2022 End: 07-31-2023 Hemoglobin A1c/Hemoglobin.total in Blood Hemoglobin A1c Lab Routine Primary osteoarthritis of right knee Type 2 diabetes mellitus without complication, without long-term current use of insulin (HCC) 1 Occurrences starting 07/30/2022 until 07/31/2023 [facility] Comment on above: 1 Occurrences starting 07/30/2022 until 07/31/2023 End: 07-31-2023 Incentive spirometry - Initial Instruction Incentive spirometry - Initial Instruction Respiratory Care Routine Primary osteoarthritis of right knee 1 Occurrences starting 07/30/2022 until 07/31/2023 [facility] Work Phone: Comment on above: 1 Occurrences starting 07/30/2022 until 07/31/2023 End: 06-24-2022 Methicillin resistant Staphylococcus aureus [Presence] in Unspecified specimen by Organism specific culture MRSA Culture Microbiology Routine Primary osteoarthritis of right knee 1 Occurrences starting 06/25/2021 until 06/24/2022 [facility] Comment on above: 1 Occurrences starting 06/25/2021 until 06/24/2022 End: 07-31-2023 Methicillin resistant Staphylococcus aureus [Presence] in Unspecified specimen by Organism specific culture MRSA Culture Microbiology Routine Primary osteoarthritis of right knee 1 Occurrences starting 07/30/2022 until 07/31/2023 [facility] Comment on above: 1 Occurrences starting 07/30/2022 until 07/31/2023 End: 05-18-2019 Quantiferon TB Gold Quantiferon TB Gold Microbiology Routine Once for 1 Occurrences starting 05/18/2019 until 05/18/2019 Walk[facility]in Phone: Comment on above: Once for 1 Occurrences starting 05/18/19 20 until 05/18/2019 Quantiferon TB Gold Quantiferon TB Gold Microbiology Routine 05/18/2019 5:17 PM EST Walk-in Phone: End: 06-24-2022 SARS-CoV-2 (COVID-19) RdRp gene [Presence] in Respiratory specimen by MAL with probe detection COVID-19, Molecular Microbiology Routine Exposure to SARS-associated coronavirus 1 Occurrences starting 06/25/2021 until 06/24/2022 [employer] Comment on above: 1 Occurrences starting 06/25/2021 until 06/24/2022 End: 05-19-2020 SEDIMENTATION RATE, AUTOMATED SEDIMENTATION RATE, AUTOMATED Lab Routine Psoriatic arthritis Dry skin CRP elevated History of psoriatic arthritis 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 current use of non-steroidal anti-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 (NSAID) Long-term current use of high risk medication other than anticoagulant Fatty liver TATUM (nonalcoholic steatohepatitis) Vitamin D deficiency DDD (degenerative disc disease), cervical Lumbar degenerative disc disease Osteoarthritis of cervical spine, unspecified spinal osteoarthritis complication status Osteoarthritis of both hands, unspecified osteoarthritis type Osteoarthritis of both wrists, unspecified osteoarthritis type Osteoarthritis of lumbar spine, unspecified spinal osteoarthritis complication status Primary osteoarthritis of both knees Thoracic degenerative disc disease Arthropathic psoriasis Psoriasis 6 Occurrences starting 07/02/2019 until 05/19/2020 [employer] Comment on above: 6 Occurrences starting 07/02/2019 until 05/19/2020 End: 05-18-2019 Vitamin D 1,25 Dihydroxy Vitamin D 1,25 Dihydroxy Lab Routine Once for 1 Occurrences starting 05/18/2019 until 05/18/2019 Walk-in Phone: Comment on above: Once for 1 Occurrences starting 05/18/19 20 until 05/18/2019 Vitamin D 1,25 Dihydroxy Vitamin D 1,25 Dihydroxy Lab Routine 05/18/2019 5:17 PM [email or web address] Phone: End: 05-18-2019 Vitamin D 25 Hydroxy Vitamin D 25 Hydroxy Lab Routine Once for 1 Occurrences starting 05/18/2019 until 05/18/2019 Walk-in Phone: Comment on above: Once for 1 Occurrences starting 05/18/19 20 until 05/18/2019 Vitamin D 25 Hydroxy Vitamin D 2 5 Hydroxy Lab Routine 05/18/2019 5:17 PM [email or web address] Phone: XR Knee Right 4+VWS (Note in Comments) XR Knee Right 4+VWS (Note in Comments) Imaging Routine Primary osteoarthritis of right knee 03/27/2021 11:35 AM [employer] Work Phone: Immunizations Immunization Date Immunization Notes Care Provider [place] 06-17-2024 pneumococcal 20-ernesto nt conjugate vaccine Malik Denson [facility] 02-21-2024 influenza virus vaccine, unspecified formulation Malik Denson [facility] 02-21-2024 SARS-CoV-2 mRNA (tozinameran 5y-11y) vaccine Malik Denson [facility] Comment on above: Result Comment: jose g [place]iral[place] 01-31-2023 influenza virus vaccine, unspecified formulation Britany Gay [facility] 02-21-2022 influenza virus vaccine, unspecified formulation Malik Denson [facility] 02-21-2022 SARS-CoV-2 (COVID-19 ) [id number] Malik Denson [facility] 07-01-2021 SARS-CoV-2 (COVID-19 ) mRNA-1273 vaccine Malik Denson [facility] 02-22-2021 SARS-CoV-2 (COVID-19 ) mRNA-1273 vaccine Malik Denson [facility] 02-07-2021 influenza virus vaccine, unspecified formulation Malik Denson [facility] 08-15-2020 SARS-CoV-2 (COVID-19 ) mRNA-1273 vaccine Malik Denson [facility] Comment on above: Result Comment: 2022: 48 07-18-2020 SARS-CoV-2 (COVID-19 ) mRNA-1273 vaccine Malik Denson [facility] 01-13-2020 influenza virus vaccine, unspecified formulation Malik Ross [facility] 02-06-2019 influenza virus vaccine, unspecified formulation Malik Ross [facility] 02-18-2018 Influenza Vaccine, unspecified formulation Niko Griffin MD Work Phone: [facility] Work Phone: 02-18-2018 influenza virus vaccine, unspecified formulation Camila Barnett [facility] 03-07-2017 influenza virus vaccine, unspecified formulation Maliknohemi Denson [facility] 04-08-2016 influenza, high dose seasonal, preservative-free Niko Griffin MD Work Phone: [facility] 04-08-2016 influenza virus vaccine, unspecified formulation [facility] Work Phone: 04-04-2016 influenza virus vaccine, unspecified formulation Maliknohemi Denson [facility] 02-08-2016 influenza virus vaccine, unspecified formulation Malik Ross [facility] 03-01-2015 influenza virus vaccine, unspecified formulation Malik Ross [facility] 02-13-2014 influenza virus vaccine, unspecified formulation Malik Ross [facility] 03-22-2013 influenza virus vaccine, unspecified formulation Malik Ross [facility] Payers Date Payer Category Payer Unknown [id number] 2020 Medicare [id number] 2020 Medicare 2020 Unknown [id number] 2017 Private Health Insurance xxx [id number] 1968 Unknown [id number] 2.16.840 .1.680519.3.579.2.983 1968 Unknown [id number] 2.16.84 0.1.144791.3.579.2.593 1968 Unknown [id number] 2.16.84 0.1.859810.3.579.2.593 1968 Unknown [id number] 2.16.84 0.1.598582.3.579.2.593 1968 Unknown [id number] 2.16.84 0.1.858439.3.579.2.593 1968 Unknown [id number] 2.16.84 0.1.182184.3.579.2.593 1968 Unknown [id number] 2.16.84 0.1.629476.3.579.2.593 1968 Unknown [id number] 2.16.84 0.1.527358.3.579.2.593 1968 Unknown [id number] 2.16. 840.1.353009.3.579.2.903 1968 Unknown [id number] 2.16. 840.1.297924.3.579.2.903 1968 Unknown [id number] 2.16. 840.1.370727.3.579.2.903 1968 Unknown [id number] 2.16.8 40.1.015124.3.579.2.173 1968 Unknown [id number] 2.16.8 40.1.962787.3.579.2.727 1968 Unknown [id number] 2.16.8 40.1.173794.3.579.2.727 1968 Unknown [id number] 2.16.8 40.1.649763.3.579.2.727 1968 Unknown [id number] 2.16.8 40.1.372456.3.579.2. 1968 Unknown [id number] 2.16.8 40.1.233110.3.579.2. 1968 Unknown [id number] 2.16.8 40.1.208621.3.579.2. 1968 Unknown [id number] 2.16.8 40.1.728542.3.579.2 1968 Unknown [id number] 2.16.8 40.1.521518.3.579.2 1968 Unknown [id number] 2.16.8 40.1.519473.3.579.2 1968 Unknown [id number] 2.16.8 40.1.069899.3.579.2 1968 Unknown [id number] 2.16.8 40.1.297224.3.579.2 1968 Unknown [id number] 2.16.8 40.1.236258.3.579.2 1968 Unknown [id number] 2.16.8 40.1.959260.3.579.2 1968 Unknown [id number] 2.16.8 40.1.488616.3.579.2 1968 Unknown [id number] 2.16.8 40.1.399612.3.579.2. 1968 Unknown [id number] 2.16.8 40.1.695945.3.579.2. 1968 Unknown [id number] 2.16. 840.1.481862.3.579.2.196 1968 Unknown [id number] 2.16. 840.1.742735.3.579.2.196 1968 Unknown [id number] 2.16. 840.1.035941.3.579.2.196 1968 Unknown [id number] 2.16. 840.1.708078.3.579.2.196 1968 Unknown [id number] 2.16. 840.1.004325.3.579.2.196 1968 Unknown [id number] 2.16.8 40.1.243815.3.579.2.727 1968 Unknown [id number] 2.16.8 40.1.246843.3.579.2.727 1968 Unknown [id number] 2.16.8 40.1.420353.3.579.2.727 1968 Unknown [id number] 2.16.8 40.1.526092.3.579.2.727 1968 Unknown [id number] 2.16.8 40.1.394558.3.579.2.727 1968 Unknown [id number] 2.16.8 40.1.066472.3.579.2.727 1968 Unknown [id number] 2.16.8 40.1.750947.3.579.2.727 1968 Unknown [id number] 2.16.8 40.1.554752.3.579.2.727 1968 Unknown [id number] 2.16.8 40.1.867085.3.579.2.727 1959 Unknown [id number] 1959 Unknown [id number] Self-pay Unknown [id number] Social History Date Type Detail Facility Start: 01-12-2018 End: 10-05-2024 Tobacco smoking status NHIS Never smoker [facility] Work Phone: Start: 1970 Sex Assigned At Not on file [facility] Work Phone: Start: 08-10-2018 End: 12-16-2018 Alcohol intake No [facility] Start: 02-01-2019 End: 06-29-2023 Alcohol intake Current non-drinker of alcohol (finding) [employer] Work Phone: Start: 02-22-2017 End: 04-17-2019 Tobacco use and exposure Never used [facility] [place] Start: 07-07-2021 End: 07-17-2021 Exposure to SARS-CoV-2 (event) Not sure [facility] [place], [place] Start: 03-27-2021 End: 07-17-2021 Alcohol intake Lifetime non-drinker (finding) [facility] Tobacco smoking status Never [facility] Start: 08-10-2018 End: 06-29-2023 History of Social function [facility] Sexual Orientation [facility] Sex Female (finding) [facility] Medical Equipment Procedure Code Equipment Code Equipment Origin al Text Equipment Identifier Dates USE DIRECTED ONCE DAILY [id number] Start: 05-17-2018 End: 10-04-2018 TEST ONCE DAILY [id number] Start: 05-17-2018 End: 10-04-2018 Kit Repair Raymond brown Acl/Pcl With [place] [id number] Start: 07-05-2018 glucometer test strips, See Instructions Start: 07-24-2022 glucometer test strips, See Instructions Start: 07-24-2022 glucometer test strips, See Instructions Start: 07-24-2022 glucometer test strips, See Instructions Start: 07-24-2022 glucometer test strips, See Instructions Start: 07-24-2022 Clinical Notes 02-10-2021 to 08-02-2024 Shelley Singer LPN - 03/04/2022 4:17 PM Stacy Singer LPN - 07/21/2021 10:45 AM Stacy Singer LPN - 07/17/2021 10:22 AM Jean-Pierre Khanna MD - 03/27/2021 1:07 PM EST Note Date & Type Note Facility 08-02-2024 Note SUBJECTIVE Reason for Visit: Dee Dee Caballero is a 54 y.o. year old female patient being seen for 6-month follow-up visit. HPI: Dee Dee Caballero is a 54 y.o. year old female with significant medical history of coronary artery disease, hypertension, hyperlipidemia, type 2 diabetes mellitus obesity, sleep apnea, pulmonary hypertension, and hypothyroidism. 08/02/2024 office visit: Patient was seen and evaluated in the office today, accompanied by her . She reports doing well overall following her C1-C5 spinal fusion, which was performed in January 2024. She has a follow-up appointment scheduled in the next one to two weeks. She continues to experience some numbness in her left leg, though she notes gradual improvement. She denies lower extremity swelling, chest pain, shortness of breath, palpitations, lightheadedness, or dizziness. She has no questions, concerns, or additional complaints at this time. She also mentioned that she will be completing her annual routine labs soon through her primary care provider, so lab testing will be deferred at this time. 01/12/2024 office visit (Dr. Tovar): She used to be active however currently she is less active because of her back pain radiating down to the left leg and numbness in the left foot. However she denies any chest pain or shortness of breath at rest or with exertion. She states that sometimes she feels short of breath when she has anxiety. She denies orthopnea or paroxysmal nocturnal dyspnea, she admits occasional palpitations she describes it as little flip-flopping at night when she is relaxing, usually brief and without any other associated symptoms. She admits little edema of the ankles toward the end of the day. She denies dizziness or syncope or near syncope. She denies legs discomfort with exertion except what is related to her back pain. She denies smoking, alcohol or illicit drugs. Past Medical History: Diagnosis Date Arthritis with psoriasis (CMS/HCC) Coronary artery disease Hyperlipidemia Hypertension Sleep apnea Past Surgical History: Procedure Laterality Date CARDIAC CATHETERIZATION Patient Active Problem List Diagnosis Abnormal renal function test Bilateral lower extremity edema Cervicalgia Low back pain Chronic pain of both knees Coronary artery disease involving [place] coronary artery of [place] heart without angina pectoris Fatigue History of psoriatic arthritis IBS (irritable bowel syndrome) Lumbar degenerative disc disease Multiple chemical sensitivity syndrome Obstructive sleep apnea Polydipsia Primary hypertension Radiculopathy, lumbar region RLS (restless legs syndrome) Restrictive lung disease Social anxiety disorder Subacromial bursitis Type 2 diabetes mellitus without complications ([facility]/HCC) Vitamin D deficiency Bilateral biceps tendonitis Chronic pain of both shoulders Shortness of breath Dyslipidemia Hypothyroidism Hyperuricemia Long-term current use of high risk medication other than anticoagulant Osteoarthritis Psoriasis Psoriatic arthritis (CMS/HCC) Class 3 severe obesity due to excess calories with serious comorbidity and body mass index (BMI) of 45.0 to 49.9 in adult ([facility]) Breast cancer screening by mammogram Cervical cancer screening Class 3 obesity Drug-induced immunodeficiency Fluid level behind tympanic membrane of both ears Major depression in remission Muscle weakness Pre-op exam Severe anxiety Spinal stenosis family history is not on file. Social History Tobacco Use Smoking status: Never Smokeless tobacco: Never Substance Use Topics Alcohol use: Never Drug use: Never OBJECTIVE Visit Vitals BP 123/75 (BP Location: Right arm, Patient Position: Sitting) Pulse 88 Ht 1.651 m (5' 5 ) Wt 124 kg (273 lb) SpO2 96% BMI 45.43 kg/m??? Smoking Status Never BSA 2.38 m??? Physical Exam Constitutional: General Appearance: well-developed, appears stated age. Level of Distress: no acute distress. Neck: Jugular Veins: normal jugular venous pressure. Lungs: Auscultation: no rales or rhonchi and normal breath sounds. Cardiovascular: Rate And Rhythm: regular Heart Sounds: normal S1 and s2; Systolic Murmur: not heard. Diastolic Murmur: not heard. Extremities: no edema Peripheral Pulses: Pulses: full and equal in all extremities except if noted. Abdomen: Inspection and Palpation: non distended or tender and soft. Musculoskeletal: Inspection: no joint tenderness or swelling. Neurologic: Left leg numbness. Psychiatric: Mental Status: alert and normal affect. Skin: Inspection and Palpation: warm and dry. Allergies: Allergies Allergen Reactions Adhesive Hives Other reaction(s): Other (See Comments) Severe skin irritation, blisters with steri strips Blisters Severe skin irritation, blisters with steri strips Cephalosporins Other reaction(s): Vomiting Celecoxib Itching Oxycodone-Acetamin (more content not included)... [facility] 02-03-2024 Note Discharge Summary Date of Admission: 02/01/2024 Date of Discharge: 02/03/2024 Admitting Physician: Dr. Castillo Consults: PT/OT/Hospitalist Procedure Note: See separately dictated operative report. Patient underwent L2-S1 laminectomy and posterolateral fusion HOSPITAL COURSE: The patient was admitted on the above date had the above procedure performed. Patient had no complications during surgery. The patient was then transferred to the PACU and to a regular nursing floor for postop care. The patient's pain was initially controlled with IV medications, but we were able to transition to oral pain medications soon after arrival to the floor. Their pain remained under good control through their hospital stay. Internal Medicine was consulted for medical management. Patient had improvement of their radicular symptoms, she did develop a left sided foot drop with reduced sensation at the top of the foot on POD#1, but this improved significantly by POD#2 with steroid administration. Hemovac drain remained somewhat elevated and thus she was discharged home with [facility] for drain mgmt. The patient had a bowel movement before discharge. The patient was seen by Physical Therapy and was found to be an ideal candidate for discharge to home, she was given an AFO brace. The patient was then safely discharged to home on the above date. PHYSICAL EXAMINATION ON DISCHARGE: The patient was afebrile, stable. Dressing was clean, dry and intact. 5/5 strength in bilateral lower extremities., 4/5 in left foot dorsiflexion. Otherwise Neurologically intact. DISCHARGE INSTRUCTIONS: Patient can resume regular diet. Resume home medications except for NSAIDs or blood thinners. Resume asa POD#2 and all other blood thinners POD#5. Okay to resume NSAIDs 6 months after surgery. Take previously prescribed narcotic pain medications as directed. Change the dressing daily until the incision is clean and dry and then leave open to air. Okay to take a shower without submerging the incision. Do not change dressing or shower until drain has been removed. Wear the brace at all times when up and ambulating. Limit any heavy lifting, bending or twisting until first postoperative visit. Patient to follow up with Dr. Carrion 6 weeks post discharge as scheduled. CONDITION AT DISCHARGE: Stable DISPOSITION: Home with [facility] Rosendo Fletcher MD Electronically signed by Justine DEAN, Rosendo Barlow 02/03/24 06:38 EDT [facility] 02-01-2024 Note Operative Report DATE OF PROCEDURE: 02/01/2024 PREOPERATIVE DIAGNOSES: 1. L2-S1 degenerative disc disease 2. L2-S1 lumbar stenosis with neurogenic claudication 3. Obesity with BMI of 48 POSTOPERATIVE DIAGNOSES: 1. L2-S1 degenerative disc disease 2. L2-S1 lumbar stenosis with neurogenic claudication 3. Obesity with BMI of 48 OPERATION PERFORMED: 1. L2-S1 bilateral laminectomy, partial medial facetectomies and foraminotomies of L2, L3, L4, L5 and S1 nerve roots along with total facetectomy at L4-5 and L5-S1 on the left for complete decompression of the left L4 and L5 nerve roots 2. L2-S1 posterior spinal fusion. 3. L2-S1 posterior spinal instrumentation, Cortera, Xtant instrumentation 4. L4-5 and L5-S1 transforaminal lumbar interbody fusion, anterior posterior fusion using a single posterior approach 5. 10 x 26 x 10-mm Fortilink interbody cage x 2 6. Use of local autograft bone and 46cc [employer] Bridge SURGEON: Bran Castillo MD CHARGE ACCOUNT AUTHORIZER: JEAN Calderon PA-C assisted throughout the procedure with positioning, draping, retraction, wound closure and dressing application. ANESTHESIA: General. INDICATIONS: This is a 53-year-old female with refractory back and bilateral leg pain from lumbar stenosis and degenerative disc disease from L2-S1. Patient had failed full conservative therapy including medication management, physical therapy. Due to the persistence of symptoms and reduction in the ADLs, patient elected surgical treatment. Patient, therefore, understood indications for the surgery as well as its risks, benefits, and alternatives. These risks include but are not limited to paralysis, infection, hematoma, dural tear, nerve root injury, nonunion, DVT/PE, AL, stroke, etc. All questions were answered. Informed consent was obtained. OPERATIVE PROCEDURE: The patient was taken to the operating room by the Anesthesiology Service and had satisfactory general anesthesia. A first-generation cephalosporin was given within 1 hour of surgical incision. 2 gm of cefazolin was given IV. Venous thromboembolic prophylaxis was performed with sequential devices. A wynn was placed using standard sterile technique. The patient was then positioned prone on a standard OSI frame with the abdomen hanging free and all bony prominences well padded. The low back was then prepped and draped in its entirety in the usual sterile fashion. Before incision, a formal time-out was taken per protocol. We next took a midline longitudinal approach and performed subperiosteal dissection out to the tips of the transverse processes of L2, L3, L4, L5 and S1. Intraoperative localization of level was confirmed using anatomic landmarks. We then began the laminectomy as well as decompression by removal of the spinous process of L2, L3, L4 and L5. We entered the spinal canal, resecting the ligamentum flavum in its entirety over this region. Partial medial facetectomy was then performed with an osteotome to get lateral to the facet overhang, but just medial to the pedicles and nerve roots. Kerrison's were then used to perform foraminotomies of the L2, L3, L4, L5 and S1 nerve roots bilaterally. In order to get further lateral to the left L4 and left L5 nerve root, total facetectomy was then performed at L4-5 and L5-S1 on the left. In this way, the left L4 and left L5 nerve root was completely visualized and foraminized. In this way, we completed decompression at L2-3, L3-4, L4-5 and L5-S1 with foraminotomies of the L2, L3, L4, L5 and S1 nerve roots bilaterally. Satisfied with this, we then turned our attention to perform interbody fusion at L4-5. The left L5 pedicle was skeletonized to give us as much working room at the L4-5 disc space. The disc space was then cleaned out with a variety or curettes and scrapers. Once this was done satisfactorily, we sized the interspace. A size 10 x 26 x 10-mm Fortilink interbody cage was found to be appropriate. The cage was then packed with local autograft bone, as well as, the anterior portion of the disc space. The cage was then impacted into position with excellent tight fit. Satisfied with this, we then turned our attention to perform interbody fusion at L5-S1. The left S1 pedicle was skeletonized to give us as much working room at the L5-S1 disc space. The disc space was then cleaned out with a variety or curettes and scrapers. Once this was done satisfactorily, we sized the interspace. A size 10 x 26 x 10-mm Fortilink interbody cage was found to be appropriate. The cage was then packed with local autograft bone, as well as, the anterior portion of the disc space. The cage was then impacted into position with excellent tight fit. Satisfied with this, we then turned our attention to perform spinal instrumentation and posterolateral fusion. Using anatomic landmarks and guided by direct visualization of the pedicles from within the canal, pedicle screws were placed bilaterally at L2, L3, L4, L5 and S1. All the screws were completely intero (more content not included)... [facility] 01-31-2024 Note Chief Complaint Back pain History of Present Illness The patient is a 53-year-old female with complaints of constant low back pain that radiates pain into the buttocks and down the anterolateral thighs to the knee with numbness/tingling in the toes. Symptoms began 25-30 years ago. Current VAS score 6/10. Percentage hudson, 50% pain in the back and 50% legs. As it pertains to the legs, 75% left and 25% right. Activities that aggravate the pain include walking. rising from sitting. She denies activities that help relieve the pain. Modifying factors include medication management, PT and injections. No previous spinal surgeries. Nonsmoker. PCP: Malik Denson MD Review of Systems Constitutional: No fevers, chills Respiratory: No shortness of breath, cough Cardiovascular: No chest pain, palpitations Gastrointestinal: No nausea, vomiting, incontinence Genitourinary: No dysuria or incontinence Musculoskeletal: (+) back pain, leg pain Neurologic: (+) numbness/tingling, no h/a Psychiatric: No anxiety, depression Physical Exam VITAL SIGNS: Ht 5'4 Wt 280 lbs BMI 48.06 General: Alert and oriented, well nourished, no acute distress. Antalgic gait Head: Atraumatic, normocephalic Lungs: No respiratory distress. CTA bilaterally, no wheezes Heart: RRR, no murmur Abdomen: Soft, non-tender, non-distended, normal bowel sounds Musculoskeletal: Limited lumbar ROM. TTP lumbar spine. 5/5 muscle strength bilateral lower extremities Skin: Inspection of lumbar spine, shows no skin lesions or open wounds. Neurologic: Awake, alert, and oriented X3, sensory intact lower extremities except decreased left big toe. (+) SLR left Psychiatric: Cooperative, appropriate mood and affect Additional Vitals No qualifying data available. Assessment/Plan Assessment: L2-S1 degenerative disc disease with stenosis and radiculopathy Plan: L2-S1 decompression and fusion Problem List/Past Medical History Ongoing Anxiety Bilateral knee pain DDD (degenerative disc disease), lumbar Degenerative arthritis of knee, bilateral Diabetes Fibromyalgia H/O: psoriasis Hx of motion sickness Hypertension Hypothyroid Lumbar back pain PONV (postoperative nausea and vomiting) Psoriatic arthritis RLS (restless legs syndrome) Seasonal allergies Historical No qualifying data Procedure/Surgical History LIZET BSO - Total abdominal hysterectomy and bilateral salpingo-oophorectomy Arthroscopy of knee with meniscus repair Laparoscopy Release of ulnar nerve in Guyon's canal Colonoscopy Right bicep tendon repair Extraction of wisdom tooth (1985) CS - section (1989) Cholecystectomy (1989) CS - section (1991) Cataract extraction and implantation of intraocular lens (2016) Medications Inpatient No active inpatient medications Home Shilpa 24 Hour Allergy, 180 mg, Oral, Daily amLODIPine 10 mg oral tablet, 10 mg= 1 tabs, Oral, qAM, TAKE 1 TABLET BY MOUTH DAILY atorvastatin, 80 mg, Oral, HS (at bedtime) baclofen 10 mg oral tablet, 5 mg= 0.5 tabs, Oral, BID, TAKE 1 TABLET BY MOUTH TWICE DAILY carvedilol 25 mg oral tablet, 25 mg= 1 tabs, Oral, BID, TAKE 1 TABLET BY MOUTH TWICE DAILY ezetimibe 10 mg oral tablet, 10 mg= 1 tabs, Oral, HS (at bedtime) gabapentin 300 mg oral capsule, 300 mg= 1 caps, Oral, TID glipiZIDE 10 mg oral tablet, 10 mg= 1 tabs, Oral, BID, TAKE 1 TABLET BY MOUTH BEFORE BREAKFAST AND LUNCH levothyroxine 125 mcg (0.125 mg) oral tablet, 125 mcg= 1 tabs, Oral, qAM, TAKE 1 TABLET BY MOUTH EVERY MORNING losartan 100 mg oral tablet, 50 mg= 0.5 tabs, Oral, qAM, TAKE 1 TABLET BY MOUTH DAILY metFORMIN 500 mg oral tablet, 500 mg= 1 tabs, Oral, BID, TAKE 1 TABLET BY MOUTH THREE TIMES DAILY WITH MEALS Orencia ClickJect 125 mg/mL subcutaneous solution, 125 mg, Subcutaneous, Weekly Ozempic 2 mg/1.5 mL (0.25 mg or 0.5 mg dose) subcutaneous solution, INJECT 0.5 MG UNDER THE SKIN WEEKLY rOPINIRole 0.25 mg oral tablet, 0.25 mg= 1 tabs, Oral, HS (at bedtime), TAKE 1 TABLET BY MOUTH EVERY NIGHT 2 HOURS BEFORE BEDTIME spironolactone 50 mg oral tablet, 50 mg= 1 tabs, Oral, qAM, TAKE 1 TABLET BY MOUTH EVERY MORNING triamcinolone 0.1% topical cream, APPLY TO AFFECTED AREA TWICE DAILY NEEDED Tylenol 8 HR Arthritis Pain 650 mg oral tablet, extended release, 1300 mg= 2 tabs, Oral, q8hr, PRN venlafaxine 150 mg oral capsule, extended release, 150 mg= 1 caps, Oral, qAM venlafaxine 75 mg oral capsule, extended release, 75 mg= 1 caps, Oral, qAM, TAKE 1 CAPSULE BY MOUTH DAILY Allergies Adhesive Bandage (Blisters) NSAIDs (Kidney disorder) shellfish (Nausea and vomiting) Minocin (Nausea and vomiting) Tape (Irritation) Social History Alcohol Never Exercise Self assessment: Fair condition. Exercise type: Walking. Home/Environment Lives with Spouse. Living situation: Residential home. ESTEFANIA-, Home equipment: Glucose monitoring, Walker/Cane, OCCASSIONAL WALKER USE. 3 DOGS Nutrition/Health Diabetic, (more content not included)... [facility] 01-18-2024 Note Patient Education Nutrition BMI for Adults Body mass index (BMI) is a number found using a person's weight and height. BMI can help tell how much of a person's weight is made up of fat. BMI does not measure body fat directly. It is used instead of tests that directly measure body fat, which can be difficult and expensive. What are BMI measurements used for? BMI is useful to: ? Find out if your weight puts you at higher risk for medical problems. ? Help recommend changes, such as in diet and exercise. This can help you reach a healthy weight. BMI screening can be done again to see if these changes are working. How is BMI calculated? Your height and weight are measured. The BMI is found from those numbers. This can be done with U.S. or metric measurements. Note that charts and online BMI calculators are available to help you find your BMI quickly and easily without doing these calculations. To calculate your BMI in [place]. measurements: 1. Measure your weight in pounds (lb). 2. Multiply the number of pounds by 703. ? So, for an adult who weighs 150 lb, multiply that number by 703: 150 x 703, which equals 105,450. 3. Measure your height in inches. Then multiply that number by itself to get a measurement called inches squared. ? So, for an adult who is 70 inches tall, the inches squared measurement is 70 inches x 70 inches, which equals 4,900 inches squared. 4. Divide the total from step 2 (number of lb x 703) by the total from step 3 (inches squared): 105,450 ? 4,900 = 21.5. This is your BMI. To calculate your BMI in metric measurements: 1. Measure your weight in kilograms (kg). ? For this example, the weight is 70 kg. 2. Measure your height in meters (m). Then multiply that number by itself to get a measurement called meters squared. ? So, for an adult who is 1.75 m tall, the meters squared measurement is 1.75 m x 1.75 m, which equals 3.1 meters squared. 3. Divide the number of kilograms (your weight) by the meters squared number. In this example: 70 ? 3.1 = 22.6. This is your BMI. What do the results mean? BMI charts are used to see if you are underweight, normal weight, overweight, or obese. The following guidelines will be used: ? Underweight: BMI less than 18.5. ? Normal weight: BMI between 18.5 and 24.9. ? Overweight: BMI between 25 and 29.9. ? Obese: BMI of 30 or above. BMI is a tool and cannot diagnose a condition. Talk with your health care provider about what your BMI means for you. Keep these notes in mind: ? Weight includes fat and muscle. Someone with a muscular build, such as an athlete, may have a BMI that is higher than 24.9. In cases like these, BMI is not a correct measure of body fat. ? If you have a BMI of 25 or higher, your provider may need to do more testing to find out if excess body fat is the cause. ? BMI is measured the same way for males and females. Females usually have more body fat than males of the same height and weight. Where to find more information For more information about BMI, including tools to quickly find your BMI, go to: ? Centers for Disease Control and Prevention: cdc.gov ? [place] Heart Association: heart.org ? National Heart, Lung, and Blood Declo: nhlbi.nih.gov This information is not intended to replace advice given to you by your health care provider. Make sure you discuss any questions you have with your health care provider. Document Revised: 01/14/2023 Document Reviewed: 01/07/2023 [employer] Patient Education ? 2023 [employer]. [facility] 01-12-2024 Note [facility] Note Reason for cardiology consult: Cardiac clearance for back surgery scheduled 02/01/[address] [place] Chief Complaint: Back pain HPI: Dee Dee Caballero is a 53 y.o. female with history of coronary artery disease, hypertension, hyperlipidemia, type 2 diabetes mellitus obesity, sleep apnea, pulmonary hypertension, hypothyroidism She used to be active however currently she is less active because of her back pain radiating down to the left leg and numbness in the left foot. However she denies any chest pain or shortness of breath at rest or with exertion. She states that sometimes she feels short of breath when she has anxiety. She denies orthopnea or paroxysmal nocturnal dyspnea, she admits occasional palpitations she describes it as little flip-flopping at night when she is relaxing, usually brief and without any other associated symptoms. She admits little edema of the ankles toward the end of the day. She denies dizziness or syncope or near syncope. She denies legs discomfort with exertion except what is related to her back pain. She denies smoking, alcohol or illicit drugs. Cardiology ROS: GENERAL: Denies fever, chills, night sweats, weight loss. HEENT: Denies changes in vision, photophobia, changes in hearing, epistaxis, oral bleeding. CARDIOVASCULAR: Denies chest pain, exertional dyspnea, orthopnea/PND, lower extremity edema, palpitations, lightheadedness/dizziness. RESPIRATORY: Denies SOB, coughing, wheezing GI: Denies abdominal pain, nausea/vomiting, heartburn, melena/hematochezia. RENAL: Denies dysuria, hematuria, flank pain. MSK: Denies muscle weakness, arthralgias/joint pain. Complains of lower back pain radiating to the left leg associated with numbness in the left foot NEUROLOGIC: Denies LOC, weakness, numbness, headaches. SKIN: Denies abnormal rashes or bleeding. PSYCH: Denies significant anxiety, depression, sleep disturbances. Past Medical History She has a past medical history of Arthritis with psoriasis (CMS/HCC), Coronary artery disease, Hyperlipidemia, Hypertension, and Sleep apnea. Surgical History She has a past surgical history that includes Cardiac catheterization. Social History She reports that she has never smoked. She has never used smokeless tobacco. She reports that she does not drink alcohol and does not use drugs. Family History No family history on file. Allergies Adhesive, Cephalosporins, Celecoxib, Oxycodone-acetaminophen, Sulfa (sulfonamide antibiotics), Minocycline hcl, and Shellfish derived Medications Current Outpatient Medications: abatacept (Orencia ClickJect) 125 mg/mL auto-injector, INJECT 1 PEN UNDER THE SKIN (SUBCUTANEOUS INJECTION) EVERY WEEK, Disp: , Rfl: amLODIPine (Norvasc) 10 mg tablet, Take 5 mg by mouth in the morning., Disp: , Rfl: atorvastatin (Lipitor) 80 mg tablet, Take 1 tablet (80 mg) by mouth in the morning., Disp: 30 tablet, Rfl: 11 carvedilol (Coreg) 25 mg tablet, TAKE 1 TABLET(25 MG) BY MOUTH IN THE MORNING AND AT BEDTIME, Disp: 180 tablet, Rfl: 3 ezetimibe (Zetia) 10 mg tablet, Take 1 tablet (10 mg) by mouth in the morning., Disp: 30 tablet, Rfl: 11 glipiZIDE (Glucotrol) 10 mg tablet, TK 1 T PO QAM, Disp: , Rfl: levothyroxine (Synthroid, Levoxyl) 125 mcg tablet, Take 125 mcg by mouth in the morning., Disp: , Rfl: losartan (Cozaar) 100 mg tablet, Take 100 mg by mouth in the morning., Disp: , Rfl: metFORMIN (Glucophage) 500 mg tablet, Take 500 mg by mouth with breakfast and with evening meal., Disp: , Rfl: Ozempic 1 mg/dose (4 mg/3 mL) pen injector, , Disp: , Rfl: rOPINIRole (Requip) 0.25 mg tablet, , Disp: , Rfl: spironolactone (Aldactone) 50 mg tablet, Take 50 mg by mouth in the morning., Disp: , Rfl: venlafaxine (Effexor) 150 mg 24 hr tablet, Take 150 mg by mouth in the morning. Do not crush, chew, or split., Disp: , Rfl: venlafaxine (Effexor) 75 mg tablet, Take 75 mg by mouth in the morning and at bedtime., Disp: , Rfl: Last Recorded Vitals Visit Vitals BP 129/77 (BP Location: Right arm, Patient Position: Sitting) Pulse 93 Ht 1.651 m (5' 5 ) Wt 123 kg (272 lb) SpO2 96% BMI 45.26 kg/m??? Smoking Status Never BSA 2.38 m??? Physical Examination: GENERAL: alert and oriented x3, well developed, in no acute distress. HEAD: atraumatic, normocephalic. EYES: TOMMY, EOMI. NECK: trachea midline, no JVD present, no carotid bruits present. CARDIAC: S1, S2 present. RRR. No murmur, rubs, or gallops. RESPIRATORY: CTAB, no increased effort of breathing, no rales, rhonchi, or wheezing. ABDOMEN: soft, nontender, nondistended. EXTREMITIES: no lower extremity edema, significant varicose veins of the lower extremities particularly the left leg. No rash/skin discoloration present. NEURO: strength/sensation equal and symmetric in bilateral upper and lower extremities. PSYCH: appropriate mood, affect, and judgement. Labs: Labs 10/28/2023 (more content not included)... [facility] 11-09-2023 Note Patient Education Mental and Behavioral Health Managing Depression, Adult Depression is a mental health condition that affects your thoughts, feelings, and actions. Being diagnosed with depression can bring you relief if you did not know why you have felt or behaved a certain way. It could also leave you feeling overwhelmed with uncertainty about your future. Preparing yourself to manage your symptoms can help you feel more positive about your future. How to manage lifestyle changes Managing stress Stress is your body's reaction to life changes and events, both good and bad. Stress can add to your feelings of depression. Learning to manage your stress can help lessen your feelings of depression. Try some of the following approaches to reducing your stress (stress reduction techniques): ? Listen to music that you enjoy and that inspires you. ? Try using a meditation kate or take a meditation class. ? Develop a practice that helps you connect with your spiritual self. Walk in nature, pray, or go to a place of pentecostalism. ? Do some deep breathing. To do this, inhale slowly through your nose. Pause at the top of your inhale for a few seconds and then exhale slowly, letting your muscles relax. ? Practice yoga to help relax and work your muscles. Choose a stress reduction technique that suits your lifestyle and personality. These techniques take time and practice to develop. Set aside 5?15 minutes a day to do them. Therapists can offer training in these techniques. Other things you can do to manage stress include: ? Keeping a stress diary. ? Knowing your limits and saying no when you think something is too much. ? Paying attention to how you react to certain situations. You may not be able to control everything, but you can change your reaction. ? Adding humor to your life by watching funny films or TV shows. ? Making time for activities that you enjoy and that relax you. Medicines Medicines, such as antidepressants, are often a part of treatment for depression. ? Talk with your pharmacist or health care provider about all the medicines, supplements, and herbal products that you take, their possible side effects, and what medicines and other products are safe to take together. ? Make sure to report any side effects you may have to your health care provider. Relationships Your health care provider may suggest family therapy, couples therapy, or individual therapy as part of your treatment. How to recognize changes Everyone responds differently to treatment for depression. As you recover from depression, you may start to: ? Have more interest in doing activities. ? Feel less hopeless. ? Have more energy. ? Overeat less often, or have a better appetite. ? Have better mental focus. It is important to recognize if your depression is not getting better or is getting worse. The symptoms you had in the beginning may return, such as: ? Tiredness (fatigue) or low energy. ? Eating too much or too little. ? Sleeping too much or too little. ? Feeling restless, agitated, or hopeless. ? Trouble focusing or making decisions. ? Unexplained physical complaints. ? Feeling irritable, angry, or aggressive. If you or your family members notice these symptoms coming back, let your health care provider know right away. Follow these instructions at home: Activity ? Try to get some form of exercise each day, such as walking, biking, swimming, or lifting weights. ? Practice stress reduction techniques. ? Engage your mind by taking a class or doing some volunteer work. Lifestyle ? Get the right amount and quality of sleep. ? Cut down on using caffeine, tobacco, alcohol, and other potentially harmful substances. ? Eat a healthy diet that includes plenty of vegetables, fruits, whole grains, low-fat dairy products, and lean protein. Do not eat a lot of foods that are high in solid fats, added sugars, or salt (sodium). General instructions ? Take [id number] and prescription medicines only as told by your health care provider. ? Keep all follow-up visits as told by your health care provider. This is important. Where to find support Talking to others Friends and family members can be sources of support and guidance. Talk to trusted friends or family members about your condition. Explain your symptoms to them, and let them know that you are working with a health care provider to treat your depression. Tell friends and family members how they also can be helpful. Finances ? Find appropriate mental health providers that fit with your financial situation. ? Talk with your health care provider about options to get reduced prices on your medicines. Where to find more information You can find support in your area from: ? Anxiety and Depression Association [place] (ADAA): www.adaa.org ? Mental Health [place]: www.wi (more content not included)... [facility] 11-17-2022 Evaluation + Plan note Diagnostic Tests PendingMicroalbumin Level Urine 11/17/22U Protein/Creat Ratio 11/17/22 [facility] 07-16-2022 Note CONSULTATION CONSULTATION DATE: 07/16/2022 HISTORY OF PRESENT ILLNESS: This is a 52-year-old female who returns to the clinic for a three month follow up for chronic lower back pain, psoriatic arthritis. 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 She was started on tramadol but found she was unable to take that as it was causing severe anxiety attacks. She is a diabetic and had an A1c of 9. She was placed on Ozempic and within three months her A1c came down to 6.5. She is planning on having total knee replacements coming up and she is unable to have any steroids as they would interfere with her upcoming surgery. She was on diclofenac 75 mg b.i.d., which did help her pain, but her PCP discontinued that due to having high renal labs. Further follow up showed, since stopping the diclofenac, her renal values are normal. Current medications include Effexor, baclofen 10 mg q.h.s., ropinirole 0.25 mg q.h.s., Orencia and Vitamin D. She rates her pain 7/10 today, describes it as a deep throb. Pushing, pulling, standing, walking, housework and lifting greatly aggravate her pain. She does use heat, which is beneficial. Patient's REVIEW OF SYSTEMS / PAST MEDICAL HISTORY / ALLERGIES and IMAGES have been reviewed and noted on the chart. PHYSICAL EXAM: VITAL SIGNS: Blood pressure 153/85, heart rate is 76. Temperature is 95.9. She is 5'5 and weighs 121 kg. GENERAL IMPRESSION: Pleasant, appropriate, in no acute distress. FOCUSED EXAM - BACK: Range of motion is functional in lateral rotation and flexion/extension. Paravertebral muscles are non-spasmodic. Mild spinal axial pain reproduced to deep compression along the facets of L4, L5 bilaterally. No radiating pain below the knee. Regi's point mildly tender bilateral. FABERs is positive. MUSCULOSKELETAL: Motor is intact bilateral lower extremities, 4/5 bilaterally. Patient has polyarthralgia to bilateral hips, ankles and knees. NEUROLOGICALLY: Patient has diffuse neuropathy to bilateral feet which is non-dermatomal. Patient is cognitively intact. +1 patellar reflexes. DIAGNOSIS: Psoriatic arthritis, chronic lower back pain, lumbar degenerative disc disease. PLAN: At this time, we will not incorporate any new treatment due to her pending total knee replacement. I did encourage her to talk with her PCP, Dr. Osman, regarding possible move to low dose Mobic, if he feels her kidney values are within reason. Will follow up with the patient in four months' time unless otherwise indicated. Patient agrees with this plan. [facility] 04-16-2022 Note CONSULTATION CONSULTATION DATE: 04/16/2022 HISTORY OF PRESENT ILLNESS: This is a 51-year-old female returning to the clinic for a three month follow up for her chronic lower back pain. The patient is in the process of having a workup for right knee replacement. She is a diabetic and her A1c needs to be lower before operation will occur. She is interested in procedure injections with our clinic, but all those are on hold until after her total knee replacement. She describes her back pain as achy and 7/10. She does lay on heat every day which is very helpful. Pushing, pulling, stairs, bending and morning hours make her pain increase. Medications include baclofen 10 mg q.h.s., tramadol 50 mg b.i.d., diclofenac 75 mg b.i.d. and CBD cream. She has recently started Ozempic and has lost 15 pounds. She does have psoriatic arthritis and has been unable to get her Cosentyx for the past couple months. Patient contributes her high pain level to that. Patient's REVIEW OF SYSTEMS / PAST MEDICAL HISTORY / ALLERGIES and IMAGES have been reviewed and they are noted on the chart. PHYSICAL EXAM: VITAL SIGNS: Blood pressure 115/72, heart rate is 108. Temperature is 98.1. She is 4'5 , weighs 125 kg. GENERAL APPEARANCE: Pleasant, appropriate, no acute distress. FOCUSED EXAM - BACK: Range of motion is functional in lateral rotation and flexion/extension. Paravertebral muscles are taut with a trigger point identified right lower gluteal muscle. Compression reproduces pain symptomatology. Facet compression along L3, 4 and 5 fullness is palpated and reproduces spinal axial pain. Regi's point is non-tender with negative FABERs and compression test. MUSCULOSKELETAL: Motor is 5/5 bilaterally. Muscle tone is adequate. Patient walks unassisted. NEUROLOGICAL: Patchy hypoesthesia along the L5-S1 distribution to right lower extremity to the level of the foot. +1 bilateral reflexes. DIAGNOSIS: Right knee osteoarthritis, chronic lower back pain, lumbar degenerative disc disease. PLAN: In the meantime, we are in a holding pattern here at the Pain Clinic and will not move forward with any injections at this time. We will reconsider following total knee replacement. She is to continue with heat, tramadol, baclofen and diclofenac as discussed. Patient will be seen in the clinic in three months' time unless otherwise indicated. [facility] 03-04-2022 History of Present illness Narrative Again today I have called Dee Dee at [phone] and her at [phone] and left several messages to call me back about her elevated A1C of 9.1 documented in this encounter [facility] 01-15-2022 Note CONSULTATION CONSULTATION DATE: 01/15/2022 HISTORY OF PRESENT ILLNESS: This is a pleasant, 51-year-old patient who is accompanied by her to the clinic for a six month follow up for chronic lower back pain, neck pain and bilateral knee pain. She was last seen on 05/15/2021 which, at that time, she was referred to Dr. Pierce in Orthopedics in [place] to have knee surgery. She did have her appointment with him, but during that appointment the patient had a panic attack and Dr. Pierce decided, at that time, to hold off on her much needed surgery due to anxiety. He wanted to see her in approximately one year or when the anxiety was under better management. The patient takes baclofen 10 mg q.h.s., tramadol 50 mg b.i.d. and diclofenac 75 mg b.i.d., which she feels is managing her pain well. She is in need of refills of those medications today as well. At rest her pain is 3/10, with activity it raises to 5/10. Activities such as pushing, pulling, standing, walking, stairs and physical activity aggravate her pain. Alternating heat and ice and sitting down decrease her pain. Her pain across her lower back is diffuse and has mild left buttock radiating pain. She denies any new pain pattern. She does have a chronic paresthesia to her right foot. Patient's REVIEW OF SYSTEMS / PAST MEDICAL HISTORY / ALLERGIES and IMAGES have been reviewed and they are noted on the chart. PHYSICAL EXAM: Blood pressure 147/95, heart rate is 99. Temperature is 97.5. She is 5'5 , weighs 132.3 kg. GENERAL APPEARANCE: Pleasant, appropriate, non-anxious in the room, present.. FOCUSED EXAM - BACK: Range of motion is functional in lateral rotation and flexion/extension. Mild spinal axial pain to compression along the lower facets L4, L5 bilaterally. Paravertebral muscles are non-spasmodic. Regi's point non-tender. Negative FABERs and compression. MUSCULOSKELETAL: Motor is intact, 4/5 bilaterally. Muscle tone is good. Bilateral knees with anterior medial tenderness upon palpation. Negative crepitus. NEUROLOGICAL: Diffuse hypoesthesia noted to right lower extremity. +2 bilateral patellar reflexes. DIAGNOSIS: Lumbar degenerative disc disease, bilateral knee osteoarthritis and polyarthralgia. PLAN: We will refill her tramadol 50 mg b.i.d. and diclofenac 75 mg b.i.d. today. I did discuss with the patient regarding her anxiety and the need for better management. The patient reports her PCP, Dr. Osman, has prescribed hydroxyzine, but the patient finds it is non-helpful. I recommended the patient to see a mental health specialist, and patient prefers to self-refer herself to a psychiatrist in her local area in [place]. I recommended to the patient, once she feels her anxiety has been managed, to call Dr. Pierce in 4-6 months for re-evaluation for her knee surgery. She will be seen in our clinic in three months' time to maintain her medication unless otherwise indicated. Patient agrees with the plan of care. [facility] 07-21-2021 History of Present illness Narrative I called Jeny on Wednesday and again today and [facility] and asked her to return my call. . Per Dr Polanco due to Jeny's anxiety he feels Jeny should wait one year before she considers surgery. documented in this encounter [facility] 07-17-2021 History of Present illness Narrative Carmen had an elevated A1C of 8.2 w her pre-op labs. I reviewed w her to eat no sweets, no pop (diet or regular) no alcohol and cut way back on her carbs. She does understand. Her A1C will be repeated. documented in this encounter [facility] 03-27-2021 History of Present illness Narrative Ms. Caballero presents today for initial visit. She has had significant issues with her right knee for quite some time. She had arthroscopic intervention about 3 years ago and states her symptoms have gotten progressively worse since that time. She now states that she has [id number] arthritis and is needing joint replacement surgery. She has tried physical therapy at [facility] within the last year and it really has not helped. She has tried steroid injections with her last injection February 26, and it has not helped with the pain. She has difficulty ambulating. She is having constant pain at night and she has a history of psoriatic arthritis and diabetes and states that she is having difficulty controlling her long-term health issues secondary to the pain. Her last hemoglobin A1c was 7.2%, but it is up just slightly from before. She states that her previous orthopedist refuses to operate until she loses significantly more weight. PAST MEDICAL HISTORY Reviewed and up to date on the chart. REVIEW OF SYSTEMS She denies any fevers, chills, nausea, vomiting, shortness of breath. Positive for joint pain. PHYSICAL EXAM General: She is awake, alert, in no apparent distress. She is an obese female. Ambulates without assistive device. Musculoskeletal: Her right knee does have good range of motion, significant crepitation with normal varus and valgus straining. Negative anterior drawer. She does have some significant tenderness over the medial joint line as noted. X-RAYS Bilateral standing AP, PA 45 lateral Merchant view of the right knee. INDICATION Pain, with end-stage medial compartment arthritic changes of the right knee with significant osteophyte formation. No acute findings. ASSESSMENT/PLAN Osteoarthritis of the right knee with history of psoriatic arthritis. Currently on Cosentyx as a biologic agent with well-controlled diabetes. We did discuss that her weight is an issue as far as increased risk of complications from surgery, but since she has lost about 40 pounds in the past 6 months and is getting her body mass index down with good control of her diabetes, that we would be okay with proceeding with the joint replacement. She will need to stop her Cosentyx 1 month prior to the procedure and not restart it until 1 month after the procedure. She understands and would like to proceed. She is going to go ahead and get the appropriate preoperative testing done and follow up with Dr. Polanco for surgery. documented in this encounter [facility] 02-10-2021 Evaluation note Encounter Date Diagnosis Assessment Notes Feb, Primary osteoarthritis of right knee (ICD-10 - M17.11) Today we have discussed degenerative joint disease of the knee and its treatment. Imaging was discussed and explained to the patient. We discussed recommended conservative therapies including physical therapy, anti-inflammatory medications, and weight loss strategies. We also discussed other treatment options including cortisone injections, Visco supplementation injections which are options for treatment. I have laid out the course of knee DJD including the end-stage treatment of total joint arthroplasty. The patient recognizes and understands our options and goals and we will move forward with our treatment. Unfortunately she was unable to undergo genicular blocks since her insurance would not cover it. She is exhausted all other conservative treatment options including several injections and medications. She has lost some weight since her last visit which I have encouraged to continue. Her last hemoglobin A1c was around 7 but I am unable to find this documented. She also has psoriatic arthritis which is treated by a physician in [place]. At this point I discussed that she would be at elevated risk of an elective total joint arthroplasty. I would plan for referral to my adult reconstruction partner Dr. Felix and the patient agrees to this. Discussed with patient due to her BMI and other risk factors I do not feel comfortable preforming her total knee replacement. Discused with patient to continue to progress with her weight loss. Discussed with patient we have her see Dr. Felix our total joint replacement specilist to discuss total knee arthroplsty Feb, Morbid (severe) obesity due to excess calories (ICD-10 - E66.01) Feb, Body mass index [BMI] 45.0-49.9, adult (ICD-10 - Z68.42) Today we discussed obesity. We discussed the range of BMI and the patient's BMI of 47.25. We discussed weight loss strategies through increased physical activity as well as decrease caloric intake. We offered referral for bariatric services. She would need to lose about 50 pounds to get to a BMI of 40. Our discussion is limited to 5 minutes. [facility] Other Evaluation + Plan note No data available for this section [facility] Future App[facility]ments Appointment Date:07/28/2023 01:20:00 PM Scheduled Provider: Location:[facility] Appointment Type: Lab Draw Appointment Date:11/04/2023 01:00:00 PM Scheduled Provider: Location:[facility] Appointment Type: Medicare Wellness Subsequent Appointment Date:11/04/2023 02:00:00 PM Scheduled Provider:Malik Denson MD Location:[facility] Appointment Type: Open Diagnostic Tests Pending * PAP [id number] w/ HPV and Genotype rflx 07/07/23 [facility] Future Appointments Appointment Date:11/09/2023 01:00:00 PM Scheduled Provider: Location:[facility] Appointment Type: Medicare Wellness Subsequent Appointment Date:01/27/2024 02:45:00 PM Scheduled Provider:Malik Denson MD Location:[facility] Appointment Type: Open [facility] Future Appointments Appointment Date:11/09/2024 01:00:00 PM Scheduled Provider: Location:[facility] Appointment Type: Medicare Wellness Subsequent Diagnostic Tests Pending * CBC w/ Auto Diff 10/05/24 * Comprehensive Metabolic Panel 10/05/24 * HgbA1c 10/05/24 * Urine Microalbumin/Creatinine Ratio 10/05/24 * Lipid Panel 10/05/24 * TSH With T4fr Reflex 10/05/24 Future Scheduled Tests Radiology* MA Mamm Screen w/CAD if perf and 3D Tommie 10/05/24 [facility] Evaluation note* Diagnosis Primary osteoarthritis of right knee- Primary [facility] Primary osteoarthritis of right knee- Primary Primary osteoarthritis of right knee- Primary Primary osteoarthritis of right knee [facility] Primary osteoarthritis of right knee- Primary Primary osteoarthritis of right knee- Primary Hypertension, unspecified type Exposure to SARS-associated coronavirus Type 2 diabetes mellitus without complication, without long-term current use of insulin (HCC) Primary osteoarthritis of right knee [facility] Diagnosis Primary osteoarthritis of right knee- Primary Elevated hemoglobin A1c- Primary Other abnormal blood chemistry Primary osteoarthritis of right knee documented in this encounter [facility] note* Diagnosis Facial swelling- Primary Swelling, mass, or lump in head and neck documented in this encounter Walk-in Phone: evaluation note* Diagnosis Primary osteoarthritis of right knee- Primary Hypertension, unspecified type Type 2 diabetes mellitus without complication, without long-term current use of insulin (HCC) Primary osteoarthritis of right knee- Primary documented in this encounter [facility] note* Diagnosis Screening mammogram for breast cancer documented in this encounter AMELIA MARINA [facility] general Narrative - Reported* Type Description Date Medical History diabetes mallitus Medical History high blood pressure Medical History psoriatic arthritis Surgical History gallbladder Surgical History elbow surgery Surgical History meniscal repair right knee Surgical History hysterectomy Surgical History C section Hospitalization History See Above Hospitalization History pancreatitis [facility] Other Hospital Discharge instructions* Instructions* Niko Griffin MD - 04/17/2019 You have facial swelling. I cannot find a reason for it that seems to be an emergency, like a venous or lymph obstruction. Please follow-up with your regular doctor. I also advised you to try and getoff Invokana and switch to a different drug which she might tolerate bettter. documented in this encounterWalk-in Phone: Hospital Discharge instructions No data available for this section [facility] No data available for this section [facility] Summary Purpose Family History No Family History Records FoundNo Family History Records FoundNo Family History Records FoundNo Family History Records FoundNo Family History Records FoundNo Family History Records FoundNo Family History Records FoundNo Family History Records FoundNo Family History Records Found No data available for this section No data available for this section No Family History Records FoundNo Family History Records FoundNo Family History Records FoundNo Family History Records FoundNo Family History Records FoundNo Family History Records FoundNo Family History Records Found No data available for this section No Family History Records FoundNo Family History Records FoundNo Family History Records FoundNo Family History Records FoundNo Family History Records FoundNo Family History Records FoundNo Family History Records FoundNo Family History Records Found Advance Directives No Advanced Directives Records FoundDocuments on File Type Date Recorded Patient Inspector Missile Expl anation Advance Directives and Living Will Power of Rat Breeder Latest Code Status on File Code Status Date Activated Date Inactivated Comments Full Code 02/28/2018 5:50 PM 03/02/2018 4:23 PM Documents on File Type Date Recorded Patient Inspector Missile Expl anation Advance Directives and Living Will Power of Rat Breeder Latest Code Status on File Code Status Date Activated Date Inactivated Comments Full Code 02/28/2018 5:50 PM 03/02/2018 4:23 PM Documents on File Type Date Recorded Patient Inspector Missile Expl anation ACP-Advance Directive ACP-Power of Rat Breeder Documents on File Type Date Recorded Patient Inspector Missile Expl anation ACP-Advance Directive ACP-Power of Rat Breeder Documents on File Type Date Recorded Patient Inspector Missile Expl anation Advance Directives and Living Will Documents on File Type Date Recorded Patient Inspector Missile Expl anation Advance Directives and Livin g Will 06/05/2021 1:11 PM Latest Code Status on File Code Status Date Activated Date Inactivated Comments Full Code 02/28/2018 5:50 PM 03/02/2018 4:23 PM History of Present Illness * Alma Garcia, Devyn Cunningham, - 06/01/2018 1:00 PM EST Formatting of this note may be different from the original. History of Present Illness Dx with Psoriatic arthritis 2009. Presence of Pain: complains of pain/discomfort (06/01/18 1257), Pain Location: (Everywhere) (06/01/18 1257), Select Pain Scale: DVPRS (Defense and Veterans Pain Rating Scale) (Adult-Cognitively Intact) (06/01/18 1257), DVPRS: Rest: 6- moderate pain (06/01/18 1257),DVPRS: Activity: 6- moderate pain (06/01/18 1257), Select Pain Scale: DVPRS (Defense and Veterans Pain Rating Scale) (Adult-Cognitively Intact) (06/01/18 1257), Pain Frequency: constant (06/01/18 1257), Pain Quality: aching (06/01/18 1257) . Energy level is crappy. Psoriasis on the leg and back of neck. Dry skin is helped with lotion. IBS is doing not too bad and polydipsia continues. Back pain is yes and a lot of trouble with her neck and she can not sleep at night. Joint pain knee which are bad and occasional fingers and knees. Patient is here today for her 4 month F/U. Patient states she has been without her Cosentyx because she had the flu and she has been slowing recovering from it. Patient states since she has been of her cosentyx she is having joint pain. Patients last injection was the first week in February before she was hospitalized for the flu. cosentyx started 12/2017. Cosentyx was helping and not bothering her. Sugar has been high and she has been sick and in hospital and had epidural steroids and patient has been off of Cosentyx since 02/2018. Sees Pulmonary 06/15/18. Patient is taking 1 Maximum D3 10,000 units a week instead of 2. Patient had blood work done yesterday at [facility] and I do not have results and I will try to track those down. Review of Systems Review of Systems Constitutional: Positive for malaise/fatigue. Skin: Positive for rash and dry skin. Psoriasis HENT: Negative. Eyes: Negative. Cardiovascular: Negative. Respiratory: Negative. Gastrointestinal: Ibs. polydypsia Breast: Negative. Genitourinary: Negative. Musculoskeletal: Positive for back pain, joint pain and neck pain. Neurological: Negative. Psychiatric: The patient has insomnia. Allergy/Immunology: Negative. Lymph/Heme: Negative. Endocrine: Negative. Physical Exam Height 1.651 m (5' 5 ), weight 133.8 kg (295 lb). Physical Exam Constitutional: She is oriented to person, place, and time and well-developed, well-nourished, and in no distress. HENT: Head: Normocephalic and atraumatic. Right Ear: External ear normal. Left Ear: External ear normal. Nose: Nose normal. Mouth/Throat: Oropharynx is clear and moist. Crep B/L TMJ Eyes: Pupils are equal, round, and reactive to light. Conjunctivae and EOM are normal. Glasses Neck: Neck supple. Cardiovascular: Normal rate, regular rhythm and normal heart sounds. Pulses: Radial pulses are 2+ on the right side, and 2+ on the left side. Pulmonary/Chest: Effort normal and breath sounds normal. Abdominal: Soft. Bowel sounds are normal. Obese Musculoskeletal: Right shoulder: She exhibits tenderness. Left shoulder: She exhibits tenderness. Right elbow: Normal. Left elbow: Normal. Right wrist: Normal. Left wrist: Normal. Right knee: She exhibits decreased range of motion. Left knee: She exhibits decreased range of motion. Right ankle: She exhibits decreased range of motion. Left ankle: She exhibits decreased range of motion. Right upper arm: She exhibits tenderness. Left upper arm: She exhibits tenderness. Right forearm: Normal. Left forearm: Normal. Right hand: Normal. Left hand: Normal. Hands: Right upper leg: Normal. Left upper leg: Normal. Right lower leg: Normal. Left lower leg: Normal. Legs: Neurological: She is alert and oriented to person, place, and time. She has normal sensation, normal strength and intact cranial nerves. Gait normal. GCS score is 15. Skin: Skin is warm and dry. Psychiatric: Mood, memory, affect and judgment normal. Nursing note and vitals reviewed. Neurologic Exam Mental Status Oriented to person, place, and time. Cranial Nerves CN III, IV, Pupils are equal, round, and reactive to light. Extraocular motions are normal. Motor Exam Strength Strength 5/5 throughout. Gait, Coordination, and Reflexes Gait Gait: normal Assessment and Plan Encounter Diagnoses Name Primary? Psoriatic arthritis Yes Psoriasis Dry skin Arthropathic psoriasis Arthropathic psoriasis, unspecified History of psoriatic arthritis Long-term current use of high risk medication other than anticoagulant intermediate current use of non-steroidal anti-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 (NSAID) Abnormal serum CY level Vitamin D deficiency TATUM (nonalcoholic steatohepatitis) Fatty liver Primary osteoarthritis of both knees Osteoarthritis of both hands, unspecified osteoarthritis type Osteoarthritis of both wrists, unspecified osteoarthritis type Lumbar degenerative disc disease Osteoarthritis of lumbar spine, unspecified spinal osteoarthritis complication status DDD (degenerative disc disease), cervical Osteoarthritis of cervical spine, unspecified spinal osteoarthritis complication status Thoracic degenerative disc disease 1. Time was spent with the patient today in education in re: to all their medical conditions. A complete H&P&ROS was obtained and is either in this note or in the EHR. Please do not hesitate to contact me with any questions or concerns re: this patient. Past History Past medical, surgical, family, and social histories have been reviewed and updated with the patient today and are located elsewhere in the medical record. 2. Thank you for allowing me to participate in the care of your patient. With your permission I would like to F/U with your patient. 3. Stop Humira it makes her tired 4. CRP was elevated at 7.5 5. Look at HPI for how patient is taking medications 6. CY level was elevated at 96 and still is at 102- CXR shows no hilar adenopathy and patient seesPulmonary soon 7. TB test was negative 8. Rx given for Maximum D3 10,000 units 2 pills one day a week 9. AST was elevated at 34 10. Monitor CBC/LFT/Renal func every 6-12 months as long as patient is on daily NSAID 11. Lab on or about 09/15/18 12. Otezla did not help her and caused depression 13. Methotrexate stopped secondary to pancreatitis 14. Cimzia did not work 15. Stelera did not nothng 16. ESR was normal at 12 and still is at 10 17. Patient is allergic to sulfa 18. ALT was elevated at 45 19. Negative Hep B&C serology, RF, HLA-B27, ANCA, CCP, KESHAWN 20. Uric acid was normal at 3.7 21. Patient should have an eye exam prior to starting Plaquenil and every 6-12 months as long as taking Plaquenil 22 Monitor Vit D level every 6 -12 months if remains low rec: eval by endo 23. Stop Celebrex - no help 24. Hold Cosentyx month before and month after any surgery or live vaccine (shingles). Hold Cosentyx anytime have an infection can restart once off of ATB and/or antiviral and free of infection. HoldCosentyx anytime have open wound and can restart once wound has healed. 25. F/u with me in 4 months in this encounter* Alma Gacria, Devyn Cunningham, - 02/01/2019 1:45 PM EDT History of Present Illness Dx with Psoriatic arthritis 2009. cosentyx started 12/2017. Cosentyx was helping and not bothering her. patient has been off of Cosentyx since 02/2018. Patient again restarted Cosentyx in 10/2018 and has been off of it since 11/2018. Presence of Pain: complains of pain/discomfort Pain Location: back Select Pain Scale: DVPRS (Defense and Veterans Pain Rating Scale) (Adult- Cognitively Intact) DVPRS: Rest: 6- moderate pain DVPRS: Activity: 6- moderate pain Select Pain Scale: DVPRS (Defense and Veterans Pain Rating Scale) (Adult- Cognitively Intact) Pain Frequency: constant Pain Quality: aching . Due to complex issues I spent at least 28 minutes in face to face time with patient, more than 50% of that time was spent on counseling and coordination of care. Patient is being evaluated for an unstable chronic illness that increase morbidity and mortality. Energy level sucks. She will have a good day and the next day is bad. Patient shots in her back without steroids arenot helping. S/P arthroscopic surgery for R knee by [facility] and it still hurts and they have given her 2 shots in the knee for bursitis and tendonitis. Skin is peeling in hands. IBS is not too bad. HERNANDEZ and IBS is better after she gets a cortisone shot. Neck pain is sometimes if she sleeps wrong or drives somewhere. Patient is here today for her 4 month F/U. Patient states she has been off her injection since 06/2018 because of her right knee surgery. Patient states when she called the pharmacy to start her Cosentyx again they told her she needed a new PA and they could not send her medication. I looked in patients PA is good until 12/01/2019. Patient states she will get peeling and blisters on her TOMMIE hand. Review of Systems Review of Systems Constitutional: Positive for malaise/fatigue. Skin: Positive for rash and dry skin. Psoriasis HENT: Negative. Eyes: Negative. Cardiovascular: Positive for dyspnea on exertion. Respiratory: Negative. Gastrointestinal: Ibs. Breast: Negative. Genitourinary: Negative. Musculoskeletal: Positive for back pain, joint pain and neck pain. Neurological: Negative. Psychiatric: Negative. Allergy/Immunology: Negative. Lymph/Heme: Negative. Endocrine: Negative. Physical Exam Blood pressure 134/78, pulse 74, temperature 97 F (36.1 C), temperature source Temporal, height 1.651 m (5' 5 ), weight 132.2 kg (291 lb 6.4 oz), SpO2 96 %. Physical Exam Constitutional: She is oriented to person, place, and time and well-developed, well-nourished, and in no distress. HENT: Head: Normocephalic and atraumatic. Right Ear: External ear normal. Left Ear: External ear normal. Nose: Nose normal. Mouth/Throat: Oropharynx is clear and moist. Crep B/L TMJ Eyes: Pupils are equal, round, and reactive to light. Conjunctivae and EOM are normal. Glasses Neck: Neck supple. Cardiovascular: Normal rate, regular rhythm and normal heart sounds. Pulses: Radial pulses are 2+ on the right side, and 2+ on the left side. Pulmonary/Chest: Effort normal and breath sounds normal. Abdominal: Soft. Bowel sounds are normal. Obese Musculoskeletal: Right shoulder: She exhibits decreased range of motion and tenderness. Left shoulder: She exhibits decreased range of motion and tenderness. Right elbow: Normal. Left elbow: Normal. Right wrist: She exhibits decreased range of motion. Left wrist: She exhibits decreased range of motion. Right knee: She exhibits decreased range of motion. Tenderness found. Left knee: She exhibits decreased range of motion. Right ankle: She exhibits decreased range of motion. Left ankle: She exhibits decreased range of motion. Right upper arm: She exhibits tenderness. Left upper arm: She exhibits tenderness. Right forearm: Normal. Left forearm: Normal. Right hand: She exhibits decreased range of motion, tenderness and swelling. Left hand: She exhibits decreased range of motion, tenderness and swelling. Hands: Right upper leg: Normal. Left upper leg: Normal. Right lower leg: Normal. Left lower leg: Normal. Legs: Neurological: She is alert and oriented to person, place, and time. She has normal sensation, normal strength and intact cranial nerves. Gait normal. GCS score is 15. Skin: Skin is warm and dry. Psoriasis - hands Psychiatric: Mood, memory, affect and judgment normal. Nursing note and vitals reviewed. Neurologic Exam Mental Status Oriented to person, place, and time. Cranial Nerves CN III, IV, Pupils are equal, round, and reactive to light. Extraocular motions are normal. Motor Exam Strength Strength 5/5 throughout. Gait, Coordination, and Reflexes Gait Gait: normal Assessment and Plan Encounter Diagnoses Name Primary? Psoriatic arthritis Yes Psoriasis Arthropathic psoriasis Long-term current use of high risk medication other than anticoagulant intermediate current use of non-steroidal anti-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 (NSAID) Fatigue, unspecified type Vitamin D deficiency TATUM (nonalcoholic steatohepatitis) Fatty liver Thoracic degenerative disc disease Primary osteoarthritis of both knees Osteoarthritis of lumbar spine, unspecified spinal osteoarthritis complication status Osteoarthritis of both wrists, unspecified osteoarthritis type Osteoarthritis of both hands, unspecified osteoarthritis type Osteoarthritis of cervical spine, unspecified spinal osteoarthritis complication status Lumbar degenerative disc disease DDD (degenerative disc disease), cervical 1. Time was spent with the patient today in education in re: to all their medical conditions. A complete H&P&ROS was obtained and is either in this note or in the EHR. Please do not hesitate to contact me with any questions or concerns re: this patient. Past History Past medical, surgical, family, and social histories have been reviewed and updated with the patient today and are located elsewhere in the medical record. 2. Thank you for allowing me to participate in the care of your patient. With your permission I would like to F/U with your patient. 3. Stop Humira it makes her tired 4. CRP was elevated at 7.5 5. Rx given for cosentyx - will have to restart and do loading dose 6. CY level was elevated at 96 and then at 102- CXR shows no hilar adenopathy and patient has not seen pulmonary yet 7. TB test was negative 8. TB test today 9. AST was elevated at 34 and is now normal at 16 10. Monitor CBC/LFT/Renal func every 6-12 months as long as patient is on daily NSAID 11. Low 25 hydroxy Vit D level at 29.4 12. Otezla did not help her and caused depression 13. Methotrexate stopped secondary to pancreatitis 14. Cimzia did not work 15. Stelera did nothng 16. ESR was normal at 10 17. Patient is allergic to sulfa 18. ALT was elevated at 45 and is now normal at 25 19. Negative Hep B&C serology, RF, HLA-B27, ANCA, CCP, KESHAWN 20. Uric acid was normal at 3.7 21. Patient should have an eye exam prior to starting Plaquenil and every 6-12 months as long as taking Plaquenil 22 Monitor Vit D level every 6 -12 months if remains low rec: eval by endo 23. Stop Celebrex - no help 24. Hold Cosentyx month before and month after any surgery or live vaccine (shingles). Hold Cosentyx anytime have an infection can restart once off of ATB and/or antiviral and free of infection. HoldCosentyx anytime have open wound and can restart once wound has healed. 25. Rx given to increase Maximum D3 10,000 units to 4 pills one day a week 26. Lab on or about 04/19/19 27. F/U with me in 3 months documented in this encounter* Niecy Hobson MD - 04/12/2019 10:50 AM EST cxd documented in this encounter* Penny Leo RN - 04/26/2019 12:10 PM EST Attempted to call patient to inquire about not being here for scheduled procedure. Patient did not answer phone. documented in this encounter* Devyn Mondragon Jr. MarisaDO - 05/19/2019 9:30 AM EST History of Present Illness Dx with Psoriatic arthritis 2009. cosentyx started 12/2017. Cosentyx was helping and not bothering her. patient has been off of Cosentyx since 02/2018. Patient again restarted Cosentyx in 10/2018 and has been off of it since 11/2018. cosentyx restarted in 03/2019 and had to stop due to infection and is now back on it. Restarted again 04/2019. Presence of Pain: complains of pain/discomfort Pain Location: (everywhere) Select Pain Scale: DVPRS (Defense and Veterans Pain Rating Scale) (Adult- Cognitively Intact) DVPRS: Rest: 7- severe pain DVPRS: Activity: 7- severe pain Select Pain Scale: DVPRS (Defense and Veterans Pain Rating Scale) (Adult- Cognitively Intact) Pain Frequency: constant Pain Quality: aching . Due to complex issues I spent at least 31 minutes in face to face time with patient, more than 50% of that time was spent on counseling and coordination of care. Patient is being evaluated for an unstable chronic illness that increase morbidity and mortality. Patient is here today for her 3 Month F/U. Patient states she does not think the Consetyx is working.Patient states she was sick in March so she missd one dose. Patient states she is having severe joint pain everyday. Energy level is crappy. Psoriasis - ears are bad. Couple spots on neck went away. Breathing is unchanged. IBS comes and goes - right now it is OK. Back pain is bad - rally bad. Joint pain is not too bad - mainly back to her knees. Neck pain is not too bad. Patient is uncertain if cosentyx is helping but again she has only been on it 1 month. Review of Systems Review of Systems Constitutional: Positive for malaise/fatigue. Skin: Positive for rash and dry skin. Psoriasis HENT: Negative. Eyes: Negative. Cardiovascular: Positive for dyspnea on exertion. Respiratory: Negative. Gastrointestinal: Ibs. Breast: Negative. Genitourinary: Negative. Musculoskeletal: Positive for back pain and joint pain. Neurological: Negative. Psychiatric: Negative. Allergy/Immunology: Negative. Lymph/Heme: Negative. Endocrine: Negative. Physical Exam Height 1.651 m (5' 5 ), weight 134.3 kg (296 lb). Physical Exam Constitutional: She is oriented to person, place, and time and well-developed, well-nourished, and in no distress. HENT: Head: Normocephalic and atraumatic. Right Ear: External ear normal. Left Ear: External ear normal. Nose: Nose normal. Mouth/Throat: Oropharynx is clear and moist. Crep B/L TMJ Eyes: Pupils are equal, round, and reactive to light. Conjunctivae and EOM are normal. Glasses Neck: Neck supple. Cardiovascular: Normal rate, regular rhythm and normal heart sounds. Pulses: Radial pulses are 2+ on the right side and 2+ on the left side. Pulmonary/Chest: Effort normal and breath sounds normal. Abdominal: Soft. Bowel sounds are normal. Obese Musculoskeletal: Right shoulder: She exhibits decreased range of motion. Left shoulder: She exhibits decreased range of motion. Right elbow: Normal. Left elbow: Normal. Right wrist: Normal. Left wrist: Normal. Right knee: She exhibits decreased range of motion. Tenderness found. Left knee: She exhibits decreased range of motion. Right ankle: She exhibits decreased range of motion. Left ankle: She exhibits decreased range of motion. Right upper arm: Normal. Left upper arm: Normal. Right forearm: Normal. Left forearm: Normal. Right hand: She exhibits decreased range of motion, tenderness and swelling. Left hand: She exhibits decreased range of motion. Hands: Right upper leg: Normal. Left upper leg: Normal. Right lower leg: Normal. Left lower leg: Normal. Legs: Neurological: She is alert and oriented to person, place, and time. She has normal sensation, normal strength and intact cranial nerves. Gait normal. GCS score is 15. Skin: Skin is warm and dry. Psoriasis - hands - improved. Psychiatric: Mood, memory, affect and judgment normal. Nursing note and vitals reviewed. Neurologic Exam Mental Status Oriented to person, place, and time. Cranial Nerves CN III, IV, Pupils are equal, round, and reactive to light. Extraocular motions are normal. Motor Exam Strength Strength 5/5 throughout. Gait, Coordination, and Reflexes Gait Gait: normal Assessment and Plan Encounter Diagnoses Name Primary? Psoriatic arthritis Yes Dry skin CRP elevated History of psoriatic arthritis intermediate current use of non-steroidal anti-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 (NSAID) Long-term current use of high risk medication other than anticoagulant Fatty liver TATUM (nonalcoholic steatohepatitis) Vitamin D deficiency DDD (degenerative disc disease), cervical Lumbar degenerative disc disease Osteoarthritis of cervical spine, unspecified spinal osteoarthritis complication status Osteoarthritis of both hands, unspecified osteoarthritis type Osteoarthritis of both wrists, unspecified osteoarthritis type Osteoarthritis of lumbar spine, unspecified spinal osteoarthritis complication status Primary osteoarthritis of both knees Thoracic degenerative disc disease Arthropathic psoriasis Psoriasis 1. Time was spent with the patient today in education in re: to all their medical conditions. A complete H&P&ROS was obtained and is either in this note or in the EHR. Please do not hesitate to contact me with any questions or concerns re: this patient. Past History Past medical, surgical, family, and social histories have been reviewed and updated with the patient today and are located elsewhere in the medical record. 2. Thank you for allowing me to participate in the care of your patient. With your permission I would like to F/U with your patient. 3. Stop Humira it makes her tired 4. CRP was elevated at 7.5 and still is at 19.3 5. Patient declines referral to sports medicine 6. CY level was elevated at 96 and then at 102- CXR shows no hilar adenopathy and patient has not seen pulmonary yet 7. TB test was negative 8. Patient is going to make her own appointment with [facility] 9. Low 25 hydroxy Vit D level at 23.5 10. Monitor CBC/LFT/Renal func every 6-12 months as long as patient is on daily NSAID 11. Rx given to increase Maximum D3 10,000 units to 5 pills one day a week 12. Otezla did not help her and caused depression 13. Methotrexate stopped secondary to pancreatitis 14. Cimzia did not work 15. Stelera did nothng 16. ESR was normal at 10 and still is at 8 17. Patient is allergic to sulfa 18. Repeat Vit D level on or about 09/01/2019 with copy to PCP 19. Negative Hep B&C serology, RF, HLA-B27, ANCA, CCP, KESHAWN 20. Uric acid was normal at 3.7 21. Patient should have an eye exam prior to starting Plaquenil and every 6-12 months as long as taking Plaquenil 22 Monitor Vit D level every 6 -12 months if remains low rec: eval by endo 23. Stop Celebrex - no help 24. Hold Cosentyx month before and month after any surgery or live vaccine (shingles). Hold Cosentyx anytime have an infection can restart once off of ATB and/or antiviral and free of infection. HoldCosentyx anytime have open wound and can restart once wound has healed. 25. F/U with me in 2 months 26. Rx given for Arava 10 mg 1 pill every other day 27. Start at low dose of can go higher if liver tolerated medication 28. Lab on or about 07/03/2019 and every 2 months thereafter 29. Multiple chemical sensitivities make treatment very difficult documented in this encounter* Devyn Mondragon Jr., - 10/04/2018 1:00 PM EDT History of Present Illness Dx with Psoriatic arthritis 2009. cosentyx started 12/2017. Cosentyx was helping and not bothering her. patient has been off of Cosentyx since 02/2018. Presence of Pain: complains of pain/discomfort (10/04/18 1240), Pain Location: (Everywhere) (10/04/18 1240), Select Pain Scale: DVPRS (Defense and Veterans Pain Rating Scale) (Adult-Cognitively Intact) (10/04/18 1240), DVPRS: Rest: 5- moderate pain(10/04/18 1240), DVPRS: Activity: 5- moderate pain (10/04/18 1240), Select Pain Scale: DVPRS (Defense and Veterans Pain Rating Scale) (Adult- Cognitively Intact) (10/04/18 1240), Pain Frequency: constant (10/04/18 1240), Pain Quality: aching (10/04/18 1240) Due to complex issues I spent at least 17 m inutes in face to face time with patient, more than 50% of that time was spent on counseling and coordination of care. Patient's lack of compliance makes treatment very difficult. Patient did not get lab as instructed.Energy level is some days good and some days really bad. Rash on back of neck. IBS is not too bad. Polydipsia is better. Back pain is always. Patient is being evaluated for an unstable chronic illness that increase morbidity and mortality. R knee surgery for torn meniscus in 06/2018. Joint pain fingers toes and wrists and she has been off of cosentyx. Patient told to restart cosentyx. Neck pain issometimes. Patient is here today for her 4 month F/U. Patient did not get blood work done because she had right knee surgery and she is just now able to get out. Patient states she was not been sent a refill on her Cosentyx since she had to stop from her surgery. Patient states she would feel better since the [facility] her medication. Patient states she is having pain in her TOMMIE wrist and toes. Review of Systems Review of Systems Constitutional: Positive for malaise/fatigue. Skin: Positive for rash and dry skin. Psoriasis HENT: Negative. Eyes: Negative. Cardiovascular: Negative. Respiratory: Negative. Gastrointestinal: Ibs. Breast: Negative. Genitourinary: Negative. Musculoskeletal: Positive for back pain, joint pain and neck pain. Neurological: Negative. Psychiatric: Negative. Allergy/Immunology: Negative. Lymph/Heme: Negative. Endocrine: Negative. Physical Exam Blood pressure 126/82, pulse 74, temperature 97 F (36.1 C), temperature source Temporal, height 1.651 m (5' 5 ), weight 130.2 kg (287 lb), SpO2 97 %. Physical Exam Constitutional: She is oriented to person, place, and time and well-developed, well-nourished, and in no distress. HENT: Head: Normocephalic and atraumatic. Right Ear: External ear normal. Left Ear: External ear normal. Nose: Nose normal. Mouth/Throat: Oropharynx is clear and moist. Crep B/L TMJ Eyes: Pupils are equal, round, and reactive to light. Conjunctivae and EOM are normal. Glasses Neck: Neck supple. Cardiovascular: Normal rate, regular rhythm and normal heart sounds. Pulses: Radial pulses are 2+ on the right side, and 2+ on the left side. Pulmonary/Chest: Effort normal and breath sounds normal. Abdominal: Soft. Bowel sounds are normal. Obese Musculoskeletal: Right shoulder: Normal. Left shoulder: Normal. Right elbow: Normal. Left elbow: Normal. Right wrist: Normal. Left wrist: Normal. Right knee: She exhibits decreased range of motion. Tenderness found. Left knee: She exhibits decreased range of motion. Right ankle: She exhibits decreased range of motion. Left ankle: She exhibits decreased range of motion. Right upper arm: Normal. Left upper arm: Normal. Right forearm: Normal. Left forearm: Normal. Right hand: Normal. Left hand: Normal. Hands: Right upper leg: Normal. Left upper leg: Normal. Right lower leg: Normal. Left lower leg: Normal. Legs: Neurological: She is alert and oriented to person, place, and time. She has normal sensation, normal strength and intact cranial nerves. Gait normal. GCS score is 15. Skin: Skin is warm and dry. psoriasis Psychiatric: Mood, memory, affect and judgment normal. Nursing note and vitals reviewed. Neurologic Exam Mental Status Oriented to person, place, and time. Cranial Nerves CN III, IV, Pupils are equal, round, and reactive to light. Extraocular motions are normal. Motor Exam Strength Strength 5/5 throughout. Gait, Coordination, and Reflexes Gait Gait: normal Assessment and Plan Encounter Diagnoses Name Primary? 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 current use of non-steroidal anti-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 (NSAID) Long-term current use of high risk medication other than anticoagulant Fatty liver TATUM (nonalcoholic steatohepatitis) Vitamin D deficiency DDD (degenerative disc disease), cervical Lumbar degenerative disc disease Osteoarthritis of cervical spine, unspecified spinal osteoarthritis complication status Osteoarthritis of both hands, unspecified osteoarthritis type Osteoarthritis of both wrists, unspecified osteoarthritis type Osteoarthritis of lumbar spine, unspecified spinal osteoarthritis complication status Primary osteoarthritis of both knees Thoracic degenerative disc disease Arthropathic psoriasis Psoriasis 1. Time was spent with the patient today in education in re: to all their medical conditions. A complete H&P&ROS was obtained and is either in this note or in the EHR. Please do not hesitate to contact me with any questions or concerns re: this patient. Past History Past medical, surgical, family, and social histories have been reviewed and updated with the patient today and are located elsewhere in the medical record. 2. Thank you for allowing me to participate in the care of your patient. With your permission I would like to F/U with your patient. 3. Stop Humira it makes her tired 4. CRP was elevated at 7.5 5. Rx given for cosentyx 6. CY level was elevated at 96 and then at 102- CXR shows no hilar adenopathy and patient sees Pulmonary soon - patient is going to reschedule 7. TB test was negative 8. Lab on or about 01/21/19 9. AST was elevated at 34 10. Monitor CBC/LFT/Renal func every 6-12 months as long as patient is on daily NSAID 11. F/U with me in 4 months 12. Otezla did not help her and caused depression 13. Methotrexate stopped secondary to pancreatitis 14. Cimzia did not work 15. Stelera did nothng 16. ESR was normal at 10 17. Patient is allergic to sulfa 18. ALT was elevated at 45 19. Negative Hep B&C serology, RF, HLA-B27, ANCA, CCP, KESHAWN 20. Uric acid was normal at 3.7 21. Patient should have an eye exam prior to starting Plaquenil and every 6-12 months as long as taking Plaquenil 22 Monitor Vit D level every 6 -12 months if remains low rec: eval by endo 23. Stop Celebrex - no help 24. Hold Cosentyx month before and month after any surgery or live vaccine (shingles). Hold Cosentyx anytime have an infection can restart once off of ATB and/or antiviral and free of infection. HoldCosentyx anytime have open wound and can restart once wound has healed. documented in this encounter Assessments Diagnosis Psoriatic arthritis- Primary Psoriatic arthropathy Psoriasis Other psoriasis Dry skin Other symptoms involving skin and integumentary tissues Arthropathic psoriasis Arthropathic psoriasis, unspecified History of psoriatic arthritis Personal history of arthritis Long-term current use of high risk medication other than anticoagulant intermediate current use of non-steroidal anti-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 (NSAID) Encounter for long-term (current) use of non-steroidal anti-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 Abnormal serum CY level Other nonspecific abnormal serum enzyme levels Vitamin D deficiency Unspecified vitamin D deficiency TATUM (nonalcoholic steatohepatitis) Other chronic nonalcoholic liver disease Fatty liver Primary osteoarthritis of both knees Primary localized osteoarthrosis, lower leg Osteoarthritis of both hands, unspecified osteoarthritis type Osteoarthritis of both wrists, unspecified osteoarthritis type Lumbar degenerative disc disease Degeneration of lumbar or lumbosacral intervertebral disc Osteoarthritis of lumbar spine, unspecified spinal osteoarthritis complication status DDD (degenerative disc disease), cervical Degeneration of cervical intervertebral disc Osteoarthritis of cervical spine, unspecified spinal osteoarthritis complication status Thoracic degenerative disc disease Degeneration of thoracic or thoracolumbar intervertebral disc Diagnosis Vitamin D deficiency- Primary Unspecified vitamin D deficiency Diagnosis Psoriatic arthritis- Primary Psoriatic arthropathy Psoriasis Other psoriasis Arthropathic psoriasis Psoriatic arthropathy Long-term current use of high risk medication other than anticoagulant intermediate current use of non-steroidal anti-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 (NSAID) Encounter for long-term (current) use of non-steroidal anti-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 Fatigue, unspecified type Vitamin D deficiency Unspecified vitamin D deficiency TATUM (nonalcoholic steatohepatitis) Other chronic nonalcoholic liver disease Fatty liver Other chronic nonalcoholic liver disease Thoracic degenerative disc disease Degeneration of thoracic or thoracolumbar intervertebral disc Primary osteoarthritis of both knees Primary localized osteoarthrosis, lower leg Osteoarthritis of lumbar spine, unspecified spinal osteoarthritis complication status Osteoarthritis of both wrists, unspecified osteoarthritis type Osteoarthritis of both hands, unspecified osteoarthritis type Osteoarthritis of cervical spine, unspecified spinal osteoarthritis complication status Lumbar degenerative disc disease Degeneration of lumbar or lumbosacral intervertebral disc DDD (degenerative disc disease), cervical Degeneration of cervical intervertebral disc Diagnosis Vitamin D deficiency- Primary Unspecified vitamin D deficiency Diagnosis Lumbar facet arthropathy- Primary Lumbosacral spondylosis without myelopathy Diagnosis Lumbar facet arthropathy- Primary Lumbosacral spondylosis without myelopathy Diagnosis Psoriatic arthritis- Primary Psoriatic arthropathy Dry skin Other symptoms involving skin and integumentary tissues CRP elevated Elevated C-reactive protein (CRP) History of psoriatic arthritis Personal history of arthritis intermediate current use of non-steroidal anti-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 (NSAID) Encounter for long-term (current) use of non-steroidal anti-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 Long-term current use of high risk medication other than anticoagulant Fatty liver Other chronic nonalcoholic liver disease TATUM (nonalcoholic steatohepatitis) Other chronic nonalcoholic liver disease Vitamin D deficiency Unspecified vitamin D deficiency DDD (degenerative disc disease), cervical Degeneration of cervical intervertebral disc Lumbar degenerative disc disease Degeneration of lumbar or lumbosacral intervertebral disc Osteoarthritis of cervical spine, unspecified spinal osteoarthritis complication status Osteoarthritis of both hands, unspecified osteoarthritis type Osteoarthritis of both wrists, unspecified osteoarthritis type Osteoarthritis of lumbar spine, unspecified spinal osteoarthritis complication status Primary osteoarthritis of both knees Primary localized osteoarthrosis, lower leg Thoracic degenerative disc disease Degeneration of thoracic or thoracolumbar intervertebral disc Arthropathic psoriasis Psoriatic arthropathy Psoriasis Other psoriasis Diagnosis Sacroiliitis (HCC) Sacroiliitis, not elsewhere classified Diagnosis Breast cancer screening by mammogram Diagnosis Psoriatic arthritis- Primary Psoriatic arthropathy Dry skin Other symptoms involving skin and integumentary tissues Abnormal serum CY level Other nonspecific abnormal serum enzyme levels History of psoriatic arthritis Personal history of arthritis deck cadet current use of non-steroidal anti-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 (NSAID) Encounter for long-term (current) use of non-steroidal anti-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 Long-term current use of high risk medication other than anticoagulant Fatty liver Other chronic nonalcoholic liver disease TATUM (nonalcoholic steatohepatitis) Other chronic nonalcoholic liver disease Vitamin D deficiency Unspecified vitamin D deficiency DDD (degenerative disc disease), cervical Degeneration of cervical intervertebral disc Lumbar degenerative disc disease Degeneration of lumbar or lumbosacral intervertebral disc Osteoarthritis of cervical spine, unspecified spinal osteoarthritis complication status Osteoarthritis of both hands, unspecified osteoarthritis type Osteoarthritis of both wrists, unspecified osteoarthritis type Osteoarthritis of lumbar spine, unspecified spinal osteoarthritis complication status Primary osteoarthritis of both knees Primary localized osteoarthrosis, lower leg Thoracic degenerative disc disease Degeneration of thoracic or thoracolumbar intervertebral disc Arthropathic psoriasis Psoriatic arthropathy Psoriasis Other psoriasis Reason for Referral Status Reason Specialty Diagnoses / Procedures Referre d By Contact Referred To Contact Open Radiology Diagnoses Sacroiliitis (HCC) Procedures MRI SACRUM COCCYX W WO CONTRAST Karen Morrison MD [address] [place] [address] Status Reason Specialty Diagnoses / Procedures Referre d By Contact Referred To Contact Closed Radiology Diagnoses Breast cancer screening by mammogram Procedures ROSA DAMION DIGITAL SCREEN SELF REFERRAL W OR WO CAD BILATERAL Khurram Osman [facility] [place] [address] Specialty Diagnoses / Procedures Referred By Contac t Referred To Contact Cardiology Diagnoses Primary osteoarthritis of right knee Noé Polanco MD [id number] [facility] [address] [place] [address] Referral ID Status Reason Start Date Expiration Date Visits Requested Visits Authorized [id number] Authorized Specialty Services Required/Pat ient's Best Interest 07/30/2022 07/30/2023 1 1 Specialty Diagnoses / Procedures Referred By Contac t Referred To Contact Radiology Diagnoses Primary osteoarthritis of right knee Procedures CT Knee Right Without Contrast Noé Polanco MD [address] [place], [place] [id number] Referral ID Status Reason Start Date Expiration Date V isits Requested Visits Authorized [id number] New Request 07/30/2022 07/30/2023 1 1 Specialty Diagnoses / Procedures Referred By Contac t Referred To Contact Radiology Diagnoses Screening mammogram for breast cancer Procedures ROSA DAMION DIGITAL SCREEN SELF REFERRAL W OR WO CAD BILATERAL Malik Denson MD [address] [place] [address] Referral ID Status Reason Start Date Expiration Date Visits Re quested Visits Authorized [id number] Closed 06/29/2023 06/28/2024 1 1 Additional Source Comments INFORMATION SOURCE (unrecogn ized section and content) DATE CREATED AUTHOR 10/26/2017 [facility] DATE CREATED AUTHOR AUTHOR'S ORGANIZ ATION 11/02/2017 [facility] DATE CREATED AUTHOR AUTHOR'S ORGANIZ ATION 11/17/2017 [facility] DATE CREATED AUTHOR AUTHOR'S ORGANIZ ATION 08/04/2018 [facility] DATE CREATED AUTHOR AUTHOR'S ORGANIZ ATION 02/16/2021 [facility] DATE CREATED AUTHOR AUTHOR'S ORGANIZ ATION 07/22/2022 [facility] DATE CREATED AUTHOR AUTHOR'S ORGANIZ ATION [facility]/04[facility]20[facility] DATE CREATED AUTHOR AUTHOR'S ORGANIZ ATION 08/10/2022 [facility] DATE CREATED AUTHOR AUTHOR'S ORGANIZ ATION 07/07/2023 [facility] DATE CREATED AUTHOR AUTHOR'S ORGANIZ ATION 10/30/2023 Henriquez Sequoyah [facility] DATE CREATED AUTHOR AUTHOR'S ORGANIZ ATION 12/09/2023 Henriquez Tito [facility] DATE CREATED AUTHOR AUTHOR'S ORGANIZ ATION 07/15/2024 [facility] DATE CREATED AUTHOR AUTHOR'S ORGANIZ ATION 08/03/2024 [facility] DATE CREATED AUTHOR AUTHOR'S ORGANIZ ATION 10/08/2024 [facility] DATE CREATED AUTHOR AUTHOR'S ORGANIZ ATION 11/11/2024 [facility] DATE CREATED AUTHOR AUTHOR'S ORGANIZ ATION 11/19/2024 [facility] Reason for Visit (unrecogniz ed section and content) Reason Comments Joint Pain Patient is here toda y for her 4 month F/U. Patient states she has been without her Cosentyx because she had the flu and she has been slowing recovering from it. Patient states since she has been of her cosentyx she is having joint pain. Patients last injection was the first week in February before she was hospitalized for the flu. Reason Comments Medication Refill Reason Comments Insurance Cosentyx Reason Comments Joint Pain Patient is here toda y for her 4 month F/U. Patient states she has been off her injection since 06/2018 because of her right knee surgery. Patient states when she called the pharmacy to start her Cosentyx again they told her she needed a new PA and they could not send her medication. I looked in patients PA is good until 12/01/2019. Patient states she will get peeling and blisters on her TOMMIE hand. Reason Comments Results Reason Comments Chronic Pain Status Reason Specialty Diagnoses / Procedures Referred By Contact Referred To Contact Authorized - Community Connect Diagnoses Lumbar facet arthropathy Rose Mary Sharpe, RIGGING HELPER-FARM FIELD MANAGER [address] [facility] [place] [address] Reason Comments Joint Pain Patient is here toda y for her 3 Month F/U. Patient states she does not think the Consetyx is working. Patient states she was sick in March so she missd one dose. Patient states she is having severe joint pain everyday. Status Reason Specialty Diagnoses / Procedures Referre d By Contact Referred To Contact Closed Radiology Diagnoses Dorsalgia, unspecified Procedures HC MRI-SPINE LUMBAR WO & W CONT [place] MRI, LUMBAR SPINE Asya Peoples [address] [place] [address] [facility] [address] [place] [address] Status Reason Specialty Diagnoses / Procedures Referre d By Contact Referred To Contact Closed Radiology Diagnoses Breast cancer screening by mammogram Procedures ROSA DAMION DIGITAL SCREEN SELF REFERRAL W OR WO CAD BILATERAL Khurram Osman [facility] [place] [address] Reason Comments Joint Pain Patient is here toda y for her 4 month F/U. Patient did not get blood work done because she had right knee surgery and she is just now able to get out. Patient states she was not been sent a refill on her Cosentyx since she had to stop from her surgery. Patient states she would feel better since the Specialty [facility] would send her medication. Patient states she is having pain in her TOMMIE wrist and toes. Reason Comments Pain Reason Comments Pre-op Exam Right knee Reason Comments Facial Swelling Reports feeling fati merna, swelling under the eyes and increased urination. Specialty Diagnoses / Procedures Referred By Contac t Referred To Contact Radiology Diagnoses Screening mammogram for breast cancer Procedures ROSA DAMION DIGITAL SCREEN SELF REFERRAL W OR WO CAD BILATERAL Malik Denson MD [address] [place] [id number] Referral ID Status Reason Start Date Expiration Date Visits Re quested Visits Authorized [id number] Closed 06/29/2023 06/28/2024 1 1 Care Teams (unrecognized sec tion and content) Agricultural Equipment Operator Relationship Specialty Start Date End Date Khurram Osman MD [address] [place] [address] PCP - General Family Medicine 03/27/21 Agricultural Equipment Operator Relationship Specialty Start Date End Date Khurram Osman MD [address] [place] [address], [place] [address] PCP - General Family Medicine 03/27/21 Agricultural Equipment Operator Relationship Specialty Start Date End Date Khurram Osman MD [address] [place] [address], [place] [address] PCP - General Family Medicine 03/27/21 Agricultural Equipment Operator Relationship Specialty Start Date End Date Khurram Osman MD [address] [place] [address], [place] [id number] PCP - General Family Medicine 03/27/21 Agricultural Equipment Operator Relationship Specialty Start Date End Date Khurram Osman MD [address] [place] [address], [place] [id number] PCP - General Family Medicine 03/27/21 Agricultural Equipment Operator Relationship Specialty Start Date End Date Khurram Osman MD [address] [place] [address], [place] [id number] PCP - General Family Medicine 03/27/21 Agricultural Equipment Operator Relationship Specialty Start Date End Date Khurram Osman MD [address] [place] [address], [place] [address] PCP - General Family Medicine 03/27/21 Agricultural Equipment Operator Relationship Specialty Start Date End Date Khurram Osman MD [address] [place] [address], [place] [address] PCP - General Family Medicine 03/27/21 Agricultural Equipment Operator Relationship Specialty Start Date End Date Khurram Osman [address] [place] [phone] PCP - General 05/23/12 FOR RECORDS PERTAINING TO PATIENTS WHO ARE OR HAVE BEEN ENROLLED IN A CHEMICAL DEPENDENCY/SUBSTANCEABUSE PROGRAM, SOME INFORMATION MAY BE OMITTED. This clinical summary was aggregated from multiple sources. Caution should be exercised in using it in the provision of clinical care. This summary normalizes information from multiple sources, and as a consequence, information in this document may materially change the coding, format and clinical context of patient data. In addition, data may be omitted in some cases. CLINICAL DECISIONS SHOULD BE BASED ON THE PRIMARY CLINICAL RECORDS. [employer] provides no warranty or guarantee of the accuracy or completeness of information in this document.
--- OUTSIDE RECORDS SUMMARY | 2025-02-22 13:52 | XMS_ITS | Patient Health Record ---
Author Organization [facility] Address [address] [place] [address] Care Team Providers Care Diver Pumper Name Role Phone ROLAND SAMUELS CNP Primary Care Provider [facility] gamal Aguero Clair Gaylajerome Unavailable [phone] Christ Sharpe Unavailable [phone] Tad Li Unavailable [phone] Gloria Lopez Unavailable Allergies Allergen (clinical drug ingredient) Drug/Non Drug Allergy documented on EMR Reaction Allergy Type Onset Date Status Seafood seafood (uncoded) nausea/vomiting Allergy Active sulfa (uncoded) nausea/vomiting Allergy Active Reason For Referral Reason NO AUTH REQ......... ..........................NOT SCHEDULED....................................[facility] lumbar spine at [facility] Diagnosis 1 Encounter for other orthopedic aftercare (Z47.89) Diagnosis 2 Left leg weakness (R 29.898) Diagnosis 3 Left foot drop (M21. 372) Referral Organization [facility] Referring Provider First Name Bran Referring Provider Last Name [facility] Referring Provider Speciality Orthopedic Surgery Referred Organization [facility] Scheduling Procedure 1 MRI Lumbar Spine w/o Dye (15137) General Notes Birdie Bruner 06/2024 12:05:24 PM >, Joyce Rafaela 02/08/2025 12:07:30 PM > MEDICARE PARTS A & B ACTIVE AND EFFECTIVE 10/08/20 PER [employer]. NO AUTHORIZATION REQUIRED. FAXED TO [facility].Franc Sara 02/08/2025 02:14:21 PM > faxed Referral Priority Routine Reason referral to Dr. Smyth rne; left lower extremity EMG Diagnosis 1 Encounter for other orthopedic aftercare (Z47.89) Diagnosis 2 Left foot drop (M21. 372) Diagnosis 3 Left leg weakness (R 29.898) Referral Organization [facility] Referring Provider First Name Bran Referring Provider Last Name St Ja[facility] Referring Provider Speciality Orthopedic Surgery Referred Organization [facility] Referred Address [address], [place],[address], General Notes Birdie Bruner 06/2024 12:06:29 PM >Franc Sara 02/14/2025 02:10:25 PM > faxed Referral Priority Routine Medications Medication SIG (Take, Route, Frequency, Duration) Notes Start Date End Date Status Orencia Active Ozempic 8 mg/3 mL (2 mg dose) INJECT 2 MG UNDER THE SKIN EVERY WEEK for 28 Days Active metFORMIN Active baclofen 10 mg TAKE 1 TABLET BY RAMU TWICE DAILY for 90 Days Active atorvastatin Active rOPINIRole Active carvedilol 25 mg for 90 Days A ctive gabapentin 300 mg for 30 Days Active spironolactone 50 mg TAKE 1 TABLET BY [facility] DAILY for 35 Days Active Effexor XR Active ezetimibe 10 mg for 30 Days Ac tive losartan Active amLODIPine Active levothyroxine 125 mcg (0.125 mg) 1 tab(s) Active Social History Tobacco Use: Social History Observation Description Date Details (start date - stop date) Never Smoker NA - NA AUDIT-C (Standard) Question Answer Notes Did you have a drink containing alcohol in the p ast year? No Points 0 Interpretation Negative Tobacco Control (Standard) Question Answer Notes Tobacco use: Nonsmoker Problems Problem Type SNOMED Code ICD Code Onset Dates Problem Status W/U Status Risk Notes Problem Lumbosacral radiculopathy (3795920) Lumbosacral radiculopathy (M54.17) Active confirmed Problem 414991752 Arthrodesis status (Z98.1) Active confirmed Problem 13301118761125 Morbid (severe) obesity due to excess calories (E66.01) Active confirmed Problem 13892166 Disruption of external operation (surgical) wound, not elsewhere classified, initial encounter (T81.31XA) Active confirmed Problem Degeneration of lumbosacral intervertebral disc (32385274) DDD (degenerative disc disease), lumbosacral (M51.37) Active confirmed Problem Lumbosacral stenosis (085315826) Lumbosacral stenosis (M48.07) Active confirmed Problem 695865779 Encounter for other orthopedic aftercare (Z47.89) Active confirmed Problem 041483415 Body mass index [BMI] 45.0-49.9, adult (Z68.42) Active confirmed Vital Signs Height 5 ft 4 in in 02/08/2025 Weight 265 lbs 02/08/2025 BMI 45.48 02/08/2025 Encounters Encounter Location Date Provider Diagnosis [facility] [address] [place] [phone] 02/08/2025 Tad Li Encounter for other orthopedic aftercare Z47.89 ; Left leg weakness R29.898 and Left foot drop M21.372 [facility] [address] [facility] [place] [address] [place] [address] 03/10/2024 [facility] Aftercare following surgery of the musculoskeletal system Z47.89 [facility] [address] [place] [phone] 03/17/2024 [facility] Aftercare following surgery of the musculoskeletal system Z47.89 [facility] [address] [place] [phone] 03/31/2024 Tad Digtommie Encounter for other orthopedic aftercare Z47.89 ; Disruption of external operation (surgical) wound, not elsewhere classified, initial encounter T81.31XA and Arthrodesis status Z98.1 [facility] [address] [place] [phone] 04/21/2024 [facility] Encounter for other orthopedic aftercare Z47.89 ; Disruption of external operation (surgical) wound, not elsewhere classified, initial encounter T81.31XA ; Lumbosacral radiculopathy M54.17 and Arthrodesis status Z98.1 [facility] [address] [place] [address] 05/19/2024 Tad Li Encounter for other orthopedic aftercare Z47.89 ; Lumbosacral radiculopathy M54.17 and Arthrodesis status Z98.1 [facility] [address] [place] [address] 08/04/2024 Christ Sharpe Aftercare following surgery of the musculoskeletal system Z47.89 [place] [address] [place] [address] 02/28/2024 Tad Li Aftercare following surgery of the musculoskeletal system Z47.[address] [place] [address] 03/15/2024 Bran Castillo [address] [place] [address] 04/05/2024 Bran Aguero Clair Aftercare following surgery of the musculoskeletal system Z47.89 Assessments Encounter Date Diagnosis (ICD Code) Assessment Notes Treatment Notes Treatment Clinical Notes Section Notes 02/28/2024 Aftercare following surgery of the musculoskeletal system (ICD-10 - Z47.89) 03/10/2024 Aftercare following surgery of the musculoskeletal system (ICD-10 - Z47.89) 1. Surgical wound dehiscence 2. 5 weeks s/p L2-S1 decompression/f usion, L4-5, L5-S1 TLIF 03/17/2024 Aftercare following surgery of the musculoskeletal system (ICD-10 - Z47.89) 1. 7 weeks s/p L2-S1 decompression/f usion, L4-5, L5-S1 TLIF 2. Surgical wound dehiscence 03/31/2024 Disruption of external operation (surgical) wound, not elsewhere classified, initial encounter (ICD-10 - T81.31XA) 1. 9-week status post L2-S1 decompression and fusion 03/31/2024 Encounter for other orthopedic aftercare (ICD-10 - Z47.89) 1. 9-week status post L2-S1 decompression and fusion 04/05/2024 Aftercare following surgery of the musculoskeletal system (ICD-10 - Z47.89) 04/21/2024 Disruption of external operation (surgical) wound, not elsewhere classified, initial encounter (ICD-10 - T81.31XA) 1. 11 weeks s/p L2-S1 decompression/f usion, L4-S1 TLIF 04/21/2024 Encounter for other orthopedic aftercare (ICD-10 - Z47.89) 1. 11 weeks s/p L2-S1 decompression/f usion, L4-S1 TLIF 05/19/2024 Lumbosacral radiculopathy (ICD-10 - M54.17) 1. 4-month status post L2-S1 decompression and L4-S1 fusion 05/19/2024 Encounter for other orthopedic aftercare (ICD-10 - Z47.89) 1. 4-month status post L2-S1 decompression and L4-S1 fusion 08/04/2024 Aftercare following surgery of the musculoskeletal system (ICD-10 - Z47.89) 1. 6 months status post L2-S1 decompression and fusion 2. Left foot drop 02/08/2025 Left leg weakness (ICD-10 - R29.898) 1. 1 year status post L2-S1 decompression and fusion with complaints of left leg weakness and left foot drop 02/08/2025 Encounter for other orthopedic aftercare (ICD-10 - Z47.89) 1. 1 year status post L2-S1 decompression and fusion with complaints of left leg weakness and left foot drop 02/08/2025 Left foot drop (ICD-10 - M21.372) 1. 1 year status post L2-S1 decompression and fusion with complaints of left leg weakness and left foot drop 05/19/2024 Arthrodesis status (ICD-10 - Z98.1) 1. 4-month status post L2-S1 decompression and L4-S1 fusion 04/21/2024 Lumbosacral radiculopathy (ICD-10 - M54.17) 1. 11 weeks s/ p L2-S1 decompression/f usion, L4-S1 TLIF 03/31/2024 Arthrodesis status (ICD-10 - Z98.1) 1. 9-week status post L2-S1 decompression and fusion 04/21/2024 Arthrodesis status (ICD-10 - Z98.1) 1. 11 weeks s/p L2-S1 decompression/f usion, L4-S1 TLIF 02/08/2025 Other Plan established by Dr. Carrion. [...] left leg weakness and left foot drop 03/10/2024 Other Plan established by Dr. Carrion. Patient evaluated by myself and Dr. Carrion today. For the patient's wound dehiscence I have started her on Keflex and Bactrim prophylactically. We have instructed patient to do wet-to-dry dressings twice daily. We also discussed nutrition and recommended boost/Ensure shakes 3 times daily to ensure enough protein intake. We will see patient back in 2 weeks to reassess her wound and get x-rays for her 6-week follow-up. The patient is very much in agreement with the treatment and/or diagnostic plan set forth and all questions were answered to the patient's satisfaction. Thanks once again. If we can be of further service to your patients with disorders of the spine, cervical, thoracic, or lumbar, please do not hesitate to contact Dr. Carrion. Best regards, 1. Surgical wound dehiscence 2. 5 weeks s/p L2-S1 decompression/f usion, L4-5, L5-S1 TLIF 03/17/2024 Other Patient is doing well postoperatively and we have been following her closely for a small portion of wound dehiscence from her surgical incision. This looks good today and I have encouraged her to continue doing wet-to-dry dressings. She will finish her antibiotics and we will see her back in 2 weeks to reevaluate her wound. The patient is very much in agreement with the treatment and/or diagnostic plan set forth and all questions were answered to the patient's satisfaction. Thanks once again. If we can be of further service to your patients with disorders of the spine, cervical, thoracic, or lumbar, please do not hesitate to contact Dr. Carrion. Best regards, 1. 7 weeks s/p L2-S1 decompression/f usion, L4-5, L5-S1 TLIF 2. Surgical wound dehiscence 03/31/2024 Other Plan established by Dr. Carrion. Patient seen and evaluated by Dr. Carrion today. Her wound is healing. We will have her continue to do wet-to-dry dressing changes. We will see her back in the office on 04/21 for an incision check or sooner if needed. Patient will keep us updated. The patient is very much in agreement with the treatment and/or diagnostic plan set forth and all questions were answered to the patient's satisfaction. Thanks once again. If we can be of further service to your patients with disorders of the spine, cervical, thoracic, or lumbar, please do not hesitate to contact Dr. Carrion. Best regards, 1. 9-week status post L2-S1 decompression and fusion 04/21/2024 Other Patient is doing well postoperatively and is starting to see some improvement of her numbness to the left lower extremity. She is getting some intermittent swelling with increased walking into that leg which does set her back sometimes. I will give her an order for outpatient physical therapy to continue strengthening her left lower extremity. She can continue the wet-to-dry dressings for probably another 1 to 2 weeks and then use dressing as needed. We will see her back in 4 weeks for another wound recheck. The patient is very much in agreement with the treatment and/or diagnostic plan set forth and all questions were answered to the patient's satisfaction. Thanks once again. If we can be of further service to your patients with disorders of the spine, cervical, thoracic, or lumbar, please do not hesitate to contact Dr. Carrion. Best regards, 1. 11 weeks s/p L2-S1 decompression/f usion, L4-S1 TLIF 05/19/2024 Other Plan established by Dr. Carrion. Patient is no longer having any issues with her incision. She is to continue with therapy and has no set restrictions. We did set her up with a left AFO brace to be worn when walking. She was encouraged to still remove the brace and do exercises with the foot. We will see her back in our office in 2 months for a 6-month lumbar recheck. The patient is very much in agreement with the treatment and/or diagnostic plan set forth and all questions were answered to the patient's satisfaction. Thanks once again. If we can be of further service to your patients with disorders of the spine, cervical, thoracic, or lumbar, please do not hesitate to contact Dr. Carrion. Best regards, 1. 4-month status post L2-S1 decompression and L4-S1 fusion 08/04/2024 Other Plan established by Dr. Carrion. At this time, patient is doing okay from surgery. Will see her back in the office in 6 months for reevaluation. The patient is very much in agreement with the treatment and/or diagnostic plan set forth and all questions were answered to the patient's satisfaction. Thanks once again. If we can be of further service to your patients with disorders of the spine, cervical, thoracic, or lumbar, please do not hesitate to contact Dr. Carrion. Best regards, 1. 6 months status post L2-S1 decompression and fusion 2. Left foot drop Plan Of Treatment Pending Test Test Name Order Date Lumbar spine, 4v flex ext - 77065 2024 Lumbar spine, 4v flex ext - 68423 2023 Lumbar spine, 4v flex ext - 07243 2024 Lumbar spine 2v ap and lat - 61466 03/17 Lumbar spine 2v ap and lat - 43758 04/21 MRI : Lumbosacral Spine W/O Contrast - 7 214702/08/2025 EMG/NCS Lower Extremity, Left 02/08/2025 Walker w/ Wheels OTS 01/21/2024 Surgery Scheduling 01/03/2024 DME - Lumbar Support, Surgical OTS 01/20 SFS - Lumbar Spine PT Order, Isometrics & Strenghening w/Modalities as needed, 2-3 times per week for 6 weeks 04/05/2024 SFS - Lumbar Spine PT Order, Isometrics & Strenghening w/Modalities as needed, 2-3 times per week for 6 weeks 04/21/2024 AFO BRACE 05/19/2024 Future Test Test Name Order Date Chest 2 views - [id number] 01/03/2024 CBC 01/03/2024 Type and Screen Blood Type 01/03/2024 HGB A1C 01/03/2024 PT/PTT 01/03/2024 BMP 01/03/2024 MRSA (Bilateral Nares) PCR 01/03/2024 EKG 01/03/2024 Insurance Providers Payer Name Payer Address Payer Phone Subscriber Number Group Number Insured Name Patient Relationship to Insured Coverage Start Date Coverage End [place] [address] [place] [phone] [id number] ANDREEA VALLE Self - patient is the insured Medical (General) History Medical History History ICD Code High Blood Pressure Liver Disease Diabetes Thyroid disease Gastric Reflux Irritable bowel syndrome Osteoarthritis Endometriosis Ovarian Cysts Anxiety Seen a Psychiatrist Sleep apnea Drug Allergies Surgical History Surgery Date(Month/Year) L4-S1 TLIF, L2-3 laminectomy, PSF 2023
--- OUTSIDE RECORDS SUMMARY | 2025-02-22 13:52 | XMS_ITS | Clinical Summary ---
Author Organization [employer] [facility] Address [id number] [address] [place] [address] Care Team Providers Care Adding Machine Mechanic Name Role Phone Andria Osman MD Primary Care Provider [phone] Allergies Active Allergy Reactions Criticality Noted Date Comments Adhesive Hives High 10/15/2020 Severe skin irritation, blisters with steri strips Cephalosporins Vomiting High 09/14/2012 Minocycline Hcl Nausea And Vomiting Low 06/29/2018 Oxycodone-Acetaminophen Itching Medium 10/08/2017 Shellfish Containing Products Nausea And Vomiting Low 06/29/2018 Sulfa (Sulfonamide Antibiotics) Itching Medium 06/14/2019 Medications rOPINIRole (REQUIP) 0.25 mg tablet ropinirole 0.25 mg tablet 7 Active glipiZIDE (GLUCOTROL) 10 mg tablet TK 1 T PO QAM 0 Active metFORMIN (GLUCOPHAGE) 500 mg tablet TK 1 T PO QAM 0 Active amLODIPine (NORVASC) 5 mg tablet Take 5 mg by mouth daily. 0 Active losartan (COZAAR) 100 mg tablet Take 100 mg by mouth daily. 0 Active ergocalciferol (DRISDOL) 1,250 mcg (50,000 unit) capsule daily. Active clotrimazole-bet amethasone (LOTRISONE) cream JON SML AMT EXT AA BID PRN 0 Active carvedilol (COREG) 25 mg tablet Take 25 mg by mouth 2 (two) times a day. 9 Active venlafaxine XR (EFFEXOR-XR) 150 mg 24 hr capsule venlafaxine ER 150 mg capsule,extende d release 24 hr Active levothyroxine (SYNTHROID, LEVOTHROID) 125 MCG tablet Take 125 mcg by mouth daily. 9 Active ketoconazole (NIZORAL) 2 % cream JON EXT AA TID PRN 9 Active baclofen (LIORESAL) 10 mg tablet Take 10 mg by mouth 2 (two) times a day. 9 Active famotidine (PEPCID) 20 mg tablet Take 20 mg by mouth 2 (two) times a day. Active fexofenadine (AMRITA) 180 mg tablet Take 180 mg by mouth daily. Active [id number] acid () 29 mg iron- 1 mg tablet,chewableI ndications:Healt hcare maintenance Chew 1 tablet and swallow daily. 90 tablet 3 0 Active gabapentin (NEURONTIN) 300 mg capsuleIndicatio ns:Morbid obesity (CMS-HCC),Arthra lgia, unspecified joint Take 1 capsule (300 mg total) by mouth 3 (three) times a day. Start taking 3 days prior to surgery, then 1 tablet morning of surgery. 10 capsule 1 Active spironolactone (ALDACTONE) 50 mg tablet Take 50 mg by mouth daily. Active venlafaxine XR (EFFEXOR-XR) 75 mg 24 hr capsule Take 75 mg by mouth daily. 1 Active traMADoL (ULTRAM) 50 mg tablet Take 50 mg by mouth daily as needed. 1 Active secukinumab (COSENTYX) 150 mg/mL syringe Inject 2 mL under the skin every 30 (thirty) days. Active amLODIPine (NORVASC) 10 mg tablet Take 10 mg by mouth daily. 1 Active scopolamine (TRANSDERM-SCOP) 1 mg/3 days APPLY 1 PATCH ON THE SKIN BEHIND THE EAR THE NIGHT BEFORE SURGERY WASH HANDS IMMEDIATELY AFTER APPLYING 1 Active ONETOUCH DELICA PLUS LANCET 33 gauge misc USE DIRECTED TO TEST BLOOD SUGARS ONCE DAILY 1 Active cyanocobalamin, vitamin B-12, (VITAMIN B12 ORAL) Take 1,000 mcg by mouth daily. Active Active Problems No known active problems Immunizations Immunization Administration Dates Next Due COVID-19, mRNA, LNP-S, PF, 100mcg/0.5mL Dose 12/2020,07/18/2020 Family History * Patient is adopted Medical History Relation Name Comments Diabetes Mother Relation Name Status Comments Mother Social History Tobacco Use Types Packs/Day Years Used Date Smoking Tobacco: Never Smokeless Tobacco: Never Alcohol Use Standard Drinks/Week Comments Not Currently 0 (1 standard drink = 0.6 oz pur e alcohol) Childcare Answer Date Recorded Childcare Unknown 10/19/2018 Employment Answer Date Recorded Employment Unknown 10/19/2018 Purpose - Life Answer Date Recorded Purpose and direction in life Unknown Comments No Sex and Gender Information Value Date Recorded Sex Assigned at Not on file Legal Sex Female 11:59 AM EDT Gender Identity Not on file Sexual Orientation Not on file Last Filed Vital Signs Vital Sign Reading Time Taken Comments Blood Pressure 135/85 10/15/2020 9:12 AM EDT Pulse 93 10/15/2020 9:12 AM EDT Temperature 36 C (96.8 F) 10/15/2020 9:12 AM EDT Respiratory Rate 16 10/15/2020 9:12 AM EDT Oxygen Saturation 96% 10/15/2020 9:12 AM EDT Inhaled Oxygen Concentration - - Weight 133.8 kg (295 lb) 10/15/2020 9:12 AM EDT Height 162.6 cm (5' 4 ) 10/15/2020 9:12 AM EDT Body Mass Index 50.64 10/15/2020 9:12 AM EDT Plan of Treatment Health Maintenance Due Date Last Done Comments Depression Screening 1980 Tobacco Screening 1980 Adult BMI Screening 1986 DTaP,Tdap and Td Vaccines (1 - Tdap) 1987 Pap Smear 1989 Zoster (Shingles) Vaccine (1 of 2) 2018 COVID-19 Vaccine (3 - season) 01/08/202512/2020, 07/18/2020 Influenza Vaccine 01/08/2025 04/08/2016 Medical Devices Not on file Insurance [employer] Care Teams Adding Machine Mechanic Relationship Specialty Start Date End Date Andria Osman MD PCP - General Family Medicine 06/14/19
--- OUTSIDE RECORDS SUMMARY | 2025-02-22 13:52 | XMS_ITS | Encounter Summary ---
Author Organization [facility] Address [address] [place] [address] Care Team Providers Care Tack Driller Name Role Phone Andria Osman MD Primary Care Provider [phone] Malik Denson MD Primary Care Provider [phone] Reason for Visit * Reason Comments Med Refill Encounter Details Date Type Department Care Team (Late Contact Info) Description 10/16/[address] [facility] [address] [place] [address] Joyce Yost, INSURANCE SPECIAL AGENT [address] [place] [id number] Essential hypertension Social History Tobacco Use Types Packs/Day Years Used Date Smoking Tobacco: Never Assessed Comments Unknown Sex and Gender Information Value Date Recorded Sex Assigned at Not on file Legal Sex Female 9:47 PM EDT Gender Identity Not on file Sexual Orientation Not on file documented as of this encounter Plan of Treatment Upcoming Encounters Date Type Department Care Team (Late Contact Info) Description 03/16/2025 1:40 PM EST Office Visit [facility] [address] [place] [address] Toni Tovar MD [address] [place] [address] documented as of this encounter Visit Diagnoses Diagnosis Essential hypertension Unspecified essential hypertension documented in this encounter Care Teams Tack Driller Relationship Specialty Start Date End Date Andria Osman MD [address] PCP - General 08/04/22 04/29/23 Malik Denson MD [address] [place] [address] PCP - General Family Medicine 04/30/23 documented as of this encounter
--- OUTSIDE RECORDS SUMMARY | 2025-02-22 13:53 | XMS_ITS | Clinical Summary ---
Author Organization [facility] Address [address] [place] [address] Care Team Providers Care Rrts Name Role Phone Unavailable Primary Care Provider Unavailabl e Social History Tobacco Use Types Packs/Day Years Used Date Smoking Tobacco: Never Assessed Comments Unknown Sex and Gender Information Value Date Recorded Sex Assigned at Not on file Legal Sex Female 6:49 PM EDT Gender Identity Not on file Sexual Orientation Not on file Last Filed Vital Signs Vital Sign Reading Time Taken Comments Blood Pressure - - Pulse - - Temperature - - Respiratory Rate - - Oxygen Saturation - - Inhaled Oxygen Concentration - - Weight 131 kg (288 lb 12.8 oz) 02/20/2022 12:00 PM EDT Height 162.6 cm (5' 4 ) 02/20/2022 12:00 PM EDT Body Mass Index 49.57 02/20/2022 12:00 PM EDT Plan of Treatment Not on file
--- OUTSIDE RECORDS SUMMARY | 2025-02-22 13:53 | XMS_ITS | Clinical Summary ---
Author Organization [facility] Address [address] [place] [address] Care Team Providers Care Gas Plant Repairer Name Role Phone Malik Denson MD Primary Care Provider [phone] Allergies Active Allergy Reactions Criticality Noted Date Comments Adhesive Hives High 06/29/2018 Other reaction(s): Other (See Comments) Severe skin irritation, blisters with steri strips Blisters Severe skin irritation, blisters with steri strips Celecoxib Itching Medium 06/05/2021 Cephalosporins High 09/14/2012 Other reaction(s): Vomiting Minocycline Hcl Nausea And Vomiting Low 06/29/2018 Oxycodone-Acetaminophen Itching Medium 10/08/2017 Shellfish Derived Nausea And Vomiting Low 9 Sulfa (Sulfonamide Antibiotics) Itching Medium 05/19/2017 Medications amLODIPine (Norvasc) 10 mg tablet Take 5 mg by mouth in the morning. 2 Active glipiZIDE (Glucotrol) 10 mg tablet TK 1 T PO QAM 8 Active levothyroxine (Synthroid, Levoxyl) 125 mcg tablet Take 125 mcg by mouth in the morning. 3 Active metFORMIN (Glucophage) 500 mg tablet Take 500 mg by mouth with breakfast and with evening meal. Active venlafaxine (Effexor) 150 mg 24 hr tablet Take 150 mg by mouth in the morning. Do not crush, chew, or split. Active venlafaxine (Effexor) 75 mg tablet Take 75 mg by mouth in the morning and at bedtime. Active spironolactone (Aldactone) 50 mg tablet Take 50 mg by mouth in the morning. Active abatacept (Orencia ClickJect) 125 mg/mL auto-injector INJECT 1 PEN UNDER THE SKIN (SUBCUTANEOUS INJECTION) EVERY WEEK 3 Active losartan (Cozaar) 100 mg tablet Take 100 mg by mouth in the morning. 3 Active rOPINIRole (Requip) 0.25 mg tablet 4 Active Ozempic 1 mg/dose (4 mg/3 mL) pen injector 4 Active atorvastatin (Lipitor) 80 mg tabletIndications: Coronary arteriosclerosis,M ixed hyperlipidemia Take 1 tablet (80 mg) by mouth in the morning. 30 tablet 11 4 04/12/20 25 Active ezetimibe (Zetia) 10 mg tabletIndications: Coronary arteriosclerosis,M ixed hyperlipidemia Take 1 tablet (10 mg) by mouth in the morning. 90 tablet 3 5 06/27/19 26 Active gabapentin (Neurontin) 600 mg tablet 5 Active hydrOXYzine pamoate (Vistaril) 25 mg capsule Take 25 mg by mouth. 3 Active ixekizumab (Taltz Autoinjector) 80 mg/mL auto-injector inject 2mL (160mg) once, then 4 weeks later begin injecting 1mL (80mg) every 4 weeks 5 Active carvedilol (Coreg) 25 mg tabletIndications: Essential hypertension TAKE 1 TABLET BY MOUTH EVERY MORNING AND AT BEDTIME 180 tablet 3 5 Active Active Problems Problem Noted Date Diagnosed Date Breast cancer screening by mammogram 08/02/2024 Cervical cancer screening 08/02/2024 Class 3 obesity 08/02/2024 Drug-induced immunodeficiency 08/02/2024 Overview (08/02/2024): added per 04/22/2023 query response. Fluid level behind tympanic membrane of both ear s 08/02/2024 Major depression in remission 08/02/2024 Overview (08/02/2024): added per 04/22/2023 query response. Muscle weakness 08/02/2024 Pre-op exam 08/02/2024 Severe anxiety 08/02/2024 Spinal stenosis 08/02/2024 Class 3 severe obesity due t o excess calories with serious comorbidity and body mass index (BMI) of 45.0 to 49.9 in adult 01/12/2024 Osteoarthritis 06/09/2019 06/10/2023 Psoriasis 06/09/2019 06/10/2023 Psoriatic arthritis 06/09/2019 06/10/2023 Multiple chemical sensitivity syndrome 0 Coronary artery disease invo lving [place] coronary artery of [place] heart without angina pectoris 01/12/2018 Assessment & Plan (06/10/2023 1:33 PM EST): Coronary artery disease is stable Continue GDMT- pt request crestor to change to lipitor r/t Gi upset therefore script sent and for zetia 10 mg daily for elevated LDL in setting of CAD. Continue Coreg 25 mg bid, losartan and glycemic management- she states most recent A1C at PCP office was 5.5 continue risk factor modifications- heart healthy diet, regular exercise as tolerated and continue all medications. Primary hypertension 01/12/2018 Assessment & Plan (06/10/2023 1:33 PM EST): Hypertension is typically controlled at home and most likely r/t white coat syndrome in office Continue coreg, losartan, aldactone and norvasc Dyslipidemia 01/12/2018 Radiculopathy, lumbar region 11/16/2017 Low back pain 10/08/2017 Abnormal renal function test 08/20/2017 Lumbar degenerative disc disease 08/20/2017 Polydipsia 08/20/2017 Vitamin D deficiency 08/20/2017 Hyperuricemia 08/20/2017 Bilateral lower extremity edema 05/19/2017 Cervicalgia 05/19/2017 Chronic pain of both knees 05/19/2017 Fatigue 05/19/2017 History of psoriatic arthritis 05/19/2017 IBS (irritable bowel syndrome) 05/19/2017 RLS (restless legs syndrome) 05/19/2017 Restrictive lung disease 05/19/2017 Social anxiety disorder 05/19/2017 Subacromial bursitis 05/19/2017 Bilateral biceps tendonitis 05/19/2017 Chronic pain of both shoulders 05/19/2017 Hypothyroidism 05/19/2017 Long-term current use of hig h risk medication other than anticoagulant 05/19/2017 Obstructive sleep apnea 02/07/2017 Type 2 diabetes mellitus without complications 0 11/17/2016 Shortness of breath 11/17/2016 Social History Tobacco Use Types Packs/Day Years Used Date Smoking Tobacco: Never Smokeless Tobacco: Never Tobacco Cessation:Counseling Given: Not Answered Alcohol Use Standard Drinks/Week Comments Never 0 (1 standard drink = 0.6 oz pur e alcohol) [place] Safety & Environment Answer Date Rec orded Fear of Current or Ex-Partner Not on file Emotionally Abused Not on file 07/01/2023 Physically Abused Not on file 07/01/2023 Sexually Abused Not on file 07/01/2023 Physically or Sexually Abused Not on file Comments Unknown Sex and Gender Information Value Date Recorded Sex Assigned at Not on file Legal Sex Female 9:47 PM EDT Gender Identity Not on file Sexual Orientation Not on file Last Filed Vital Signs Vital Sign Reading Time Taken Comments Blood Pressure 123/75 08/02/2024 11:16 AM EDT Pulse 88 08/02/2024 11:16 AM EDT Temperature - - Respiratory Rate - - Oxygen Saturation 96% 08/02/2024 11:16 AM EDT Inhaled Oxygen Concentration - - Weight 124 kg (273 lb) 08/02/2024 11:16 AM EDT Height 165.1 cm (5' 5 ) 08/02/2024 11:16 AM EDT Body Mass Index 45.43 08/02/2024 11:16 AM EDT Plan of Treatment Upcoming Encounters Date Type Department Care Team (Late st Contact Info) Description 03/16/2025 1:40 PM EST Office Visit [facility] [address] [place] [address] Toni Tovar MD [address] [place] [address] Health Maintenance Due Date Last Done Comments CT Colonography 1968 Colonoscopy 1968 Colorectal Cancer Screening 1968 Diabetes: Hemoglobin A1C 1968 FIT-DNA 1968 FIT 1968 FOBT 1968 Medicare Annual Wellness (AWV) 1968 Sigmoidoscopy 1968 Diabetes: Retinopathy Screening 1978 Depression Screening 1980 Diabetes: Urine Protein Screening 1987 Hepatitis B Vaccines (1 of 3 - 19+ 3-dose series) 1987 Zoster Vaccines (1 of 2) 1987 Adult Tetanus 1990 Pap Smear 02/23/2020 02/22/2017 Cervical Cancer Screening 02/22/2022 HPV/Cotest 02/22/2022 02/22/2017 COVID-19 Vaccine ( season) 2025 01/21/2025, 02/21/2024, 02/21/2024, Additional history exists Mammogram 06/29/2025 06/29/2023 Pneumococcal Vaccine: Pediatrics (0 to 5 Years) and At-Risk Patients (6 to 64 Years) Completed 06/17/2024 Influenza Vaccine Completed 01/21/2025, , 01/31/2023, Additional history exists HIB Vaccines Aged Out No longer eligi ble based on patient's age to complete this topic HPV Vaccines Aged Out No longer eligi ble based on patient's age to complete this topic IPV Vaccines Aged Out No longer eligi ble based on patient's age to complete this topic Meningococcal B Vaccine Aged Out No l onger eligible based on patient's age to complete this topic Meningococcal Vaccine Aged Out No jeffery king eligible based on patient's age to complete this topic Rotavirus Vaccines Aged Out No longer eligible based on patient's age to complete this topic Insurance MEDICARE Care Teams Gas Plant Repairer Relationship Specialty Start Date End Date Malik Denson MD [address] [place] [id number] PCP - General Family Medicine 04/30/23
--- OUTSIDE RECORDS SUMMARY | 2025-02-22 13:53 | XMS_ITS | Clinical Summary ---
Author Organization [facility] Address [address] [place] [address] Care Team Providers Care Unit Control Clerk Name Role Phone Andria Osman MD Primary Care Provider [phone] Allergies Active Allergy Reactions Criticality Noted Date Comments Cefuroxime 09/14/2012 Cephalosporins 10/14/2014 Oxycodone-Acetaminophen Itching Medium 10/08/2017 *Seafood - Food Allergy Nausea and Vomiting Medium 02/2018 Sulfa Antibiotics Itching Medium 05/19/2017 Medications baclofen 10 MG Tab tablet TK 1 T PO BID 3 05/06/20 17 Active potassium chloride 10 MEQ Tab CR tablet ER TK 1 T PO QD 3 03/25/20 17 Active Venlafaxine HCl 225 MG tablet ER TK 1 T PO QAM 3 03/14/20 17 Active Spacer/Aero-Holdin g Chambers (VALVED HOLDING CHAMBER) Device USE DIRECTED ON PACKAGE 0 02/26/20 17 Active rOPINIRole 0.25 MG Tab tablet TK 1 T PO Q NIGHT 2 HOURS BEFORE BEDTIME 3 05/05/20 17 Active carveDILOL 25 MG Tab TK 1 T PO BID 3 04/13/20 17 Active azelastine 0.1 % Solution nasal spray INSTILL 1 SPRAY IN EACH NOSTRIL QID PRN 11 04/07/20 17 Active hyoscyamine 0.375 MG Tab SR 12 HR TK 1 T PO BID 3 04/30/20 17 Active losartan 100 MG Tab Take 100 mg by mouth daily. 3 09/25/19 18 Active Flurandrenolide 0.05 % Lotion 12/23/19 18 Active hydroxychloroquine 200 MG Tab tabletIndications: Psoriatic arthritis,Psoriasi s,Dry skin,Arthropathic psoriasis,Arthropa thic psoriasis, unspecified,Histor y of psoriatic arthritis,Long-ter m current use of high risk medication other than anticoagulant,jail current use of non-steroidal anti-inflammatorie s (NSAID),Abnormal serum CY level,LFT elevation,Encounte r for therapeutic drug level monitoring,CRP elevated,Vitamin D deficiency,TATUM (nonalcoholic steatohepatitis),F atty liver,Primary osteoarthritis of both knees,Osteoarthrit is of both hands, unspecified osteoarthritis type,Osteoarthriti s of both wrists, unspecified osteoarthritis type,Lumbar degenerative disc disease,Osteoarthr itis of lumbar spine, unspecified spinal osteoarthritis complication status,DDD (degenerative disc disease), cervical,Osteoarth ritis of cervical spine, unspecified spinal osteoarthritis complication status,Thoracic degenerative disc disease 1 po bid 60 tablet 11 01/13/20 18 Active INVOKANA 300 MG Tab tablet 05/25/19 19 Active glipiZIDE 10 MG tablet regular release TK 1 T PO QAM 2 05/09/20 18 Active levothyroxine 125 MCG Tab tablet Take 125 mcg by mouth daily. 2 05/17/19 19 Active NYSTATIN 390463 UNIT/GM Powder powder 02/25/20 18 Active ondansetron 4 MG Tab tablet 02/28/20 18 Active terconazole 0.4 % Cream 04/26/20 18 Active Custom Compound MISC Dic, Deonte, Adarsh, Lido, Prilo, Dox. [facility] pharmacy #3 topical cream Active amLODIPine 5 MG Tab tablet Take 5 mg by mouth daily. Active Secukinumab (COSENTYX SENSOREADY PEN) 150 MG/ML Solution Auto-injector injectionIndicatio ns:Psoriatic arthritis,Psoriasi s,Arthropathic psoriasis,Long-ter m current use of high risk medication other than anticoagulant,jail current use of non-steroidal anti-inflammatorie s (NSAID),Fatigue, unspecified type,Vitamin D deficiency,TATUM (nonalcoholic steatohepatitis),F atty liver,Thoracic degenerative disc disease,Primary osteoarthritis of both knees,Osteoarthrit is of lumbar spine, unspecified spinal osteoarthritis complication status,Osteoarthri tis of both wrists, unspecified osteoarthritis type,Osteoarthriti s of both hands, unspecified osteoarthritis type,Osteoarthriti s of cervical spine, unspecified spinal osteoarthritis complication status,Lumbar degenerative disc disease,DDD (degenerative disc disease), cervical 1 injection every 4 weeks 1 Prefilled Pen/Syringe 11 02/02/20 19 Active Secukinumab (COSENTYX SENSOREADY PEN) 150 MG/ML Solution Auto-injector injectionIndicatio ns:Psoriatic arthritis,Psoriasi s,Arthropathic psoriasis,Long-ter m current use of high risk medication other than anticoagulant,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 (NSAID),Fatigue, unspecified type,Vitamin D deficiency,TATUM (nonalcoholic steatohepatitis),F atty liver,Thoracic degenerative disc disease,Primary osteoarthritis of both knees,Osteoarthrit is of lumbar spine, unspecified spinal osteoarthritis complication status,Osteoarthri tis of both wrists, unspecified osteoarthritis type,Osteoarthriti s of both hands, unspecified osteoarthritis type,Osteoarthriti s of cervical spine, unspecified spinal osteoarthritis complication status,Lumbar degenerative disc disease,DDD (degenerative disc disease), cervical 1 injection one day a week for 5 weeks then once every 4 weeks thereafter 5 Prefilled Pen/Syringe 02/02/20 19 Active leflunomide 10 MG TabIndications:Pso riatic arthritis,Dry skin,CRP elevated,History of psoriatic arthritis,jail current use of non-steroidal anti-inflammatorie s (NSAID),Long-term current use of high risk medication other than anticoagulant,Fatt y liver,TATUM (nonalcoholic steatohepatitis),V itamin D deficiency,DDD (degenerative disc disease), cervical,Lumbar degenerative disc disease,Osteoarthr itis of cervical spine, unspecified spinal osteoarthritis complication status,Osteoarthri tis of both hands, unspecified osteoarthritis type,Osteoarthriti s of both wrists, unspecified osteoarthritis type,Osteoarthriti s of lumbar spine, unspecified spinal osteoarthritis complication status,Primary osteoarthritis of both knees,Thoracic degenerative disc disease,Arthropath ic psoriasis,Psoriasi s 1 po qod 15 tablet 05/19/19 20 Active Cholecalciferol (VITAMIN D3) 125 MCG (5000 UT) CapIndications:Vit ryder D deficiency 2 po q day 60 capsule 05/22/19 20 Active sulindac 200 MG tablet TAKE 1 TABLET BY MOUTH TWICE DAILY NEEDED 60 tablet 08/30/19 20 Active Hospital, Clinic, or Other Facility Administered Medication Ordered Dose Route Frequency Start Date End Date Status bupivacaine (PF) (MARCAINE) 0.25 % 4 mL syringeIndications:Alejandra mbar facet arthropathy 3 mL OTHER ONCE (OUTPT CLINIC) 04/17/2019 Active lidocaine (PF) 2 % injection 3 mLIndications:Lumbar facet arthropathy 3 mL OTHER ONCE (OUTPT CLINIC) 04/17/2019 Active Active Problems Problem Noted Date Diagnosed Date Multiple chemical sensitivity syndrome 0 Essential (primary) hypertension 02/15/2018 Chest pain 01/12/2018 Coronary arteriosclerosis 01/12/2018 Dyslipidemia 01/12/2018 Essential hypertension 01/12/2018 Palpitations 01/12/2018 TATUM (nonalcoholic steatohepatitis) 01/12/2018 Fatty liver 01/12/2018 CRP elevated 01/12/2018 body mass index of 40.0-49.9 01/12/2018 Radiculopathy, lumbar region 11/16/2017 Encounter for therapeutic drug level monitoring 10/08/2017 Low back pain 10/08/2017 Abnormal serum CY level 08/20/2017 Dry skin 08/20/2017 Vitamin D deficiency 08/20/2017 Osteoarthritis of both hands 08/20/2017 Osteoarthritis of both wrists 08/20/2017 Lumbar degenerative disc disease 08/20/2017 Osteoarthritis of lumbar spine 08/20/2017 DDD (degenerative disc disease), cervical 2017 Osteoarthritis cervical spine 08/20/2017 Thoracic degenerative disc disease 08/20/2017 Pain in joint 08/20/2017 Primary osteoarthritis of both knees 05/19/2017 Fatigue 05/19/2017 Disorder of bone and cartilage 05/19/2017 History of psoriatic arthritis 05/19/2017 Long-term current use of hig h risk medication other than anticoagulant 05/19/2017 Social anxiety disorder 05/19/2017 HERNANDEZ (dyspnea on exertion) 05/19/2017 SOB (shortness of breath) 05/19/2017 Restrictive lung disease 05/19/2017 Sleep apnea 05/19/2017 RLS (restless legs syndrome) 05/19/2017 HTN (hypertension) 05/19/2017 Hypothyroidism 05/19/2017 IBS (irritable bowel syndrome) 05/19/2017 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 (NSAID) 05/19/2017 Psoriatic arthritis 05/19/2017 Cervicalgia 05/19/2017 Dorsalgia 05/19/2017 Chronic pain of both shoulders 05/19/2017 Tendonitis of both rotator cuffs 05/19/2017 Wrist pain, left 05/19/2017 Bilateral biceps tendonitis 05/19/2017 Subacromial bursitis 05/19/2017 Chronic pain of both knees 05/19/2017 Pes anserinus bursitis of both knees 05/19/2017 Bilateral lower extremity edema 05/19/2017 Psoriasis 05/19/2017 Subdeltoid bursitis 05/19/2017 Urinary incontinence in female 04/23/2017 Obstructive sleep apnea 02/07/2017 Arthropathic psoriasis 11/17/2016 Myalgia 11/17/2016 Other secondary pulmonary hypertension 7 Shortness of breath 11/17/2016 Type 2 diabetes mellitus without complications 0 11/17/2016 Uncomplicated asthma 11/17/2016 Resolved Problems Problem Noted Date Diagnosed Date Resolved Date Polydipsia 08/20/2017 10/04/2018 Abnormal renal function test 08/20/2017 01/12/2018 LFT elevation 08/20/2017 02/01/2019 Hyperuricemia 08/20/2017 01/12/2018 Bodies, loose, joint, knee, right 05/19/2017 05/19/2017 Osteoarthritis of left glenohumeral joint 05/19/2017 05/19/2017 Arthropathic psoriasis, unspecified 05/19/2017 10/04/2018 Social History Tobacco Use Types Packs/Day Years Used Date Smoking Tobacco: Never Smokeless Tobacco: Never Alcohol Use Standard Drinks/Week Comments No 0 (1 standard drink = 0.6 oz pur e alcohol) Comments Unknown Sex and Gender Information Value Date Recorded Sex Assigned at Not on file Legal Sex Female 10:32 AM EDT Gender Identity Female 02/23/2017 10:40 AM EDT Sexual Orientation Not on file Last Filed Vital Signs Vital Sign Reading Time Taken Comments Blood Pressure 132/76 05/19/2019 9:30 AM EST Pulse 75 05/19/2019 9:30 AM EST Temperature 36.1 C (97 F) 05/19/2019 9:30 AM EST Respiratory Rate 20 02/16/2019 1:13 PM EDT Oxygen Saturation 97% 05/19/2019 9:30 AM EST Inhaled Oxygen Concentration - - Weight 134.3 kg (296 lb) 05/19/2019 9:30 AM EST Height 165.1 cm (5' 5 ) 05/19/2019 9:30 AM EST Body Mass Index 49.26 05/19/2019 9:30 AM EST Plan of Treatment Health Maintenance Due Date Last Done Comments HEPATITIS C VIRUS SCREENING 1968 TETANUS 1968 HIV SCREENING DISCUSSION 1983 HEP B VACCINE (1 of 3 - 19+ 3-dose series) 1987 TDAP (ADULT) 1987 CERVICAL CANCER SCREENING DISCUSSION 1989 LIPID SCREENING 2008 MAMMOGRAM SCREENING DISCUSSION 2008 COLORECTAL CANCER SCREENING DISCUSSION 2013 PNEUMOCOCCAL VACCINE SERIES (1 of 1 - PCV) 2018 ZOSTER (SHINGLES) VACCINE (1 of 2) 2018 COVID-19 VACCINE (1 - 2023-2 5 season) 2025 INFLUENZA VACCINE (#1) 2025 9, 02/18/2018, 03/07/2017, Additional history exists Insurance [employer] Generic Care Teams Unit Control Clerk Relationship Specialty Start Date End Date Andria Osman MD PCP - General Family Medicine 05/19/17
--- NOTE | 2025-02-22 14:11 | PM.CN ---
Consult Note: HPI Data of Consult Patient: known to practice within the last 3 years Consult date: 02/22/25 Requesting Physician: Lakeisha Hays NP Primary Care Provider: Non-Staff Physician, MD Consult Narrative Reason for consult: low back, left leg pain Narrative: 54yof who presents for assessment. longstanding low back history, left leg pain. has completed a series of provider directed home exercises for >6 weeks, without lasting benefit. utilizing gabapentin 300mg bid and baclofen 5-10mg bid-tid prn, denies adverse med side effects. Recent lumbar MRI reviewed as noted below. Patient reports she has failed lumbar ESIs in the past with Dr Doll, and would like to avoid ESIs due to DM and elevated blood sugars. Patient had expressed interest in a spinal cord stimulator but met with Dr Jackie OCONNOR who performed L2-S1 fusion on 02/01/24. continues to endorse left leg and foot numbness tingling and weakness, worsening weakness since last visit. pt has had 1 fall, has not been evaluated by pcp for acute left ankle pain. pending lumbar MRI and EMG with Dr Mejia at this time cc:: CC: Lakeisha Hays NP [facility] Medical History (Updated 11/22/24 @ 15:11 by Lakeisha Hays NP) Biceps muscle tear ?S46.219A - Strain of muscle, fascia and tendon of other parts of biceps, unspecified arm, initial encounter (ICD-10) TMJ (dislocation of temporomandibular joint) ?S03.00XA - Dislocation of jaw, unspecified side, initial encounter (ICD-10) Psoriatic arthritis ?L40.50 - Arthropathic psoriasis, unspecified (ICD-10) Anxiety ?F41.9 - Anxiety disorder, unspecified (ICD-10) Diabetes ?E11.9 - Type 2 diabetes mellitus without complications (ICD-10) COPD (chronic obstructive pulmonary disease) ?J44.9 - Chronic obstructive pulmonary disease, unspecified (ICD-10) HTN (hypertension) ?I10 - Essential (primary) hypertension (ICD-10) Surgical History History of hysterectomy ?Z90.710 - Acquired absence of both cervix and uterus (ICD-10) History of arthroscopic knee surgery ?Z98.890 - Other specified postprocedural states (ICD-10) Hx of cholecystectomy ?Z90.49 - Acquired absence of other specified parts of digestive tract (ICD-10) H/O section ?Z98.891 - History of uterine scar from previous surgery (ICD-10) Meds Home Medications and Allergies Home Medications ?Medication ?Instructions ?Recorded ?Confirmed ?Type gabapentin 300 mg capsule 300 mg PO TID #90 caps 12/20/23 Rx abatacept 125 mg/mL subcutaneous 125 mg subcut QWEEK 01/04/24 01/04/24 History syringe (Orencia) amlodipine 10 mg tablet 10 mg PO DAILY 01/04/24 01/04/24 History atorvastatin 40 mg tablet 40 mg PO DAILY 01/04/24 01/04/24 History baclofen 10 mg tablet 10 mg PO BID 01/04/24 01/04/24 History carvedilol 25 mg tablet 25 mg PO BID 01/04/24 01/04/24 History clobetasol 0.05 % topical ointment 1 applic topical BID 01/04/24 01/04/24 History conjugated estrogens 0.3 mg tablet 0.3 mg PO DAILY 01/04/24 01/04/24 History (Premarin) ezetimibe 10 mg tablet 10 mg PO DAILY 01/04/24 01/04/24 History famotidine 20 mg tablet 20 mg PO BID 01/04/24 01/04/24 History fluticasone propionate 50 2 spray intranasal DAILY PRN 01/04/24 01/04/24 History mcg/actuation nasal allergy symptoms spray,suspension (24 Hour Allergy Relief) glipizide 10 mg tablet 10 mg PO BID 01/04/24 01/04/24 History hydroxyzine HCl 25 mg tablet 25 mg PO QID PRN nausea and 01/04/24 01/04/24 History vomiting levothyroxine 125 mcg capsule 125 mcg PO DAILY 01/04/24 01/04/24 History losartan 100 mg tablet 100 mg PO DAILY 01/04/24 01/04/24 History ropinirole 0.25 mg tablet 0.25 mg PO DAILY 01/04/24 01/04/24 History semaglutide 2 mg/dose (8 mg/3 mL) 2 mg subcut QWEEK 01/04/24 01/04/24 History subcutaneous pen injector (Ozempic) spironolactone 50 mg tablet 50 mg PO DAILY 01/04/24 01/04/24 History venlafaxine 75 mg tablet 75 mg PO DAILY 01/04/24 01/04/24 History gabapentin 300 mg capsule 300 mg PO TID #90 caps 02/08/24 Rx gabapentin 300 mg capsule 300 mg PO BID #60 caps 01/02/25 Rx Allergies Allergy/AdvReac Type Severity Reaction Status Date / Time adhesive Allergy Blister Verified 12/20/23 13:01 shellfish derived Allergy Vomiting Verified 12/20/23 13:01 Exam Constitutional Documenting provider has reviewed patient's vital signs: yes Common normals: no apparent distress, oriented x3, healthy appearing, alert and well nourished General appearance: cooperative HENMT Common normals: normocephalic, hearing grossly normal bilaterally and moist oral mucous membranes Head and scalp: normocephalic Eye Common normals: PERRL Pupil: PERRL Neck & C-Spine Common normals: full ROM General: normal visual inspection Chest Common normals: inspection of chest normal Respiratory Common normals: normal respiratory effort, no retractions and no use of accessory muscles Back & Pelvis Lumbar spine/lower back: ROM limited, pain with ROM, paraspinal muscle tenderness and straight leg raise positive left; abnormal to inspection Other: strength 4/5 in LLE, 5/5 in RLE decreased sensation to left L4,5,S1 Neuro Common normals: oriented x3 Sensorium/orientation: alert Gait (neuro): assistive device used walker Motor exam: no movement abnormalities noted and strength abnormal Psych Common normals: mental status grossly normal, thought process normal, cooperative, affect normal, speech normal and activity/motor behavior normal Speech: normal speech Thought process: normal thought process Results Additional Findings Additional findings: If on a controlled substance or opioids, I have checked an [place] report on this patient and there are no aberrancies noted in the prescribing history.??If on a controlled substance or opioid a drug screen was completed and reviewed within the last year, and if there has not been a drug screen completed we ordered one today to monitor higher risk, state monitored pain medication use. As part of providing excellent, safe, comprehensive care, the following was completed at our patient's visit: 1. A medication reconciliation and review to ensure accurate knowledge of current/active medications, including asking our patients to inform us about any [id number] medications or herbal remedies/nutritional supplements/alternative remedies. 2. A review to specifically ensure our patients have had annual screening for screening for depression, screening for tobacco use, and screening for unhealthy alcohol use. For concerning screenings had a discussion with the patient, provided patient education, and recommended follow-up with primary care provider when appropriate. If patient noted with a risk of falling, they received education on strength, gait, and balance training to prevent future risk of falling. Portions of this note may have been carried over from the previous visit and updated as appropriate. Please note this office utilizes paper charting in addition to the electronic medical record. A list of current medications, vitals, and PMH is available there as the clinical staff outside of myself do not have access to [facility] charting during the clinic day operations. As part of providing quality comprehensive care the current medications, vitals, and PMH were reviewed in the paper chart. Assessment and Plan Assessment and Plan (1) Lumbar radiculopathy: (2) Failed back syndrome, lumbar: (3) Myalgia: Plan increase gabapentin 300mg AM and 600mg hs, risks vs benefits reviewed continue f/u with NS as planned, consider scs trial as discussed f/u 6 weeks to evaluate medication regimen and plan of care
== END 2025-02-22 13:48 | disposition home or self-care (01) ==
LOC: PM 13:47
PROVIDERS: Visit Provider Nurse Practitioner
DX: M54.16 Radiculopathy, lumbar region (principal); M96.1 Postlaminectomy syndrome, not elsewhere classified; M79.18 Myalgia, other site
CPT/HCPCS: G0463

== ENCOUNTER 2025-02-26 14:48 | Outpatient (OUT) | payer MEDICARE, SELFPAY ==
--- NOTE | 2025-02-26 14:58 | XR_ITS ---
The [address] [address] Patient Name: ANDREEA VALLE MRN: [id number] date: 1970 Sex: F Assigned Patient Location: [facility] Current Patient Location: [facility] Accession/Order Number: [id number] Exam Date: 02/26/2025 15:02 Report Date: 02/26/2025 16:21 At the request of: DULCE MARIA PUENTES Procedure: XR foot LT min 3V LEFT FOOT - 3 views CLINICAL DATA: chronic dorsal and lateral foot pain. Foot drop since back surgery in 2023 COMPARISON: None AP, lateral and oblique views were obtained. There is osteopenia. There is no acute fracture or dislocation. Calcaneal spurs are present, larger dorsally. There are no significant soft tissue abnormalities. XR/XR foot LT min 3V IMPRESSION: OSTEOPENIA. CALCANEAL SPURS. NO ACUTE BONY FINDINGS. Impression dictated by: Erica Brizuela M.D. 02/26/2025 4:21 PM Dictation Location: [place] [address] Electronically authenticated by: [id number] Date: 02/26/2025 16:21
--- OUTSIDE RECORDS SUMMARY | 2025-02-26 15:02 | XMS_ITS | CCD ---
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 Unavailable UnavailKHURRAM So Unavailable Unavailable Niecy HOBSON Unavailable Unavailable KHURRAM OSMAN Unavailable Unavailable Khurram Osman Unavailable Khurram Osman Primary Care Provider [phone] DEVYN MONDRAGON JR. Attending Unavailfabio fabian SELF, SELF Referring Unavailable ROSE MARY SHARPE Attending Unavailable Niecy HOBSON Referring Unavailable KHURRAM OSMAN Primary Care Unavailable RICHARD REZA Attending Unavailable DEVYN MONDRAGON JR. Referring UnavailNiecy Mei Attending Unavailable KHURRAM OSMAN Referring Unavailable DEVYN MONDRAGON JR. Attending Unavailfabio fabian SELF, SELF Referring Unavailable Khurram Osman Primary Care Provider [phone] Khurram Osman Primary Care Provider Khurram Osman Primary Care Provider Khurram Osman Primary Care Provider Khurram Osman MD Primary Care Provider Khurram Osman Primary Care Provider Dillan Heredia Unavailable Khurram Osman MD Primary Care Provider GAGAN GARCIA Unavailable JACQUI ., DR KHURRAM Fabian Primary Care Unavailable ISABELLE ., DR VIGNESH Doyle Attending Unavailable WALTON ., DR VIGNESH Doyle Admitting Unavailable OSMAN [...] Attending Unavailable Malik Denson Primary Care Physician [phone] Khurram Osman Primary Care Provider UnavailMD Malik Acevedo Attending Unavailable MD Malik Denson Attending Unavailable MD Malik Denson Attending Unavailable MD Malik Denson Attending Unavailable MD Malik Denson Attending Unavailable MD Malik Denson Admitting Unavailable MD Malik Denson Attending Unavailable Deidra, XANDER Britany L Admitting Unavailable Deidra, NAVAL MARINE ENGINEER Britany Bauman Attending Unavailable MD Malik Denson Attending Unavailable MD Malik Denson Attending Unavailable MD Malik Denson Attending Unavailable MD Malik Denson Attending Unavailable MD Malik Denson Attending Unavailable MD Malik Denson Attending Unavailable Deidra, NAVAL MARINE ENGINEER Britany L Attending Unavailable Deidra, NAVAL MARINE ENGINEER Britany L Attending Unavailable Deidra, NAVAL MARINE ENGINEER Britany L Attending Unavailable Ross MD, [facility] Unavailfabio Li PA-C, Tad De Anda Attending Ronn Castillo MD, Bran Loco Attending Unavailfabio Denson MD, [facility] Unavailfabio Castillo MD, Bran Loco Attending Unavailfabio Denson MD, [facility] Unavailfabio Castillo MD, Bran Loco Attending Unavailfabio Castillo MD, Bran Loco Admitting Unavailfabio Fletcher MD, Rosendo Barlow Consulting Unavail karol Denson MD, [facility] Unavailfabio e Jen PENA, aTd De Anda Consulting Sorin Hammond DO Consulting Unavailable Jarett DEAN, [facility] UnavailMalik Acevedo MD Attending Unavailfabio sOman MD, Jadyn Steele Attending Unavailable MARÍA ELENA BECERRA Attending Unavailable LAZ TOVAR Attending Unavailable Malik Denson Attending Unavailable Malik Denson Attending Unavailable Malik Denson Attending Unavailable Malik Denson Attending Unavailable Malik Denson Admitting Unavailable Malik Denson Attending Unavailable Malik Denson Attending Unavailable Malik Denson Attending Unavailable Malik Denson Attending Unavailable KHURRAM OSMAN Primary Care Unavailable BRAN CARRION Referring Unavailable Britany Gay Attending Unavailable SIGRID CALVILLO Attending Unavailable Allergies Allergy Classification Reported Allergen(s) Allergy Type Date of Onset Reaction(s) Facility (4 sources) cefuroxime; Translations: [Ceftin] Drug Allergy 09-15-19 13 The [facility] Repository (1 source) GLYCERINE; Translations: [GLYCERINE] Propensity to adverse reactions (disorder) 09-15-19 13 [facility] Repository (20 sources) acetaminophen / oxyCODONE; Translations: [OXYCODONE-ACETAMIN OPHEN] Drug Allergy 10-09-19 18 Itching [facility] Work Phone: (20 sources) cefuroxime; Translations: [cefuroxime] Drug Allergy 09-15-19 13 Mild (qualifier value) [facility] Work Phone: (20 sources) Cephalosporins (Antibiotic); Translations: [CEPHALOSPORINS] Propensity to adverse reactions to drug 09-15-19 13 [facility] Work Phone: (20 sources) *SEAFOOD - FOOD ALLERGY Propensity to adverse reactions to drug 05-19-19 18 Nausea and Vomiting [facility] Work Phone: (20 sources) SULFA ANTIBIOTICS Propensity to adverse reactions to drug 09-08-19 14 Itching [facility] Work Phone: (8 sources) Adhesive Tape Propensity to adverse reactions to drug 06-29-19 19 Other (See Comments) [facility] Work Phone: (9 sources) Minocycline; Translations: [MINOCYCLINE HCL] Drug Allergy 06-29-19 19 Nausea And Vomiting [employer] Phone: (8 sources) Shellfish-Derived Products Propensity to adverse reactions to drug 06-29-19 19 Nausea And Vomiting [employer] Work Phone: (10 sources) Adhesive agent; Translations: [ADHESIVE] Propensity to adverse reactions to drug 06-29-19 19 Hives [facility] (10 sources) Shellfish; Translations: [SHELLFISH CONTAINING PRODUCTS] Propensity to adverse reactions to drug 06-29-19 19 Other (See Comments) [facility] (12 sources) Sulfonamides (Antibiotic); Translations: [SULFA (SULFONAMIDE ANTIBIOTICS)] Propensity to adverse reactions to drug 09-08-19 14 Itching [facility] (10 sources) celecoxib; Translations: [CELECOXIB] Drug Allergy 06-05-19 22 Itching [facility] (2 sources) Adhesive agent Propensity to adverse reactions to drug 10-16-19 21 Hives [facility] (2 sources) atorvastatin Drug Allergy 11-13-19 17 The [facility] Repository (3 sources) Shellfish; Translations: [shellfish] Drug allergy (disorder) 05-10-18 75 The [facility] Repository (2 sources) Sulfonamides (Antibiotic) Drug allergy (disorder) 05-10-19 00 [facility] Repository (8 sources) Cephalexin; Translations: [cephalexin] Drug Allergy Mild (qualifier value) [facility] (8 sources) Doxepin; Translations: [doxepin] Drug Allergy Mild (qualifier value) [facility] (8 sources) Glycerin; Translations: [glycerin] Drug Allergy Mild (qualifier value) [facility] (8 sources) Methotrexate; Translations: [methotrexate] Drug Allergy Severe (severity modifier) (qualifier value) [facility] (9 sources) Minocycline; Translations: [minocycline] Drug Allergy Mild (qualifier value) [facility] (8 sources) Sulfamethoxazole / Trimethoprim; Translations: [sulfamethoxazole-t rimethoprim] Drug Allergy Mild (qualifier value) [facility] (1 source) Seafood Propensity to adverse reactions to drug 06-29-19 Nausea And Vomiting [facility] (3 sources) glyBURIDE; Translations: [glyBURIDE] Drug Allergy [facility] Repository (3 sources) metFORMIN; Translations: [metFORMIN] Drug Allergy [facility] Repository (1 source) Adhesive bandage; Translations: [Adhesive Bandage] Propensity to adverse reactions (disorder) [facility] Repository (1 source) Adhesive Tape; Translations: [Tape] Propensity to adverse reactions (disorder) [facility] Repository (1 source) NSAIDs; Translations: [NSAIDs] Propensity to adverse reactions to drug (disorder) [facility] Repository (1 source) Shellfish; Translations: [SHELLFISH DERIVED] Propensity to adverse reactions to drug (disorder) 06-29-19 [facility] Repository (3 sources) Seafood; Translations: [Seafood] Propensity to adverse reactions to substance Vomiting (disorder) [facility] (2 sources) Lisinopril; Translations: [lisinopril] Drug Allergy [facility] Repository Medications Current Medications Medication Drug Class(es) Dates Sig (Normalized) Sig (Original) 3 ML semaglutide 2.68 MG/ML Pen Injector (2 sources) Start: 11-16-2022 inject 2 mg by subcutaneous injection every week semaglutide 8 mg/3 mL (2 mg dose) subcutaneous solution 2 mg, SubCutaneous, qWeek, # 3 EA, Refills(s) 0, Pharmacy: [facility] #[id number], 165.1, cm, 11/16/22 14:18:00 EDT, Height/Length Dosing, [...] WEEKLY, # 3 mL, Refills(s) 0, Pharmacy: [facility] [id number], 163, cm, 02/29/24 13:21:00 EDT, Height/Length Dosing, 109.1, kg, 02/29/24 13:21:00 EDT, Weight Dosing Start Date: 09/11/24 Status: Ordered Quantity: 3.0 Unit: mL Repeat number: 1 Start: 10-22-2023 inject 2 mg by subcu taneous injection every week Ozempic 8 mg/3 mL (2 mg dose) subcutaneous solution 2 mg, SubCutaneous, qWeek, # 3 EA, Refills(s) 0, Pharmacy: [facility] [id number], 165.4, cm, 07/07/23 14:54:00 EST, Height/Length Dosing, 131.3, kg, 07/07/23 14:54:00 EST, Weight Dosing Start Date: 10/22/23 Status: Ordered Start: 06-23-2023 inject 2 mg by subcu taneous injection every week Ozempic 8 mg/3 mL (2 mg dose) subcutaneous solution 2 mg, SubCutaneous, qWeek, # 3 EA, Refills(s) 0, Pharmacy: [facility] #[id number], 165.4, cm, 06/23/23 14:01:00 EST, Height/Length Dosing, [...] DAILY, # 90 tab(s), Refills(s) 0, Pharmacy: [facility] [id number], 163, cm, 02/29/24 13:21:00 EDT, Height/Length Dosing, 109.1, kg, 02/29/24 13:21:00 EDT, Weight Dosing Start Date: 09/27/24 Status: Ordered Quantity: 90.0 Unit: tab(s) Repeat number: 1 Start: 09-07-2023 take 1 tablet by kennedy th once daily amLODIPine 10 mg Tab 10 mg = 1 tab(s), Oral, Daily, # 90 tab(s), Refills(s) 3, Pharmacy: [facility] [id number], 165.4, cm, 07/07/23 14:54:00 EST, Height/Length Dosing, 131.3, kg, 07/07/23 14:54:00 EST, Weight Dosing Start Date: 09/07/23 Status: Ordered Start: 04-27-2023 take 1 tablet by kennedy th once daily amLODIPine 10 mg Tab 10 mg = 1 tab(s), Oral, Daily, # 90 tab(s), Refills(s) 3, Pharmacy: [facility] [id number], 164.5, cm, 04/26/23 18:33:00 EST, Height/Length Dosing, 124.8, kg, 04/26/23 18:33:00 EST, Weight Dosing Start Date: 04/27/23 Status: Ordered Start: 08-05-2022 take 1 tablet by kennedy th once daily amLODIPine 10 mg Tab 10 mg = 1 tab(s), Oral, Daily, # 90 tab(s), Refills(s) 3, Pharmacy: [facility] #[id number], 165.1, cm, 07/29/22 11:31:00 EDT, Height/Length Dosing, [...] Daily, # 90 tab(s), Refills(s) 1, Pharmacy: [facility] [id number], 164.5, cm, 04/26/23 18:33:00 EST, Height/Length Dosing, [...] TID, # 90 tab(s), Refills(s) 4, Pharmacy: [facility] [id number], 163, cm, 02/29/24 13:21:00 EDT, Height/Length Dosing, [...] Active Start: 01-14-2017 take 2 tablets by mo cah twice daily carvedilol (COREG) 12.5 MG tablet Take 25 mg by mouth 2 times daily 3 01/14/2017 Active cholecalciferol 65005 unt oral capsule (20 sources) Vitamin D Start: 02-06-2019 take 5 capsules by mouth once Cholecalciferol (MAXIMUM D3) 18520 units Cap Indications: Vitamin D deficiency 5 po one day a week 25 capsule 11 02/06/2019 Active Start: 02-01-2019 End: 02-06-2019 take 4 capsules by mouth once Cholecalciferol (MAXIMUM D3) 15468 units Cap Indications: Psoriatic arthritis , Psoriasis , Arthropathic psoriasis , Long-term current use of high risk medication other than anticoagulant , 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-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 (NSAID) , [...] capsules by mouth once Cholecalciferol (MAXIMUM D3) 32692 units Cap Indications: Vitamin D deficiency 3 po one day a week 15 capsule 11 06/06/2018 02/01/2019 Discontinued Start: 06-01-2018 End: 06-06-2018 take 2 capsules by mouth once Cholecalciferol (MAXIMUM D3) 70494 units Cap Indications: Abnormal serum CY level , Vitamin D deficiency , Psoriatic arthritis , Psoriasis , Dry skin , Arthropathic psoriasis , Arthropathic psoriasis, unspecified , History of psoriatic arthritis , Long-term current use of high risk medication other than anticoagulant , 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-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 (NSAID) , [...] capsule by mouth once Cholecalciferol (MAXIMUM D3) 13212 units Cap Indications: Abnormal serum CY level , Vitamin D deficiency 1 po one day a week 5 capsule 11 06/09/2017 06/01/2018 Discontinued clobetasol propionate 0.0005 mg/mg topical ointment (3 sources) Corticosteroid Start: 07-19-2024 clobetasol pro pionate 0.05% top oint 1 kate, Topical, BID, 15 gram, Refill(s) 1, [facility] [id number], 163, cm, 02/29/24 13:21:00 EDT, Height/Length Dosing, [...] kate, Topical, BID, 15 gram, Refill(s) 0, [facility] #[id number], 165.4, cm, 07/07/23 14:54:00 EST, Height/Length Dosing, 131.3, kg, 07/07/23 14:54:00 EST, Weight Dosing Start Date: 07/07/23 Status: Ordered Custom Compound MISC (20 sources) Custom Compound MISC Dic, Deonte, Adarsh, Lido, Prilo, Dox. [facility] pharmacy #3 topical cream 0 Active diclofenac sodium 75 mg delayed release oral tablet (7 sources) Nonsteroidal Anti-inflammatory Drug take 1 tablet by mouth twice daily at mealtime diclofenac sodium (VOLTAREN) 75 MG EC tablet Take 75 mg by mouth 2 (two) times a day with meals . 0 Active estrogens, conjugated (snf) 0.3 mg oral tablet (1 source) Estrogen Start: 4 take 1 tablet by mouth once daily Premarin 0.3 mg Tab 0.3 mg = 1 tab(s), Oral, Daily, # 30 tab(s), Refills(s) 0, Pharmacy: [facility] [id number], 165.4, cm, 07/07/23 14:54:00 EST, Height/Length Dosing, [...] BID, # 180 tab(s), Refills(s) 0, Pharmacy: [facility] [id number], 164.5, cm, 04/26/23 18:33:00 EST, Height/Length Dosing, [...] nasal route once daily Flonase 0.05 mg/inh [place] 2 spray(s), Nasal, Daily, 16 gram, Refill(s) 0, each nostril, [facility] [id number], 165.4, cm, 04/16/23 14:29:00 EST, Height/Length Dosing, [...] lunch, # 180 tab(s), Refills(s) 3, Pharmacy: [facility] [id number], 163, cm, 01/18/24 13:09:00 EDT, Height/Length Dosing, 122.7, kg, 01/18/24 13:09:00 EDT, Weight Dosing Start Date: 01/25/24 Status: Ordered Quantity: 180.0 Unit: tab(s) Repeat number: 4 Start: 10-28-2023 take 1 tablet by kennedy th twice daily at breakfast glipiZIDE 10 mg Tab 10 mg = 1 tab(s), Oral, BID, take at breakfast and lunch, # 180 tab(s), Refills(s) 0, Pharmacy: [facility] [id number], 165.4, cm, 10/28/23 13:03:00 EDT, Height/Length Dosing, [...] high risk medication other than anticoagulant , [facility] current use of non-steroidal anti-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 (NSAID) , [...] anxiety, # 90 cap(s), Refills(s) 0, Pharmacy: [facility] [id number], 164.5, cm, 04/26/23 18:33:00 EST, Height/Length Dosing, 124.8, kg, 04/26/23 18:33:00 EST, Weight Dosing Start Date: 04/27/23 Status: Ordered Quantity: 90.0 Unit: cap(s) Repeat number: 1 Start: 07-24-2022 take 1 capsule by [facility] four times daily as needed for anxiety [...] elevated , History of psoriatic arthritis , 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-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 (NSAID) , [...] Daily, # 90 tab(s), Refills(s) 4, Pharmacy: [facility] [id number], 163, cm, 02/29/24 13:21:00 EDT, Height/Length Dosing, 109.1, kg, 02/29/24 13:21:00 EDT, Weight Dosing Start Date: 04/03/24 Status: Ordered Quantity: 90.0 Unit: tab(s) Repeat number: 5 Start: 09-24-2017 take 1 tablet by kennedy th once daily losartan 100 mg Tab 100 mg = 1 tab(s), Oral, Daily, # 90 tab(s), Refills(s) 1, Pharmacy: [facility] [id number], 164.5, cm, 04/26/23 18:33:00 EST, Height/Length Dosing, 124.8, kg, 04/26/23 18:33:00 EST, Weight Dosing Start Date: 04/27/23 Status: Ordered metFORMIN hydrochloride 500 mg oral tablet (9 sources) Biguanide Start: 07-14-2024 take 1 tablet by mouth twice daily metformin 500 mg Tab 500 mg = 1 tab(s), Oral, BID, # 180 tab(s), Refills(s) 0, Pharmacy: [facility] [id number], 163, cm, 02/29/24 13:21:00 EDT, Height/Length Dosing, 109.1, kg, 02/29/24 13:21:00 EDT, Weight Dosing Start Date: 07/14/24 Status: Ordered Quantity: 180.0 Unit: tab(s) Repeat number: 1 Start: 02-15-2021 take 1 tablet by kennedy th three times daily at mealtime metFORMIN (GLUCOPHAGE) 500 MG tablet Take 500 mg by mouth 3 (three) times a day with meals . 0 02/15/2021 Active nystatin 518889 unt/ml oral suspension (20 sources) Polyene Antifungal Start: 11-16-2022 End: 11-23-2022 take 740327 [IU] by mouth every six hours nystatin 100,000 units/mL Oral Susp 100,000 unit(s) = 1 mL, Oral, q6hr, retain in mouth as long as possible before swallowing, X 7 day(s), # 28 mL, Refills(s) 0, [id number], 165.1, cm, 11/16/22 14:18:00 EDT, Height/Length Dosing, 120.8, kg, 10/19/22 15:07:00 E... Start Date: 11/16/22 Stop Date: 11/23/22 Status: Ordered Start: 02-24-2018 nystatin (MYCO STATIN) 770535 UNIT/GM powder Indications: Candidiasis of breast Apply 3 times daily. 60 g 1 02/24/2018 Active Start: 02-24-2018 NYSTATIN 93233 0 UNIT/GM Powder powder Start: 05-05-2017 End: 10-04-2018 take 5 mL by mouth four times daily nystatin 010478 UNIT/ML oral suspension SWISH AND SWALLOW 5 [...] BEDTIME, # 90 tab(s), Refills(s) 3, Pharmacy: [facility] [id number], 163, cm, 11/22/23 14:35:00 EDT, Height/Length Dosing, 125.2, kg, 11/22/23 14:35:00 EDT, Weight Dosing Start Date: 12/06/23 Status: Ordered Quantity: 90.0 Unit: tab(s) Repeat number: 4 Start: 08-30-2023 take 1 tablet by kennedy th once daily at bedtime ropinirole 0.25 mg Tab See Instructions, TAKE 1 TABLET BY MOUTH EVERY NIGHT 2 HOURS BEFORE BEDTIME, # 90 tab(s), Refills(s) 0, Pharmacy: [facility] [id number], 165.4, cm, 07/07/23 14:54:00 EST, Height/Length Dosing, 131.3, kg, 07/07/23 14:54:00 EST, Weight Dosing Start Date: 08/30/23 Status: Ordered Start: 01-15-2017 take 1 tablet by kennedy th once daily at bedtime ropinirole 0.25 mg Tab See Instructions, TAKE 1 TABLET BY MOUTH EVERY NIGHT 2 HOURS BEFORE BEDTIME, # 90 tab(s), Refills(s) 0, Pharmacy: [facility] #[id number], 165.4, cm, 05/18/23 10:34:00 EST, Height/Length Dosing, 127.3, kg, 05/18/23 10:34:00 EST, Weight Dosing Start Date: 06/09/23 Status: Ordered 1 ml secukinumab 150 mg/ml auto-injector (20 sources) Interleukin-17A Antagonist Start: 02-01-2019 End: 02-01-2019 Secukinumab (COSENTYX SENSOREADY PEN) 150 MG/ML Solution Auto-injector injection Indications: Psoriatic arthritis , Psoriasis , Arthropathic psoriasis , Long-term current use of high risk medication other than anticoagulant , 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-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 (NSAID) , [...] level , History of psoriatic arthritis , [facility] current use of non-steroidal anti-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 (NSAID) , [...] high risk medication other than anticoagulant , 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-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 (NSAID) , [...] DAILY, # 90 tab(s), Refills(s) 0, Pharmacy: [facility] [id number], 163, cm, 02/29/24 13:21:00 EDT, Height/Length Dosing, 109.1, kg, 02/29/24 13:21:00 EDT, Weight Dosing Start Date: 09/04/24 Status: Ordered Quantity: 90.0 Unit: tab(s) Repeat number: 1 Start: 08-30-2023 take 1 tablet by kennedy th once daily spironolactone 50 mg Tab 50 mg = 1 tab(s), Oral, Daily, # 90 tab(s), Refills(s) 1, Pharmacy: [facility] [id number], 165.4, cm, 07/07/23 14:54:00 EST, Height/Length Dosing, 131.3, kg, 07/07/23 14:54:00 EST, Weight Dosing Start Date: 08/30/23 Status: Ordered Start: 06-07-2023 take 1 tablet by kennedy th once daily spironolactone 50 mg Tab 50 mg = 1 tab(s), Oral, Daily, # 90 tab(s), Refills(s) 1, Pharmacy: [facility] [id number], 165.4, cm, 05/18/23 10:34:00 EST, Height/Length Dosing, 127.3, kg, 05/18/23 10:34:00 EST, Weight Dosing Start Date: 06/07/23 Status: Ordered Start: 11-09-2022 take 1 tablet by kennedy th once daily spironolactone 50 mg Tab 50 mg = 1 tab(s), Oral, Daily, # 90 tab(s), Refills(s) 1, Pharmacy: [facility] #[id number], 165.1, cm, 10/19/22 15:07:00 EDT, Height/Length Dosing, [...] Daily, # 90 tab(s), Refills(s) 4, Pharmacy: [facility] [id number], 163, cm, 11/22/23 14:35:00 EDT, Height/Length Dosing, 125.2, kg, 11/22/23 14:35:00 EDT, Weight Dosing Start Date: 01/11/24 Status: Ordered Quantity: 90.0 Unit: tab(s) Repeat number: 5 Start: 07-13-2023 take 1 tablet by kennedy th once daily levothyroxine 125 mcg (0.125 mg) Tab 125 mcg = 1 tab(s), Oral, Daily, # 90 tab(s), Refills(s) 1, Pharmacy: [facility] [id number], 165.4, cm, 07/07/23 14:54:00 EST, Height/Length Dosing, 131.3, kg, 07/07/23 14:54:00 EST, Weight Dosing Start Date: 07/13/23 Status: Ordered Start: 04-27-2023 take 1 tablet by kennedy th once daily levothyroxine 125 mcg (0.125 mg) Tab 125 mcg = 1 tab(s), Oral, Daily, # 90 tab(s), Refills(s) 1, Pharmacy: [facility] [id number], 164.5, cm, 04/26/23 18:33:00 EST, Height/Length Dosing, [...] Daily, # 90 tab(s), Refills(s) 0, Pharmacy: [facility] [id number], 165.4, cm, 07/07/23 14:54:00 EST, Height/Length Dosing, 131.3, kg, 07/07/23 14:54:00 EST, Weight Dosing Start Date: 10/08/23 Status: Ordered Start: 10-07-2023 take 1 capsule by [facility] once daily venlafaxine 75 mg Cap-ER 75 mg = 1 cap(s), Oral, Daily, # 30 cap(s), Refills(s) 1, Pharmacy: [facility] [id number], 165.4, cm, 07/07/23 14:54:00 EST, Height/Length Dosing, 131.3, kg, 07/07/23 14:54:00 EST, Weight Dosing Start Date: 10/07/23 Status: Ordered Start: 04-16-2023 take 1 tablet by kennedy once daily venlafaxine 150 mg oral tablet, extended release 150 mg = 1 tab(s), Oral, Daily, # 90 tab(s), Refills(s) 0, Pharmacy: [facility] [id number], 165.4, cm, 03/22/23 14:19:00 EST, Height/Length Dosing, 120.4, kg, 03/22/23 14:19:00 EST, Weight Dosing Start Date: 04/16/23 Status: Ordered Start: 04-14-2023 take 1 capsule by mo uth once daily venlafaxine 75 mg Cap-ER 75 mg = 1 cap(s), Oral, Daily, # 30 cap(s), Refills(s) 1, Pharmacy: [facility] #[id number], 165.4, cm, 03/22/23 14:19:00 EST, Height/Length Dosing, 120.4, kg, 03/22/23 14:19:00 EST, Weight Dosing Start Date: 04/14/23 Status: Ordered Start: 07-24-2022 take 1 capsule by mo ut once daily venlafaxine 75 mg Cap-ER 75 mg = 1 cap(s), Oral, Daily, Refills(s) 0 Start Date: 07/24/22 Status: Ordered Start: 01-20-2021 take 1 capsule by mo [facility] once daily venlafaxine 150 mg Cap-ER 150 [...] 4, # 2 tab(s), Refills(s) 1, Pharmacy: [facility] [id number], 165.4, cm, 07/07/23 14:54:00 EST, Height/Length Dosing, 131.3, kg, 07/07/23 14:54:00 EST, Weight Dosing Start Date: 07/28/23 Status: Ordered Start: 07-07-2023 take 4 tablets by mouth once D iflucan 150 mg Tab 150 mg = 1 tab(s), Oral, Once, take one tab on day 1 and one dab on day 4, # 2 tab(s), Refills(s) 1, Pharmacy: [facility] #[id number], 165.4, cm, 07/07/23 14:54:00 EST, Height/Length Dosing, [...] 60 gm, Refill(s) 0, apply bid prn, [facility] #[id number], 165.1, cm, 07/29/22 11:31:00 EDT, Height/Length Dosing, [...] Coronary arteriosclerosis; Translations: [Atherosclerotic heart disease of [place] coronary artery without angina pectoris] Onset: 8 [...] 7 Unclassified (1 source) Joint Pain / [id number]() Onset: 8 Unclassified (20 sources) Drug therapy finding; Translations: [Long-term current use of high risk medication other than anticoagulant] Onset: 8 05-19-2017 Unclassified (20 sources) Patient encounter status; Translations: [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-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 (NSAID)] Onset: [...] aftercare (1 source) Patient encounter status; Translations: [supervisor 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 (current) use of non-steroidal anti-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 (NSAID)] Onset: 05-19-2017 10-14-2017 Episodic Other aftercare (1 source) Drug therapy finding; Translations: [Other prison (current) drug therapy] Onset: 05-19-2017 10-14-2017 Episodic [...] 5 Basophil Absolute 0.1 E9/L Normal 0.0-0.2 [facility] Comment on above: Performed By: #### 2 [id number] #### [facility] [address] [place] [address] Basophils/100 WBC (Bld) 0.9 % Normal 0.0-2.0 [facility] Comment on above: Performed By: #### 2 [id number] #### [facility] [address] [place] [address] Eos Absolute 0.6 E9/L High 0.0-0.5 [facility] Comment on above: Performed By: #### 2 [id number] #### [facility] [address] [place] [address] Eosinophils/100 WBC (Bld) 6.6 % Normal 0.0-8.0 [facility] Comment on above: Performed By: #### 2 [id number] #### [facility] [address] [place] [address] Erythrocyte distribution width (RBC) [Ratio] 16.3 % High 10.9-14.2 [facility] Comment on above: Performed By: #### 2 [id number] #### [facility] [address] [place] [address] Hematocrit (Bld) [Volume fraction] 42.2 % Normal 34.0-46.0 [facility] Comment on above: Performed By: #### 2 [id number] #### [facility] [address] [place] [address] Hemoglobin (Bld) [Mass/Vol] 13.8 g/dL Normal 12.0-16.0 [facility] Comment on above: Performed By: #### 2 [id number] #### [facility] [address] [place] [address] Lymph Absolute 1.9 E9/L Normal 1.0-4.0 [facility] Comment on above: Performed By: #### 2 193708 #### [facility] [address] [place] [address] Lymphocytes/100 WBC (Bld) 20.3 % Normal 14.0-50.0 [facility] Comment on above: Performed By: #### 2 [id number] #### [facility] [address] [place] [address] MCH (RBC) [Entitic mass] 28.5 pg Normal 27.0-34.0 [facility] Comment on above: Performed By: #### 2 [id number] #### [facility] [address] [place] [address] MCHC (RBC) [Mass/Vol] 32.7 g/dL Normal 31.4-36.0 [facility] Comment on above: Performed By: #### 2 [id number] #### [facility] [address] [place] [address] MCV (RBC) [Entitic vol] 87.2 fL Normal 80.0-100.0 [facility] Comment on above: Performed By: #### 2 [id number] #### [facility] [address] [place] [address] Knott Absolute 0.6 E9/L Normal 0.2-1.0 [facility] Comment on above: Performed By: #### 2 [id number] #### [facility] [address] [place] [address] Monocytes/100 WBC (Bld) 6.9 % Normal 4.0-14.0 [facility] Comment on above: Performed By: #### 2 [id number] #### [facility] [address] [place] [address] Neutro Absolute 6.1 E9/L Normal 2.0-7.5 [facility] Comment on above: Performed By: #### 2 [id number] #### [facility] [address] [place] [address] Neutro Auto 65.3 % Normal 36.0-75.0 [facility] Comment on above: Performed By: #### 2 [id number] #### [facility] [address] [place] [address] Platelet 386.0 E9/L Normal 150.0-500.0 [facility] Comment on above: Performed By: #### 2 [id number] #### [facility] [address] [place] [address] Platelet mean volume (Bld) [Entitic vol] 7.8 fL Normal 6.4-10.8 [facility] Comment on above: Performed By: #### 2 [id number] #### [facility] [address] [place] [address] RBC 4.8 E12/L Normal 4.3-5.9 [facility] Comment on above: Performed By: #### 2 [id number] #### [facility] [address] [place] [address] WBC 9.4 E9/L Normal 4.0-11.0 [facility] Comment on above: Performed By: #### 2 [id number] #### [facility] [address] [place] [address] CMPon 10-06-2024 Albumin [Mass/Vol] 4.2 g/dL Normal 3.3-5.0 [facility] Comment on above: Performed By: #### 2 [id number] #### [facility] [address] [place] [address] Albumin/Globulin [Mass ratio] 1.4 {ratio} Normal 1.1-2.2 [facility] Comment on above: Performed By: #### 2 [id number] #### [facility] [address] [place] [address] Alk Phos 100 Int._Unit/L High 21-98 [facility] Comment on above: Performed By: #### 2 [id number] #### [facility] [address] [place] [address] ALT 27 Int._Unit/L Normal 6-46 [facility] Comment on above: Performed By: #### 2 [id number] #### [facility] [address] [place] [address] Anion gap [Moles/Vol] 14 mmol/L Normal 6-16 [facility] Comment on above: Performed By: #### 2 [id number] #### [facility] [address] [place] [address] AST 22 Int._Unit/L Normal 5-43 [facility] Comment on above: Performed By: #### 2 960448 #### [facility] [address] [place] [address] Bili Total 0.5 mg/dL Normal 0.0-1.1 [facility] Comment on above: Performed By: #### 2 [id number] #### [facility] [address] [place] [address] BUN/Creat Ratio 21 No Units High 10-20 [facility] Comment on above: Performed By: #### 2 724730 #### [facility] [address] [place] [address] Calcium [Mass/Vol] 9.8 mg/dL Normal 8.9-11.1 [facility] Comment on above: Performed By: #### 2 [id number] #### [facility] [address] [place] [address] Chloride [Moles/Vol] 104 mmol/L Normal 101-111 [facility] Comment on above: Performed By: #### 2 968150 #### [facility] [address] [place] [address] CO2 [Moles/Vol] 24 mmol/L Normal 21-31 [facility] Comment on above: Performed By: #### 2 357347 #### [facility] [address] [place] [address] Creatinine [Mass/Vol] 0.9 mg/dL Normal 0.5-1.3 [facility] Comment on above: Performed By: #### 2 803241 #### [facility] [address] [place] [address] Globulin (S) [Mass/Vol] 2.9 g/dL Normal 1.4-4.0 [facility] Comment on above: Performed By: #### 2 924650 #### [facility] [address] [place] [address] Glucose [Mass/Vol] 240 mg/dL High 55-199 [facility] Comment on above: Performed By: #### 2 439102 #### [facility] [address] [place] [address] Potassium [Moles/Vol] 4.2 mmol/L Normal 3.5-5.3 [facility] Comment on above: Performed By: #### 2 [id number] #### [facility] [address] [place] [address] Protein [Mass/Vol] 7.1 g/dL Normal 6.0-7.8 [facility] Comment on above: Performed By: #### 2 419129 #### [facility] [address] [place] [address] Sodium [Moles/Vol] 138 mmol/L Normal 135-145 [facility] Comment on above: Performed By: #### 2 826649 #### [facility] [address] [place] [address] Urea nitrogen [Mass/Vol] 19 mg/dL Normal 5-21 [facility] Comment on above: Performed By: #### 2 733808 #### [facility] [address] [place] [address] [id number] 10-06-2024 HbA1c (Bld) [Mass fraction] 7.4 % High <=5.9 [facility] Comment on above: Performed By: #### 7 [id number] #### [facility] [address] [place] [address] Lipid Panelon 10-06-2024 Cholesterol [Mass/Vol] 103 mg/dL Low 120-200 [facility] Comment on above: Performed By: #### 2 109141 #### [facility] [address] [place] [address] Cholesterol in HDL [Mass/Vol] 49 mg/dL Invalid Interpretation Code [facility] Comment on above: Result Comment: '>= 60 LOW RISK' '<= 40 HIGH RISK' Performed By: #### 2 [id number] #### [facility] [address] [place] [address] Cholesterol in LDL [Mass/Vol] 46 mg/dL Normal <=129 [facility] Comment on above: Performed By: #### 2 [id number] #### [facility] [address] [place] [address] Cholesterol in VLDL [Mass/Vol] 26 mg/dL Normal 7-40 [facility] Comment on above: Performed By: #### 2 912198 #### [facility] [address] [place] [address] Triglyceride [Mass/Vol] 130 mg/dL Normal <=149 [facility] Comment on above: Performed By: #### 2 [id number] #### [facility] [address] [place] [address] TSH With T4fr Reflexon 10-06 TSH Qn 0.51 m[IU]/L Normal 0.34-5.60 [facility] Comment on above: Performed By: #### 1 [id number] #### [facility] [address] [place] [address] U MA/Cr Ratioon 10-06-2024 U Microalb 18.7 mg/dL High 0.0-1.9 [facility] Comment on above: Performed By: #### 1 [id number] #### [facility] [address] [place] [address] Microalb/Cr Ratio 50.6 mg/gm Cr High .0-30.0 [facility] Comment on above: Result Comment: 30-3 00 mg/g Cr indicates an increased risk for diabetic nephropathy. >300 mg/g Cr is consistent with clinical nephropathy. Performed By: #### 1 [id number] #### [facility] [address] [place] [address] U Creatinine 369.9 mg/dL Invalid Interpretation Code [facility] Comment on above: Result Comment: Resu lt Verified by Dilution Performed By: #### 1 [id number] #### [facility] [address] [place] [address] eGFRon 10-06-2024 eGFR 75 mL/min/1.73 m2 Normal >=59 [facility] Comment on above: Performed By: #### 1 [id number] #### [facility] [address] [place] [address] Family Medicine Office/Clini c Noteon 10-05-2024 Family [...] to Taltz include yeast infections, with ineffective azcp-yld-ewotzlb antifungal use, necessitating nystatin powder. - Non-compliance [...] sounds Assessment/Plan 1. 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 Normal [facility] Comment on above: Result Comment: Elec tronically Signed By: Malik Denson MD\.br\Date and Time Signed: 10/05/24 15:19 EDT Office Visiton 08-02-2024 Follow-up visit [id number] Dee Dee Caballero 1970 F Date Provider Department Center 08/02/2024 [id number], [facility] No family history on file Level of Service:34460 [place] OFFICE/OUTPATIENT ESTABLISHED LOW MDM 20 MIN Normal [facility] Ambulatory Visit Summaryon 1 Ambulatory Visit Summary Ambulatory Visit Summary DEE DEE CABALLERO :1970 Visit Date:02/29/2024 Ambulatory Visit Instructions Your Care Team Attending Physician - Malik Denson MD Primary Care Physician - Malik Denson MD This Is Your Medications List [facility] Prescription (glucometer test strips) abatacept (Orencia 250 mg intravenous injection) amlodipine (amLODIPine 10 mg Tab) atorvastatin (atorvastatin 80 mg Tab) baclofen (baclofen 10 mg Tab) carvedilol (carvedilol 25 mg Tab) clobetasol topical (clobetasol propionate 0.05% top oint) ezetimibe (ezetimibe 10 mg Tab) famotidine (famotidine 20 mg Tab) fluticasone nasal (Flonase 0.05 mg/inh [place]) gabapentin (gabapentin 300 mg Cap) glipiZIDE (glipiZIDE [...] Follow-Up Appointments 2024 1:00 PM EDT Where: [place] [id number] Medications What How Much When Why Instructions [...] Unchanged fluticasone nasal (Flonase 0.05 mg/ inh [place]) 2 Sprays Nasal Inhalation Every day Otitis [...] for. Cav (more content not included)... Normal [facility] Family Medicine Office/Clini c Noteon 10-22-2024 Family Medicine Office/Clinic Note Family Medicine Office/Clinic [...] TID, # 90 tab(s), Refills(s) 0, Pharmacy: [facility] [id number], 163, cm, 02/29/24 13:21:00 EDT, Height/Length Dosing, [...] 1 tab(s), Oral, BID Flonase 0.05 mg/inh [place], 2 spray(s), Nasal, Daily, Self Directed gabapentin [...] inactivated 02/21/2024 (more content not included)... Normal [facility] Comment on above: Result Comment: Elec tronically Signed By: Jarett DEAN, Malik Cary\.br\Date and Time Signed: 02/29/24 13:41 EDT .eGFRon 02-03-2024 GFR/1.73 sq M.predicted MDRD (S/P/Bld) [Vol rate/Area] mL/min/{1.73_m2} Normal >=60 [facility] Comment on above: Order Comment: Order added by Discern rule Result Comment: [facility] have implemented the eGFR calculation approach [...] years Performed By: #### E GFR #### [address] [address] Basic Metabolic Profileon Anion gap [Moles/Vol] 10 mmol/L Normal 4-12 [facility] Comment on above: Performed By: #### C [id number] #### [address] [address] Calcium [Mass/Vol] 9.0 mg/dL Normal 8.5-10.3 [facility] Comment on above: Performed By: #### C [id number] #### [address] [address] Chloride [Moles/Vol] 101 mmol/L Normal 98-110 [facility] Comment on above: Performed By: #### C D:[id number] #### [address] [address] CO2 [Moles/Vol] 23 mmol/L Normal 22-32 [facility] Comment on above: Performed By: #### C [id number] #### [address] [address] Potassium [Moles/Vol] 4.0 mmol/L Normal 3.4-4.8 [facility] Comment on above: Performed By: #### C [id number] #### [address] [address] Sodium [Moles/Vol] 134 mmol/L Normal 133-142 [facility] Comment on above: Performed By: #### C [id number] #### [address] [address] Creatinine [Mass/Vol] 0.68 mg/dL Normal 0.44-1.03 [facility] Comment on above: Performed By: #### C [id number] #### [address] [address] Glucose [Mass/Vol] 259 mg/dL High 70-99 [facility] Comment on above: Performed By: #### C [id number] #### [address] [address] Urea nitrogen [Mass/Vol] 21 mg/dL Normal 8-26 [facility] Comment on above: Performed By: #### C [id number] #### [address] [address] Urea nitrogen/Creatinine [Mass ratio] 30.9 mg/mg High 10.0-20.0 [facility] Comment on above: Performed By: #### C [id number] #### [address] [address] CBC w/ Diffon 02-03-2024 Erythrocyte distribution width (RBC) [Ratio] 13.6 % Normal 11.6-14.8 [facility] Comment on above: Performed By: #### C [id number] #### [address] [address] Hematocrit (Bld) [Volume fraction] 31.7 % Low 36.0-46.0 [facility] Comment on above: Performed By: #### C [id number] #### [address] [address] Hemoglobin (Bld) [Mass/Vol] 10.4 g/dL Low 12.0-16.0 [facility] Comment on above: Performed By: #### C [id number] #### [address] [address] MCH (RBC) [Entitic mass] 29.7 pg Normal 27.0-35.0 [facility] Comment on above: Performed By: #### C [id number] #### [address] [address] MCHC 32.8 % Normal 31.0-37.0 [facility] Comment on above: Performed By: #### C [id number] #### [address] [address] MCV (RBC) [Entitic vol] 90.7 fL Normal 80.0-100.0 [facility] Comment on above: Performed By: #### C [id number] #### [address] [address] Platelet 212 x10*3/mcL Normal 150-450 [facility] Comment on above: Performed By: #### C [id number] #### [address] [address] Platelet mean volume (Bld) [Entitic vol] 7.2 fL Normal 6.7-10.6 [facility] Comment on above: Performed By: #### C [id number] #### [address] [address] RBC 3.49 x10*6/mcL Low 3.80-5.20 [facility] Comment on above: Performed By: #### C [id number] #### [address] [address] WBC 19.8 x10*3/mcL High 4.5-11.0 [facility] Comment on above: Performed By: #### C D:[id number] #### [address] [address] Diff Autoon 02-03-2024 Baso Absolute 0.1 x10*3/mcL Normal 0.0-0.2 [facility] Comment on above: Performed By: #### E GFR #### [address] [address] Basophils/100 WBC (Bld) 0.3 % Normal 0.0-1.5 [facility] Comment on above: Performed By: #### E GFR #### [address] [address] Eos Absolute 0.0 x10*3/mcL Normal 0.0-0.4 [facility] Comment on above: Performed By: #### E GFR #### [address] [address] Eosinophils/100 WBC (Bld) 0.0 % Normal 0.0-5.4 [facility] Comment on above: Performed By: #### E GFR #### [address] [address] Lymph Absolute 1.2 x10*3/mcL Normal 1.0-4.[address] [facility] Comment on above: Performed By: #### E GFR #### [address] [address] Lymphocytes/100 WBC (Bld) 6.2 % Low 27.2-40.8 [facility] Comment on above: Performed By: #### E GFR #### [address] [address] Knott Absolute 0.7 x10*3/mcL Normal 0.1-1.1 [facility] Comment on above: Performed By: #### E GFR #### [address] [address] Monocytes/100 WBC (Bld) 3.5 % Low 3.7-11.9 [facility] Comment on above: Performed By: #### E GFR #### [address] [address] Neutro Absolute 17.8 x10*3/mcL High 1.8-7.7 [facility] Comment on above: Performed By: #### E GFR #### [address] [address] Neutro Auto 90.0 % High 47.2-70.8 [facility] Comment on above: Performed By: #### E GFR #### [facility] [address] [place] [address] Inpatient Clinical Summaryon 02-03-2024 Inpatient Clinical Summary [facility] [address] [place] [address] [address] Clinical Summary Person Information Name: Dee Dee Caballero Age: 53 Years : 1970 Sex: Female PCP: Malik Denson MD Marital Status: Phone: PCP: Race: White Ethnicity: Not or Language: Israeli Visit Id: Visit Reason: Speciality: Acuity: Enc Type: Inpatient Med Service: Surgery Arrival: 02/01/2024 09:00:36 Discharge: Dispo Type: Address: [address] [place] [id number] Diagnosis: 1:S/P lumbar fusion; 2:Diabetes; 3:Hypertension; 4:Hypothyroid [...] range between ( 27.2 and 40.8 ) Knott Auto: 3.5 % -- Normal range between [...] range between ( 36.0 and 46.0 ) Knott Absolute: 0.7 x10 MCH: 29.7 pg -- [...] oral tablet (more content not included)... Normal [facility] POC Glucose Randomon 024 Glucose [Mass/Vol] 302 mg/dL High 70-99 [facility] Comment on above: Performed By: #### E GFR #### [address] [address] Glucose [Mass/Vol] 369 mg/dL High 70-99 [facility] Comment on above: Performed By: #### C [id number] #### [address] [address] Glucose [Mass/Vol] 228 mg/dL High 70-99 [facility] Comment on above: Performed By: #### E GFR #### [facility] [address] [place] [address] .eGFRon 02-02-2024 GFR/1.73 sq M.predicted MDRD (S/P/Bld) [Vol rate/Area] mL/min/{1.73_m2} Normal >=60 [facility] Comment on above: Result Comment: [facility] have implemented the eGFR calculation approach [...] years Performed By: #### A SA #### [facility] [address] [place] [address] Basic Metabolic Profileon Anion gap [Moles/Vol] 9 mmol/L Normal 4-12 [facility] Comment on above: Performed By: #### E GFR #### [facility] [address] [place] [address] Calcium [Mass/Vol] 8.8 mg/dL Normal 8.5-10.3 [facility] Comment on above: Performed By: #### E GFR #### [facility] [address] [place] [address] Chloride [Moles/Vol] 106 mmol/L Normal 98-110 [facility] Comment on above: Performed By: #### E GFR #### [address] [address] CO2 [Moles/Vol] 24 mmol/L Normal 22-32 [facility] Comment on above: Performed By: #### E GFR #### [address] [address] Creatinine [Mass/Vol] 0.67 mg/dL Normal 0.44-1.03 [facility] Comment on above: Performed By: #### E GFR #### [address] [address] Glucose [Mass/Vol] 251 mg/dL High 70-99 [facility] Comment on above: Performed By: #### E GFR #### [address] [address] Potassium [Moles/Vol] 4.1 mmol/L Normal 3.4-4.8 [facility] Comment on above: Performed By: #### E GFR #### [address] [address] Sodium [Moles/Vol] 139 mmol/L Normal 133-142 [facility] Comment on above: Performed By: #### E GFR #### [address] [address] Urea nitrogen [Mass/Vol] 13 mg/dL Normal 8-26 [facility] Comment on above: Performed By: #### E GFR #### [address] [address] Urea nitrogen/Creatinine [Mass ratio] 19.4 mg/mg Normal 10.0-20.0 [facility] Comment on above: Performed By: #### E GFR #### [address] [address] CBC w/ Diffon 02-02-2024 Erythrocyte distribution width (RBC) [Ratio] 13.6 % Normal 11.6-14.8 [facility] Comment on above: Performed By: #### A SA #### [facility] [address] [place] [address] Hematocrit (Bld) [Volume fraction] 31.8 % Low 36.0-46.0 [facility] Comment on above: Performed By: #### A SA #### [facility] [address] [place] [address] Hemoglobin (Bld) [Mass/Vol] 10.4 g/dL Low 12.0-16.0 [facility] Comment on above: Performed By: #### A SA #### [facility] [address] [place] [address] MCH (RBC) [Entitic mass] 29.9 pg Normal 27.0-35.0 [facility] Comment on above: Performed By: #### A SA #### [facility] [address] [place] [address] MCHC 32.8 % Normal 31.0-37.0 [facility] Comment on above: Performed By: #### A SA #### [facility] [address] [place] [address] MCV (RBC) [Entitic vol] 91.3 fL Normal 80.0-100.0 [facility] Comment on above: Performed By: #### A SA #### [facility] [address] [place] [address] Platelet 193 x10*3/mcL Normal 150-450 [facility] Comment on above: Performed By: #### A SA #### [facility] [address] [place] [address] Platelet mean volume (Bld) [Entitic vol] 6.9 fL Normal 6.7-10.6 [facility] Comment on above: Performed By: #### A SA #### [facility] ([facility] [address] [place] [address] RBC 3.49 x10*6/mcL Low 3.80-5.20 [facility] Comment on above: Performed By: #### A SA #### [facility] ([facility]) [address] [place] [address] WBC 12.0 x10*3/mcL High 4.5-11.0 [facility] Comment on above: Performed By: #### A SA #### [facility] ([facility]) [address] [place] [address] Consultation Note - Generico n 02-02-2024 Consultation [...] Dose: 02/01/24 17:12:00 EDT, Dispense From Location: [id number], 02/01/24 17:12:00 EDT bisacodyl, 10 mg, Rectal, Supp, Daily, PRN constipation, First Dose: 02/01/24 17:12:00 EDT, Dispense From Location: [id number], 02/01/24 17:12:00 EDT ceFAZolin, 1 g, IV Piggyback, Soln-IV, q8hr for 3 doses, infuse over 30 minutes, First Dose: 02/01/24 17:12:00 EDT, Stop Date: 02/02/24 17:11:00 EDT, Dispense From Location: [address], Prophylaxis- Pre/Post-Op, 02/01/24 17:12:00 EDT clobetasol topical, 1 kate, Topical, BID, PRN cyclobenzaprine, 10 mg, Oral, Tab, q8hr, PRN muscle spasms, First Dose: 02/01/24 17:12:00 EDT, Dispense From Location: [address], 02/01/24 17:12:00 EDT dexamethasone, 8 mg, IV Push, Injection, q8hr for 3 doses, First Dose: 02/02/24 8:00:00 EDT, Stop Date: 02/03/24 7:59:00 EDT, Dispense From Location: [address], 02/02/24 6:39:00 EDT Dextrose 10% in Water, 125 mL, IV Piggyback, Soln-IV, As Indicated for 20 doses, PRN other (see comment), infuse over 0.3 hr, First Dose: 02/01/24 18:14:00 EDT, Stop Date: Limited # of times, Dispense From Location: [address], 02/01/24 18:14:00 EDT diazePAM, 5 mg, Oral, Tab, q8hr, First Dose: 02/01/24 18:00:00 EDT, Dispense From Location: [address], 02/01/24 17:10:00 EDT docusate, 100 mg, Oral, Cap, BID, First Dose: 02/02/24 7:00:00 EDT, Dispense From Location: [address], 02/01/24 17:12:00 EDT fexofenadine, 1 tabs, Oral, Daily, PRN glucagon, 1 mg, Subcutaneous, Injection, As Indicated for 20 doses, PRN other (see comment), First Dose: 02/01/24 18:14:00 EDT, Stop Date: Limited # of times, Dispense From Location: [address], 02/01/24 18:14:00 EDT hydrocodone-acetamin ophen, 2 tabs, Oral, Tab, q4hr, PRN severe pain [7-10 on pain scale], First Dose: 02/01/24 17:12:00 EDT, Dispense From Location: [address], 02/01/24 17:12:00 EDT hydrocodone-acetamin ophen, 1 tabs, Oral, Tab, q4hr, PRN moderate pain [4-6 on pain scale], First Dose: 02/01/24 17:12:00 EDT, Dispense From Location: [address], 02/01/24 17:12:00 EDT insulin aspart, 6 - 18 units, Subcutaneous, Injection, ACHS, First Dose: 02/02/24 16:30:00 EDT, 02/02/24 16:00:00 EDT insulin glargine, 10 units, Subcutaneous, Injection, BID, First Dose: 02/02/24 21:00:00 EDT, Dispense From Location: [facility], 02/02/24 16:00:00 EDT LORazepam, 1 mg, IV Push, Injection, q6hr, PRN agitation, First Dose: 02/01/24 17:12:00 EDT, Dispense From Location: [address], 02/01/24 17:12:00 EDT losartan, 50 mg, Oral, Tab, qAM, First Dose: 02/02/24 9:00:00 EDT, Dispense From Location: [address], 02/01/24 11:43:00 EDT metFORMIN, 500 mg, Oral, Tab, BIDWM, First Dose: 02/02/24 8:00:00 EDT, Dispense From Location: [address], 02/01/24 11:43:00 EDT metFORMIN, 1 tabs, Oral, BID, with meals morphine, 2 mg, IV Push, Injection, q3hr, PRN severe pain [7-10 on pain scale], First Dose: 02/01/24 17:12:00 EDT, Dispense From Location: [address], 02/01/24 17:12:00 EDT ondansetron, 4 mg, IV Push, Injection, q4hr, PRN nausea/vomiting, First Dose: 02/01/24 17:12:00 EDT, Dispense From Location: [address], 02/01/24 17:12:00 EDT polyethylene glycol 3350, 17 g, Oral, Powder-Recon, Daily, First Dose: 02/02/24 9:00:00 EDT, Dispense From Location: [address], 02/01/24 17:12:00 EDT sodium biphosphate-sodium phosphate, 133 mL, Rectal, Enema, Daily, PRN constipation, First Dose: 02/01/24 17:12:00 EDT, Dispense From Location: 6NU, 02/01/24 17:12:00 EDT venlafaxine, 1 caps, Oral, qAM, 0 Refill(s) Request for Admit, 02/01/24 17:12:00 EDT, 02/01/24 17:12:00 EDT, Surgery Co (more content not included)... Normal [facility] Diff Autoon 02-02-2024 Baso Absolute 0.1 x10*3/mcL Normal 0.0-0.2 [facility] Comment on above: Performed By: #### C [id number] #### [address] [address] Basophils/100 WBC (Bld) 0.6 % Normal 0.0-1.5 [facility] Comment on above: Performed By: #### C [id number] #### [address] [address] Eos Absolute 0.0 x10*3/mcL Normal 0.0-0.4 [facility] Comment on above: Performed By: #### C [id number] #### [address] [address] Eosinophils/100 WBC (Bld) 0.0 % Normal 0.0-5.4 [facility] Comment on above: Performed By: #### C [id number] #### [address] [address] Lymph Absolute 0.8 x10*3/mcL Low 1.0-4.[address] [facility] Comment on above: Performed By: #### C [id number] #### [address] [address] Lymphocytes/100 WBC (Bld) 6.3 % Low 27.2-40.8 [facility] Comment on above: Performed By: #### C [id number] #### [address] [address] Knott Absolute 0.3 x10*3/mcL Normal 0.1-1.1 [facility] Comment on above: Performed By: #### C [id number] #### [address] [address] Monocytes/100 WBC (Bld) 2.5 % Low 3.7-11.9 [facility] Comment on above: Performed By: #### C [id number] #### [address] [address] Neutro Absolute 10.8 x10*3/mcL High 1.8-7.7 [facility] Comment on above: Performed By: #### C [id number] #### [address] [address] Neutro Auto 90.6 % High 47.2-70.8 [facility] Comment on above: Performed By: #### C [id number] #### [address] [address] Orthopedic Progress Noteon 0 02-02-2024 Orthopedic Progress [...] spine radiographs is otherwise unremarkable. Signed By: Koffi Alas MD Physical Exam Motor 5/5 except 1-2/5 left [...] mg= 1 mL, IV Push, q3hr, PRN Drumright 5 mg-325 mg oral tablet, 2 tabs, Oral, q4hr, PRN Drumright 5 mg-325 mg oral tablet, 1 tabs, [...] Date: 02/03/24 6:59:00 EDT, Dispense From Location: [address], 02/02/24 6:39:00 EDT POD#1 s/p L2-S1 decompression and fusion Plan 1. Continue drains 2. Monitor labs 3. Pain controlled 4. PT/OT today 5. Discharge - pending 6. Start decadron for left foot numbness and weakness 7. Hospitalist consulted for medical management Electronically signed by Christ Sharpe PA-C 02/02/24 06:44 EDT Normal [facility] POC Glucose Randomon 024 Glucose [Mass/Vol] 231 mg/dL High 70-99 [facility] Comment on above: Performed By: #### C [id number] #### [address] [address] Glucose [Mass/Vol] 343 mg/dL High 70-99 [facility] Comment on above: Performed By: #### E GFR #### [address] [place] [address] Consultation Note - Generico n 02-01-2024 Consultation Note - Generic Chief Complaint Admitted following a lumbar fusion with Dr. Castillo Reason for Consultation: Medical vp care management Provider: Dr. Castillo Date of Consult: [...] 1 mL, (more content not included)... Normal [facility] POC Glucose Randomon 024 Glucose [Mass/Vol] 247 mg/dL High 70-99 [facility] Comment on above: Performed By: #### C [id number] #### [address] [address] Glucose [Mass/Vol] 179 mg/dL High 70-99 [facility] Comment on above: Performed By: #### C [id number] #### [address] [address] Glucose [Mass/Vol] 203 mg/dL High 70-99 [facility] Comment on above: Performed By: #### C [id number] #### [address] [address] Glucose [Mass/Vol] 166 mg/dL High 70-99 [facility] Comment on above: Performed By: #### E GFR #### [address] [address] Glucose [Mass/Vol] 180 mg/dL High 70-99 [facility] Comment on above: Performed By: #### C [id number] #### [address] [address] XR Spine Lumbosacral 1 View in ORon [...] Electronically Signed in Other Vendor System) Normal [facility] Ambulatory Visit Summaryon 0 01-18-2024 Ambulatory Visit [...] Denson MD. This Is Your Medications List [facility] Prescription (glucometer test strips) abatacept (Orencia 250 mg intravenous injection) amlodipine (amLODIPine 10 mg Tab) atorvastatin (atorvastatin 80 mg Tab) baclofen (baclofen 10 mg Tab) carvedilol (carvedilol 25 mg Tab) clobetasol topical (clobetasol propionate 0.05% top oint) ezetimibe (ezetimibe 10 mg Tab) famotidine (famotidine 20 mg Tab) fluticasone nasal (Flonase 0.05 mg/inh [place]) gabapentin (gabapentin 300 mg Cap) glipiZIDE (glipiZIDE [...] Follow-Up Appointments 2024 1:00 PM EDT Where: [place] [id number]- Medications What How Much When Why Instructions [...] Unchanged fluticasone nasal (Flonase 0.05 mg/ inh [place]) 2 Sprays Nasal Inhalation Every day Otitis [...] KILEY ( (more content not included)... Normal [facility] Family Medicine Office/Clini c Noteon 01-18-2024 Family Medicine Office/Clinic Note Family Medicine Office/Clinic Note HPI Staff Dee Dee is a 53 year old female presenting for surgical clearance Date of surgery: 02/01/24 Surgeon: Dr Castillo [facility]: [facility] Type of Surgery: lumbar fusion Pre testing: Done at [facility] the results are in the cardiology clearance [...] Daily, # 90 tab(s), Refills(s) 1, Pharmacy: [facility] [id number], 164.5, cm, 04/26/23 18:33:00 EST, Height/Length Dosing, 124.8, kg, 04/26/23 18:33:00 EST, Weight Dosing semaglutide, 2 mg, SubCutaneous, qWeek, # 3 EA, Refills(s) 1, Pharmacy: [facility] [id number], 163, cm, 01/18/24 13:09:00 EDT, Height/Length Dosing, [...] Oral, BID, Self Directed Flonase 0.05 mg/inh [place], 2 spray(s), Nasal, Daily, Self Directed gabapentin 300 mg Cap, 300 mg= 1 cap(s), Oral, TID glipiZIDE 10 mg Tab, 10 mg= 1 tab(s), (more content not included)... Normal [facility] Comment on above: Result Comment: Elec tronically Signed By: Jarett DEAN, Malik Patterson.br\Date and Time Signed: 01/18/24 13:33 EDT .eGFRon 01-13-2024 GFR/1.73 sq M.predicted MDRD (S/P/Bld) [Vol rate/Area] mL/min/{1.73_m2} Normal >=60 [facility] Comment on above: Result Comment: [facility] have implemented the eGFR calculation approach [...] Age = years Performed By: #### C D:[id number] #### [place] [address] ABO/Rhon 01-13-2024 ABO/Rh ABO/Rh: A POS Normal [facility] Comment on above: Performed By: #### A LISSETTE #### [facility] ([facility]) [address] [place] [address] ABSC Autoon 01-13-2024 ABSC Auto Negative Normal [facility] Comment on above: Performed By: #### A #### [facility] ([facility]) [address] [place] [address] Basic Metabolic Profileon Anion gap [Moles/Vol] 9 mmol/L Normal 4-12 [facility] Comment on above: Performed By: #### C D:[id number] #### [facility] [address] [place] [address] Calcium [Mass/Vol] 9.2 mg/dL Normal 8.5-10.3 [facility] Comment on above: Performed By: #### C D:[id number] #### [address] [address] Chloride [Moles/Vol] 100 mmol/L Normal 98-110 [facility] Comment on above: Performed By: #### C D:[id number] #### [facility] [address] [place] [address] CO2 [Moles/Vol] 26 mmol/L Normal 22-32 [facility] Comment on above: Performed By: #### C D:[id number] #### [address] [address] Creatinine [Mass/Vol] 1.05 mg/dL High 0.44-1.03 [facility] Comment on above: Performed By: #### C D:[id number] #### [address] [address] Glucose [Mass/Vol] 163 mg/dL High 70-99 [facility] Comment on above: Performed By: #### C D:[id number] #### [address] [place] [address] Potassium [Moles/Vol] 3.9 mmol/L Normal 3.4-4.8 [facility] Comment on above: Performed By: #### C D:[id number] #### [address] [address] Sodium [Moles/Vol] 135 mmol/L Normal 133-142 [facility] Comment on above: Performed By: #### C D:[id number] #### [address] [address] Urea nitrogen [Mass/Vol] 23 mg/dL Normal 8-26 [facility] Comment on above: Performed By: #### C D:[id number] #### [address] [address] Urea nitrogen/Creatinine [Mass ratio] 21.9 mg/mg High 10.0-20.0 [facility] Comment on above: Performed By: #### C D:[id number] #### [address] [address] CBCon 01-13-2024 Erythrocyte distribution width (RBC) [Ratio] 13.3 % Normal 11.6-14.8 [facility] Comment on above: Performed By: #### C [id number] #### [address] [address] Hematocrit (Bld) [Volume fraction] 40.5 % Normal 36.0-46.0 [facility] Comment on above: Performed By: #### C D:[id number] #### [address] [address] Hemoglobin (Bld) [Mass/Vol] 13.4 g/dL Normal 12.0-16.0 [facility] Comment on above: Performed By: #### C [id number] #### [address] [address] MCH (RBC) [Entitic mass] 29.9 pg Normal 27.0-35.0 [facility] Comment on above: Performed By: #### C [id number] #### [address] [address] MCHC 33.0 % Normal 31.0-37.0 [facility] Comment on above: Performed By: #### C [id number] #### [address] [address] MCV (RBC) [Entitic vol] 90.6 fL Normal 80.0-100.0 [facility] Comment on above: Performed By: #### C [id number] #### [address] [address] Platelet 292 x10*3/mcL Normal 150-450 [facility] Comment on above: Performed By: #### C D:[id number] #### [address] [address] Platelet mean volume (Bld) [Entitic vol] 7.3 fL Normal 6.7-10.6 [facility] Comment on above: Performed By: #### C D:[id number] #### [address] [address] RBC 4.47 x10*6/mcL Normal 3.80-5.20 [facility] Comment on above: Performed By: #### C D:[id number] #### [address] [address] WBC 9.6 x10*3/mcL Normal 4.5-11.0 [facility] Comment on above: Performed By: #### C D:[id number] #### [address] [address] Hgb A1con 01-13-2024 Glucose [Mass/Vol] 151 mg/dL High 68-114 [facility] Comment on above: Result Comment: Math ematical Calc approx. The mean gluc equivalency of A1c Performed By: #### A SA #### [facility] [address] [place] [address] Hgb A1c 6.9 % A1c High 4.0-5.6 [facility] Comment on above: Result Comment: Refe rence Range: 4.0 - 5.6 % Normal 5.7 - 6.4 % Pre-Diabetes > 6.5 % Diabetes Performed By: #### A SA #### [facility] ([facility]) [address] [place] [address] MRSA, PCRon 01-13-2024 LAB ONLY Result Called? No Normal [facility] Comment on above: Performed By: #### E GFR #### [facility] [address] [place] [address] Methicillin Resistant Staph aurus(MRSA) Not detected Normal Not Detected [facility] Comment on above: Result Comment: Mut ations or polymorphisms in primer or probe binding regions may affect detection of new or unknown MRSA variants resulting in a false negative. The [employer] Xpert MRSA Assay is a qualitative in [...] clinician. Performed By: #### E GFR #### [facility] [address] [place] [address] PTon 01-13-2024 INR Coag (PPP) [Relative time] 1.0 {INR} Normal <=3.5 [facility] Comment on above: Result Comment: INR has no normal range. INR Therapeutic range is: 2.0-3.0 (AF, CVA, TIAs, DVT prophylaxis, acute DVT) 2.5-3.5 (Mech heart valves, recurrent thrombosis/emboli) Performed By: #### E GFR #### [facility] [address] [place] [address] PT Coag (PPP) [Time] 10.9 s Normal 9.2-12.0 [facility] Comment on above: Performed By: #### E GFR #### [facility] [address] [place] [address] PTTon 01-13-2024 aPTT Coag (Bld) [Time] 22.1 s Normal 19.5-28.2 [facility] Comment on above: Performed By: #### A SA #### [facility] ([facility]) [address] [place] [address] XR Chest 2 Viewson XR Chest 2 [...] Electronically Signed in Other Vendor System) Normal [facility] Office Visiton 01-12-2024 Follow-up visit [id number] Dee Dee Caballero 1970 F Date Provider Department Center 01/12/2024 [address]-NEUSRTLAZ TOVAR [facility] No family history on file Level of Service:81520 ND OFFICE/OUTPATIENT ESTABLISHED MOD MDM 30 MIN Normal [facility] Ambulatory Visit Summaryon 0 11-22-2023 Ambulatory Visit Summary Ambulatory Visit Summary DEE DEE CABALLERO :1970 Visit Date:11/22/2023 Ambulatory Visit Instructions Your Diagnosis Spinal stenosis DM type 2 causing complication Your Care Team Attending Physician - Malik Denson MD Primary Care Physician - Ross MD, Malik E. This Is Your Medications List Contact prescribing [...] mg Tab) fluticasone nasal (Flonase 0.05 mg/inh [place]) gabapentin (gabapentin 300 mg Cap) glipiZIDE (glipiZIDE [...] PM EDT With: Malik Denson MD Where: [facility] Normal [address] [place], [place] [address]- \.br\ Medications\.br\ What How Much When Why [...] Unchanged fluticasone nasal (Flonase 0.05 mg/ inh [place]) 2 Sprays Nasal Inhalation Every day Otitis [...] for choosing us for your care.\.br\ \.br\ [facility] Medicine Office/Clini c Noteon 11-22-2023 Family Medicine [...] 1 tab(s), Oral, BID Flonase 0.05 mg/inh [place], 2 spray(s), Nasal, Daily gabapentin 300 mg [...] virus vaccine, inactivated 02/21/2022 Recorded SARS-CoV-2 (COVID-19) [id number] 02/21/2022 Recorded SARS-CoV-2 (COVID-19) mRNA-1273 vaccine 07/01/2021 [...] influenza virus (more content not included)... Normal [facility] Comment on above: Result Comment: Elec tronically [...] of clutter to prevent tripping and/or falling. [place] Advance Directives reviewed. Patient does not have [...] encouraged patient to discuss this with her [employer]. COVID vaccines have been administered, with Boosters [...] with bowel/ bladder. Colonoscopy last completed: around 2015 or 2016 at [facility] per patient, records requested. Mammogram- Patient states she had a Mammogram this year at [facility]. Records requested. Reviewed pain symptoms [...] she follows with Pain Management at [facility], last office visit 11/08/23. Office visit notes [...] to see Dr. Mckeon for counseling in [place], declines referral at this time. Denies concerns, [...] Essential (pr (more content not included)... Normal [facility] Comment on above: Result Comment: Elec tronically Signed By: Jarett DEAN, Malik Cary\.br\Date and Time Signed: 11/18/23 08:14 EDT\.br\Electronically Co-Signed By: Nisa Domínguez LPN.doron\Date and Time Co-Signed: 11/09/23 16:18 EDT Ambulatory [...] Denson MD This Is Your Medications List [facility] Prescription (glucometer test strips) abatacept (Orencia 250 mg intravenous injection) amlodipine (amLODIPine 10 mg Tab) atorvastatin (Lipitor 40 mg Tab) baclofen (baclofen 10 mg Tab) carvedilol (carvedilol 25 mg Tab) clobetasol topical (clobetasol propionate 0.05% top oint) conjugated estrogens (Premarin 0.3 mg Tab) ezetimibe (ezetimibe 10 mg Tab) famotidine (famotidine 20 mg Tab) fluticasone nasal (Flonase 0.05 mg/inh [place]) gabapentin (gabapentin 300 mg Cap) glipiZIDE (glipiZIDE [...] PM EDT With: Malik Denson MD Where: [facility] [place] Invalid Interpretation Code [address] [place] [address]- \.br\ Someone Will Contact You Regarding These Appointments\.br\ [facility] External Ambulatory Referral, Geographic proximity, Diabetic Education, [place] Law- DM education. Patient lives in [place], requesting [place]., 11/09/23 14:57:00 EDT, Annual visit for general adult medical examination without abnormal findings [facility] CHEMISTRYOrdered By: SYSTEM SYSTEM on 10-28-2023 Albumin [...] (Bld) [Mass fraction] 8.5 % High <=5.9% [facility] ChemAutoSS CMPon 10-28-2023 Albumin [Mass/Vol] 4.2 g/dL Normal 3.3-5.0 [facility] Comment on above: Performed By: #### 2 [id number] #### [facility] Laboratory [address] [place] [address] Albumin/Globulin (S) [Mass conc ratio] 1.5 Normal 1.1-2.2 [facility] Comment on above: Performed By: #### 2 [id number] #### [facility] [address] [place] [address] ALP [Catalytic activity/Vol] 104 Int._Unit/L High 21-98 [facility] Comment on above: Performed By: #### 2 [id number] #### [facility] [address] [place] [address] ALT No additional P-5'-P [Catalytic activity/Vol] 33 Int._Unit/L Normal 6-46 [facility] Comment on above: Performed By: #### 2 [id number] #### [facility] [address] [place] [address] Anion gap [Moles/Vol] 12 mmol/L Normal 6-16 [facility] Comment on above: Performed By: #### 2 [id number] #### [facility] [address] [place] [address] AST [Catalytic activity/Vol] 26 Int._Unit/L Normal 5-43 [facility] Comment on above: Performed By: #### 2 [id number] #### [facility] [address] [place] [address] Bilirubin [Mass/Vol] 0.7 mg/dL Normal 0.0-1.1 [facility] Comment on above: Performed By: #### 2 [id number] #### [facility] [address] [place] [address] Calcium [Mass/Vol] 9.5 mg/dL Normal 8.9-11.1 [facility] Comment on above: Performed By: #### 2 [id number] #### [facility] [address] [place] [address] Chloride [Moles/Vol] 102 mmol/L Normal 101-111 [facility] Comment on above: Performed By: #### 2 [id number] #### [facility] [address] [place] [address] CO2 [Moles/Vol] 26 mmol/L Normal 21-31 [facility] Comment on above: Performed By: #### 2 [id number] #### [facility] [address] [place] [address] Creatinine [Mass/Vol] 1.0 mg/dL Normal 0.5-1.3 [facility] Comment on above: Performed By: #### 2 [id number] #### [facility] [address] [place] [address] Globulin (S) [Mass/Vol] 2.8 g/dL Normal 1.4-4.0 [facility] Comment on above: Performed By: #### 2 [id number] #### [facility] [address] [place] [address] Glucose [Mass/Vol] 319 mg/dL High 55-199 [facility] Comment on above: Performed By: #### 2 [id number] #### [facility] [address] [place] [address] Potassium [Moles/Vol] 4.2 mmol/L Normal 3.5-5.3 [facility] Comment on above: Performed By: #### 2 [id number] #### [facility] [address] [place] [address] Protein [Mass/Vol] 7.0 g/dL Normal 6.0-7.8 [facility] Comment on above: Performed By: #### 2 [id number] #### [facility] [address] [place] [address] Sodium [Moles/Vol] 136 mmol/L Normal 135-145 [facility] Comment on above: Performed By: #### 2 [id number] #### [facility] [address] [place] [address] Urea nitrogen [Mass/Vol] 17 mg/dL Normal 5-21 [facility] Comment on above: Performed By: #### 2 [id number] #### [facility] [address] [place] [address] Urea nitrogen/Creatinine [Mass ratio] 17 No Units Normal 10-20 [facility] Comment on above: Performed By: #### 2 [id number] #### [facility] [facility] [address] [place] [address] Family Medicine Office/Clini c Noteon 10-28-2023 Family Medicine Office/Clinic Note HPI Staff Funez is a 53 year old female presenting with elevated blood sugars running 165- 177 in the morning all the way up to 266-300 at lunch and 178 at night before bed. Ozempic hasn't worked the same for her as it did in the beginning Do you have any of the following symptoms? 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 Normal [facility] Comment on above: Result Comment: Elec tronically Signed By: Jarett DEAN, Malik Sotelobr\Date and Time Signed: 10/28/23 13:31 EDT Lipid Panelon 10-28-2023 Cholesterol [Mass/Vol] 90 mg/dL Low 120-200 [facility] Comment on above: Performed By: #### 2 [id number] #### [facility] [address] [place] [address] Cholesterol in HDL [Mass/Vol] 44 mg/dL Invalid Interpretation Code [facility] Comment on above: Result Comment: '>= 60 LOW RISK' '<= 40 HIGH RISK' Performed By: #### 2 [id number] #### [facility] [address] [place] [address] Cholesterol in LDL [Mass/Vol] 35 mg/dL Normal <=129 [facility] Comment on above: Performed By: #### 2 [id number] #### [facility] [address] [place] [address] Cholesterol in VLDL [Mass/Vol] 20 mg/dL Normal 7-40 [facility] Comment on above: Performed By: #### 2 [id number] #### [facility] [address] [place] [address] Triglyceride [Mass/Vol] 102 mg/dL Normal <=149 [facility] Comment on above: Performed By: #### 2 [id number] #### [facility] [address] [place] [address] Patient Educationon 06-20-20 24 Patient Education Nutrition BMI for Adults What [...] numbers. This can be done either in [place] ([place] or metric measurements. Note that charts and online BMI calculators are available to help you find your BMI quickly and easily without having to do these calculations yourself. To calculate your BMI in [place] ([place] measurements: 1. Measure your weight in [...] for Disease Control and Prevention: www.cdc.gov ? [place] Heart Association: www.heart.org ? National Heart, Lung, and Blood [place]: www.nhlbi.nih.gov Summary ? Body mass index (BMI) is a number that is calculated from a person's weight and height. ? BMI may help estimate how much of a person's weight is composed of fat. BMI can help identify those who may be at higher risk for certain medical problems. ? BMI can be measured using Israeli measurements or metric measurements. ? BMI charts are used to identify whether you are underweight, normal weight, overweight, or obese. This information is not intended to replace advice given to you by your health care provider. Make sure you discuss any questions you have with your health care provider. Document Revised: 01/17/2020 Document Reviewed: 11/24/2019 [employer]ulu Patient Education ? 2022 [employer] Normal [facility] U Microalbon 10-28-2023 Albumin DL <= 20 mg/L (U) [Mass/Vol] 19.0 mg/dL High 0.0-1.9 [facility] Comment on above: Performed By: #### 1 [id number] #### [facility] [address] [place] [address] eGFRon 10-28-2023 eGFR 66 mL/min/1.73 m2 Normal >=59 [facility] Comment on above: Order Comment: Order added by Discern Expert. Performed By: #### 1 [id number] #### [facility] [address] [place] [address] Family Medicine Office/Clini c Noteon 10-05-2023 Family [...] 1 tab(s), Oral, BID Flonase 0.05 mg/inh [place], 2 spray(s), Nasal, Daily glipiZIDE 10 mg [...] Use:. Luke (more content not included)... Normal [facility] Comment on above: Result Comment: Elec tronically [...] numbers. This can be done either in [place] ([place] or metric measurements. Note that charts and online BMI calculators are available to help you find your BMI quickly and easily without having to do these calculations yourself. To calculate your BMI in [place] ([place] measurements: 1. Measure your weight in [...] for Disease Control and Prevention: www.cdc.gov ? [place] Heart Association: www.heart.org ? National Heart, Lung, and Blood [place]: www.nhlbi.nih.gov Summary ? Body mass index (BMI) is a number that is calculated from a person's weight and height. ? BMI may help estimate how much of a person's weight is composed of fat. BMI can help identify those who may be at higher risk for certain medical problems. ? BMI can be measured using Israeli measurements or metric measurements. ? BMI charts are used to identify whether you are underweight, normal weight, overweight, or obese. This information is not intended to replace advice given to you by your health care provider. Make sure you discuss any questions you have with your health care provider. Document Revised: 01/17/2020 Document Reviewed: 11/24/2019 [employer]ulu Patient Education ? 2022 [employer] Nutrition BMI for Adults What is [...] that may be (more content not included)... [facility] Consultation Noteon 09-30-19 Consultation Note [id number] #1.00TIFF [facility] Pre-Certification Formon Pre-Certification Form [id number] #1.00TIFF [facility] Pre-Certification Form [id number]# 1.00TIFF [facility] Provider Letteron 07-21-2023 Provider Letter July 21, 2023 DEE DEE CABALLERO [address] [place] [id number] : 1970 Dear Dee Dee, We have been trying to reach you with no success. It is important that you return our call regarding your _ upon receiving this letter. Also, at the time of your call, please provide us with your current information. Thank you for your prompt attention to this matter. Sincerely, [address] [address] [facility] PAP [id number] 07-13-2023 Cytology report Cyto stain Doc (Cvx/Vag) Note Invalid Interpretation Code [facility] Comment on above: Result Comment: TEST S RESULT FLAG UNITS REF RANGE LAB Clinician Provided Cytology Information Source.............Vagina No. of containers..01 ThinPrep Vial DIAGNOSIS: 01 UNSATISFACTORY FOR EVALUATION. Recommendation: 01 Suggest follow up as clinically appropriate. Specimen adequacy: 01 Specimen processed and examined but unsatisfactory for evaluation of epithelial abnormality because of insufficient cellularity. Performed by: Camilo Ibarra, Customer Service Operator ([facility]) QC reviewed by: Rosemary Quintana, Supervisory Customer Service Operator ([facility]) . 01 Note: Note 01 The Pap smear is a screening test designed to aid in the detection of premalignant and malignant conditions of the uterine cervix. It is not a diagnostic procedure and should not be used as the sole means of detecting cervical cancer. Both false-positive and false-negative reports do occur. Test Methodology: Note 01 The [employer] Licensee was unable to read this specimen. Therefore a manual review was performed. HPV Genotype Reflex Note 01 Criteria not met, HPV Genotype not performed. FLAG LEGEND: L-Low Normal,H-High Normal,LL-Alert Low,HH-Alert High <-Panic Low,>-Panic High,A-Abnormal,AA-Critical Abnormal Performed at: 01 [facility] [address] [id number] Cecy Manzo MD, Performed at: [facility] [address] [id number] MD Anais Sam Performed By: #### 1 [id number] #### [facility] [address] [place] [id number] Outside Mammographyon 2023 Outside Mammography [id number] #1.00TIFF [facility] Ambulatory Visit Summaryon 0 07-07-2023 Ambulatory Visit Summary DEE DEE CABALLERO :1970 Visit Date:07/07/2023 Ambulatory Visit Instructions Your Diagnosis BMI 45.0-49.9, adult Non-smoker Well woman exam Cervical cancer screening Breast cancer screening by mammogram Your Care Team Attending Physician - Britany Hicks Primary Care Physician - Malik Denson MD This Is Your Medications List [facility] Prescription (glucometer test strips) abatacept (Orencia 250 mg intravenous injection) amlodipine (amLODIPine 10 mg Tab) atorvastatin (Lipitor 40 mg Tab) baclofen (baclofen 10 mg Tab) carvedilol (carvedilol 25 mg Tab) ezetimibe (ezetimibe 10 mg Tab) famotidine (famotidine 20 mg Tab) fluticasone nasal (Flonase 0.05 mg/inh [place]) glipiZIDE (glipiZIDE 10 mg Tab) hydrOXYzine (hydrOXYzine [...] Appointments Wednesday 1:20 PM EDT With: Where: [facility] Invalid Interpretation Code [address] [place] [address]- \.br\ 2023 2:00 PM EDT \.br\ With: Jarett DEAN, Malik Cary\.br\ Where: [facility] [place] [facility] Family Medicine Office/Clini c Noteon 07-07-2023 Family Medicine Office/Clinic Note HPI Staff Dee Dee is a 53 year old female presenting for well woman Woman check up: Last pap: 2017 Last Rosa: 06/28/23 [facility] Results of lap pap: normal Where was it done: [facility] hx: # of pregnancies.2.. abortions... live births..2. [...] vaginal wall excoriated Neurologic: Grossly normal Skin: [place], moist, no tenting Lymph Nodes: No cervical [...] kate, Topical, BID, 15 gram, Refill(s) 0, [facility] #[id number], 165.4, cm, 07/07/23 14:54:00 EST, Height/Length Dosing, 131.3, kg, 07/07/23 14:54:00 EST, Weight Dosing fluconazole, 150 mg = 1 tab(s), Oral, Once, take one tab on day 1 and one dab on day 4, # 2 tab(s), Refills(s) 1, Pharmacy: [facility] #[id number], 165.4, cm, 07/07/23 14:54:00 EST, Height/Length Dosing, 131.3, kg, 07/07/23 14:54:00 EST, Weight Dosing PAP w/ HPV and Genotype rflx 2. Excoriated rash (R21: Rash and other nonspecific skin eruption) perineum is very excorated will order clobetasol Ordered: clobetasol topical, 1 kate, Topical, BID, 15 gram, Refill(s) 0, [facility] #[id number], 165.4, cm, 07/07/23 14:54:00 EST, Height/Length Dosing, 131.3, kg, 07/07/23 14:54:00 EST, Weight Dosing fluconazole, 150 mg = 1 tab(s), Oral, Once, take one tab on day 1 and one dab on day 4, # 2 tab(s), Refills(s) 1, Pharmacy: [facility] #[id number], 165.4, cm, 07/07/23 14:54:00 EST, Height/Length Dosing, 131.3, kg, 07/07/23 14:54:00 EST, Weight Dosing 3. Yeast infection of the vagina (B37.31: Acute candidiasis of vulva and vagina) diflucan sent to pharmcy Ordered: clobetasol topical, 1 kate, Topical, BID, 15 gram, Refill(s) 0, [facility] #[id number], 165.4, cm, 07/07/23 14:54:00 EST, Height/Length Dosing, 131.3, kg, 07/07/23 14:54:00 EST, Weight Dosing fluconazole, 150 mg = 1 tab(s), Oral, Once, take one tab on day 1 and one dab on day 4, # 2 tab(s), Refills(s) 1, Pharmacy: [facility] #[id number], 165.4, cm, 07/07/23 14:54:00 EST, Height/Length Dosing, 131.3, kg, 07/07/23 14:54:00 EST, Weight Dosing 4. Cervical cancer screening (Z12.4: Encounter for screening for malignant neoplasm of cervix) pt had hysterectomy specimen obtained from vagi (more content not included)... Normal [facility] Comment on above: Result Comment: Elec tronically Signed By: Britany Hicks\.br\Date and Time Signed: 07/07/23 15:34 EST PAP [id number] 07-07-2023 Gynecological Body Site VAGINA Normal [facility] Comment on above: Performed By: #### 1 [id number] #### [facility] [address] [place] [address] DBT Breast - bilateral tanya matos 06-29-2023 No evidence of malignancy. Advise annual screening mammography. BI-RADS 2 BIRADS: BIRADS - CATEGORY 2 Benign Findings. Normal interval follow-up is recommended in 12 months. OVERALL ASSESSMENT - BENIGN A letter of notification will be sent to the patient regarding the results. The [place] [employer] recommends annual mammograms for women 40 years and older. [facility] EXAMINATION: SCREENING DIGITAL BILATERAL MAMMOGRAM WITH [...] node upper outer left breast again noted. [facility] Radiology Study observation (narrative) [facility] DBT Breast - bilateral tanya Leggettrdered By: Leatha Cintron on 06-29-2023 [facility] Work Phone: Consultation Noteon 06-25-19 Consultation Note [id number] #1.00TIFF Normal [facility] Lab Reportson 06-25-2023 Lab Reports [id number] #1.00TIFF Normal [facility] RAD - MISCon 06-25-2023 RAD - MISC [id number] #1.00TIFF Normal [facility] Consultation Noteon 06-17-19 Consultation Note [id number] #1.00TIFF Normal [facility] Family Medicine Office/Clini c Noteon 05-20-2023 Family Medicine Office/Clinic Note HPI Staff Jeny is a 53 year old female here to discuss her paperwork ( Norma has it) for disability through [employer]. Needs updated Disability benefits became effective 11/06/16 [...] is currently availing long-term disability benefits through [employer]. She expresses a desire to be exempted from work due to her psoriatic arthritis. 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 The patient reports discontinuation of consultations with a chips screen tender. She cites inconsistency between Dr. Buenrostro and [...] will send the patient to a new chips screen tender for further recommendations. 3. Immunodeficiency due to [...] with voice recognition artificial intelligence software, specifically [employer], [employer] and or [employer]. Substitutions may have occurred due to the inherent limitations of voice recognition and artificial intelligence software. ATTESTATION: Documentation services were performed after patient or guardian consented to allow [employer] to record this visit. [employer]ON[employer] account management specialist and provider reviewed before signing. RONAK: Dhevie Rigor. Follow-up No qualifying data available We will [...] 1 tab(s), Oral, BID Flonase 0.05 mg/inh [place], 2 spray(s), Nasal, Daily glipiZIDE 10 mg Tab, 10 mg= 1 tab(s), Oral, Daily glucometer test strips, See Instructions hydrOXYzine pamoate 25 mg Cap, 25 mg= 1 cap(s), Oral, (more content not included)... Normal [facility] Comment on above: Result Comment: Elec tronically Signed By: Mlaik Denson MD\.br\Date and Time Signed: 05/20/23 10:02 EST\.br\Electronically Co-Signed By: Karolina Heart\.br\Date and Time Co-Signed: 05/18/23 11:50 EST Formson 05-19-2023 Forms [id number] #1.00TIFF [facility] Family Medicine Office/Clini c Noteon 04-27-2023 Family Medicine Office/Clinic Note HPI Staff Jeny is a 53 year old female presenting for paperwork for patient assistance for the [email or web address]. Last shot was last Wed and won't [...] patient changes her insurance. Ordered: A1c POC 83935 Body Mass Index (BMI) documented 3008F Current [...] Diet and exercise advised Ordered: A1c POC 06552 Body Mass Index (BMI) documented 3008F Current [...] Daily, # 90 tab(s), Refills(s) 3, [facility] [id number], 164.5, cm, 04/26/23 18:33:00 EST, Height/Length Dosing, 124.8, kg, 04/26/23 18:33:00 EST, Weight Dosing atorvastatin, 40 mg = 1 tab(s), Oral, Daily, # 90 tab(s), Refills(s) 1, [facility] [id number], 164.5, cm, 04/26/23 18:33:00 EST, Height/Length Dosing, 124.8, kg, 04/26/23 18:33:00 EST, Weight Dosing famotidine, 20 mg = 1 tab(s), Oral, BID, # 180 tab(s), Refills(s) 0, [facility] [id number], 164.5, cm, 04/26/23 18:33:00 EST, Height/Length Dosing, 124.8, kg, 04/26/23 18:33:00 EST, Weight Dosing hydrOXYzine, 25 mg = 1 cap(s), Oral, QID, PRN for anxiety, # 90 cap(s), Refills(s) 0, Pharmacy: [facility] [id number], 164.5, cm, 04/26/23 18:33:00 EST, Height/Length Dosing, 124.8, kg, 04/26/23 18:33:00 EST, Weight Dosing (more content not included)... 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 Your Care Team Attending Physician - Malik Denson MD Primary Care Physician - Malik Denson MD This Is Your Medications List [facility] Prescription (glucometer test strips) abatacept (Orencia 250 mg intravenous injection) amlodipine (amLODIPine 10 mg Tab) atorvastatin (Lipitor 40 mg Tab) baclofen (baclofen 10 mg Tab) carvedilol (carvedilol 25 mg Tab) famotidine (famotidine 20 mg Tab) fluticasone nasal (Flonase 0.05 mg/inh [place]) glipiZIDE (glipiZIDE 10 mg Tab) hydrOXYzine (hydrOXYzine [...] PM EDT With: Malik Denson MD Where: [facility] [place] Normal [facility] Pre-Visit Planningon 023 Pre-Visit Planning - From: Yudith Richard RN To: Malik Denson MD; Sent: 04/22/2023 10:26:40 EST Subject: Pre-Visit Planning Due Date/Time: 04/22/2023 10:26:00 EST Caller Name: DEE DEE CABALLERO; Caller Number: Sindi , M Ca Dr. Denson, *Based on your response below, [...] feel free to contact me at extension [phone]. Thank you! Yudith Richard, MICAHN, RN, CCM, CCDS, CCDS-O Immunodefiency due to drug - From: Malik Denson MD To: Yudith Richard RN; Sent: 04/22/2023 13:02:27 EST Subject: RE: Pre-Visit Planning Caller Name: DEE DEE CABALLERO; Caller Number: Sindi , M Normal [address] [place] [facility] Pre-Visit Planning - From: Yudith Richard RN To: Malik Denson MD; Sent: 04/22/2023 10:23:37 EST Subject: Pre-Visit Planning Due Date/Time: 04/22/2023 10:23:00 EST Caller Name: DEE DEE CABALLERO; Caller Number: Sindi , M Hi Dr. Denson, During a pre-visit planning chart review, I noted the following documentation in the medical record: Problem list: Depression Medications: Venlafaxine 09/04/2022 [facility] page 1- otezla- depression 02/22/2023 office note-2. [...] feel free to contact me at extension [phone]. Thank you! Yudith Richard, MICAHN, RN, CCM, CCDS, CCDS-O - From: Malik Denson MD To: Yudith Richard RN; Sent: 04/22/2023 12:59:02 EST Subject: RE: Pre-Visit Planning Caller Name: DEE DEE CABALLERO; Caller Number: Sindi , M Major depression in remission Normal [address] [facility] Ambulatory Visit Summaryon 1 06-17-2022 Ambulatory Visit Summary DEE DEE CABALLERO :1970 Visit Date:04/16/2023 Ambulatory Visit Instructions Your Care Team Attending Physician - Britany Hicks Primary Care Physician - Malik Denson MD This Is Your Medications List [facility] Prescription (glucometer test strips) abatacept (Orencia 250 [...] PM EST With: Malik Denson MD Where: [facility] [place] Normal [facility] Family Medicine Office/Clini c Noteon 04-16-2023 Family [...] Wheezing: no Ill contacts: no Remedies tried: Elliott Questions/Concerns: pt needs refill on venlafaxine 150mg [...] day(s), # 6 tab(s), Refills(s) 0, Pharmacy: [facility] [id number], 165.4, cm, 04/16/23 14:29:00 EST, Height/Length Dosing, 122.8, kg, 04/16/23 14:29:00 EST, Weight Dosing fluticasone nasal, 2 spray(s), Nasal, Daily, 16 gram, Refill(s) 0, each nostril, [facility] [id number], 165.4, cm, 04/16/23 14:29:00 EST, Height/Length Dosing, 122.8, kg, 04/16/23 14:29:00 EST, Weight Dosing 2. Fluid level behind tympanic membrane of both ears (H65.93: Unspecified nonsuppurative otitis media, bilateral) TOMMIE TM moderate amount of clear fluid Ordered: azithromycin, = 1 packet(s), Oral, As Directed, as directed on package labeling, X 5 day(s), # 6 tab(s), Refills(s) 0, Pharmacy: [facility] [id number], 165.4, cm, 04/16/23 14:29:00 EST, Height/Length Dosing, 122.8, kg, 04/16/23 14:29:00 EST, Weight Dosing fluticasone nasal, 2 spray(s), Nasal, Daily, 16 gram, Refill(s) 0, each nostril, [facility] [id number], 165.4, cm, 04/16/23 14:29:00 EST, Height/Length Dosing, 122.8, kg, 04/16/23 14:29:00 EST, Weight Dosing Orders: venlafaxine, 150 mg = 1 tab(s), Oral, Daily, # 90 tab(s), Refills(s) 0, [facility] [id number], 165.4, cm, 03/22/23 14:19:00 EST, Height/Length Dosing, [...] 1 tab(s), Oral, BID Flonase 0.05 mg/inh [place], 2 spray(s), Nasal, Daily glipiZIDE 10 mg [...] Daily venlafaxine 150 (more content not included)... [facility] Comment on above: Result Comment: Elec tronically Signed By: Britany Hicks\.br\Date and Time Signed: 04/16/23 14:50 EST Consultation Noteon 03-25-20 Consultation Note [id number]# 1.00TIFF [facility] Lab Reportson 03-25-2023 Lab Reports [id number] #1.00TIFF [facility] Ambulatory Visit Summaryon 1 1-13-2023 Ambulatory Visit Summary DEE DEE CABALLERO :1970 [...] PM EST With: Malik Denson MD Where: [facility] Ambulatory Visit Summary DEE DEE CABALLERO :1970 MRN:[id number] Visit Date:03/22/2023 Ambulatory Visit Instructions Your Diagnosis [...] PM EST With: Malik Denson MD Where: [facility] Family Medicine Office/Clini c Noteon 03-22-2023 Family Medicine [...] BID, # 180 tab(s), Refills(s) 0, Pharmacy: [facility] #[id number], 165.4, cm, 03/22/23 14:19:00 EST, Height/Length Dosing, 120.4, kg, 03/22/23 14:19:00 EST, Weight Dosing ropinirole, See Instructions, TAKE 1 TABLET BY MOUTH EVERY NIGHT 2 HOURS BEFORE BEDTIME, # 90 tab(s), Refills(s) 0, Pharmacy: [facility] #[id number], 165.4, cm, 03/22/23 14:19:00 EST, Height/Length Dosing, [...] virus vaccine, inactivated 02/21/2022 Recorded SARS-CoV-2 (COVID-19) [id number] 02/21/2022 Recorded SARS-CoV-2 (COVID-19) mRNA-1273 vaccine 07/01/2021 Recorded SARS-CoV-2 (COVID-19) mRNA-1273 vaccine 02/22/2021 Recorded influenza virus vaccine, inactivated 02/07/2021 Recorded SARS-CoV-2 (COVID-19) mRNA-1273 vaccine 08/15/2020 Recorded 2022-07-28: 50 SARS-CoV-2 (COVID-19) mRNA-1273 vaccine 07/18/2020 Recorded influenza virus vaccine, inactivated 01/13/2020 Recorded influenza virus vaccine, inactivated 02/06/2019 Recorded influenza virus vaccine, inactivated 02/18/2018 Recorded influenza vi (more content not included)... [facility] Comment on above: Result Comment: Elec tronically Signed By: Jarett DEAN, Malik Cary\.br\Date and Time Signed: 03/22/23 14:40 EST Physician Referralon 023 Physician Referral [id number] #1.00TIFF [facility] Family Medicine Office/Clini c Noteon 02-22-2023 [...] mg, SubCutaneous, qWeek, 3 EA, Refill(s) 1, [id number], 165.4, cm, 02/22/23 18:02:00 EDT, Height/Length Dosing, [...] virus vaccine, inactivated 02/21/2022 Recorded SARS-CoV-2 (COVID-19) [id number] 02/21/2022 Recorded SARS-CoV-2 (COVID-19) mRNA-1273 vaccine 07/01/2021 Recorded SARS-CoV-2 (COVID-19) mRNA-1273 vaccine 02/22/2021 Recorded influenza virus vaccine, inactivated 02/07/2021 Recorded SARS-CoV-2 (COVID-19) mRNA-1273 vaccine 08/15/2020 Recorded 2022-07-28: 50 SARS-CoV-2 (COVID-19) mRNA-1273 vaccine 07/18/2020 Recorded influenza virus vaccine, inactivated 01/13/2020 Recorded influenza virus vaccine, inactivated 02/06/2019 Recorded influenza virus vaccine, inactivate (more content not included)... Normal [facility] Comment on above: Result Comment: Elec tronically Signed By: Jarett DEAN, Malik Cary\.br\Date and Time Signed: 02/22/23 18:36 EDT CHEMISTRYOrdered [...] rate/Area] 67 mL/min/1.73 m2 Normal >=59mL/min/1.73 m2 FT Chem S Globulin (S) [Mass/Vol] 3.8 g/dL Normal 1.4 - 4.0 gm/dL [facility] Remisol Glucose [Mass/Vol] 117 mg/dL Normal 55 - 199 mg/dL FT Remisol Potassium [Moles/Vol] 4.2 mmol/L Normal 3.5 [...] (Bld) [Mass fraction] 7.1 % High <=5.9% FT ChemAutoSS HEMATOLOGYOrdered By: SYSTEM SYSTEM on 11-16-2022 [...] 7.8 fL Normal 6.4 - 10.8 fL [facility] HemeAutoSS Platelets (Bld) [#/Vol] 359.0 E9/L Normal 150.0 - 500.0 E9/L [facility] HemeAutoSS RBC (Bld) [#/Vol] 5.0 E12/L Normal 4.3 - 5.9 E12/L [facility] HemeAutoSS WBC corrected for nucl RBC Auto (Bld) [#/Vol] 10.5 E9/L Normal 4.0 - 11.0 E9/L [facility] HemeAutoSS GLYCOHEMOGLOBIN A1Con 2022 ADA RECOMMENDATION SEE BELOW Normal [facility] Comment on above: Result Comment: ADA RECOMMENDED LIMIT 4.0 - 6.0 ADA THERAPEUTIC TARGET < 7.0 ACTION SUGGESTED > 7.0 Performed By: #### A 1C #### [facility] [address] [place] [address] Dr. Milana Moctezuma Glucose [Mass/Vol] 140 mg/dL Normal [facility] Comment on above: Performed By: #### A 1C #### [facility] [address] [place] [address] Dr. Milana Moctezuma HbA1c (Bld) [Mass fraction] 6.5 % Critically high 4.5-6.2 [facility] Comment on above: Performed By: #### A 1C #### [facility] [address] [place] [address] Dr. Milana Mcotezuma PROF CHEM 8 (BAS METB)on Anion gap [Moles/Vol] 14.2 mmol/L Normal [facility] Comment on above: Performed By: #### B MP #### [facility] [address] [place] [address] Dr. Milana Moctezuma Calcium [Mass/Vol] 9.7 mg/dL Normal 8.5-10.1 [facility] Comment on above: Performed By: #### B MP #### [facility] [address] [place] [address] Dr. Milana Moctezuma Chloride [Moles/Vol] 103 mmol/L Normal 98-107 [facility] Comment on above: Performed By: #### B MP #### [facility] [address] [address] [address] Milana Moctezuma CO2 [Moles/Vol] 27.2 mmol/L Normal 21.0-32.0 [facility] Comment on above: Performed By: #### B MP #### [facility] [address] [address] [address] Milana Moctezuma Creatinine [Mass/Vol] 0.97 mg/dL Normal 0.55-1.02 [facility] Comment on above: Performed By: #### B MP #### [facility] [address] [address] [address] Milana Moctezuma EGFR-AF COLOMBIAN >60 Normal >=60 [facility] Comment on above: Performed By: #### B MP #### [facility] [address] [address] [address] Milana Moctezuma EGFR-NON AF COLOMBIAN =60 Normal >=60 [facility] Comment on above: Performed By: #### B MP #### [facility] [address] [address] [address] Milana Moctezuma Glucose [Mass/Vol] 141 mg/dL Critically high 74-106 [facility] Comment on above: Performed By: #### B MP #### [facility] [address] [address] [address] Milana Moctezuma Potassium [Moles/Vol] 4.4 mmol/L Normal 3.5-5.1 [facility] Comment on above: Performed By: #### B MP #### [facility] [address] [address] [address] Milana Moctezuma Sodium [Moles/Vol] 140 mmol/L Normal 136-145 [facility] Comment on above: Performed By: #### B MP #### [facility] [address] [address] [address] Milana Moctezuma Urea nitrogen [Mass/Vol] 22.0 mg/dL Critically high 7.0-18.0 [facility] Comment on above: Performed By: #### B MP #### [facility] [address] [address] [address] Milana Moctezuma Urea nitrogen/Creatinine [Mass ratio] 22.7 mg/mg Normal [facility] Comment on above: Performed By: #### B MP #### [facility] [address] [place], [place] [address] Dr. Milana Moctezuma GLYCOHEMOGLOBIN A1Con 2021 ADA RECOMMENDATION SEE BELOW Normal [facility] Comment on above: Result Comment: ADA RECOMMENDED LIMIT 4.0 - 6.0 ADA THERAPEUTIC TARGET < 7.0 ACTION SUGGESTED > 7.0 Performed By: #### A 1C #### [facility] [address] [place], [place] [address] Dr. Milana Moctezuma Glucose [Mass/Vol] 214 mg/dL Normal [facility] Comment on above: Performed By: #### A 1C #### [facility] [address] [place], [place] [address] Dr. Milana Moctezuma HbA1c (Bld) [Mass fraction] 9.1 % Critically high 4.5-6.2 [facility] Comment on above: Performed By: #### A 1C #### [facility] [address] [place], [place] [address] Dr. Milana Moctezuma XR knee RT 3Von 02-10-2021 XR knee RT 3V [facility] [employer] Other XR knee RT 3V [facility] [employer] Other XR knee RT 3V [address] [place] [address] [employer] Other XR knee RT 3V [address] [employer] Other XR knee RT 3V XRay Report [employer] Other XR knee RT 3V Signed [place] [employer] Other XR knee RT 3V Patient: Dee Dee Caballero MR#: [id number] [facility] [employer] Other XR knee RT 3V 5091 [facility] [employer] Other XR knee RT 3V : 1970 Acct:[id number] [place] [employer] Other XR knee RT 3V Age/Sex: 50 / F ADM Date: 02/10/21 [employer] Other XR knee RT 3V Loc: [facility] Room: Type: [facility] [employer] Other XR knee RT 3V Attending Dr: Dillan Heredia DO [employer] Other XR knee RT 3V Ordering Provider: Dillan Heredia DO [employer] Other XR knee RT 3V Date of Service: 02/10/21 [employer] Other XR knee RT 3V XR/XR knee RT 3V - NOT FOR ER USE: Primary osteoarthritis of right knee [employer] Other XR knee RT 3V Copies to: Dillan Heredia DO [employer] Other XR knee RT 3V Right knee 02/10/2021. [employer] Other XR knee RT 3V CLINICAL DATA: Right knee pain. [employer] Other XR knee RT 3V FINDINGS: Standing frontal and lateral views of the right knee were obtained along with a sunrise [employer] Other XR knee RT 3V view of both patellas. [employer] Other XR knee RT 3V No acute fracture or dislocation is identified. There are joint space narrowing in the [employer] Other XR knee RT 3V patellofemoral compartments, medially greater than laterally. There are also subchondral cystic [employer] Other XR knee RT 3V changes on the tibial side of the medial femorotibial compartment. Marginal osteophyte formation is [employer] Other XR knee RT 3V seen in all compartments of the knee. There is a small benign-appearing lucency in the proximal [employer] Other XR knee RT 3V tibia. No bony erosion or destruction is visualized. There is a small suprapatellar effusion. [employer] Other XR knee RT 3V XR/XR knee RT 3V - NOT FOR ER USE [employer] Other XR knee RT 3V IMPRESSION: Degenerative changes and small effusion at the right knee. [employer] Other XR knee RT 3V Impression dictated by: Mayo Brown Jr., M.D.02/10/2021 12:18 PM [employer] Other XR knee RT 3V Dictation Location: [place] [address] [employer] Other XR knee RT 3V Transcribed By: [facility] 02/10/21 [facility] [employer] Other XR knee RT 3V Dictated By: Mayo Brown Jr, MD 02/10/21 [facility] [employer] Other XR knee RT 3V Signed By: [employer] Other XR knee RT 3V 02/10/21 1213 [employer] Other XR knee RT 3V - NOT FOR ER U [place] 02-10-2021 XR knee RT 3V - NOT FOR ER USE [facility] [place] [address] [place] [address] XRay Report Signed Patient: Dee Dee Caballero MR#: [id number] : 1970 Acct:[id number] Age/Sex: 50 / F ADM Date: 02/10/21 Loc: [facility] Room: Type: [facility] CLI Attending Dr: Dillan Heredia DO Ordering Provider: [...] Brown Jr., M.D.02/10/2021 12:18 PM Dictation Location: [place] [address] Transcribed By: [facility] 02/10/21 1218 Dictated By: Mayo Brown Jr, MD 02/10/211211 Signed By: 02/10/21 1218 [facility] DAMION DIGITAL SCREEN SELF REFERRAL W OR WO CAD BILATERALon 04-03-2020 Benign findings. BI-RADS 2 BIRADS: BIRADS - CATEGORY 2 Benign, no evidence of malignancy. Normal interval follow-up is recommended in 12 months. OVERALL ASSESSMENT - BENIGN A letter of notification will be sent to the patient regarding the results. [employer] recommends annual mammograms for women 40 years and older. [place] EXAMINATION: SCREENING DIGITAL BILATERAL MAMMOGRAM WITH [...] smaller. Few benign punctate calcifications again demonstrated. [place] Msesi, Mhpn Incoming Radiant Results From [employer] - 04/03/2020 8:10 AM EST EXAMINATION: SCREENING [...] to the patient regarding the results. [employer] recommends annual mammograms for women 40 years and older. [place] T3, [facility] 04-02-2020 Free T3 [Mass/Vol] 2.45 pg/mL 2.02 - 4.43 pg/mL [place] T4, [facility] 04-02-2020 Thyroxine, Free 1.25 ng/dL 0.93 - 1.7 ng/dL [place] CBC Auto Differentialon 03-11 Basophils (Bld) [#/Vol] 0.06 10*3/uL [place] Basophils/100 WBC (Bld) 1 % 0 - 2 % [place] Differential Type NOT REPORTED [place] Eosinophils (Bld) [#/Vol] 0.30 10*3/uL [place] Eosinophils/100 WBC (Bld) 3 % 1 - 4 % [place] Erythrocyte distribution width (RBC) [Ratio] 12.8 % 11.8 - 14.4 % [place] Hematocrit (Bld) [Volume fraction] 46.7 % 36.3 - 47.1 % [place] Hemoglobin (Bld) [Mass/Vol] 14.7 g/dL 11.9 - 15.1 g/dL [place] Immature granulocytes (Bld) [#/Vol] 0 % 0 [place] Immature granulocytes (Bld) [#/Vol] 0.03 10*3/uL [place] Interpretation and review of laboratory results Abnormal [place] Lymphocytes (Bld) [#/Vol] 2.29 10*3/uL [place] Lymphocytes/100 WBC (Bld) 21 % Low 24 - 43 % [place] MCH (RBC) [Entitic mass] 29.3 pg 25.2 - 33.5 pg [place] MCHC (RBC) [Mass/Vol] 31.5 g/dL 28.4 - 34.8 g/dL [place] MCV (RBC) [Entitic vol] 93.2 fL 82.6 - 102.9 fL [place] Monocytes (Bld) [#/Vol] 0.71 10*3/uL [place] Monocytes/100 WBC (Bld) 6 % 3 - 12 % [place] Platelet mean volume (Bld) [Entitic vol] 8.8 fL 8.1 - 13.5 fL [place] Platelets (Bld) [#/Vol] 325 10*3/uL [place] Platelets (Bld) [#/Vol] NOT REPORTED [place] RBC (Bld) [#/Vol] 5.01 10*6/uL 3.95 - 5.11 m/uL [place] RBC morphology finding Nom (Bld) NOT REPORTED [place] Segmented neutrophils/100 WBC (Bld) 69 % High 36 - 65 % [place] Segs Absolute 7.71 [place] WBC (Bld) [#/Vol] 11.1 10*3/uL [place] WBC (Bld) [#/Vol] 0.0 10*3/uL 0.0 per 100 WBC M [place] WBC Morphology NOT REPORTED [place], [place] Comprehensive Metabolic Pane jeffery 04-01-2020 Albumin [Mass/Vol] 4.3 g/dL 3.5 - 5.2 g/dL [place] Albumin/Globulin [Mass ratio] 1.4 {ratio} [place] ALP [Catalytic activity/Vol] 127 U/L High 35 - 104 U/L [place] ALT [Catalytic activity/Vol] 16 U/L 5 - 33 U/L [place] Anion gap [Moles/Vol] 10 mmol/L 9 - 17 mmol/L [place] AST [Catalytic activity/Vol] 15 U/L <32 [place] Bilirubin Ql (U) 0.43 mg/dL 0.3 - 1.2 mg/dL [place] Bun/Cre Ratio 51 High [place], [place] Calcium [Mass/Vol] 10.3 mg/dL 8.6 - 10.4 mg/dL [place] Chloride [Moles/Vol] 100 mmol/L 98 - 107 mmol/L [place] CO2 [Moles/Vol] 26 mmol/L 20 - 31 mmol/L [place] Creatinine [Mass/Vol] 0.76 mg/dL 0.5 - 0.9 mg/dL [place] GFR >60 >60 mL/min [place] GFR Non- >60 >60 mL/min [place] Glucose [Mass/Vol] 107 mg/dL High 70 - 99 mg/dL [place] Interpretation and review of laboratory results Abnormal [place] Potassium [Moles/Vol] 4.8 mmol/L 3.7 - 5.3 mmol/L [place] Protein [Mass/Vol] 7.4 g/dL 6.4 - 8.3 g/dL [place] Sodium [Moles/Vol] 136 mmol/L 135 - 144 mmol/L [place] Urea nitrogen [Mass/Vol] 39 mg/dL High 6 - 20 mg/dL [place] Metabolic Panelon 04-01-2020 GFR/1.73 sq M predicted among non-blacks MDRD (S/P/Bld) [Vol rate/Area] [place] Comment on above: Stage 1: Some [...] body mass. Additional eGFR calculator available at: http://www.LumiFold/multiple_crcl_2012.htm TSH without Reflexon 020 TSH Qn 2.52 m[IU]/L [place] Creatinine, Serumon 07-25-19 20 Creatinine [Mass/Vol] 0.55 mg/dL 0.5 - 0.9 mg/dL [place] GFR >60 >60 mL/min [place] GFR Non- >60 >60 mL/min [place] MRI SACRUM COCCYX W WO CONTR Juan 07-25-2019 Minimal edema along the superior aspect of the right sacroiliac joint. Otherwise negative exam. No erosive changes. No significant sclerosis. [place] EXAMINATION: MRI OF THE SACRUM/SI JOINT WITH AND WITHOUT CONTRAST 07/25/2019 2:15 pm COMPARISON: Radiographs June 03, 2017 CT abdomen and pelvis February 28, 2018 HISTORY: ORDERING SYSTEM PROVIDED HISTORY: Sacroiliitis (HCC) TECHNOLOGIST PROVIDED HISTORY: Is the patient ?->No [...] within the pelvis. No abnormal postcontrast enhancement. [place] Messi, Mhpn Incoming Radiant Results From [employer] - 07/25/2019 5:57 PM EDT EXAMINATION: MRI OF THE SACRUM/SI JOINT WITH AND WITHOUT CONTRAST 07/25/2019 2:15 pm COMPARISON: Radiographs June 03, 2017 CT abdomen and pelvis February 28, 2018 HISTORY: ORDERING SYSTEM PROVIDED HISTORY: Sacroiliitis (HCC) TECHNOLOGIST PROVIDED HISTORY: Is the patient ?->No [...] exam. No erosive changes. No significant sclerosis. [place] Metabolic Panelon 07-25-2019 GFR/1.73 sq M predicted among non-blacks MDRD (S/P/Bld) [Vol rate/Area] [place] Comment on above: Average GFR for 50-5 9 years old: 93 mL/min/1.73sq m Chronic Kidney Disease: <60 mL/min/1.73sq m Kidney failure: <15 mL/min/1.73sq m eGFR calculated using average adult body mass. Additional eGFR calculator available at: http://www.LumiFold/multiple_crcl_2012.htm Stage 1: Some kidney damage normal GFR Stage 2: Mild kidney damage GFR 60-89 Stage 3: Moderate kidney damage GFR 30-59 Stage 4: Severe kidney damage GFR 15-29 Stage 5: Severe kidney damage GFR <15 ESRD - chronic treatment by dialysis or transplant ALTOrdered By: Devyn stevens on 05-18-2019 ALT [Catalytic activity/Vol] 25 U/L 5 - 33 U/L [employer] Work Phone: ASTOrdered By: Devyn stevens on 05-18-2019 AST [Catalytic activity/Vol] 19 U/L <32 [employer] Work Phone: C-Reactive ProteinOrdered By : Deyvn Mondragon on 05-18-2019 CRP [Mass/Vol] 19.3 mg/L High 0 - 5 mg/L [employer] [facility] Work Phone: Interpretation and review of laboratory results Abnormal [employer] Work Phone: CBC Auto DifferentialOrdered By: Devyn Mondragon on 05-18-2019 Absolute Eos # 0.48 High [employer] Work Phone: Absolute Immature Granulocyte <0.03 [employer] Work Phone: Absolute Lymph # 2.78 [employer] [facility] Work Phone: Absolute Knott # 0.69 [employer] [facility] Work Phone: Basophils (Bld) [#/Vol] 0.06 10*3/uL [employer] Work Phone: Basophils/100 WBC (Bld) 1 % 0 - 2 % [employer] Phone: Differential Type NOT REPORTED [employer] Phone: Eosinophils/100 WBC (Bld) 5 % High 1 - 4 % [employer] Work Phone: Erythrocyte distribution width (RBC) [Ratio] 12.7 % 11.8 - 14.4 % [employer] Phone: Hematocrit (Bld) [Volume fraction] 43.4 % 36.3 - 47.1 % [employer] Phone: Hemoglobin (Bld) [Mass/Vol] 13.9 g/dL 11.9 - 15.1 g/dL [employer] Work Phone: Immature granulocytes/100 WBC (Bld) 0 % 0 [employer] Work Phone: Interpretation and review of laboratory results Abnormal [employer] Work Phone: Lymphocytes/100 WBC (Bld) 30 % 24 - 43 % [employer] Phone: MCH (RBC) [Entitic mass] 29.0 pg 25.2 - 33.5 pg [employer] Work Phone: MCHC (RBC) [Mass/Vol] 32.0 g/dL 28.4 - 34.8 g/dL [employer] Phone: MCV (RBC) [Entitic vol] 90.6 fL 82.6 - 102.9 fL [employer] Phone: Monocytes/100 WBC (Bld) 8 % 3 - 12 % [employer] Phone: NRBC Automated 0.0 0.0 per 100 WBC [employer] Phone: Platelet Estimate NOT REPORTED [employer] Phone: Platelet mean volume (Bld) [Entitic vol] 9.7 fL 8.1 - 13.5 fL [employer] Phone: Platelets (Bld) [#/Vol] 276 10*3/uL [employer] Phone: RBC (Bld) [#/Vol] 4.79 10*6/uL 3.95 - 5.11 m/uL [employer] Phone: RBC morphology finding Nom (Bld) NOT REPORTED [employer] Phone: Segmented neutrophils/100 WBC (Bld) 56 % 36 - 65 % [employer] Phone: Segs Absolute 5.12 [employer] Work Phone: WBC (Bld) [#/Vol] 9.2 10*3/uL [employer] Phone: WBC Morphology NOT REPORTED [employer] Work Phone: Creatinine, SerumOrdered By: Devyn Mondragon on 05-18-2019 Creatinine [Mass/Vol] 0.68 mg/dL 0.5 - 0.9 mg/dL [employer] Phone: GFR >60 >60 mL/min [employer] Phone: GFR Comment [employer] Phone: Comment on above: Average GFR for 50-5 9 years old: 93 mL/min/1.73sq m Chronic Kidney Disease: <60 mL/min/1.73sq m Kidney failure: <15 mL/min/1.73sq m eGFR calculated using average adult body mass. Additional eGFR calculator available at: http://www.[employer]/multiple_crcl_2012.htm GFR Non- >60 >60 mL/min [employer] Phone: GFR Staging [employer] Phone: Comment on above: Stage 1: Some kidney damage normal GFR Stage 2: Mild kidney damage GFR 60-89 Stage 3: Moderate kidney damage GFR 30-59 Stage 4: Severe kidney damage GFR 15-29 Stage 5: Severe kidney damage GFR <15 ESRD - chronic treatment by dialysis or transplant Sedimentation RateOrdered By : Devyn Mondragon on 05-18-2019 Sed Rate 8 mm 0 - 20 mm [employer] Phone: Hemoglobin [id number] By: Ted Osman on 04-22-2019 Glucose [Mass/Vol] 180 mg/dL [employer] Phone: Comment on above: The ADA and AACC rec ommend providing the estimated average glucose result to permit better patient understanding of their HBA1c result. HbA1c (Bld) [Mass fraction] 7.9 % High 4.8 - 5.9 % [employer] Phone: Interpretation and review of laboratory results Abnormal [employer] Phone: Basic Metabolic Panel w/ Ref saira to MGOrdered By: Niko Griffin on 04-17-2019 Anion gap [Moles/Vol] 11 mmol/L 9 - 17 mmol/L [employer] Phone: Bun/Cre Ratio 33 High [employer] Work Phone: Calcium [Mass/Vol] 9.3 mg/dL 8.6 - 10.4 mg/dL [employer] Phone: Chloride [Moles/Vol] 102 mmol/L 98 - 107 mmol/L [employer] Phone: CO2 [Moles/Vol] 24 mmol/L 20 - 31 mmol/L [employer] Phone: Creatinine [Mass/Vol] 0.63 mg/dL 0.5 - 0.9 mg/dL [employer] Phone: GFR >60 >60 mL/min [employer] Phone: GFR Comment [employer] Phone: Comment on above: Average GFR for 50-5 9 years old: 93 mL/min/1.73sq m Chronic Kidney Disease: <60 mL/min/1.73sq m Kidney failure: <15 mL/min/1.73sq m eGFR calculated using average adult body mass. Additional eGFR calculator available at: http://www.[employer]umiFold/[employer]crcl_2012.htm GFR Non- >60 >60 mL/min [employer] Phone: GFR Staging [employer] Phone: Comment on above: Stage 1: Some kidney damage normal GFR Stage 2: Mild kidney damage GFR 60-89 Stage 3: Moderate kidney damage GFR 30-59 Stage 4: Severe kidney damage GFR 15-29 Stage 5: Severe kidney damage GFR <15 ESRD - chronic treatment by dialysis or transplant Glucose [Mass/Vol] 173 mg/dL High 70 - 99 mg/dL [employer] Phone: Potassium [Moles/Vol] 4.1 mmol/L 3.7 - 5.3 mmol/L [employer] Phone: Sodium [Moles/Vol] 137 mmol/L 135 - 144 mmol/L [employer] Phone: Urea nitrogen [Mass/Vol] 21 mg/dL High 6 - 20 mg/dL [employer] Phone: CBC Auto DifferentialOrdered By: Niko Griffin on 04-17-2019 Absolute [employer]os # 0.61 High [employer] [facility] Work Phone: Absolute Immature Granulocyte 0.03 [employer] Work Phone: Absolute Lymph # 3.25 [employer] Work Phone: Absolute Knott # 0.86 [employer] [facility] Work Phone: Basophils (Bld) [#/Vol] 0.03 10*3/uL [employer] Work Phone: Basophils/100 WBC (Bld) 0 % 0 - 2 % [employer] Work Phone: Differential Type NOT REPORTED [employer] Phone: Eosinophils/100 WBC (Bld) 6 % High 1 - 4 % [employer] Phone: Erythrocyte distribution width (RBC) [Ratio] 13.2 % 11.8 - 14.4 % [employer] Phone: Hematocrit (Bld) [Volume fraction] 44.3 % 36.3 - 47.1 % [employer] Phone: Hemoglobin (Bld) [Mass/Vol] 14.1 g/dL 11.9 - 15.1 g/dL [employer] Phone: Immature granulocytes/100 WBC (Bld) 0 % 0 [employer] Phone: Interpretation and review of laboratory results Abnormal [employer] Phone: Lymphocytes/100 WBC (Bld) 33 % 24 - 43 % [employer] Phone: MCH (RBC) [Entitic mass] 28.7 pg 25.2 - 33.5 pg [employer] Phone: MCHC (RBC) [Mass/Vol] 31.8 g/dL 28.4 - 34.8 g/dL [employer] Phone: MCV (RBC) [Entitic vol] 90.0 fL 82.6 - 102.9 fL [employer] Work Phone: Monocytes/100 WBC (Bld) 9 % 3 - 12 % [employer] Phone: NRBC Automated 0.0 0.0 per 100 WBC [employer] Phone: Platelet Estimate NOT REPORTED [employer] Phone: Platelet mean volume (Bld) [Entitic vol] 10.2 fL 8.1 - 13.5 fL [employer] Work Phone: Platelets (Bld) [#/Vol] 281 10*3/uL [employer] Phone: RBC (Bld) [#/Vol] 4.92 10*6/uL 3.95 - 5.11 m/uL [employer] Phone: RBC morphology finding Nom (Bld) NOT REPORTED [employer] Phone: Segmented neutrophils/100 WBC (Bld) 52 % 36 - 65 % [employer] Work Phone: Segs Absolute 5.11 [employer] Work Phone: WBC (Bld) [#/Vol] 9.9 10*3/uL [employer] Phone: WBC Morphology NOT REPORTED [employer] [facility] Work Phone: CT CHEST W CONTRASTOrdered B y: Nikojerome Griffin on 04-17-2019 No evidence of thrombosis within the SVC or mass effect upon the SVC to account for facial swelling. No focal airspace consolidation. [employer] Phone: EXAMINATION: CT OF THE CHEST WITH [...] osseous abnormality. Degenerative changes of the shoulders. [employer] Work Phone: Messi, Mhpn Incoming Radiant Results From [employer] - 04/17/2019 11:55 AM EST EXAMINATION: CT [...] for facial swelling. No focal airspace consolidation. [employer] Work Phone: Hepatic Function PanelOrdere d By: Niko Griffin on 04-17-2019 Albumin [Mass/Vol] 3.8 g/dL 3.5 - 5.2 g/dL [place] [employer] Work Phone: Albumin/Globulin [Mass ratio] 1.2 {ratio} [employer] Work Phone: ALP [Catalytic activity/Vol] 128 U/L High 35 - 104 U/L [employer] Work Phone: ALT [Catalytic activity/Vol] 27 U/L 5 - 33 U/L [employer] Phone: AST [Catalytic activity/Vol] 34 U/L High <32 [employer] Phone: Bilirubin [Mass/Vol] 0.45 mg/dL 0.3 - 1.2 mg/dL [employer] Work Phone: Bilirubin, Indirect CANNOT BE CALCULATED 0 - 1 mg/dL [employer] Phone: Bilirubin.indirect [Mass/Vol] mg/dL <0.31 mg/dL [employer] Phone: Globulin NOT REPORTED 1.5 - 3.8 g/dL [employer] [facility] Work Phone: Protein [Mass/Vol] 7.1 g/dL 6.4 - 8.3 g/dL [facility] Work Phone: Microscopic UrinalysisOrdere d By: Niko Griffin on 04-17-2019 - [employer] Work Phone: Amorphous, UA NOT REPORTED None [employer] [facility] Work Phone: Bacteria, UA 1+ Abnormal None [employer] Work Phone: Casts UA NOT REPORTED /LPF [employer] Work Phone: Crystals UA NOT REPORTED None /HPF [facility] [facility] Work Phone: Epithelial Cells UA 20 TO 50 [employer] Work Phone: Interpretation and review of laboratory results Abnormal [facility] Work Phone: Mucus, UA NOT REPORTED None [employer] Work Phone: Other Observations UA SPOT READ QNS FOR MICRO SPIN DOWN NOT REQ. [employer] Work Phone: RBC, UA 5 TO 10 [employer] Work Phone: Renal Epithelial, Urine NOT REPORTED 0 /HPF [employer] Work Phone: Trichomonas, UA NOT REPORTED None [employer] Work Phone: WBC, UA 10 TO 20 [employer] Work Phone: Yeast, UA NOT REPORTED None [employer] Work Phone: No Panel InformationOrdered By: Niko Griffin on 04-17-2019 Interpretation and review of laboratory results Abnormal [employer] Work Phone: Urinalysis, reflex to micros copicOrdered By: Niko Griffin on 04-17-2019 Bilirubin Urine Negative NEGATIVE [facility] Work Phone: Color, UA YELLOW YELLOW [employer] Work Phone: Glucose, Ur 1+ Abnormal NEGATIVE [employer] Work Phone: Interpretation and review of laboratory results Abnormal [employer] Work Phone: Ketones Ql (U) Negative NEGATIVE [employer] Work Phone: Leukocyte esterase Test strip Ql (U) TRACE Abnormal NEGATIVE [employer] Work Phone: Nitrite, Urine Positive Abnormal NEGATIVE [facility] Work Phone: pH, UA 7.0 [employer] Work Phone: Protein, UA Negative NEGATIVE [employer] Phone: Specific Viola, UA 1.010 [facility] [employer] Phone: Turbidity UA CLOUDY Abnormal CLEAR [facility] Phone: Urinalysis Comments NOT REPORTED [facility] [employer] Work Phone: Urine Hgb 1+ Abnormal NEGATIVE [facility] Phone: Urobilinogen, Urine Normal Normal [facility] Phone: XR CHEST STANDARD (2 VW)Orde red By: Niko Griffin on 04-17-2019 Stable negative chest. [employer] Phone: EXAMINATION: TWO XRAY VIEWS OF THE CHEST 04/17/2019 10:18 am COMPARISON: 06/23/2018 HISTORY: ORDERING SYSTEM PROVIDED HISTORY: swelling in body FINDINGS: The lungs are without acute focal process. No effusion or pneumothorax. The cardiomediastinal silhouette is normal. The osseous structures are intact without acute process. Cholecystectomy clips. [employer] Phone: Messi, Mhpn Incoming Radiant Results From [employer] - 04/17/2019 10:32 AM EST EXAMINATION: TWO XRAY VIEWS OF THE CHEST 04/17/2019 10:18 am COMPARISON: 06/23/2018 HISTORY: ORDERING SYSTEM PROVIDED HISTORY: swelling in body FINDINGS: The lungs are without acute focal process. No effusion or pneumothorax. The cardiomediastinal silhouette is normal. The osseous structures are intact without acute process. Cholecystectomy clips. IMPRESSION: Stable negative chest. [employer] Phone: PROGRESSon 11-16-2017 [facility] NOTES Normal [facility] Progress Noteon 10-14-2017 HIM IP Note OR Systems Navigator Normal [facility] SENDOUT TESTon 10-08-2017 SENDOUT TEST [facility] BLOOD Normal [facility] Comment on above: Performed By: #### U NKSO #### Testing performed at [facility] [address] [place] [address] PROGRESSon 08-20-2017 [facility] NOTES Normal [facility] Pulm Function [facility]on 10-2 Pulm Function [facility] MR #: [id number] PT. Name: Dee Dee Caballero Date: 02/24/2017 [...] P/Matt Sauceda M.D., PhDDate Trans: 02/26/2017 09:59 A/Juan Alberto_JN:[id number] Normal [facility] Vital Signs Date Time Vital Sign Value Performing Clinician Facility 06-05-2021 14:06-0500 Body height 165.1 cm Noé Polanco MD Work Phone: [facility] 06-05-2021 14:06-0500 Body mass index (BMI) [Ratio] 48.76 kg/m2 Noé Polanco MD Work Phone: [facility] 06-05-2021 14:06-0500 Body weight 132.9 kg Noé Polanco MD Work Phone: [facility] 06-05-2021 14:06-0500 Diastolic blood pressure 89 mm[Hg] Noé Polanco MD Work Phone: [facility] 06-05-2021 14:06-0500 Heart rate 105 /min Noé Polanco MD Work Phone: [facility] 06-05-2021 14:06-0500 Systolic blood pressure 143 mm[Hg] Noé Polanco MD Work Phone: [facility] 03-27-2021 10:43-0500 Body height 165.1 cm Rip Khanna MD Work Phone: [facility] 03-27-2021 10:43-0500 Body mass index (BMI) [Ratio] 46.59 kg/m2 Rip Khanna MD Work Phone: [facility] 03-27-2021 10:43-0500 Body weight 127.01 kg Rip Khanna MD Work Phone: [facility] 02-10-2021 09:00-0400 Body height 165.1 cm Dillan Heredia Other [employer] Other 02-10-2021 09:00-0400 Body mass index (BMI) [Ratio] 47.75 kg/m2 Dillan Heredia Other [employer] Other 02-10-2021 09:00-0400 Body weight 130.18 kg Dillan Heredia Other [employer] Other 05-19-2019 09:30-0500 BMI (Body Mass Index) 49.26 kg/m2 [facility] 05-19-2019 09:30-0500 Body Temperature 97 [degF] [facility] 05-19-2019 09:30-0500 Body weight 134.26 kg [facility] 05-19-2019 09:30-0500 BP Diastolic 76 mm[Hg] [facility] 05-19-2019 09:30-0500 BP Systolic 132 mm[Hg] [facility] 05-19-2019 09:30-0500 Height 165.1 cm [facility] 05-19-2019 09:30-0500 Pulse (Heart Rate) 75 /min [facility] 05-19-2019 09:30-0500 Pulse Oximetry 97 % [facility] 04-17-2019 12:02-0500 SaO2% (BldA) [Mass fraction] 95 % Niko Griffin MD Work Phone: [employer] Work Phone: 04-17-2019 12:01-0500 Diastolic blood pressure 74 mm[Hg] Niko Griffin MD Work Phone: [employer] Work Phone: 04-17-2019 12:01-0500 Systolic blood pressure 116 mm[Hg] Niko Griffin MD Work Phone: [employer] Work Phone: 04-17-2019 11:08-0500 Heart rate 78 /min Niko Griffin MD Work Phone: [employer] Work Phone: 04-17-2019 09:07-0500 Body height 165.1 cm Niko Griffin MD Work Phone: [employer] Work Phone: 04-17-2019 09:07-0500 Body mass index (BMI) [Ratio] 49.59 kg/m2 Niko Griffin MD Work Phone: [employer] Work Phone: 04-17-2019 09:07-0500 Body temperature 96.01 [degF] Niko Griffin MD Work Phone: [employer] Work Phone: 04-17-2019 09:07-0500 Body weight 135.17 kg Niko Griffin MD Work Phone: [employer] Work Phone: 04-17-2019 09:07-0500 Respiratory rate 20 /min Niko Griffin MD Work Phone: [employer] Work Phone: 02-01-2019 13:22-0400 BMI (Body Mass Index) 48.49 kg/m2 [facility] 02-01-2019 13:22-0400 Body Temperature 97 [degF] [facility] 02-01-2019 13:22-0400 Body weight 132.18 kg [facility] 02-01-2019 13:22-0400 BP Diastolic 78 mm[Hg] [facility] 02-01-2019 13:22-0400 BP Systolic 134 mm[Hg] [facility] 02-01-2019 13:22-0400 Height 165.1 cm [facility] 02-01-2019 13:22-0400 Pulse (Heart Rate) 74 /min [facility] 02-01-2019 13:22-0400 Pulse Oximetry 96 % [facility] 10-04-2018 12:39-0400 BMI (Body Mass Index) 47.76 kg/m2 [facility] 10-04-2018 12:39-0400 Body Temperature 97 [degF] [facility] 10-04-2018 12:39-0400 Body weight 130.18 kg [facility] 10-04-2018 12:39-0400 BP Diastolic 82 mm[Hg] [facility] 10-04-2018 12:39-0400 BP Systolic 126 mm[Hg] [facility] 10-04-2018 12:39-0400 Height 165.1 cm [facility] 10-04-2018 12:39-0400 Pulse (Heart Rate) 74 /min [facility] 10-04-2018 12:39-0400 Pulse Oximetry 97 % [facility] 06-01-2018 12:56-0500 BMI (Body Mass Index) 49.09 kg/m2 [facility] Work Phone: 06-01-2018 12:56-0500 Body Temperature 97 [degF] [facility] Work Phone: 06-01-2018 12:56-0500 BP Diastolic 78 mm[Hg] [facility] Work Phone: 06-01-2018 12:56-0500 BP Systolic 130 mm[Hg] [facility] Work Phone: 06-01-2018 12:56-0500 Height 165.1 cm [facility] Work Phone: 06-01-2018 12:56-0500 Pulse (Heart Rate) 85 /min [facility] Work Phone: 06-01-2018 12:56-0500 Pulse Oximetry 97 % [facility] Work Phone: 06-01-2018 12:56-0500 Weight 133.81 kg [facility] Work Phone: Encounters Encounter Date Encounter Type Care Provider Facility Start: 03-07-2025 ambulatory KHURRAM [facility] Hospital Start: 02-26-2025 ambulatory Britany Gay Facility: [facility] Start: 11-16-2024 [facility] Start: 11-09-2024 ambulatory Malik Denson Facility :[facility] Start: 10-05-2024 End: 10-05-2024 Lab Drop off Malik Denson [facility] Start: 10-05-2024 End: 10-05-2024 ambulatory Malik Denson Facility:[facility] Start: 09-26-2024 End: 09-26-2024 ambulatory Malik Denson Facility:[facility] Start: 09-18-2024 End: 09-18-2024 ambulatory Malik Denson Facility:[facility] Start: 08-02-2024 End: 08-02-2024 ambulatory [facility] Start: 02-29-2024 End: 02-29-2024 ambulatory Malik Denson Facility:[facility] [place] Start: 02-03-2024 ambulatory Malik Denson MD Fa cility:[facility] Start: 02-01-2024 End: 02-03-2024 Evaluation and management of inpatient Bran Castillo MD Facility:[facility] Start: 01-27-2024 ambulatory MD Malik Denson [facility] ity:[facility] Start: 01-25-2024 End: 01-25-2024 ambulatory Bran Castillo MD Facility:[facility] Start: 01-18-2024 End: 01-18-2024 ambulatory [facility] Start: 01-13-2024 End: 01-13-2024 ambulatory Malik Denson MD Facility:[facility] Start: 01-12-2024 End: 01-13-2024 ambulatory Bran Castillo MD Facility:[facility] Start: 11-22-2023 End: 11-22-2023 ambulatory Malik Denson Facility:[facility] Start: 11-09-2023 End: 11-09-2023 ambulatory MD Malik Denson Facility: [facility] Start: 11-08-2023 End: 11-08-2023 ambulatory Jadyn Osman MD Facility: [place] Start: 10-28-2023 End: 10-28-2023 Lab Drop off Malik Denson [facility] Start: 10-28-2023 End: 10-28-2023 ambulatory MD Malik Denson Facility:[facility] [place] Start: 07-28-2023 ambulatory MD Malik Denson Facil ity:[facility] Start: 07-07-2023 End: 07-07-2023 Lab Drop off Britany L Deidra [facility] Start: 07-07-2023 End: 07-07-2023 ambulatory [employer] Britany L Deidra Facility:[facility] Start: 07-05-2023 ambulatory MD Malik Denson Facil ity:[facility] [place] Start: 06-29-2023 End: 07-01-2023 Subsequent hospital visit by physician [facility] Mammography Room At [facility] Mammography Comment on above: Screening mammogram for breast cancer Start: 06-23-2023 End: 06-23-2023 ambulatory MD Malik Denson Facility: [facility] [place] Start: 06-15-2023 End: 06-15-2023 ambulatory [employer] Britany L Deidra Facility: [facility] [place] Start: 05-18-2023 End: 05-18-2023 ambulatory MD Malik Denson Facility: [facility] [place] Start: 04-26-2023 End: 04-26-2023 ambulatory MD Malik Denson Facility:[facility] [place] Start: 04-16-2023 End: 04-16-2023 ambulatory [employer] Britany L Deidra Facility: [facility] [place] Start: 03-22-2023 End: 03-22-2023 ambulatory MD Malik Denson Facility:[facility] [place] Start: 02-22-2023 End: 02-22-2023 ambulatory MD Malik Denson Facility: [facility] Start: 11-26-2022 ambulatory NARENDRANTAYLOR CASHMICARLEYY . Facility: Start: 11-17-2022 End: 11-17-2022 Lab Drop off Malik Denson [facility] Start: 11-16-2022 End: 11-16-2022 Lab Drop off Malik Denson [facility] Start: 07-31-2022 ambulatory NOÉ POLANCO [facility] Ambulatory Start: 07-30-2022 Admission to [facility] Noé Polanco MD Work Phone: [facility] Comment on above: Primary osteoarthrit is of right knee (Primary Dx); Hypertension, unspecified type; Type 2 diabetes mellitus without complication, without long-term current use of insulin (HCC) Start: 07-30-2022 ambulatory NOÉQAMAR POLANCO [facility] Start: 07-16-2022 End: 07-17-2022 ambulatory [facility] . Facility:[facility] Start: 06-27-2022 End: 06-28-[address] KHURRAM OSMAN . Facility:[facility] Start: 06-01-[address] KHURRAM OSMAN . Facil ity:[facility] Start: 04-16-2022 End: 04-17-[address] KHURRAM OSMAN . Facility:[facility] Start: 03-04-2022 Documentation procedure Shelley garcia LPN [facility] Start: 03-02-2022 ambulatory KHURRAM OSMAN [facility] Ambulatory Start: 02-20-2022 End: 02-21-[address] KHURRAM OSMAN . Facility:[facility] Start: 01-15-2022 End: 01-16-[address] KHURRAM OSMAN . 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 LPN [facility] Start: 07-17-2021 Documentation procedure Shelley garcia LPN [facility] Start: 07-16-2021 Orders Only Shelley Singer LPN [facility] Comment on above: Elevated hemoglobin A1c (Primary Dx) Start: 06-24-2021 Orders Only Noé garcía MD Work Phone: [facility] Comment on above: Primary osteoarthrit is of right knee (Primary Dx); Hypertension, unspecified type; Exposure to SARS-associated coronavirus; Type 2 diabetes mellitus without complication, without long-term current use of insulin (HCC) Start: 06-05-2021 End: 06-05-2021 Office outpatient visit 15 minutes Noé Polanco MD Work Phone: [facility] Comment on above: Primary osteoarthrit is of right knee (Primary Dx) Start: 03-27-2021 End: 03-27-2021 Office outpatient new 30 minutes Rip Khanna MD Work Phone: [facility] Comment on above: Primary osteoarthrit is of right knee (Primary Dx) Start: 02-10-2021 Office outpatient vi sit 15 minutes [facility] Start: 04-01-2020 End: 04-03-2020 Subsequent hospital visit by physician [facility] Mammography Room At [facility] Laboratory Comment on above: Breast cancer screen ing by mammogram Start: 07-25-2019 End: 07-27-2019 Subsequent hospital visit by physician [facility] Mri Scanner [facility] Laboratory Comment on above: Sacroiliitis (HCC) Start: 05-19-2019 End: 05-19-2019 Office outpatient visit 25 minutes Devyn Mondragon Work Phone: [facility] Comment on above: Psoriatic arthritis (Primary Dx); Dry skin; CRP elevated; History of psoriatic arthritis; FCI current use of non-steroidal anti-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 (NSAID); Long-term [...] visit by physician Khurram Osman Work Phone: [facility] Laboratory Start: 04-26-2019 End: 04-26-2019 Patient encounter procedure Niecy Hobson Work Phone: [facility] Comment on above: Lumbar facet arthrop athy (Primary Dx) Start: 04-22-2019 End: 04-22-2019 Subsequent hospital visit by physician Khurram Osman Work Phone: [email or web address] Start: 04-17-2019 End: 04-17-2019 Emergency department patient visit Niko Griffin MD Work Phone: [facility] ED Comment on above: Facial swelling (Vicki leatha Dx) Start: 04-12-2019 End: 04-12-2019 Patient encounter procedure Niecy Hobson Work Phone: [facility] Comment on above: Lumbar facet arthrop athy (Primary Dx) Start: 03-06-2019 End: 03-06-2019 Patient encounter procedure Other Other [facility] [employer] Start: 03-04-2019 End: 03-04-2019 Refill Devyn Mondragon Work Phone: [facility] Start: 02-17-2019 End: 02-17-2019 Patient encounter procedure Other [facility] [employer] Start: 02-06-2019 End: 02-06-2019 [facility] Comment on above: Results Vitamin D deficiency (Primary Dx) Start: 02-02-2019 End: 02-02-2019 Refill Devyn Mondragon Work Phone: [facility] Start: 02-01-2019 End: 02-01-2019 Patient encounter procedure Other Other [facility] Start: 02-01-2019 End: 02-01-2019 Office outpatient visit 25 minutes Devyn Mondragon Work Phone: [facility] Comment on above: Psoriatic arthritis (Primary Dx); Psoriasis; Arthropathic psoriasis; Long-term current use of high risk medication other than anticoagulant; 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-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 (NSAID); Fatigue, [...] cervical Start: 01-03-2019 End: 01-03-2019 Refill Devyn Mondragon Work Phone: [facility] Start: 12-04-2018 End: 12-04-2018 Refill Devyn [employer] mum Work Phone: [facility] Start: 12-02-2018 End: 12-02-2018 Patient encounter procedure Other Other [facility] Start: 11-30-2018 End: 11-30-2018 Telephone encounter Dora Bradley [facility] Comment on above: Insurance ([employer]) Start: 11-18-2018 End: 11-18-2018 Refill Camila Barnett [facility] Start: 11-04-2018 End: 11-04-2018 Refill Devyn Mondragon Work Phone: [facility] Start: 10-19-2018 End: 10-19-2018 Refill Devyn Mondragon Work Phone: [facility] Start: 10-12-2018 End: 10-12-2018 Refill Devyn Mondragon Work Phone: [facility] Start: 10-04-2018 End: 10-04-2018 Office outpatient visit 25 minutes Devyn Mondragon Work Phone: [facility] Comment on above: Psoriatic arthritis (Primary Dx); Dry skin; Abnormal serum CY level; History of psoriatic arthritis; FCI current use of non-steroidal anti-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 (NSAID); Long-term [...] Psoriasis Start: 09-13-2018 End: 09-13-2018 Refill Devyn Hernandezcemreji Work Phone: [facility] Start: 08-18-2018 End: 08-18-2018 Refill Devyn Cunningham Al[place] Work Phone: [facility] Start: 06-24-2018 Patient encounter procedure ROSE MARY SHARPE [facility] Start: 06-07-2018 End: 06-07-2018 Telephone encounter Haritha Gomez [facility] Comment on above: Results Start: 06-06-2018 End: 06-06-2018 Patient encounter procedure Devyn Cunningham [place] Work Phone: [facility] Comment on above: Vitamin D deficiency (Primary Dx) Start: 06-01-2018 Patient encounter procedure DEVYN HERNANDEZCEMREJI [facility] Start: 06-01-2018 End: 06-01-2018 Office outpatient visit 25 minutes Devyn Marisa [place] Work Phone: [facility] Comment on above: Psoriatic arthritis (Primary Dx); Psoriasis; Dry skin; Arthropathic psoriasis; Arthropathic psoriasis, unspecified; History of psoriatic arthritis; Long-term current use of high risk medication other than anticoagulant; FCI current use of non-steroidal anti-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 (NSAID); Abnormal serum CY level; Vitamin D deficiency; TATUM (nonalcoholic steatohepatitis); Fatty liver; Primary osteoarthritis of both knees Start: 03-24-2018 End: 03-24-2018 Patient encounter Devyn Cunningham [place] Work Phone: [facility] Start: 01-12-2018 Patient encounter procedure DEVYN DAVIDCEMREJI [facility] Start: 12-21-2017 Patient encounter procedure Niecy NIETO [facility] Start: 11-16-2017 Patient encounter Niecy NIETO [facility] Start: 10-08-2017 Patient encounter procedure RICHARD REZA [facility] Start: 08-20-2017 [facility] Start: 02-24-2017 End: 02-25-2017 Ambulatory PROVIDER UNKNOWN Facility:[facility] Procedures Date Procedure Procedure Detail Performing Clinician Start: 06-29-2023 Screening mammograph y bi 2-view breast inc cad Malik Denson MD Work Phone: Start: 04-01-2020 Assay of free thyroxine Khurram Osman Work Phone: Start: 04-01-2020 Assay of thyroid stimulating hormone tsh Khurram Rui Osman Work Phone: Start: 04-01-2020 Assay of triiodothyr onine t3 free Khurram Osman Work Phone: Start: 04-01-2020 Blood count complete auto&auto difrntl wbc Khurram Rui NguyenOsman Work Phone: Start: 04-01-2020 Comprehensive metabo lic panel Khurram Rui Osman Work Phone: Start: 04-01-2020 Screening mammograph y bi 2-view breast inc cad Khurram Rui Jacqui Work Phone: Start: 04-01-2020 Mammography Noé madsen MD Work Phone: Start: 07-25-2019 Mri pelvis w/o & w/c ontrast material Karen [employer] Work Phone: Start: 07-25-2019 Creatinine blood Karen Prince Work Phone: Start: 05-18-2019 C-reactive protein Min Cunningham [employer] Work Phone: Start: 05-18-2019 Creatinine blood Devyn Cunningham [employer] DO Work Phone: Start: 04-22-2019 Hemoglobin glycosylated a1c Khurram Osman Work Phone: Start: 04-17-2019 Ct thorax w/contrast material Niko Griffin MD Work Phone: Start: 04-17-2019 Radiologic exam ches t 2 views Niko Griffin MD Work Phone: Start: 04-17-2019 Urinalysis microscopic only Niko Griffin MD Work Phone: Start: 04-17-2019 Urnls dip stick/tabl et rgnt auto w/o microscopy Niko Griffin MD Work Phone: Start: 04-17-2019 BASIC METABOLIC PANE L W/ REFLEX TO MG FOR LOW K Niko Griffin MD Work Phone: Start: 04-17-2019 Blood count complete auto&auto difrntl wbc Niko Griffin MD Work Phone: Start: 04-17-2019 Hepatic function panel Niko Griffin MD Work Phone: Start: 05-30-2018 End: 05-30-2018 LABS (OUTSIDE) Devyn Marisa Mondragon Work Phone: Start: 08-20-2017 Laboratory test [...] malignant neoplasm of breast Breast cancer screen [employer] Start: 06-29-2023 Annual Wellness Visit (Medicare) Annual Wellness Visit (Medicare) [facility] [email or web address] Start: 09-14-2022 Subsequent hospital visit by physician 09/14/2022 Hospital Encounter Noé Polanco [place] [address] [facility] Start: 09-03-2022 End: 09-03-2022 Patient encounter procedure 09/03/2022 Surgical Consult Sports Medicine Noé Polanco MD [address] [place] [address] [facility] Start: 05-23-2022 Hemoglobin A1c measurement A1C [facility] Start: 02-22-2022 Cervical cancer screen Cervical cancer screen [facility] Work Phone: Start: 02-22-2022 Screening for malignant neoplasm of cervix Cervical cancer screen [facility] [place] Start: 01-08-2022 Influenza vaccination Sequential Influenza Vaccine (#1) [facility] Start: 10-14-2021 Hemoglobin A1c measurement A1C [facility] Start: 08-27-2021 Hemoglobin A1c measurement A1C [facility] [facility] Start: 08-26-2021 COVID-19 Vaccine (5 - Booster for Moderna series) COVID-19 Vaccine (5 - Booster for Moderna series) [facility] Start: 07-28-2021 End: 07-28-2021 Admission to same day surgery center 07/28/2021 Surgery Noé Polanco MD [address] [place] [address] Right Total Knee Replacement Robotic [facility] Comment on above: Right Total Knee Replacement Robotic Start: 07-28-2021 End: 07-28-2021 ARTHROPLASTY KNEE TOTAL ROBOTIC ARTHROPLASTY KNEE TOTAL ROBOTIC Primary osteoarthritis of right knee 07/28/2021 9:18 AM EDT [facility] [place] Start: 07-28-2021 Subsequent hospital visit by physician 07/28/2021 Hospital Encounter Noé Polanco MD [address] [place] [address] [facility] Start: 07-24-2021 End: 07-16-2022 Hemoglobin A1c/Hemoglobin.total in Blood Hemoglobin A1c Lab Routine Elevated hemoglobin A1c Expected: 07/24/2021, Expires: 07/16/2022 [facility] Work Phone: Comment on above: Expected: 07/24/2021, Expires: Start: 07-24-2021 End: 07-24-2021 Patient encounter procedure 07/24/2021 Office Visit Lab Noé Polanco MD [address] [place] [address] [facility] Start: 07-17-2021 End: 07-17-2021 Patient encounter procedure 07/17/2021 Surgical Consult Sports Medicine Noé Polanco MD [address] [address] [facility] Start: 07-02-2021 End: 07-02-2021 Follow-up encounter 07/02/2021 Follow-Up Sports Medicine Noé Polanco MD [address] [place] [address] [facility] Start: 06-16-2021 End: 06-16-2021 Admission to same day surgery center 06/16/2021 Surgery Noé Polanco MD [address] [place] [address] Right Total Knee Replacement Robotic [facility] Comment on above: Right Total Knee Replacement Robotic Start: 06-16-2021 End: 06-16-2021 ARTHROPLASTY KNEE TOTAL ROBOTIC ARTHROPLASTY KNEE TOTAL ROBOTIC Primary osteoarthritis of right knee 06/16/2021 9:23 AM EST [facility] OR Start: 06-16-2021 Subsequent hospital visit by physician 06/16/2021 Hospital Encounter Noé Polanco MD [address] [facility] [address] [facility] Start: 06-12-2021 End: 06-12-2021 Patient encounter procedure 06/12/2021 Office Visit Cardiology Noé Polanco MD [address] [place] [address] Ulises Howell MD [address] [place] [id number] [facility] Start: 04-16-2021 Hemoglobin A1c measurement A1C [facility] Start: 04-01-2021 Screening for malignant neoplasm of breast Mammogram [facility] Start: 04-01-2021 Screening for malignant neoplasm of colon [facility] Start: 03-14-2021 Lipid panel Lipids [email or web address] Start: 03-14-2021 Lipid screen Lipid screen [facility] [employer] Phone: Start: 07-24-2020 Creatinine measurement Creatinine monitoring [email or web address] [place] Start: 07-24-2020 Creatinine monitoring Creatinine monitoring [email or web address] [place] Start: 07-02-2020 Hemoglobin A1c measurement A1C test (Diabetic or Prediabetic) [email or web address] Start: 06-28-2020 Breast cancer screen Breast cancer screen [facility] Phone: Start: 06-28-2020 Screening for malignant neoplasm of breast Breast cancer screen [email or web address] [place], [place] Start: 05-18-2020 Creatinine monitoring Creatinine monitoring [employer] Phone: Start: 04-22-2020 A1C test (Diabetic or Prediabetic) A1C test (Diabetic or Prediabetic) [facility] [employer] Phone: Start: 04-22-2020 HbA1c (Bld) [Mass fraction] A1C test (Diabetic or Prediabetic) [facility] [place] [place] Start: 04-17-2020 Creatinine monitoring Creatinine monitoring [employer] Phone: Start: 04-17-2020 Potassium monitoring Potassium monitoring [employer] Phone: Start: 02-01-2020 Creatinine monitoring Creatinine monitoring [employer] Phone: Start: 01-09-2020 Influenza vaccination Flu vaccine (#1) [email or web address] [place], [place] Start: 10-15-2019 A1C test (Diabetic or Prediabetic) A1C test (Diabetic or Prediabetic) [facility] Phone: Start: 09-01-2019 End: 09-01-2019 Office Visit 09/01/2019 Office Visit Rheumatology Alma Garcia, Devyn Cunningham DO [address] [place] [id number] [phone] [facility] Start: 08-31-2019 End: 05-19-2020 VITAMIN D (25-HYDROXY,TOTAL) VITAMIN D (25-HYDROXY,TOTAL) Lab Routine Psoriatic arthritis Dry skin CRP elevated History of psoriatic arthritis FCI current use of non-steroidal anti-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 (NSAID) Long-term [...] psoriasis Psoriasis Expected: 08/31/2019 (Approximate), Expires: 05/19/2020 [facility] Comment on above: Expected: 08/31/2019 (Approximate), Expi res: 05/19/2020 Start: 08-31-2019 End: 05-19-2020 VITAMIN D, (1,25 DIHYDROXY) VITAMIN D, (1,25 DIHYDROXY) Lab Routine Psoriatic arthritis Dry skin CRP elevated History of psoriatic arthritis 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-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 (NSAID) Long-term [...] psoriasis Psoriasis Expected: 08/31/2019 (Approximate), Expires: 05/19/2020 [facility] Comment on above: Expected: 08/31/2019 (Approximate), Expi res: 05/19/2020 Start: 08-02-2019 End: 08-02-2019 Appointment 08/02/2019 Appointment Radiology [facility] Start: 06-23-2019 Potassium monitoring Potassium monitoring [employer] Work Phone: Start: 05-24-2019 End: 05-24-2019 Office Visit 05/24/2019 Office Visit Anesthesiology Pain Mgt Rose Mary Sharpe, SNOW PLOW TRACTOR OPERATOR-SUPERVISOR [employer] [address] [facility] [place] [address] [phone] [facility] Start: 05-19-2019 End: 05-19-2019 Office Visit 05/19/2019 Office Visit Rheumatology Alma Garcia, Devyn Cunningham, DO [address] [facility] [place] [address] [facility] Start: 05-17-2019 End: 05-17-2019 Office Visit 05/17/2019 Office Visit Anesthesiology Pain Mgt Rose Mary Sharpe, SNOW PLOW TRACTOR OPERATOR-SUPERVISOR [employer] [address] [facility] [place] [address] [phone] [facility] Start: 05-08-2019 End: 02-07-2020 VITAMIN D (25-HYDROXY,TOTAL) VITAMIN D (25-HYDROXY,TOTAL) Lab Routine Vitamin D deficiency Expected: 05/08/2019 (Approximate), Expires: 02/07/2020 [facility] Comment on above: Expected: 05/08/2019 (Approximate), Expi res: 02/07/2020 Start: 05-08-2019 End: 02-07-2020 VITAMIN D, (1,25 DIHYDROXY) VITAMIN D, (1,25 DIHYDROXY) Lab Routine Vitamin D deficiency Expected: 05/08/2019 (Approximate), Expires: 02/07/2020 [facility] Comment on above: Expected: 05/08/2019 (Approximate), Expi res: 02/07/2020 Start: 04-26-2019 End: 04-26-2019 Office Visit [facility] Procedural Pain Management Comment on above: Lumbar facet arthropathy (Primary Dx) Start: 04-19-2019 End: 02-02-2020 ALT [Catalytic activity/Vol] ALT Lab Routine Psoriatic arthritis Psoriasis Arthropathic psoriasis Long-term current use of high risk medication other than anticoagulant FCI current use of non-steroidal anti-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 (NSAID) Fatigue, [...] disease), cervical Expected: 04/19/2019 (Approximate), Expires: 02/02/2020 [facility] Comment on above: Expected: 04/19/2019 (Approximate), Expi res: 02/02/2020 Start: 04-19-2019 End: 02-02-2020 AST [Catalytic activity/Vol] AST Lab Routine Psoriatic arthritis Psoriasis Arthropathic psoriasis Long-term current use of high risk medication other than anticoagulant 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-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 (NSAID) Fatigue, [...] disease), cervical Expected: 04/19/2019 (Approximate), Expires: 02/02/2020 [facility] Comment on above: Expected: 04/19/2019 (Approximate), Expi res: 02/02/2020 Start: 04-19-2019 End: 02-02-2020 CBC, EDIF, PLATELET CBC, EDIF, PLATELET Lab Routine Psoriatic arthritis Psoriasis Arthropathic psoriasis Long-term current use of high risk medication other than anticoagulant 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-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 (NSAID) Fatigue, [...] disease), cervical Expected: 04/19/2019 (Approximate), Expires: 02/02/2020 [facility] Comment on above: Expected: 04/19/2019 (Approximate), Expi res: 02/02/2020 Start: 04-19-2019 End: 02-02-2020 Creatinine [Mass/Vol] CREATININE SERUM Lab Routine Psoriatic arthritis Psoriasis Arthropathic psoriasis Long-term current use of high risk medication other than anticoagulant 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-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 (NSAID) Fatigue, [...] disease), cervical Expected: 04/19/2019 (Approximate), Expires: 02/02/2020 [facility] Comment on above: Expected: 04/19/2019 (Approximate), Expi res: 02/02/2020 Start: 04-19-2019 End: 02-02-2020 CRP [Mass/Vol] C REACTIVE PROTEIN Lab Routine Psoriatic arthritis Psoriasis Arthropathic psoriasis Long-term current use of high risk medication other than anticoagulant FCI current use of non-steroidal anti-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 (NSAID) Fatigue, [...] disease), cervical Expected: 04/19/2019 (Approximate), Expires: 02/02/2020 [facility] Comment on above: Expected: 04/19/2019 (Approximate), Expi res: 02/02/2020 Start: 04-19-2019 End: 02-02-2020 M TUBERCULOSIS BY QUANTIFERON, BLD M TUBERCULOSIS BY QUANTIFERON, BLD Lab Routine Psoriatic arthritis Long-term current use of high risk medication other than anticoagulant Expected: 04/19/2019 (Approximate), Expires: 02/02/2020 [facility] Comment on above: Expected: 04/19/2019 (Approximate), Expi res: 02/02/2020 Start: 04-19-2019 End: 02-02-2020 SEDIMENTATION RATE, AUTOMATED SEDIMENTATION RATE, AUTOMATED Lab Routine Psoriatic arthritis Psoriasis Arthropathic psoriasis Long-term current use of high risk medication other than anticoagulant FCI current use of non-steroidal anti-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 (NSAID) Fatigue, [...] disease), cervical Expected: 04/19/2019 (Approximate), Expires: 02/02/2020 [facility] Comment on above: Expected: 04/19/2019 (Approximate), Expi res: 02/02/2020 Start: 04-19-2019 End: 02-02-2020 VITAMIN D (25-HYDROXY,TOTAL) VITAMIN D (25-HYDROXY,TOTAL) Lab Routine Psoriatic arthritis Psoriasis Arthropathic psoriasis Long-term current use of high risk medication other than anticoagulant FCI current use of non-steroidal anti-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 (NSAID) Fatigue, [...] disease), cervical Expected: 04/19/2019 (Approximate), Expires: 02/02/2020 [facility] Comment on above: Expected: 04/19/2019 (Approximate), Expi res: 02/02/2020 Start: 04-19-2019 End: 02-02-2020 VITAMIN D, (1,25 DIHYDROXY) VITAMIN D, (1,25 DIHYDROXY) Lab Routine Psoriatic arthritis Psoriasis Arthropathic psoriasis Long-term current use of high risk medication other than anticoagulant 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-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 (NSAID) Fatigue, [...] disease), cervical Expected: 04/19/2019 (Approximate), Expires: 02/02/2020 [facility] Comment on above: Expected: 04/19/2019 (Approximate), Expi res: 02/02/2020 Start: 04-19-2019 End: 04-19-2019 Office Visit 04/19/2019 Office Visit Anesthesiology Pain Mgt Rose Mary Sharpe, SNOW PLOW TRACTOR OPERATOR-SUPERVISOR [employer] [address] [place] [address] [phone] [facility] Start: 04-12-2019 End: 04-12-2019 Office Visit 04/12/2019 Office Visit Anesthesiology Pain Mgt Niecy Hobson MD [address] [place] [address] [facility] Procedural Pain Management Start: 02-24-2019 History and physical examination, annual for health maintenance Wellness Visit [facility] Start: 02-16-2019 End: 02-16-2019 Office Visit 02/16/2019 Office Visit Anesthesiology Pain Mgt Rose Mary Sharpe, SNOW PLOW TRACTOR OPERATOR-SUPERVISOR [employer] [address] [place] [address] [phone] [facility] Start: 02-01-2019 End: 02-01-2019 Office Visit 02/01/2019 [facility] Devyn Cunningham, DO [address] [place] [address] [facility] Start: 01-25-2019 End: 01-25-2019 Office Visit 01/25/2019 Office Visit Anesthesiology Pain Mgt Niecy Hobson MD [address] [place] [address] [facility] Start: 01-21-2019 End: 10-05-2019 ALT [Catalytic activity/Vol] ALT Lab Routine Psoriatic arthritis Dry skin Abnormal serum CY level History of psoriatic arthritis FCI current use of non-steroidal anti-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 (NSAID) Long-term [...] psoriasis Psoriasis Expected: 01/21/2019 (Approximate), Expires: 10/05/2019 [facility] Comment on above: Expected: 01/21/2019 (Approximate), Expi res: 10/05/2019 Start: 01-21-2019 End: 10-05-2019 AST [Catalytic activity/Vol] AST Lab Routine Psoriatic arthritis Dry skin Abnormal serum CY level History of psoriatic arthritis FCI current use of non-steroidal anti-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 (NSAID) Long-term [...] psoriasis Psoriasis Expected: 01/21/2019 (Approximate), Expires: 10/05/2019 [facility] Comment on above: Expected: 01/21/2019 (Approximate), Expi res: 10/05/2019 Start: 01-21-2019 End: 10-05-2019 CBC,PLATELETS CBC,PLATELETS Lab Routine Psoriatic arthritis Dry skin Abnormal serum CY level History of psoriatic arthritis FCI current use of non-steroidal anti-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 (NSAID) Long-term [...] psoriasis Psoriasis Expected: 01/21/2019 (Approximate), Expires: 10/05/2019 [facility] Comment on above: Expected: 01/21/2019 (Approximate), Expi res: 10/05/2019 Start: 01-21-2019 End: 10-05-2019 Creatinine [Mass/Vol] CREATININE SERUM Lab Routine Psoriatic arthritis Dry skin Abnormal serum CY level History of psoriatic arthritis 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-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 (NSAID) Long-term [...] psoriasis Psoriasis Expected: 01/21/2019 (Approximate), Expires: 10/05/2019 [facility] Comment on above: Expected: 01/21/2019 (Approximate), Expi res: 10/05/2019 Start: 01-21-2019 End: 10-05-2019 VITAMIN D (25-HYDROXY,TOTAL) VITAMIN D (25-HYDROXY,TOTAL) Lab Routine Psoriatic arthritis Dry skin Abnormal serum CY level History of psoriatic arthritis 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-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 (NSAID) Long-term [...] psoriasis Psoriasis Expected: 01/21/2019 (Approximate), Expires: 10/05/2019 [facility] Comment on above: Expected: 01/21/2019 (Approximate), Expi res: 10/05/2019 Start: 01-21-2019 End: 10-05-2019 VITAMIN D, (1,25 DIHYDROXY) VITAMIN D, (1,25 DIHYDROXY) Lab Routine Psoriatic arthritis Dry skin Abnormal serum CY level History of psoriatic arthritis FCI current use of non-steroidal anti-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 (NSAID) Long-term [...] psoriasis Psoriasis Expected: 01/21/2019 (Approximate), Expires: 10/05/2019 [facility] Comment on above: Expected: 01/21/2019 (Approximate), Expi res: 10/05/2019 Start: 01-08-2019 Influenza vaccination [facility] Start: 12-16-2018 End: 12-16-2018 Office Visit [facility] Start: 10-04-2018 End: 10-04-2018 Ambulatory 10/04/2018 Office Visit Rheumatology Alma Garcia, Devyn Cunningham, DO [address] [place] [id number] [phone] [facility] Start: 09-15-2018 End: 06-01-2019 ALT enzyme act/vol ALT Routine Psoriatic arthritis Psoriasis Dry skin Arthropathic psoriasis Arthropathic psoriasis, unspecified History of psoriatic arthritis Long-term current use of high risk medication other than anticoagulant FCI current use of non-steroidal anti-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 (NSAID) Abnormal [...] disc disease Expected: 09/15/2018 (Approximate), Expires: 06/01/2019 [facility] Work Phone: Comment on above: Expected: 09/15/2018 (Approximate), Expi res: 06/01/2019 Start: 09-15-2018 End: 06-01-2019 AST enzyme act/vol AST Routine Psoriatic arthritis Psoriasis Dry skin Arthropathic psoriasis Arthropathic psoriasis, unspecified History of psoriatic arthritis Long-term current use of high risk medication other than anticoagulant FCI current use of non-steroidal anti-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 (NSAID) Abnormal [...] disc disease Expected: 09/15/2018 (Approximate), Expires: 06/01/2019 [facility] Work Phone: Comment on above: Expected: 09/15/2018 (Approximate), Expi res: 06/01/2019 Start: 09-15-2018 End: 06-01-2019 CBC,PLATELETS CBC,PLATELETS Routine Psoriatic arthritis Psoriasis Dry skin Arthropathic psoriasis Arthropathic psoriasis, unspecified History of psoriatic arthritis Long-term current use of high risk medication other than anticoagulant FCI current use of non-steroidal anti-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 (NSAID) Abnormal [...] disc disease Expected: 09/15/2018 (Approximate), Expires: 06/01/2019 [facility] Work Phone: Comment on above: Expected: 09/15/2018 (Approximate), Expi res: 06/01/2019 Start: 09-15-2018 End: 06-01-2019 Creatinine mass conc CREATININE SERUM Routine Psoriatic arthritis Psoriasis Dry skin Arthropathic psoriasis Arthropathic psoriasis, unspecified History of psoriatic arthritis Long-term current use of high risk medication other than anticoagulant FCI current use of non-steroidal anti-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 (NSAID) Abnormal [...] disc disease Expected: 09/15/2018 (Approximate), Expires: 06/01/2019 [facility] Work Phone: Comment on above: Expected: 09/15/2018 (Approximate), Expi res: 06/01/2019 Start: 09-15-2018 End: 06-01-2019 CRP mass conc C REACTIVE PROTEIN Routine Psoriatic arthritis Psoriasis Dry skin Arthropathic psoriasis Arthropathic psoriasis, unspecified History of psoriatic arthritis Long-term current use of high risk medication other than anticoagulant 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-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 (NSAID) Abnormal [...] disc disease Expected: 09/15/2018 (Approximate), Expires: 06/01/2019 [facility] Work Phone: Comment on above: Expected: 09/15/2018 (Approximate), Expi res: 06/01/2019 Start: 09-15-2018 End: 06-01-2019 SEDIMENTATION RATE, AUTOMATED SEDIMENTATION RATE, AUTOMATED Routine Psoriatic arthritis Psoriasis Dry skin Arthropathic psoriasis Arthropathic psoriasis, unspecified History of psoriatic arthritis Long-term current use of high risk medication other than anticoagulant 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-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 (NSAID) Abnormal [...] disc disease Expected: 09/15/2018 (Approximate), Expires: 06/01/2019 [facility] Work Phone: Comment on above: Expected: 09/15/2018 (Approximate), Expi res: 06/01/2019 Start: 09-15-2018 End: 06-01-2019 VITAMIN D (25-HYDROXY,TOTAL) VITAMIN D (25-HYDROXY,TOTAL) Routine Psoriatic arthritis Psoriasis Dry skin Arthropathic psoriasis Arthropathic psoriasis, unspecified History of psoriatic arthritis Long-term current use of high risk medication other than anticoagulant 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-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 (NSAID) Abnormal [...] disc disease Expected: 09/15/2018 (Approximate), Expires: 06/01/2019 [facility] Work Phone: Comment on above: Expected: 09/15/2018 (Approximate), Expi res: 06/01/2019 Start: 09-15-2018 End: 06-01-2019 VITAMIN D, (1,25 DIHYDROXY) VITAMIN D, (1,25 DIHYDROXY) Routine Psoriatic arthritis Psoriasis Dry skin Arthropathic psoriasis Arthropathic psoriasis, unspecified History of psoriatic arthritis Long-term current use of high risk medication other than anticoagulant 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-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 (NSAID) Abnormal [...] disc disease Expected: 09/15/2018 (Approximate), Expires: 06/01/2019 [facility] Work Phone: Comment on above: Expected: 09/15/2018 (Approximate), Expi res: 06/01/2019 Start: 09-04-2018 End: 06-06-2019 VITAMIN D (25-HYDROXY,TOTAL) VITAMIN D (25-HYDROXY,TOTAL) Routine Vitamin D deficiency Expected: 09/04/2018 (Approximate), Expires: 06/06/2019 [facility] Work Phone: Comment on above: Expected: 09/04/2018 (Approximate), Expi res: 06/06/2019 Start: 09-04-2018 End: 06-06-2019 VITAMIN D, (1,25 DIHYDROXY) VITAMIN D, (1,25 DIHYDROXY) Routine Vitamin D deficiency Expected: 09/04/2018 (Approximate), Expires: 06/06/2019 [facility] Work Phone: Comment on above: Expected: 09/04/2018 (Approximate), Expi res: 06/06/2019 Start: 06-24-2018 End: 06-24-2018 Ambulatory 06/24/2018 Office Visit Anesthesiology Pain Mgt Rose Mary Sharpe, SNOW PLOW TRACTOR OPERATOR-SUPERVISOR [employer] [address] [place] [address] [phone] [facility] Start: 06-03-2018 TSH Qn [place] [place] Start: 06-03-2018 TSH testing TSH testing [facility] Work Phone: Start: 06-01-2018 End: 06-01-2018 Ambulatory 06/01/2018 Office Visit Rheumatology Alma Garcia, Devyn Cunningham, DO [address] [place] [address] [phone] [facility] Start: 2018 Administration of herpes zoster vaccine Zoster Vaccines (1 of 2) [facility] Start: 2018 Colon cancer screen colonoscopy Colon cancer screen colonoscopy [facility] Work Phone: Start: 2018 Colonoscopy COLON CANCER SCREENING DISCUSSION [facility] Work Phone: Start: 2018 Protein mass conc COLON CANCER SCREENING DISCUSSION [facility] Work Phone: Start: 2018 Screening for malignant neoplasm of colon [facility] Start: 2018 Shingles Vaccine (1 of 2) Shingles Vaccine (1 of 2) [facility] Start: 2018 Zoster vaccine hzv live for subcutaneous use ZOSTER (SHINGLES) VACCINE (1 of 2) [facility] Start: 01-08-2018 Influenza vaccination INFLUENZA VACCINE (#1) [facility] Work Phone: Start: 03-14-2017 Lipid panel [place]id [place] [place] Start: 03-14-2017 Lipid screen Lipid screen [employer] [employer] Phone: Start: 2013 Screening for malignant neoplasm of colon [email or web address] Start: 2008 Fasting lipid profile LIPID SCREENING [facility] Work Phone: Start: 2008 Protein mass conc MAMMOGRAM SCREENING DISCUSSION [facility] Work Phone: Start: 2008 Screening for malignant neoplasm of breast Mammogram [facility] Start: 2008 Screening mammography MAMMOGRAM SCREENING DISCUSSION [facility] Work Phone: Start: 1989 Screening for malignant neoplasm of cervix PAP SMEAR DISCUSSION [facility] Work Phone: Start: 1987 DTaP/Tdap/Td vaccine (1 - Tdap) DTaP/Tdap/Td vaccine (1 - Tdap) [facility] Start: 1987 Third diphtheria, tetanus and acellular pertussis (DTaP) vaccination TDAP (ADULT) [facility] Work Phone: Start: 1986 Diabetic microalbuminuria test Diabetic microalbuminuria test [facility] Work Phone: Start: 1986 Hepatitis C screening Hepatitis C Screening [facility] Start: 1986 Tetanus vaccination TETANUS [facility] Work Phone: Start: 1983 HIV screening HIV Screening [facility] Start: 1981 HIV screening HIV SCREENING DISCUSSION [facility] Work Phone: Start: 1980 Depression Screen Depression Screen [facility] [facility] Start: 1980 Depression screening using PHQ-9 (Patient Health Questionnaire 9) score Depression Screening (PHQ-2/9) [facility] Start: 1979 DTaP/Tdap/Td vaccine (1 - Tdap) DTaP/Tdap/Td vaccine (1 - Tdap) [employer] [employer] Phone: Start: 1978 [object Object] Diabetic foot exam [facility] Work Phone: Start: 1978 Diabetic foot examination [facility] Start: 1978 Diabetic retinal exam Diabetic retinal exam [facility] Work Phone: Start: 1978 Glaucoma screening Ophthalmology Exam [facility] Start: 1978 Microalbumin measurement, urine, quantitative Urine Microalbumin [facility] Start: 1978 Ophthalmic examination and evaluation Ophthalmology Exam [facility] Start: 1978 Urine screening for protein [facility]rine Microalbumin [facility] Start: 1974 Pneumococcal Vaccine: Ped or At-Risk (1 - PCV) Pneumococcal Vaccine: Ped or At-Risk (1 - PCV) [facility] Start: 1974 Pneumococcal Vaccine: Ped or At-Risk (1 of 2 - PPSV23) Pneumococcal Vaccine: Ped or At-Risk (1 of 2 - PPSV23) [facility] Start: 1971 History and physical examination, annual for health maintenance Wellness Visit [facility] Start: 1968 Hepatitis B vaccine (1 of 3 - 3-dose series) Hepatitis B vaccine (1 of 3 - 3-dose series) [facility] Start: 1968 Screening for malignant neoplasm of cervix Pap Smear [facility] Start: 1968 Screening for malignant neoplasm of colon [facility] Start: 1968 Tetanus vaccination Tetanus: Every 10yrs [facility] Start: 1968 Thyrotropin Qn TSH [facility] Work Phone: End: 07-31-2023 12 lead ECG ECG 12 Lead ECG Routine Primary osteoarthritis of right knee 1 Occurrences starting 07/30/2022 until 07/31/2023 [facility] Comment on above: 1 Occurrences starting 07/30/2022 until 07/31/2023 End: 05-19-2020 ALT [Catalytic activity/Vol] ALT Lab Routine Psoriatic arthritis Dry skin CRP elevated History of psoriatic arthritis [facility] current use of non-steroidal anti-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 (NSAID) Long-term [...] Psoriasis 6 Occurrences starting 07/02/2019 until 05/19/2020 [employer] Comment on above: 6 Occurrences starting 07/02/2019 until 05/19/2020 ARTHROPLASTY KNEE TO TORSTEN ROBOTIC ARTHROPLASTY KNEE TOTAL ROBOTIC Primary osteoarthritis of right knee [facility] [place] ARTHROPLASTY KNEE TO TORSTEN ROBOTIC ARTHROPLASTY KNEE TOTAL ROBOTIC Primary osteoarthritis of right knee [facility] [place] End: 05-19-2020 AST [Catalytic activity/Vol] AST Lab Routine Psoriatic arthritis Dry skin CRP elevated History of psoriatic arthritis 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-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 (NSAID) Long-term [...] Psoriasis 6 Occurrences starting 07/02/2019 until 05/19/2020 [employer] Comment on above: 6 Occurrences starting 07/02/2019 until 05/19/2020 End: 06-24-2022 Basic metabolic 2000 panel - Serum or Plasma Basic metabolic panel Lab Routine Primary osteoarthritis of right knee 1 Occurrences starting 06/25/2021 until 06/24/2022 [facility] Comment on above: 1 Occurrences starting 06/25/2021 until 06/24/2022 End: 07-31-2023 Basic metabolic 2000 panel - Serum or Plasma Basic metabolic panel Lab Routine Primary osteoarthritis of right knee 1 Occurrences starting 07/30/2022 until 07/31/2023 [facility] Comment on above: 1 Occurrences starting 07/30/2022 until 07/31/2023 End: 05-19-2020 CBC, EDIF, PLATELET CBC, EDIF, PLATELET Lab Routine Psoriatic arthritis Dry skin CRP elevated History of psoriatic arthritis 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-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 (NSAID) Long-term [...] Psoriasis 6 Occurrences starting 07/02/2019 until 05/19/2020 [employer] Comment on above: 6 Occurrences starting 07/02/2019 until 05/19/2020 End: 06-24-2022 Complete blood count with white cell differential, manual CBC and differential Lab Routine Primary osteoarthritis of right knee Hypertension, unspecified type 1 Occurrences starting 06/25/2021 until 06/24/2022 [employer] Work Phone: Comment on above: 1 Occurrences starting 06/25/2021 until 06/24/2022 End: 07-31-2023 Complete blood count with white cell differential, manual CBC and differential Lab Routine Primary osteoarthritis of right knee Hypertension, unspecified type 1 Occurrences starting 07/30/2022 until 07/31/2023 [facility] Comment on above: 1 Occurrences starting 07/30/2022 until 07/31/2023 End: 05-19-2020 Creatinine [Mass/Vol] CREATININE SERUM Lab Routine Psoriatic arthritis Dry skin CRP elevated History of psoriatic arthritis [facility] current use of non-steroidal anti-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 (NSAID) Long-term [...] Psoriasis 6 Occurrences starting 07/02/2019 until 05/19/2020 [employer] Comment on above: 6 Occurrences starting 07/02/2019 until 05/19/2020 End: 05-19-2020 CRP [Mass/Vol] C REACTIVE PROTEIN Lab Routine Psoriatic arthritis Dry skin CRP elevated History of psoriatic arthritis 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 Comment on above: 6 Occurrences starting 07/02/2019 until 05/19/2020 End: 07-31-2023 CT Knee Right Without Contrast CT Knee Right Without Contrast Imaging Routine Primary osteoarthritis of right knee 1 Occurrences starting 07/30/2022 until 07/31/2023 [facility] Comment on above: 1 Occurrences starting 07/30/2022 until 07/31/2023 End: 04-01-2020 HbA1c (Bld) [Mass fraction] Hemoglobin A1C Lab Routine Once for 1 Occurrences starting 04/01/2020 until 04/01/2020 [place] Comment on above: Once for 1 Occurrences starting 04/01/20 20 until 04/01/2020 HbA1c (Bld) [Mass fraction] Hemoglobin A1C Lab Routine 04/01/2020 2:02 PM [facility] [place] [place] End: 06-24-2022 Hemoglobin A1c/Hemoglobin.total in Blood Hemoglobin A1c Lab Routine Type 2 diabetes mellitus without complication, without long-term current use of insulin ([facility]) 1 Occurrences starting 06/25/2021 until 06/24/2022 [facility] Comment on above: 1 Occurrences starting 06/25/2021 until 06/24/2022 End: 07-31-2023 Hemoglobin A1c/Hemoglobin.total in Blood Hemoglobin A1c Lab Routine Primary osteoarthritis of right knee Type 2 diabetes mellitus without complication, without long-term current use of insulin ([facility]) 1 Occurrences starting 07/30/2022 until 07/31/2023 [facility] Comment on above: 1 Occurrences starting 07/30/2022 until 07/31/2023 End: 07-31-2023 Incentive spirometry - Initial Instruction Incentive spirometry - Initial Instruction Respiratory Care Routine Primary osteoarthritis of right knee 1 Occurrences starting 07/30/2022 until 07/31/2023 [facility] Work Phone: Comment on above: 1 Occurrences starting 07/30/2022 until 07/31/2023 End: 06-24-2022 Methicillin resistant Staphylococcus aureus [Presence] in Unspecified specimen by Organism specific culture MRSA Culture Microbiology Routine Primary osteoarthritis of right knee 1 Occurrences starting 06/25/2021 until 06/24/2022 [facility] Comment on above: 1 Occurrences starting 06/25/2021 until 06/24/2022 End: 07-31-2023 Methicillin resistant Staphylococcus aureus [Presence] in Unspecified specimen by Organism specific culture MRSA Culture Microbiology Routine Primary osteoarthritis of right knee 1 Occurrences starting 07/30/2022 until 07/31/2023 [facility] Comment on above: 1 Occurrences starting 07/30/2022 until 07/31/2023 End: 05-18-2019 Quantiferon TB Gold Quantiferon TB Gold Microbiology Routine Once for 1 Occurrences starting 05/18/2019 until 05/18/2019 [employer] Phone: Comment on above: Once for 1 Occurrences starting 05/18/19 until 05/18/2019 Quantiferon TB Gold Quantiferon TB Gold Microbiology Routine 05/18/2019 5:17 PM EST [employer] Phone: End: 06-24-2022 SARS-CoV-2 (COVID-19) RdRp gene [Presence] in Respiratory specimen by MAL with probe detection COVID-19, Molecular Microbiology Routine Exposure to SARS-associated coronavirus 1 Occurrences starting 06/25/2021 until 06/24/2022 [facility] Comment on above: 1 Occurrences starting 06/25/2021 until 06/24/2022 End: 05-19-2020 SEDIMENTATION RATE, AUTOMATED SEDIMENTATION RATE, AUTOMATED Lab Routine Psoriatic arthritis Dry skin CRP elevated History of psoriatic arthritis [facility] current use of non-steroidal anti-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 (NSAID) Long-term [...] Psoriasis 6 Occurrences starting 07/02/2019 until 05/19/2020 [employer] Comment on above: 6 Occurrences starting 07/02/2019 until 05/19/2020 End: 05-18-2019 Vitamin D 1,25 Dihydroxy Vitamin D 1,25 Dihydroxy Lab Routine Once for 1 Occurrences starting 05/18/2019 until 05/18/2019 [employer] Work Phone: Comment on above: Once for 1 Occurrences starting 05/18/19 20 until 05/18/2019 Vitamin D 1,25 Dihydroxy Vitamin D 1,25 Dihydroxy Lab Routine 05/18/2019 5:17 PM [employer] Phone: End: 05-18-2019 Vitamin D 25 Hydroxy Vitamin D 25 Hydroxy Lab Routine Once for 1 Occurrences starting 05/18/2019 until 05/18/2019 [employer] Phone: Comment on above: Once for 1 Occurrences starting 05/18/19 20 until 05/18/2019 Vitamin D 25 Hydroxy Vitamin D 2 5 Hydroxy Lab Routine 05/18/2019 5:17 PM [employer] Phone: XR Knee Right 4+VWS (Note in Comments) XR Knee Right 4+VWS (Note in Comments) Imaging Routine Primary osteoarthritis of right knee 03/27/2021 11:35 AM [employer] Work Phone: Immunizations Immunization Date Immunization Notes Care Provider [facility] 06-17-2024 pneumococcal 20-ernesto nt conjugate vaccine Malik Denson [facility] 02-21-2024 influenza virus vaccine, unspecified formulation Malik Denson [facility] 02-21-2024 SARS-CoV-2 mRNA (tozinameran 5y-11y) vaccine Malik Denson [facility] Comment on above: Result Comment: pfiz er comirnaty 01-31-2023 influenza virus vaccine, unspecified formulation Britany Gay [facility] 02-21-2022 influenza virus vaccine, unspecified formulation Malik Denson [facility] 02-21-2022 SARS-CoV-2 (COVID-19 ) [id number] Malik Denson [facility] 07-01-2021 SARS-CoV-2 (COVID-19 ) mRNA-1273 vaccine Malik Denson [facility] 02-22-2021 SARS-CoV-2 (COVID-19 ) mRNA-1273 vaccine Malik Denson [facility] 02-07-2021 influenza virus vaccine, unspecified formulation Malik Denson [facility] 08-15-2020 SARS-CoV-2 (COVID-19 ) mRNA-1273 vaccine Malik Denson [facility] Comment on above: Result Comment: 2022: 48 07-18-2020 SARS-CoV-2 (COVID-19 ) mRNA-1273 vaccine Malik Denson [facility] 01-13-2020 influenza virus vaccine, unspecified formulation Malik Denson [facility] 02-06-2019 influenza virus vaccine, unspecified formulation Malik Denson [facility] 02-18-2018 Influenza Vaccine, unspecified formulation Niko Griffin MD Work Phone: [facility] Work Phone: 02-18-2018 influenza virus vaccine, unspecified formulation Camila Barnett [facility] 03-07-2017 influenza virus vaccine, unspecified formulation Malik Denson [facility] 04-08-2016 influenza, high dose seasonal, preservative-free Niko Griffin MD Work Phone: [facility] 04-08-2016 influenza virus vaccine, unspecified formulation Devyn Mondragon [facility] Work Phone: 04-04-2016 influenza virus vaccine, unspecified formulation Malik Denson [facility] 02-08-2016 influenza virus vaccine, unspecified formulation Malik Denson [facility] 03-01-2015 influenza virus vaccine, unspecified formulation Malik Denson [facility] 02-13-2014 influenza virus vaccine, unspecified formulation Malik Denson [facility] 03-22-2013 influenza virus vaccine, unspecified formulation Malik Denson [facility] Payers Date Payer Category Payer Unknown [id number] 2020 Medicare [id number] 2020 Medicare 2020 Unknown [id number] 2017 Private Health Insurance xxx [id number] 1968 Unknown [id number] 2.16.840 .1.404394.3.579.2.983 1968 Unknown [id number] 2.16.84 0.1.382288.3.579.2.593 1968 Unknown [id number] 2.16.84 0.1.249096.3.579.2.593 1968 Unknown [id number] 2.16.84 0.1.652723.3.579.2.593 1968 Unknown [id number] 2.16.84 0.1.630671.3.579.2.593 1968 Unknown [id number] 2.16.84 0.1.314941.3.579.2.593 1968 Unknown [id number] 2.16.84 0.1.582755.3.579.2.593 1968 Unknown [id number] 2.16.84 0.1.002552.3.579.2.593 1968 Unknown [id number] 2.16. 840.1.681614.3.579.2.903 1968 Unknown [id number] 2.16. 840.1.061851.3.579.2.903 1968 Unknown [id number] 2.16. 840.1.875909.3.579.2.903 1968 Unknown [id number] 2.16.8 40.1.616755.3.579.2727 1968 Unknown [id number] 2.16.8 40.1.126310.3.579.2727 1968 Unknown [id number] 2.16.8 40.1.669852.3.579.272 1968 Unknown [id number] 2.16.8 40.1.974476.3.579.2727 1968 Unknown [id number] 2.16.8 40.1.324024.3.579.2727 1968 Unknown [id number] 2.16.8 40.1.324434.3.579.2.727 1968 Unknown [id number] 2.16.8 40.1.104992.3.579.2.727 1968 Unknown [id number] 2.16.8 40.1.149291.3.579.2.727 1968 Unknown [id number] 2.16.8 40.1.296194.3.579.2727 1968 Unknown [id number] 2.16.8 40.1.949251.3.579.2.727 1968 Unknown [id number] 2.16.8 40.1.470059.3.579.2.727 1968 Unknown [id number] 2.16.8 40.1.056157.3.579.2.727 1968 Unknown [id number] 2.16.8 40.1.064169.3.579.2.727 1968 Unknown [id number] 2.16.8 40.1.846403.3.579.2.727 1968 Unknown [id number] 2.16.8 40.1.056540.3.579.2.727 1968 Unknown [id number] 2.16.8 40.1.001740.3.579.2.727 1968 Unknown [id number] 2.16. 840.1.657829.3.579.2.196 1968 Unknown [id number] 2.16. 840.1.356635.3.579.2.196 1968 Unknown [id number] 2.16. 840.1.118650.3.579.2.196 1968 Unknown [id number] 2.16. 840.1.989398.3.579.2.196 1968 Unknown [id number] 2.16. 840.1.537760.3.579.2.196 1968 Unknown [id number] 2.16.8 40.1.821947.3.579.2.727 1968 Unknown [id number] 2.16.8 40.1.947849.3.579.2.727 1968 Unknown [id number] 2.16.8 40.1.881875.3.579.2.727 1968 Unknown [id number] 2.16.8 40.1.851741.3.579.2.727 1968 Unknown [id number] 2.16.8 40.1.098332.3.579.2.727 1968 Unknown [id number] 2.16.8 40.1.309821.3.579.2.727 1968 Unknown [id number] 2.16.8 40.1.499959.3.579.2.727 1968 Unknown [id number] 2.16.8 40.1.693384.3.579.2.727 1968 Unknown [id number] 2.16.8 40.1.775877.3.579.2.173 1968 Unknown [id number] 2.16.8 40.1.062602.3.579.2.727 1968 Unknown [id number] 2.16.8 40.1.557959.3.579.2.727 1959 Unknown [id number] 1959 Unknown [id number] Self-pay Unknown [id number] Social History Date Type Detail Facility Start: 01-12-2018 End: 10-05-2024 Tobacco smoking status NHIS Never smoker [facility] Work Phone: Start: 1970 Sex Assigned At Not on file O [facility] Work Phone: Start: 08-10-2018 End: 12-16-2018 Alcohol intake No [facility] Start: 02-01-2019 End: 06-29-2023 Alcohol intake Current non-drinker of alcohol (finding) [employer] Work Phone: Start: 02-22-2017 End: 04-17-2019 Tobacco use and exposure Never used [employer] Start: 07-07-2021 End: 07-17-2021 Exposure to SARS-CoV-2 (event) Not sure [employer]- [place], [place] Start: 03-27-2021 End: 07-17-2021 Alcohol intake Lifetime non-drinker (finding) [facility] Tobacco smoking status Never [facility] Start: 08-10-2018 End: 06-29-2023 History of Social function [facility] Sexual Orientation [facility] Sex Female (finding) [facility] Medical Equipment Procedure Code Equipment Code Equipment Origin al Text Equipment Identifier Dates USE DIRECTED ONCE DAILY [id number] Start: 05-17-2018 End: 10-04-2018 TEST ONCE DAILY [id number] Start: 05-17-2018 End: 10-04-2018 Kit Repair Raymond brown Acl/Pcl With [place] [id number] Start: 07-05-2018 glucometer test strips, See [...] Medical History: Diagnosis Date Arthritis with psoriasis ([facility]) Coronary artery disease Hyperlipidemia Hypertension Sleep apnea Past Surgical History: Procedure Laterality Date CARDIAC CATHETERIZATION Patient Active Problem List Diagnosis Abnormal renal function test Bilateral lower extremity edema Cervicalgia Low back pain Chronic pain of both knees Coronary artery disease involving kenaitze coronary artery of kenaitze heart without angina pectoris Fatigue History of psoriatic arthritis IBS (irritable bowel syndrome) Lumbar degenerative disc disease Multiple chemical sensitivity syndrome Obstructive sleep apnea Polydipsia Primary hypertension Radiculopathy, lumbar region RLS (restless legs syndrome) Restrictive lung disease Social anxiety disorder Subacromial bursitis Type 2 diabetes mellitus without complications ([facility]) Vitamin D deficiency Bilateral biceps tendonitis Chronic pain of both shoulders Shortness of breath Dyslipidemia Hypothyroidism Hyperuricemia Long-term current use of high risk medication other than anticoagulant Osteoarthritis Psoriasis Psoriatic arthritis ([facility]) Class 3 severe obesity due to excess calories with serious comorbidity and body mass index (BMI) of 45.0 to 49.9 in adult ([facility]) Breast cancer screening by mammogram Cervical cancer [...] Celecoxib Itching Oxycodone-Acetamin (more content not included)... 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 The patient had a [...] CONDITION AT DISCHARGE: Stable DISPOSITION: Home with home health Rosendo Fletcher MD Electronically signed by Rosendo Fletcher MD, Jr 02/03/24 06:38 EDT [facility] 02-01-2024 Note Operative Report DATE OF PROCEDURE: [...] 46cc [employer] SURGEON: Bran Castillo MD [employer] ADJUSTER: JEAN Calderon PA-C assisted throughout the procedure [...] dural tear, nerve root injury, nonunion, DVT/PE, MD, stroke, etc. All questions were answered. Informed [...] were completely intero (more content not included)... [facility] 01-31-2024 Note Chief Complaint Back pain History [...] Cataract extraction and implantation of intraocular lens (2017) Medications Inpatient No active inpatient medications Home [...] DOGS Nutrition/Health Diabetic, (more content not included)... [facility] 01-18-2024 Note Patient Education Nutrition BMI for [...] for Disease Control and Prevention: cdc.gov ? [place] [employer]: heart.org ? National Heart, Lung, and Blood [place]: nhlbi.nih.gov This information is not intended to replace advice given to you by your health care provider. Make sure you discuss any questions you have with your health care provider. Document Revised: 01/14/2023 Document Reviewed: 01/07/2023 [employer] Patient Education ? 2023 [employer] [facility] 01-12-2024 Note [facility] Note Reason for cardiology [...] past medical history of Arthritis with psoriasis ([facility]), Coronary artery disease, Hyperlipidemia, Hypertension, and Sleep [...] Labs: Labs 10/28/2023 (more content not included)... [facility] 11-09-2023 Note Patient Education Mental and Behavioral [...] pray, or go to a place of spiritism. ? Do some deep breathing. To do [...] or salt (sodium). General instructions ? Take zxqn-adw-nchhtyn and prescription medicines only as told by [...] [place] (ADAA): www.adaa.org ? Mental Health [place]: www.dc (more content not included)... [facility] 11-17-2022 Evaluation + Plan note Diagnostic Tests PendingMicroalbumin Level Urine 11/17/22U Protein/Creat Ratio 11/17/22 [facility] 07-16-2022 Note CONSULTATION CONSULTATION DATE: 07/16/2022 HISTORY OF PRESENT ILLNESS: This is a 52-year-old female who returns to the clinic for a three month follow up for chronic lower back pain, psoriatic arthritis. 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 She was [...] indicated. Patient agrees with this plan. [facility] 04-16-2022 Note CONSULTATION CONSULTATION DATE: 04/16/2022 HISTORY [...] three months' time unless otherwise indicated. [facility] 03-04-2022 History of Present illness Narrative Again today I have called Dee Dee at [phone] and her at [phone] and left several messages to call me back about her elevated A1C of 9.1 documented in this encounter [facility] 01-15-2022 Note CONSULTATION CONSULTATION DATE: 01/15/2022 HISTORY OF PRESENT ILLNESS: This is a pleasant, 51-year-old patient who is accompanied by her to the clinic for a six month follow up for chronic lower back pain, neck pain and bilateral knee pain. She was last seen on 05/15/2021 which, at that time, she was referred to Dr. Pierce in Orthopedics in [place] to have knee surgery. She did have [...] a psychiatrist in her local area in [place]. I recommended to the patient, once she feels her anxiety has been managed, to call Dr. Pierce in 4-6 months for re-evaluation for her knee surgery. She will be seen in our clinic in three months' time to maintain her medication unless otherwise indicated. Patient agrees with the plan of care. [facility] 07-21-2021 History of Present illness Narrative I called Jeny on Wednesday and again today and LM and asked her to return my call. . Per Dr Polanco due to Jeny's anxiety he feels Jeny should wait one year before she considers surgery. documented in this encounter [facility] 07-17-2021 History of Present illness Narrative Carmen had an elevated A1C of 8.2 w her pre-op labs. I reviewed w her to eat no sweets, no pop (diet or regular) no alcohol and cut way back on her carbs. She does understand. Her A1C will be repeated. documented in this encounter [facility] 03-27-2021 History of Present illness Narrative Ms. Caballero presents today for initial visit. She has had significant issues with her right knee for quite some time. She had arthroscopic intervention about 3 years ago and states her symptoms have gotten progressively worse since that time. She now states that she has hxli-bw-gicx arthritis and is needing joint replacement surgery. She has tried physical therapy at [facility] within the last year and it really [...] Polanco for surgery. documented in this encounter [facility] 02-10-2021 Evaluation note Encounter Date Diagnosis Assessment [...] which is treated by a physician in [place]. At this point I discussed that she [...] Our discussion is limited to 5 minutes. [employer] Other Evaluation + Plan note No data available for this section [facility]ments Appointment Date:07/28/2023 01:20:00 PM Scheduled Provider: Location:[facility] Appointment Type: Lab Draw Appointment Date:11/04/2023 01:00:00 PM Scheduled Provider: Location:[facility] Appointment Type: Medicare Wellness Subsequent Appointment Date:11/04/2023 02:00:00 PM Scheduled Provider:Malik Denson MD Location:[facility] Appointment Type: Open Diagnostic Tests Pending * PAP w/ HPV and Genotype rflx 07/07/23 [facility] Future Appointments Appointment Date:11/09/2023 01:00:00 PM Scheduled Provider: Location:[facility] Appointment Type:FM Medicare Wellness Subsequent Appointment Date:01/27/2024 02:45:00 PM Scheduled Provider:Malik Denson MD Location:[facility] Future Appointments Appointment Date:11/09/2024 01:00:00 PM Scheduled Provider: Location:[facility] Appointment Type: Medicare Wellness Subsequent Diagnostic Tests Pending * CBC w/ Auto Diff 10/05/24 * Comprehensive Metabolic Panel 10/05/24 * HgbA1c 10/05/24 * Urine Microalbumin/Creatinine Ratio 10/05/24 * Lipid Panel 10/05/24 * TSH With T4fr Reflex 10/05/24 Future Scheduled Tests Radiology* MA Mamm Screen w/CAD if perf and 3D Tommie 10/05/24 [facility] Evaluation note* Diagnosis Primary osteoarthritis of right knee- Primary [facility] Diagnosis Primary osteoarthritis of right knee- Primary Primary osteoarthritis of right knee- Primary Primary osteoarthritis of right knee [facility] Primary osteoarthritis of right knee- Primary Primary osteoarthritis of right knee- Primary Hypertension, unspecified type Exposure to SARS-associated coronavirus Type 2 diabetes mellitus without complication, without long-term current use of insulin (HCC) Primary osteoarthritis of right knee [facility] Diagnosis Primary osteoarthritis of right knee- Primary Elevated hemoglobin A1c- Primary Other abnormal blood chemistry Primary osteoarthritis of right knee [facility] Diagnosis Facial swelling- Primary Swelling, mass, or lump in head and neck documented in this encounter [employer] Work Phone: evaluation note* Diagnosis Primary osteoarthritis of right knee- Primary Hypertension, unspecified type Type 2 diabetes mellitus without complication, without long-term current use of insulin (HCC) Primary osteoarthritis of right knee- Primary [facility] Screening mammogram for breast cancer documented in this encounter [facility] general Narrative - Reported* Type Description Date Medical History diabetes mallitus Medical History high blood pressure Medical History psoriatic arthritis Surgical History gallbladder Surgical History elbow surgery Surgical History meniscal repair right knee Surgical History hysterectomy Surgical History C section Hospitalization History See Above Hospitalization History pancreatitis [employer] Other Hospital Discharge instructions* Instructions* Niko Griffin MD - 04/17/2019 You have facial swelling. I cannot find a reason for it that seems to be an emergency, like a venous or lymph obstruction. Please follow-up with your regular doctor. I also advised you to try and getoff Invokana and switch to a different drug which she might tolerate bettter. 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 Advance Directives and Living Will Power of Aviation Medicine Specialist Latest Code Status on File Code Status Date Activated Date Inactivated Comments Full Code 02/28/2018 5:50 PM 03/02/2018 4:23 PM Documents on File Type Date Recorded 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 Advance Directives and Living Will Power of Aviation Medicine Specialist Latest Code Status on File Code Status Date Activated Date Inactivated Comments Full Code 02/28/2018 5:50 PM 03/02/2018 4:23 PM Documents on File Type Date Recorded 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 ACP-Advance Directive ACP-Power of Aviation Medicine Specialist Documents on File Type Date Recorded 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 ACP-Advance Directive ACP-Power of Aviation Medicine Specialist Documents on File Type Date Recorded 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 Advance Directives and Living Will Documents on File Type Date Recorded 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 anation Advance Directives and Livin g Will 06/05/2021 1:11 PM Latest Code Status on File Code Status Date Activated Date Inactivated Comments Full Code 02/28/2018 5:50 PM 03/02/2018 4:23 PM History of Present Illness * Alma Garcia, Devyn Cunningham, DO - 06/01/2018 1:00 PM EST Formatting of [...] had blood work done yesterday at [facility] and I do not have results and [...] of high risk medication other than anticoagulant [facility] current use of non-steroidal anti-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 (NSAID) Abnormal [...] in 4 months in this encounter* Alma Garcia, Devyn Cunningham, DO - 02/01/2019 1:45 PM EDT History of [...] of high risk medication other than anticoagulant [facility] current use of non-steroidal anti-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 (NSAID) Fatigue, [...] phone. 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-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 (NSAID) Encounter [...] of psoriatic arthritis Personal history of arthritis [facility] current use of non-steroidal anti-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 (NSAID) Encounter [...] of psoriatic arthritis Personal history of arthritis [facility] current use of non-steroidal anti-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 (NSAID) Encounter [...] COCCYX W WO CONTRAST Karen Morrison MD [address] [place] [address] Status Reason Specialty Diagnoses / Procedures Referre d By Contact Referred To Contact Closed Radiology Diagnoses Breast cancer screening by mammogram Procedures ROSA DAMION DIGITAL SCREEN SELF REFERRAL W OR WO CAD BILATERAL Khurram Osman [address] [place] [address] Specialty Diagnoses / Procedures Referred By Contac t Referred To Contact Cardiology Diagnoses Primary osteoarthritis of right knee Noé Polanco MD [address] [place] [id number] [place] [address] Referral ID Status Reason Start Date Expiration Date Visits Requested Visits Authorized [id number] Authorized Specialty Services Required/Pat ient's Best Interest 07/30/2022 07/30/2023 1 1 Specialty Diagnoses / Procedures Referred By Contac t Referred To Contact Radiology Diagnoses Primary osteoarthritis of right knee Procedures CT Knee Right Without Contrast Noé Polanco MD [address] [place] [address] Referral ID Status Reason Start Date Expiration Date V isits Requested Visits Authorized [id number] New Request 07/30/2022 07/30/2023 1 1 Specialty Diagnoses / Procedures Referred By Gilbert segovia Referred To Contact Radiology Diagnoses Screening mammogram for breast cancer Procedures ROSA DAMION DIGITAL SCREEN SELF REFERRAL W OR WO CAD BILATERAL Malik Denson MD [address] [place] [address] Referral ID Status Reason Start Date Expiration Date Visits Re quested Visits Authorized [id number] Closed 06/29/2023 06/28/2024 1 1 Additional Source Comments INFORMATION SOURCE (unrecogn ized section and content) DATE CREATED AUTHOR 10/26/2017 [facility] DATE CREATED AUTHOR AUTHOR'S ORGANIZ ATION 11/02/2017 [facility] DATE CREATED AUTHOR AUTHOR'S ORGANIZ ATION 11/17/2017 [facility] DATE CREATED AUTHOR AUTHOR'S ORGANIZ ATION 08/04/2018 [facility] DATE CREATED AUTHOR AUTHOR'S ORGANIZ ATION 02/16/2021 [facility] DATE CREATED AUTHOR AUTHOR'S ORGANIZ ATION 07/22/2022 [facility] DATE CREATED AUTHOR AUTHOR'S ORGANIZ ATION 08/04/2022 [facility] DATE CREATED AUTHOR AUTHOR'S ORGANIZ ATION 08/10/2022 [facility] DATE CREATED AUTHOR AUTHOR'S ORGANIZ ATION 10/30/2023 [facility] DATE CREATED AUTHOR AUTHOR'S ORGANIZ ATION 12/09/2023 [facility] DATE CREATED AUTHOR AUTHOR'S ORGANIZ ATION 07/15/2024 [facility] DATE CREATED AUTHOR AUTHOR'S ORGANIZ ATION 08/03/2024 [facility] DATE CREATED AUTHOR AUTHOR'S ORGANIZ ATION 10/08/2024 [facility] [place] DATE CREATED AUTHOR AUTHOR'S ORGANIZ ATION 11/11/2024 [facility] DATE CREATED AUTHOR AUTHOR'S ORGANIZ ATION 02/24/2025 [facility] DATE CREATED AUTHOR AUTHOR'S ORGANIZ ATION 02/24/2025 [facility] Reason for Visit (unrecogniz ed section and [...] Procedures Referred By Contact Referred To Contact [facility] Diagnoses Lumbar facet arthropathy Rose Mary Sharpe, SNOW PLOW TRACTOR OPERATOR-SUPERVISOR [employer] [address] [place] [address] Reason Comments Joint Pain Patient is here [...] HC MRI-SPINE LUMBAR WO & W CONT ND MRI, LUMBAR SPINE Asya Peoples N [address] [place] [address] [facility] [address] [place] [address] Status Reason Specialty Diagnoses / Procedures Referre d By Contact Referred To Contact Closed Radiology Diagnoses Breast cancer screening by mammogram Procedures ROSA DAMION DIGITAL SCREEN SELF REFERRAL W OR WO CAD BILATERAL Khurram Osman [address] [place] [address] Reason Comments Joint Pain Patient is here [...] urination. Specialty Diagnoses / Procedures Referred By Contannabella t Referred To Contact Radiology Diagnoses Screening mammogram for breast cancer Procedures ROSA DAMION DIGITAL SCREEN SELF REFERRAL W OR WO CAD BILATERAL Malik Denson MD [address] [place] [id number] Referral ID Status Reason Start Date Expiration Date Visits Re quested Visits Authorized [id number] Closed 06/29/2023 06/28/2024 1 1 Care Teams (unrecognized sec tion and content) Tugboat Engineer Relationship Specialty Start Date End Date Khurram Osman MD [address] [place], [place] [phone] PCP - General Family Medicine 03/27/21 Tugboat Engineer Relationship Specialty Start Date End Date Khurram Osman MD [address] [place] [id number] PCP - General Family Medicine 03/27/21 Tugboat Engineer Relationship Specialty Start Date End Date Khurram Osman MD [address] [place], [place] [phone] PCP - General Family Medicine 03/27/21 Tugboat Engineer Relationship Specialty Start Date End Date Khurram Osman MD [address] [place] [id number] PCP - General Family Medicine 03/27/21 Tugboat Engineer Relationship Specialty Start Date End Date Khurram Osman MD [address] [place] [id number] PCP - General Family Medicine 03/27/21 Tugboat Engineer Relationship Specialty Start Date End Date Khurram Osman MD [address] [place] [id number] PCP - General Family Medicine 03/27/21 Tugboat Engineer Relationship Specialty Start Date End Date Khurram Osman MD [address] [place] [id number] PCP - General Family Medicine 03/27/21 Tugboat Engineer Relationship Specialty Start Date End Date Khurram Osman MD [address] [place] [id number] PCP - General Family [facility] 03/27/21 Tugboat Engineer Relationship Specialty Start Date End Date Khurram Osman [address] [place] [phone] [facility] - General 05/23/12 FOR RECORDS PERTAINING TO [...] BE BASED ON THE PRIMARY CLINICAL RECORDS. [facility] [employer] [facility]. provides no warranty or guarantee of the accuracy or completeness of information in this document.
== END 2025-02-26 14:49 | disposition home or self-care (01) ==
LOC: RAD 14:53
PROVIDERS: Visit Provider Nurse Practitioner
DX: E11.69 Type 2 diabetes mellitus with other specified complication (principal); S99.922A Unspecified injury of left foot, initial encounter; Z68.41 Body mass index [BMI] 40.0-44.9, adult; E66.813 Obesity, class 3; M85.88 Other specified disorders of bone density and structure, other site; M77.32 Calcaneal spur, left foot
CPT/HCPCS: 73630